=== PATIENT | female | born 1935 | race Caucasian/White ===

== ENCOUNTER 2017-08-13 06:38 | Inpatient (IN) | payer MEDICARE, OTHER ==
[2017-08-13] VITALS (9 sets, daily range): BP systolic 121–144; BP diastolic 58–75; PULSE 88–127; RESP 16–24; TEMP 98.3–99.6; O2SAT 94–99
[~2017-08-13] VITALS: Ht 154.9 cm; Wt 61.2 kg
[2017-08-13] MEDS ORDERED: PIPERACIL-TAZO 4.5 GM PREMIX 100 ML IV ONE ×2 (07:00→08:30)
[2017-08-13] MEDS ORDERED: SODIUM CHLORIDE 0.9% FLUSH 10 ML FLUSH IVF PRN (07:00)
[2017-08-13] MEDS ORDERED: RESP: ALBUTEROL 2.5 MG/IPRATROPIUM 0.5 MG NEB (SCH) INH ONE (07:00)
[2017-08-13] MEDS ORDERED: VANCOMYCIN INJ 1,000 MG in SODIUM CHLOR 0.9% 250 ML INJ 250 ML IV ONE ×2 (07:00→08:30)
--- NOTE | 2017-08-13 07:16 | PD ---
HPI Chief Complaint: Respiratory Distress Time Seen by Provider: 06:51 Travel History International Travel<30 days: No Contact w/Intl Traveler<30days: No Traveled to known affect area: No History of Present Illness HPI 81-year-old female presents to the emergency department from [facility] by EMS transport after penitentiary staff reportedly found the patient this morning in marked respiratory distress with dried vomitus about her mouth and hair and low room air O2 saturations. According to project leader report upon their arrival patient was showing evidence of respiratory distress with accessory muscle use janki-oral cyanosis dried vomitus around her mouth and in her clear and room air O2 saturations of 82%. Patient is placed on nonrebreather mask with O2 saturations only increasing to 92%. Attempt was made to place patient on CPAP but patient refused and ripped off the mask and therefore again on nonrebreather mask and presents now with O2 saturations of 96 -99%. No report of recent febrile illness. Healthcare facility did not provide paramedics reportedly with any medical history other than she only has a GCS of 14 and more recently has had a GCS of 11. No report of febrile illness. No report of injury or fall. No reported recent history of vomiting or GI illness. No other history available and patient is unable provide adequate history. PFSH Past Medical History Narrative Medical And Anemia atrial fibrillation CHF depression hypertension PEG tube renal failure; medical history from nursing facility dysphasia difficulty with ambulation dyspnea atrial fibrillation GERD gastrostomy anemia hypothyroidism vitamin deficiency dyslipidemia major depressive disorder central hypertension CHF carotid artery stenosis arteritis gastritis joint cell arteritis chronic kidney disease fever candidiasis constipation DNR; PCP: Dr Solares Anemia: Yes Atrial Fibrillation: Yes Depression: Yes (MDD) Cardiovascular Problems: Yes (OCCLUSION AND STENOSIS OF UNSPECIFIED CAROTID ARTERY) Congestive Heart Failure: Yes Gastrointestinal Disorders: Yes (GASTRITIS; GTUBE;GASTROSTOMY) GERD: Yes Hypertension: Yes Pneumonia: Yes Renal Failure: Yes Thyroid Disease: Yes Social History Alcohol Use: No Tobacco Use: No Substance Use: No Allergies-Medications (Allergen,Severity, Reaction): Coded Allergies: ciprofloxacin (Verified Allergy, Unknown, 08/13/17) morphine (Verified Allergy, Unknown, 08/13/17) Review of Systems ROS Limitations: Poor Historian Except as stated in HPI: all other systems reviewed are Neg Physical Exam Narrative GENERAL: Elderly female with supplemental oxygen and placed in no acute respiratory distress at this time SKIN: Warm and dry. HEAD: Normocephalic. EYES: No scleral icterus. No injection or drainage. NECK: Supple, trachea midline. No JVD or lymphadenopathy. CARDIOVASCULAR: Increased irregular irregular rate and rhythm without murmurs, gallops, or rubs. RESPIRATORY: Breath sounds equal bilaterally with bibasilar crackles. No accessory muscle use. GASTROINTESTINAL: Abdomen soft, non-tender, nondistended. Gastrostomy tube. MUSCULOSKELETAL: No cyanosis, or edema. BACK: Nontender without obvious deformity. No CVA tenderness. Data Data Last Documented VS Vital Signs Date Time Temp Pulse Resp B/P (MAP) Pulse Ox O2 Delivery O2 Flow Rate FiO2 08/13/17 06:45 95 Non-Rebreather 15.00 08/13/17 06:40 127 24 121/71 (88) Orders Orders Complete Blood Count With Diff (08/13/17 06:51) Comprehensive Metabolic Panel (08/13/17 06:51) B-Type Natriuretic Peptide (08/13/17 06:51) Act Partial Throm Time (Ptt) (08/13/17 06:51) Prothrombin Time / Inr (Pt) (08/13/17 06:51) Magnesium (Mg) (08/13/17 06:51) Ckmb (Isoenzyme) Profile (08/13/17 06:51) Troponin I (08/13/17 06:51) Urinalysis - C+S If Indicated (08/13/17 06:51) Blood Culture (08/13/17 06:51) Iv Access Insert/Monitor (08/13/17 06:51) Electrocardiogram (08/13/17 06:51) Ecg Monitoring (08/13/17 06:51) Oximetry (08/13/17 06:51) Oxygen Administration (08/13/17 06:51) Chest, Single Ap (08/13/17 06:51) Sodium Chloride 0.9% Flush (Ns Flush) (08/13/17 07:00) Albuterol-Ipratropium Neb (Duoneb Neb) (08/13/17 07:00) Piperacil-Tazo 4.5 Gm Premix (Zosyn 4.5 (08/13/17 07:00) Vancomycin Inj (Vancomycin Inj) (08/13/17 07:00) Labs Laboratory Tests Test 08/13/17 06:45 White Blood Count 11.3 TH/MM3 Red Blood Count 3.94 MIL/MM3 Hemoglobin 12.3 GM/DL Hematocrit 37.2 % Mean Corpuscular Volume 94.6 FL Mean Corpuscular Hemoglobin 31.3 PG Mean Corpuscular Hemoglobin Concent 33.1 % Red Cell Distribution Width 17.8 % Platelet Count 395 TH/MM3 Mean Platelet Volume 8.2 FL Neutrophils (%) (Auto) 88.1 % Lymphocytes (%) (Auto) 7.2 % Monocytes (%) (Auto) 4.1 % Eosinophils (%) (Auto) 0.1 % Basophils (%) (Auto) 0.5 % Neutrophils # (Auto) 10.0 TH/MM3 Lymphocytes # (Auto) 0.8 TH/MM3 Monocytes # (Auto) 0.5 TH/MM3 Eosinophils # (Auto) 0.0 TH/MM3 Basophils # (Auto) 0.1 TH/MM3 CBC Comment DIFF FINAL Differential Comment Prothrombin Time 10.1 SEC Prothromb Time International Ratio 1.0 RATIO Activated Partial Thromboplast Time 23.9 SEC MDM Medical Decision Making Medical Screen Exam Complete: Yes Emergency Medical Condition: Yes Medical Record Reviewed: Yes Differential Diagnosis Dyspnea, aspiration, pneumonia, CHF, PE, ACS, A. fib with RVR, sepsis, TIA, CVA Narrative Course Patient placed on cardiac rn with continuous pulse oximetry Pernell [place] administered supplemental oxygen remains in place; presumptive antibiotic coverage administered At 7:20 AM care was signed over to oncoming physician Ashly Carvajal MD Aug 13, 2017 07:15
[2017-08-13 07:20] LABS: BASOPHIL # 0.1 TH/MM3 (0-0.2); BASOPHIL % 0.5 % (0.0-2.0); EOSINOPHIL % 0.1 % (0.0-4.0); HEMATOCRIT 37.2 % (35.0-46.0); HEMOGLOBIN 12.3 GM/DL (11.6-15.3); LYMPH % 7.2 % (9.0-44.0); LYMPHOCYTE # 0.8 TH/MM3 (1.0-4.8); MEAN CELL VOLUME 94.6 FL (80.0-100.0); MEAN CORPUSCULAR HEMOGLOBIN 31.3 PG (27.0-34.0); MEAN CORPUSCULAR HGB CONC 33.1 % (32.0-36.0); MEAN PLATELET VOLUME 8.2 FL (7.0-11.0); MONO % 4.1 % (0.0-8.0); MONOCYTE # 0.5 TH/MM3 (0-0.9); NEUT % 88.1 % (16.0-70.0); PLATELET COUNT 395 TH/MM3 (150-450); RED BLOOD COUNT 3.94 MIL/MM3 (4.00-5.30); RED CELL DISTRIBUTION WIDTH 17.8 % (11.6-17.2); WHITE BLOOD COUNT 11.3 TH/MM3 (4.0-11.0)
--- NOTE | 2017-08-13 07:21 | RADRPT ---
EXAM DATE/TIME: 08/13/2017 07:05 [facility] COMPARISON: No previous studies available for comparison. INDICATIONS : Short of breath, cough. MEDICAL HISTORY : None. SURGICAL HISTORY : None. ENCOUNTER: Initial ACUITY: 1 day PAIN SCORE: 0/10 LOCATION: Bilateral chest FINDINGS: No infiltrates demonstrated. No pleural effusion or pneumothorax. Heart size within normal limits. Th oracic aorta is tortuous and atherosclerotic. CONCLUSION: No acute cardiopulmonary disease demonstrated. William Ceballos MD on August 13, 2017 at 7:18 Board Certified Radiologist. This report was verified electronically.
[2017-08-13 07:30] LABS: PROTHROMBIN TIME - PATIENT 10.1 SEC (9.8-11.6)
[2017-08-13 07:52] LABS: ALBUMIN 3.2 GM/DL (3.4-5.0); ALT (GPT) 21 U/L (10-53); AST (GOT) 23 U/L (15-37); BICARBONATE 28.2 MEQ/L (21.0-32.0); BLOOD UREA NITROGEN 29 MG/DL (7-18); CHLORIDE 103 MEQ/L (98-107); CREATININE 1.32 MG/DL (0.50-1.00); GLOMERULAR FILTRATION RATE 39 ML/MIN (>89); GLUCOSE,RANDOM 163 MG/DL (74-106); MAGNESIUM 2.1 MG/DL (1.5-2.5); SODIUM (NA) 142 MEQ/L (136-145)
[2017-08-13 07:56] LABS: ALKALINE PHOSPHATASE 77 U/L (45-117); TOTAL BILIRUBIN ADULT 0.7 MG/DL (0.2-1.0); TOTAL PROTEIN 6.8 GM/DL (6.4-8.2); TROPONIN I LESS THAN 0.02 NG/ML (0.02-0.05)
[2017-08-13 08:08] LABS: BACTERIA, URINE FEW /hpf; BILIRUBIN, URINE NEG (NEG); BLOOD, URINE NEG (NEG); GLUCOSE,URINE NEG (NEG); HYALINE CAST, URINE 1 /lpf (RARE); KETONE, URINE NEG (NEG); MUCUS URINE FEW /lpf (OCC); NITRITE,URINE POS (NEG); SQUAMOUS EPITHELIAL CELL URINE 1 /hpf (0-5); TRANSITIONAL EPI CELLS, URINE <1 /hpf; URINE COLOR YELLOW (YELLW/STRAW); URINE LEUKOCYTE ESTERASE LARGE (NEG); WHITE BLOOD CELL CLUMPS FEW
--- NOTE | 2017-08-13 08:31 | PD ---
Physical Exam Date Seen by Provider: Aug 13, 2017 Time Seen by Provider: 08:32 Narrative 81-year-old female came to the emergency room with history of vomiting, shortness of breath as she was found in distress at her group home. She has a baseline GCS of 13-14. As per the group home staff she was seen to be sitting up coughing and short of breath with dried emesis around her and satting 82% on room air. EMS was called. She was seen by the previous ER physician. Please refer to her history and physical for further details. Patient was put on high flow oxygen in the emergency room and was noticed to be in rapid A. fib. She has history of atrial fibrillation and her heart rate since then has come down to the 80s to 90s. She seems more comfortable. Sign out was to follow-up on the labs and the x-ray. Blood test results are back and patient has slight leukocytosis and lactic acidosis. UA is positive for UTI. Her chest x-ray was read negative by the radiologist. I have ordered for IV Zosyn and vancomycin as per the sepsis protocol. Patient will require to be admitted. Awaiting for the hospitalist to call back for admission. Data Data Last Documented VS Vital Signs Date Time Temp Pulse Resp B/P (MAP) Pulse Ox O2 Delivery O2 Flow Rate FiO2 08/13/17 08:43 94 21 99 Nasal Cannula 5.00 08/13/17 06:40 121/71 (88) Orders Orders Complete Blood Count With Diff (08/13/17 06:51) Comprehensive Metabolic Panel (08/13/17 06:51) B-Type Natriuretic Peptide (08/13/17 06:51) Act Partial Throm Time (Ptt) (08/13/17 06:51) Prothrombin Time / Inr (Pt) (08/13/17 06:51) Magnesium (Mg) (08/13/17 06:51) Ckmb (Isoenzyme) Profile (08/13/17 06:51) Troponin I (08/13/17 06:51) Urinalysis - C+S If Indicated (08/13/17 06:51) Blood Culture (08/13/17 06:51) Iv Access Insert/Monitor (08/13/17 06:51) Electrocardiogram (08/13/17 06:51) Ecg Monitoring (08/13/17 06:51) Oximetry (08/13/17 06:51) Oxygen Administration (08/13/17 06:51) Chest, Single Ap (08/13/17 06:51) Sodium Chloride 0.9% Flush (Ns Flush) (08/13/17 07:00) Albuterol-Ipratropium Neb (Duoneb Neb) (08/13/17 07:00) Piperacil-Tazo 4.5 Gm Premix (Zosyn 4.5 (08/13/17 07:00) Vancomycin Inj (Vancomycin Inj) (08/13/17 07:00) Lactic Acid (08/13/17 07:32) Urine Culture (08/13/17 07:10) Piperacil-Tazo 4.5 Gm Premix (Zosyn 4.5 (08/13/17 08:30) Vancomycin Inj (Vancomycin Inj) (08/13/17 08:30) Admit Order (Ed Use Only) (08/13/17 08:49) Labs Laboratory Tests Test 08/13/17 06:45 08/13/17 06:51 08/13/17 07:00 08/13/17 07:10 White Blood Count 11.3 TH/MM3 Red Blood Count 3.94 MIL/MM3 Hemoglobin 12.3 GM/DL Hematocrit 37.2 % Mean Corpuscular Volume 94.6 FL Mean Corpuscular Hemoglobin 31.3 PG Mean Corpuscular Hemoglobin Concent 33.1 % Red Cell Distribution Width 17.8 % Platelet Count 395 TH/MM3 Mean Platelet Volume 8.2 FL Neutrophils (%) (Auto) 88.1 % Lymphocytes (%) (Auto) 7.2 % Monocytes (%) (Auto) 4.1 % Eosinophils (%) (Auto) 0.1 % Basophils (%) (Auto) 0.5 % Neutrophils # (Auto) 10.0 TH/MM3 Lymphocytes # (Auto) 0.8 TH/MM3 Monocytes # (Auto) 0.5 TH/MM3 Eosinophils # (Auto) 0.0 TH/MM3 Basophils # (Auto) 0.1 TH/MM3 CBC Comment DIFF FINAL Differential Comment Prothrombin Time 10.1 SEC Prothromb Time International Ratio 1.0 RATIO Activated Partial Thromboplast Time 23.9 SEC B-Type Natriuretic Peptide 56 PG/ML Blood Urea Nitrogen 29 MG/DL Creatinine 1.32 MG/DL Random Glucose 163 MG/DL Total Protein 6.8 GM/DL Albumin 3.2 GM/DL Calcium Level 9.0 MG/DL Magnesium Level 2.1 MG/DL Alkaline Phosphatase 77 U/L Aspartate Amino Transf (AST/SGOT) 23 U/L Alanine Aminotransferase (ALT/SGPT) 21 U/L Total Bilirubin 0.7 MG/DL Sodium Level 142 MEQ/L Potassium Level 5.1 MEQ/L Chloride Level 103 MEQ/L Carbon Dioxide Level 28.2 MEQ/L Anion Gap 11 MEQ/L Estimat Glomerular Filtration Rate 39 ML/MIN Total Creatine Kinase 57 U/L Troponin I LESS THAN 0.02 NG/ML Lactic Acid Level 3.4 mmol/L Urine Color YELLOW Urine Turbidity HAZY Urine pH 5.0 Urine Specific [place] 1.013 Urine Protein NEG mg/dL Urine Glucose (UA) NEG mg/dL Urine Ketones NEG mg/dL Urine Occult Blood NEG Urine Nitrite POS Urine Bilirubin NEG Urine Urobilinogen LESS THAN 2.0 MG/DL Urine Leukocyte Esterase LARGE Urine RBC 3 /hpf Urine WBC 23 /hpf Urine WBC Clumps FEW Urine Squamous Epithelial Cells 1 /hpf Urine Transitional Epithelial Cells <1 /hpf Urine Bacteria FEW /hpf Urine Hyaline Casts 1 /lpf Urine Mucus FEW /lpf Microscopic Urinalysis Comment CATH-CULTURE IND MDM Supervised Visit with ADEN: No Critical Care Narrative Aggregate critical care time was 30 minutes. Time to perform other separately billable procedures was not included in the critical care time. My time did not include minutes spent treating any other patients simultaneously or on activities that did not directly contribute to the patient's treatment. The services I provided to this patient were to treat and/or prevent clinically significant deterioration that could result in: Respiratory distress, hypoxia, sepsis I provided critical care services requiring my management, as noted below: Chart data review, documentation time, medication orders and management, vital sign assessments/reviewing monitor data, ordering and reviewing lab tests, ordering and interpreting/reviewing x-rays and diagnostic studies, care of the patient and discussion of the patient with the admitting physicians. Diagnosis Primary Impression: Respiratory distress Additional Impressions: Hypoxia Sepsis Qualified Codes: A41.9 - Sepsis, unspecified organism UTI (urinary tract infection) Qualified Codes: N39.0 - Urinary tract infection, site not specified possible aspiration pneumonia Admitting Information Admitting Physician Requests: Miranda Rodas MD Aug 13, 2017 08:31
[2017-08-13 10:03] LABS: LACTIC ACID SEPSIS PROTOCOL 2.6 mmol/L (0.4-2.0)
[2017-08-13] MEDS ORDERED: MAGNESIUM HYDROXIDE SUSP 30 ML CUP PO PRN (10:15)
[2017-08-13] MEDS ORDERED: ACETAMINOPHEN 325 MG TAB PO PRN (10:15)
[2017-08-13] MEDS ORDERED: SENNOSIDES 8.6 MG TAB PO PRN (10:15)
[2017-08-13] MEDS ORDERED: BISACODYL 10 MG SUPP RECTAL PRN (10:15)
[2017-08-13] MEDS ORDERED: LACTULOSE SYRUP 20 GM/30 ML CUP PO PRN (10:15)
[2017-08-13] MEDS ORDERED: NALOXONE HCL 0.4 MG/ML AMP IV PUSH PRN (10:15)
--- NOTE | 2017-08-13 10:23 | HHI.HP ---
History of Present Illness Service [facility] practice Primary Care Physician Lio Solares, DO Admission Diagnosis sepsis, hypoxia, respiratory distress, possible aspiration pneumonia Diagnoses: (1) Sepsis Diagnosis: Principal (2) UTI (urinary tract infection) Diagnosis: Principal (3) Hypoxia History of Present Illness 81 y/o female Presented Evac from [facility], found in respratory distress with room air o2 saturation 82% Patient is placed on nonrebreather mask with O2 saturations only increasing to 92% She did refuse CPAP.. She was recently treated for PNA. It is reported that She had dried vomit around mouth, per son she had been vomiting undigested food after dinner. Recently started on PO foods, 1week prior , does have feeding tube in place. Review of Systems Respiratory: COMPLAINS OF: Shortness of breath Cardiovascular: COMPLAINS OF: Palpitations Gastrointestinal: COMPLAINS OF: Difficulty Swallowing Musculoskeletal: COMPLAINS OF: Joint pain Neurologic: COMPLAINS OF: Abnormal gait Past Family Social History Allergies: Coded Allergies: ciprofloxacin (Verified Allergy, Unknown, 08/13/17) morphine (Verified Allergy, Unknown, 08/13/17) Past Medical History Afib, CHF, HTN, Hypothyroid, PNA, cardiac stenosis Physical Exam Vital Signs Vital Signs Date Time Temp Pulse Resp B/P (MAP) Pulse Ox O2 Delivery O2 Flow Rate FiO2 08/13/17 08:43 94 21 99 Nasal Cannula 5.00 08/13/17 08:42 99 Nasal Cannula 5.00 08/13/17 08:42 21 99 Nasal Cannula 5.00 08/13/17 06:45 95 Non-Rebreather 15.00 08/13/17 06:40 127 24 121/71 (88) 95 Physical Exam GENERAL: Frail, elderly. SKIN: No rashes, warm and dry. HEAD: Atraumatic. Normocephalic. No temporal or scalp tenderness. EYES: Pupils equal round and reactive. No injection or drainage. ENT: Nose without bleeding, purulent drainage or septal hematoma. Throat without erythema, tonsillar hypertrophy or exudate. Uvula midline. Airway patent. NECK: Trachea midline. No JVD or lymphadenopathy. Supple, nontender, no meningeal signs. CARDIOVASCULAR: S1, S2 without murmurs, gallops, or rubs. RESPIRATORY: Clear to auscultation. Breath sounds equal bilaterally. No wheezes , rales, or rhonchi. GASTROINTESTINAL: Abdomen soft, non-tender, nondistended.feeding tube in place MUSCULOSKELETAL: Extremities without clubbing, cyanosis, or edema. No joint tenderness, effusion, or edema noted. No calf tenderness. Negative Homans sign bilaterally. NEUROLOGICAL: Awake and alert. not to conversive, follows commands Laboratory Laboratory Tests Test 08/13/17 06:45 08/13/17 06:51 08/13/17 07:00 08/13/17 07:10 White Blood Count 11.3 Red Blood Count 3.94 Hemoglobin 12.3 Hematocrit 37.2 Mean Corpuscular Volume 94.6 Mean Corpuscular Hemoglobin 31.3 Mean Corpuscular Hemoglobin Concent 33.1 Red Cell Distribution Width 17.8 Platelet Count 395 Mean Platelet Volume 8.2 Neutrophils (%) (Auto) 88.1 Lymphocytes (%) (Auto) 7.2 Monocytes (%) (Auto) 4.1 Eosinophils (%) (Auto) 0.1 Basophils (%) (Auto) 0.5 Neutrophils # (Auto) 10.0 Lymphocytes # (Auto) 0.8 Monocytes # (Auto) 0.5 Eosinophils # (Auto) 0.0 Basophils # (Auto) 0.1 CBC Comment DIFF FINAL Differential Comment Prothrombin Time 10.1 Prothromb Time International Ratio 1.0 Activated Partial Thromboplast Time 23.9 B-Type Natriuretic Peptide 56 Blood Urea Nitrogen 29 Creatinine 1.32 Random Glucose 163 Total Protein 6.8 Albumin 3.2 Calcium Level 9.0 Magnesium Level 2.1 Alkaline Phosphatase 77 Aspartate Amino Transf (AST/SGOT) 23 Alanine Aminotransferase (ALT/SGPT) 21 Total Bilirubin 0.7 Sodium Level 142 Potassium Level 5.1 Chloride Level 103 Carbon Dioxide Level 28.2 Anion Gap 11 Estimat Glomerular Filtration Rate 39 Total Creatine Kinase 57 Troponin I LESS THAN 0.02 Lactic Acid Level 3.4 Urine Color YELLOW Urine Turbidity HAZY Urine pH 5.0 Urine Specific [place] 1.013 Urine Protein NEG Urine Glucose (UA) NEG Urine Ketones NEG Urine Occult Blood NEG Urine Nitrite POS Urine Bilirubin NEG Urine Urobilinogen LESS THAN 2.0 Urine Leukocyte Esterase LARGE Urine RBC 3 Urine WBC 23 Urine WBC Clumps FEW Urine Squamous Epithelial Cells 1 Urine Transitional Epithelial Cells <1 Urine Bacteria FEW Urine Hyaline Casts 1 Urine Mucus FEW Microscopic Urinalysis Comment CATH-CULTURE IND Test 08/13/17 09:20 Lactic Acid Level 2.6 Date/Time Source Procedure Growth Status 08/13/17 06:51 Blood Peripheral Aerobic Blood Culture Pending Received 08/13/17 06:51 Blood Peripheral Anaerobic Blood Culture Pending Received 08/13/17 07:10 Urine Catheterized Urine Urine Culture Pending Received Result Diagram: 08/13/1745 08/13/17650 Imaging Last 24 hours Impressions Chest X-Ray 08/13/17650 Signed Impressions: Service Date/Time: Sunday, August 13, 2017 07:05 - CONCLUSION: No acute cardiopulmonary disease demonstrated. MD Angi Cabrera VTE Risk Assessment Capsiva VTE Risk Assessment: Mod/High Risk (score >= 2) VTE Pharm Contraindication: Documented (currently on Eliquis ) Caprini Risk Assessment Model Point Value = 1 Point Value = 2 Point Value = 3 Point Value = 5 Age 41-60 Minor surgery BMI > 25 kg/m2 Swollen legs Varicose veins or History of unexplained or recurrent spontaneous Oral contraceptives or hormone replacement Sepsis (< 1 month) Serious lung disease, including pneumonia (< 1 month) Abnormal pulmonary function Acute myocardial infarction Congestive heart failure (< 1 month) History of inflammatory bowel disease Medical patient at bed rest Age 61-74 Arthroscopic surgery Major open surgery (> 45 min) Laparoscopic surgery (> 45 min) Malignancy Confined to bed (> 72 hours) Immobilizing plaster cast Central venous access Age >= 75 History of VTE Family history of VTE Factor V Leiden Prothrombin [id number] Lupus anticoagulant Anticardiolipin antibodies Elevated serum homocysteine Heparin-induced thrombocytopenia Other congenital or acquired thrombophilia Stroke (< 1 month) Elective arthroplasty Hip, pelvis, or leg fracture Acute spinal cord injury (< 1 month) Prophylaxis Regimen Total Risk Factor Score Risk Level Prophylaxis Regimen 0-1 Low Early ambulation 2 Moderate Order ONE of the following: *Sequential Compression Device (SCD) *Heparin 5000 units SQ BID 3-4 Higher Order ONE of the following medications: *Heparin 5000 units SQ TID *Enoxaparin/Lovenox 40 mg SQ daily (WT < 150 kg, CrCl > 30 mL/min) *Enoxaparin/Lovenox 30 mg SQ daily (WT < 150 kg, CrCl > 10-29 mL/min) *Enoxaparin/Lovenox 30 mg SQ BID (WT < 150 kg, CrCl > 30 mL/min) AND/OR *Sequential Compression Device (SCD) 5 or more Highest Order ONE of the following medications: *Heparin 5000 units SQ TID (Preferred with Epidurals) *Enoxaparin/Lovenox 40 mg SQ daily (WT < 150 kg, CrCl > 30 mL/min) *Enoxaparin/Lovenox 30 mg SQ daily (WT < 150 kg, CrCl > 10-29 mL/min) *Enoxaparin/Lovenox 30 mg SQ BID (WT < 150 kg, CrCl > 30 mL/min) AND *Sequential Compression Device (SCD) Assessment and Plan Problem List: (1) Sepsis ICD Codes: A41.9 - Sepsis, unspecified organism Status: Acute Plan: Lactic Acid 3.4 Lkikely related to urine, ID consulted, given Zosyn and Vanco in ER. (2) Hypoxia ICD Codes: R09.02 - Hypoxemia Status: Acute Plan: Keep sat's above 92>, Duo Nebs Cxr negative (3) HTN (hypertension) ICD Codes: I10 - Essential (primary) hypertension Plan: Monitor B/P, restart B/P meds, Amlodipine, Will hold ketan for now r/t renal functions Problem Qualifiers (1) Sepsis: Qualified Codes: A41.9 - Sepsis, unspecified organism (2) UTI (urinary tract infection): Qualified Codes: N39.0 - Urinary tract infection, site not specified Aranza Fine Aug 13, 2017 10:22
[2017-08-13] MEDS ORDERED: ALBU.5I NEB (11:43)
[2017-08-13] MEDS ORDERED: ENAL5TAB98 PO (11:43)
[2017-08-13] MEDS ORDERED: PRED5TAB PO (11:43)
[2017-08-13] MEDS ORDERED: CITRSOL4 PO (11:43)
[2017-08-13] MEDS ORDERED: LEVO50TA4 PO (11:43)
[2017-08-13] MEDS ORDERED: MILKSUS PO (11:43)
[2017-08-13] MEDS ORDERED: DULC10SU3 RECTAL (11:43)
[2017-08-13] MEDS ORDERED: CHOL10008 (11:43)
[2017-08-13] MEDS ORDERED: LOTR15T TOPICAL (11:43)
[2017-08-13] MEDS ORDERED: AMLO10TA2 PO (11:43)
[2017-08-13] MEDS ORDERED: PROP150T PO (11:43)
[2017-08-13] MEDS ORDERED: FURO1TAB62 PO (11:43)
[2017-08-13] MEDS ORDERED: TYLE325T PO (11:43)
[2017-08-13] MEDS ORDERED: TRAM50TA PO (11:43)
[2017-08-13] MEDS ORDERED: FERR324T PO (11:43)
[2017-08-13] MEDS ORDERED: ATOR40TA16 PO (11:43)
[2017-08-13] MEDS ORDERED: CYAN100025 SL (11:43)
[2017-08-13] MEDS ORDERED: APIX2.5T PO (11:43)
[2017-08-13] MEDS ORDERED: ENOXAPARIN SODIUM 40 MG/0.4 ML SYRINGE SQ SCH (12:00)
[2017-08-13] MEDS: SODIUM CHLOR 0.9% 1000 ML INJ 1,000 ML IV SCH ×2 (12:13→20:13)
--- NOTE | 2017-08-13 16:03 | PD.CONS ---
HPI Service Nephrology Consult Requested By Dr. Solares Reason for Consult REESE on CKD Primary Care Physician Lio Solares, DO History of Present Illness Patient is a 81-year-old female presents to the emergency department from [facility] by EMS transport for marked respiratory distress. According to coverstitch binder report upon their arrival patient was showing evidence of respiratory distress with accessory muscle use merari-oral cyanosis dried vomitus around her mouth and in her clear and room air O2 saturations of 82%. Patient is placed on nonrebreather mask with O2 saturations only increasing to 92%. She is on 4 liters via nasal cannula now with good sats. Patient is found to have a abdormal UA. Chest xray with no acute cardiopulmonary disease demonstrated. Patient also noted to have elevated creatinine at 1.32 and GFR of 39 ml/min. Past medical history of Afib, CHF, HTN, Hypothyroid, PNA, cardiac stenosis, and CVA. She is currently on oral diet but does have PEG tube. (Majo Hanley) Review of Systems Constitutional: COMPLAINS OF: Fatigue Respiratory: COMPLAINS OF: Shortness of breath Cardiovascular: DENIES: Chest pain, Lower Extremity Edema Gastrointestinal: COMPLAINS OF: Vomiting, DENIES: Abdominal pain (Majo Hanley) Past Family Social History Allergies: Coded Allergies: ciprofloxacin (Verified Allergy, Unknown, 08/13/17) morphine (Verified Allergy, Unknown, 08/13/17) Past Medical History Afib, CHF, HTN, Hypothyroid, PNA, cardiac stenosis, CVA, temporal arteritis, gastritis, CKD Active Ordered Medications Current Medications Medications (Trade) Dose Ordered Sig/Ashlee Route Start Time Stop Time Status Last Admin (NS Flush) 2 ml UNSCH PRN IVF 08/13/17 07:00 Sodium Chloride 1,000 ml @ 100 mls/hr Q10H IV 08/13/17 10:13 08/13/17 12:13 (Tylenol) 650 mg Q4H PRN PO 08/13/17 10:15 (Zofran Inj) 4 mg Q6H PRN IVP 08/13/17 10:15 (Lovenox Inj) 40 mg Q24H SQ 08/13/17 12:00 08/13/17 12:13 (Narcan Inj) 0.4 mg UNSCH PRN IV PUSH 08/13/17 10:15 (Merari-Colace) 1 tab BID PO 08/13/17 21:00 (Milk Of Magnesia Liq) 30 ml Q12H PRN PO 08/13/17 10:15 (Senokot) 17.2 mg Q12H PRN PO 08/13/17 10:15 (Dulcolax Supp) 10 mg DAILY PRN RECTAL 08/13/17 10:15 (Lactulose Liq) 30 ml DAILY PRN PO 08/13/17 10:15 Social History Does not smoke or use ETOH [facility] (Majo Hanley) Physical Exam Vital Signs Vital Signs Date Time Temp Pulse Resp B/P (MAP) Pulse Ox O2 Delivery O2 Flow Rate FiO2 08/13/17 14:00 100 19 125/60 (81) 95 Nasal Cannula 4.00 08/13/17 11:00 98 19 121/58 (79) 96 Nasal Cannula 4.00 08/13/17 08:43 94 21 99 Nasal Cannula 5.00 08/13/17 08:42 99 Nasal Cannula 5.00 08/13/17 08:42 21 99 Nasal Cannula 5.00 08/13/17 08:00 100 Non-Rebreather 15.00 08/13/17 06:45 95 Non-Rebreather 15.00 08/13/17 06:40 127 24 121/71 (88) 95 Physical Exam GENERAL: Elderly female with supplemental oxygen and placed in no acute respiratory distress at this time SKIN: Warm and dry. HEAD: Normocephalic. EYES: No scleral icterus. No injection or drainage. NECK: Supple, trachea midline. No JVD or lymphadenopathy. CARDIOVASCULAR: Increased irregular irregular rate and rhythm without murmurs, gallops, or rubs. RESPIRATORY: Breath sounds equal bilaterally with bibasilar crackles. No accessory muscle use. GASTROINTESTINAL: Abdomen soft, non-tender, nondistended. Gastrostomy tube. MUSCULOSKELETAL: No cyanosis, or edema. BACK: Nontender without obvious deformity. No CVA tenderness. Laboratory Laboratory Tests Test 08/13/17 06:45 08/13/17 06:51 08/13/17 07:00 08/13/17 07:10 White Blood Count 11.3 Red Blood Count 3.94 Hemoglobin 12.3 Hematocrit 37.2 Mean Corpuscular Volume 94.6 Mean Corpuscular Hemoglobin 31.3 Mean Corpuscular Hemoglobin Concent 33.1 Red Cell Distribution Width 17.8 Platelet Count 395 Mean Platelet Volume 8.2 Neutrophils (%) (Auto) 88.1 Lymphocytes (%) (Auto) 7.2 Monocytes (%) (Auto) 4.1 Eosinophils (%) (Auto) 0.1 Basophils (%) (Auto) 0.5 Neutrophils # (Auto) 10.0 Lymphocytes # (Auto) 0.8 Monocytes # (Auto) 0.5 Eosinophils # (Auto) 0.0 Basophils # (Auto) 0.1 CBC Comment DIFF FINAL Differential Comment Prothrombin Time 10.1 Prothromb Time International Ratio 1.0 Activated Partial Thromboplast Time 23.9 B-Type Natriuretic Peptide 56 Blood Urea Nitrogen 29 Creatinine 1.32 Random Glucose 163 Total Protein 6.8 Albumin 3.2 Calcium Level 9.0 Magnesium Level 2.1 Alkaline Phosphatase 77 Aspartate Amino Transf (AST/SGOT) 23 Alanine Aminotransferase (ALT/SGPT) 21 Total Bilirubin 0.7 Sodium Level 142 Potassium Level 5.1 Chloride Level 103 Carbon Dioxide Level 28.2 Anion Gap 11 Estimat Glomerular Filtration Rate 39 Total Creatine Kinase 57 Troponin I LESS THAN 0.02 Lactic Acid Level 3.4 Urine Color YELLOW Urine Turbidity HAZY Urine pH 5.0 Urine Specific [place] 1.013 Urine Protein NEG Urine Glucose (UA) NEG Urine Ketones NEG Urine Occult Blood NEG Urine Nitrite POS Urine Bilirubin NEG Urine Urobilinogen LESS THAN 2.0 Urine Leukocyte Esterase LARGE Urine RBC 3 Urine WBC 23 Urine WBC Clumps FEW Urine Squamous Epithelial Cells 1 Urine Transitional Epithelial Cells <1 Urine Bacteria FEW Urine Hyaline Casts 1 Urine Mucus FEW Microscopic Urinalysis Comment CATH-CULTURE IND Test 08/13/17 09:20 08/13/17 12:29 Lactic Acid Level 2.6 1.6 Date/Time Source Procedure Growth Status 08/13/17 06:51 Blood Peripheral Aerobic Blood Culture Pending Received 08/13/17 06:51 Blood Peripheral Anaerobic Blood Culture Pending Received 08/13/17 07:10 Urine Catheterized Urine Urine Culture Pending Received (Majo Hanley) Result Diagram: 08/13/1745 08/13/17650 Imaging Last Impressions Chest X-Ray 08/13/1751 Signed Impressions: Service Date/Time: Sunday, August 13, 2017 07:05 - CONCLUSION: No acute cardiopulmonary disease demonstrated. William Ceblalos MD (Majo Hanley) Assessment and Plan Problem List: (1) REESE (acute kidney injury) ICD Codes: N17.9 - Acute kidney failure, unspecified Plan: REESE on CKD most likely prerenal from poor PO intake with dysphagia and UTI Patient with CKD from possibly HTN or renovascular disease. Baseline GFR not available UA negative for proteinuria. Plan Continue to give IVF Continue to hold lasix and monitor for fluid overload HTN well controlled not on any blood pressure medication currently. Renal US Monitor I+ O Avoid nephrotoxins Renal panel, magnesium, phosphorus in AM. (2) HTN (hypertension) ICD Codes: I10 - Essential (primary) hypertension Plan: Well controlled not on blood pressure medication. At facility normally takes amlodipine and vasotec. (Majo Hanley) Problem List: (1) REESE (acute kidney injury) ICD Codes: N17.9 - Acute kidney failure, unspecified Plan: REESE on CKD most likely prerenal from poor PO intake with dysphagia and UTI Patient with CKD from possibly HTN or renovascular disease. Baseline GFR not available UA negative for proteinuria. Plan Continue to give IVF Continue to hold lasix and monitor for fluid overload HTN well controlled not on any blood pressure medication currently. Renal US Monitor I+ O Avoid nephrotoxins Renal panel, magnesium, phosphorus in AM. Patient seen and examined, agree with above. Most likely pre-renal, continue IVF. (2) HTN (hypertension) ICD Codes: I10 - Essential (primary) hypertension Plan: Well controlled not on blood pressure medication. At facility normally takes amlodipine and vasotec. (Roselia Jorge MD) Problem Qualifiers (1) HTN (hypertension): Qualified Codes: I10 - Essential (primary) hypertension Majo Hanley Aug 13, 2017 16:03 Roselia Jorge MD Aug 13, 2017 17:50
--- NOTE | 2017-08-13 19:12 | PD.ID.CON ---
History of Present Illness Service ID Consult Requested By service Reason for Consult Evaluation and Mment of Sepsis. Primary Care Physician Lio Solares, DO Diagnoses: History of Present Illness Most of the history was obtained by review of [facility] medical records. Ms. Hernandez is an 81-year-old female who presents to the emergency department at [facility] from [facility] by EMS transport for marked respiratory distress. According to the pensionholder information clerk report upon their arrival patient was in respiratory distress. Patient was reportedly using accessory muscles and there was some perioral cyanosis. Reportedly there was some dried vomitus around her mouth and her O2 saturations were 82%. Patient was placed on nonrebreather with oxygen saturations including to 92%. Subsequently patient's respiratory status improved. Her past medical history of Afib, CHF, HTN, Hypothyroid, PNA, cardiac stenosis, and CVA. She is currently on oral diet but does have PEG tube. Infectious disease is consulted for evaluation of severe sepsis. Review of Systems ROS Limitations: Clinical Condition, Altered Mental Status Past Family Social History Allergies: Coded Allergies: ciprofloxacin (Verified Allergy, Unknown, 08/13/17) morphine (Verified Allergy, Unknown, 08/13/17) Past Medical History Afib, CHF, HTN, Hypothyroid, PNA, cardiac stenosis, CVA, temporal arteritis, gastritis, CKD Past Surgical History PEG tube placement. Reported Medications Reported Meds & Active Scripts Active Reported Vasotec (Enalapril Maleate) 5 Mg Tab 5 Mg PO BID Tramadol (Tramadol HCl) 50 Mg Tab 50 Mg PO Q4H PRN Propafenone (Propafenone HCl) 150 Mg Tab 150 Mg PO BID Prednisone 5 Mg Tab 5 Mg PO DAILY Milk of Magnesia Liq (Magnesium Hydroxide) 400 Mg/5 Ml Susp 30 Ml PO ONCE Lotrisone Topical (Betamethasone/Clotrimazole) 1-0.05% Cream 1 Applic TOPICAL BID Levothyroxine (Levothyroxine Sodium) 50 Mcg Tab 50 Mcg PO DAILY Lasix (Furosemide) 20 Mg Tab 20 Mg PO DAILY Ferrous Gluconate 324 Mg (38 Mg Iron) Tab PO DAILY Dulcolax Supp (Bisacodyl) 10 Mg Supp 10 Mg RECTAL DAILY PRN B-12 (Cyanocobalamin) 1,000 Mcg Subl 250 Mcg SL DAILY Citroma Liq (Magnesium Citrate) 300 Ml Liq 300 Ml PO DIRECTED Vitamin D3 (Cholecalciferol) 1,000 Unit Cap 1,000 Units DAILY Atorvastatin (Atorvastatin Calcium) 40 Mg Tab 40 Mg PO HS Eliquis (Apixaban) 2.5 Mg Tab 2.5 Mg PO BID Amlodipine (Amlodipine Besylate) 10 Mg Tab 10 Mg PO DAILY Albuterol Neb (Albuterol Sulfate) 2.5 Mg/0.5 Ml Neb 2.5 Mg NEB Q6HR NEB Note: The Albuterol Sulfate Inhalation Solution is concentrated and must be diluted. Read complete instructions carefully before using. Tylenol (Acetaminophen) 325 Mg Tab 650 Mg PO Q4H PRN Tylenol (Acetaminophen) 325 Mg Tab 650 Mg PO Q4H PRN Active Ordered Medications Current Medications Medications (Trade) Dose Ordered Sig/Ashlee Route Start Time Stop Time Status Last Admin (NS Flush) 2 ml UNSCH PRN IVF 08/13/17 07:00 Sodium Chloride 1,000 ml @ 100 mls/hr Q10H IV 08/13/17 10:13 08/13/17 12:13 (Tylenol) 650 mg Q4H PRN PO 08/13/17 10:15 (Zofran Inj) 4 mg Q6H PRN IVP 08/13/17 10:15 (Narcan Inj) 0.4 mg UNSCH PRN IV PUSH 08/13/17 10:15 (Merari-Colace) 1 tab BID PO 08/13/17 21:00 (Milk Of Magnesia Liq) 30 ml Q12H PRN PO 08/13/17 10:15 (Senokot) 17.2 mg Q12H PRN PO 08/13/17 10:15 (Dulcolax Supp) 10 mg DAILY PRN RECTAL 08/13/17 10:15 (Lactulose Liq) 30 ml DAILY PRN PO 08/13/17 10:15 (Albuterol Neb) 2.5 mg Q6HR NEB INH 08/13/17 22:00 (Norvasc) 10 mg DAILY PO 08/14/17 09:00 (Synthroid) 50 mcg DAILY@0600 PO 08/14/17 06:00 (Deltasone) 5 mg DAILY PO 08/14/17 09:00 (Rythmol) 150 mg BID PO 08/13/17 21:00 (Eliquis) 2.5 mg BID PO 08/13/17 21:00 Family History could not be obtained. Social History lives in [facility]. rest could not be obtained. Physical Exam Vital Signs Vital Signs Date Time Temp Pulse Resp B/P (MAP) Pulse Ox O2 Delivery O2 Flow Rate FiO2 08/13/17 16:37 08/13/17 14:00 100 19 125/60 (81) 95 Nasal Cannula 4.00 08/13/17 11:00 98 19 121/58 (79) 96 Nasal Cannula 4.00 08/13/17 08:43 94 21 99 Nasal Cannula 5.00 08/13/17 08:42 99 Nasal Cannula 5.00 08/13/17 08:42 21 99 Nasal Cannula 5.00 08/13/17 08:00 100 Non-Rebreather 15.00 08/13/17 06:45 95 Non-Rebreather 15.00 08/13/17 06:40 127 24 121/71 (88) 95 Physical Exam GENERAL: This is a well-nourished, well-developed patient, in no apparent distress. SKIN: Bruising noted on Bilateral LE. Large area of ecchymosis below the left knee. No e/o infection HEAD: Atraumatic. Normocephalic. No temporal or scalp tenderness. EYES: Pupils equal round and reactive. Extraocular motions intact. No scleral icterus. No injection or drainage. ENT: Nose without bleeding, purulent drainage or septal hematoma. Throat without erythema, tonsillar hypertrophy or exudate. Uvula midline. Airway patent. NECK: Trachea midline. Supple, nontender, no meningeal signs. CARDIOVASCULAR: HS audible. RESPIRATORY: Clear to auscultation. Breath sounds equal bilaterally. No wheezes , rales, or rhonchi. GASTROINTESTINAL: Abdomen soft, non-tender, nondistended. MUSCULOSKELETAL: Extremities without clubbing, cyanosis, or edema. NEUROLOGICAL: Awake and alert. Mumbles. Answers questions appropriately. Psych cooperative IV line sites with no e.o infection. Laboratory Laboratory Tests Test 08/13/17 06:45 08/13/17 06:51 08/13/17 07:00 08/13/17 07:10 White Blood Count 11.3 Red Blood Count 3.94 Hemoglobin 12.3 Hematocrit 37.2 Mean Corpuscular Volume 94.6 Mean Corpuscular Hemoglobin 31.3 Mean Corpuscular Hemoglobin Concent 33.1 Red Cell Distribution Width 17.8 Platelet Count 395 Mean Platelet Volume 8.2 Neutrophils (%) (Auto) 88.1 Lymphocytes (%) (Auto) 7.2 Monocytes (%) (Auto) 4.1 Eosinophils (%) (Auto) 0.1 Basophils (%) (Auto) 0.5 Neutrophils # (Auto) 10.0 Lymphocytes # (Auto) 0.8 Monocytes # (Auto) 0.5 Eosinophils # (Auto) 0.0 Basophils # (Auto) 0.1 CBC Comment DIFF FINAL Differential Comment Prothrombin Time 10.1 Prothromb Time International Ratio 1.0 Activated Partial Thromboplast Time 23.9 B-Type Natriuretic Peptide 56 Blood Urea Nitrogen 29 Creatinine 1.32 Random Glucose 163 Total Protein 6.8 Albumin 3.2 Calcium Level 9.0 Magnesium Level 2.1 Alkaline Phosphatase 77 Aspartate Amino Transf (AST/SGOT) 23 Alanine Aminotransferase (ALT/SGPT) 21 Total Bilirubin 0.7 Sodium Level 142 Potassium Level 5.1 Chloride Level 103 Carbon Dioxide Level 28.2 Anion Gap 11 Estimat Glomerular Filtration Rate 39 Total Creatine Kinase 57 Troponin I LESS THAN 0.02 Lactic Acid Level 3.4 Urine Color YELLOW Urine Turbidity HAZY Urine pH 5.0 Urine Specific [place] 1.013 Urine Protein NEG Urine Glucose (UA) NEG Urine Ketones NEG Urine Occult Blood NEG Urine Nitrite POS Urine Bilirubin NEG Urine Urobilinogen LESS THAN 2.0 Urine Leukocyte Esterase LARGE Urine RBC 3 Urine WBC 23 Urine WBC Clumps FEW Urine Squamous Epithelial Cells 1 Urine Transitional Epithelial Cells <1 Urine Bacteria FEW Urine Hyaline Casts 1 Urine Mucus FEW Microscopic Urinalysis Comment CATH-CULTURE IND Test 08/13/17 09:20 08/13/17 12:29 Lactic Acid Level 2.6 1.6 Date/Time Source Procedure Growth Status 08/13/17 06:51 Blood Peripheral Aerobic Blood Culture Pending Received 08/13/17 06:51 Blood Peripheral Anaerobic Blood Culture Pending Received 08/13/17 07:10 Urine Catheterized Urine Urine Culture Pending Received Result Diagram: 08/13/17 0645 08/13/1751 Imaging Last Impressions Chest X-Ray 08/13/1751 Signed Impressions: Service Date/Time: Sunday, August 13, 2017 07:05 - CONCLUSION: No acute cardiopulmonary disease demonstrated. William Ceballos MD Assessment and Plan Assessment and Plan Possible severe sepsis on admission(leukocytosis, tachycardia, lactic acid 3.4) History of aspiration prior to arrival at the [facility] facility possible aspiration pneumonitis PEG tube placement currently on some form of soft diet Acute metabolic encephalopathy: sepsis, metabolic. Acute renal failure: sepsis, prerenal. Afib, Hypothyroidism CVA CKD Recs: Start Ceftriaxone IV Asked devulcanizer charger to get temps documented in chart. Follow cultures Follow clinically. Lisandra Arcos MD Aug 13, 2017 19:12
[2017-08-13] MEDS: RESP: ALBUTEROL 2.5 MG/3 ML NEB (SCH) INH (19:44)
--- NOTE | 2017-08-13 21:08 | RADRPT ---
EXAM DATE/TIME: 08/13/2017 20:19 [place] COMPARISON: No previous studies available for comparison. INDICATIONS : Increased BUN and Creatinine. MEDICAL HISTORY : Thyroid disease. Cardiac disorder. CHF. Afib. HTN. Gastritis. GERD. Renal failure. SURGICAL HISTORY : Gtube. Gastrostomy. ENCOUNTER: Initial ACUITY: 1 day PAIN SCORE: 0/10 LOCATION: Bilateral flank MEASUREMENTS: RIGHT KIDNEY: 7.6 x 4.0 x 4.0 cm LEFT KIDNEY: 7.9 x 3.5 x 4.7 cm FINDINGS: There is a questionable solid mass within the mid pole of the left kidney measuring 3.3 x 1.9 x 2.[address] Cont[address] enhanced [address] of the abdomen may be helpful for further characterization of this questionab le lesion if clinically indicated. There is a 5 mm calcified nonobstructing mid pole left renal calcu chris. No hydronephrosis is noted. Both kidneys are small in size. No focal mass, stone or hydronephros is is noted on the right. The urinary bladder is nondistended and its evaluation is limited. CONCLUSION: 1. Questionable solid mass within the mid pole of the left kidney measuring 3.3 x 1.9 x 2.2 cm. Contr ast enhanced CT of the abdomen may be helpful for further characterization of this questionable lesio n if clinical indicated. 2. 5 mm calcified nonobstructing mid pole left renal calculus. 3. Small bilateral kidneys. Kyler Irizarry MD on August 13, 2017 at 21:02 Board Certified Radiologist. This report was verified electronically.
[2017-08-13] MEDS: DOCUSATE SODIUM 50 MG/SENNA 8.6 MG TAB PO SCH (21:41)
[2017-08-13] MEDS: traMADol HCL 50 MG TAB PO PRN (21:42)
[2017-08-13] MEDS: PROPAFENONE HCL 150 MG TAB PO SCH (21:42)
[2017-08-13] MEDS: APIXABAN 2.5 MG TABLET PO SCH (21:42)
[2017-08-13] MEDS: cefTRIAXone INJ 2,000 MG in SODIUM CHLORIDE 0.9% INJ 100 ML IV SCH (21:42)
[2017-08-14] VITALS (11 sets, daily range): BP systolic 127–175; BP diastolic 65–89; PULSE 88–114; RESP 18–21; TEMP 98.1–100; O2SAT 90–98
--- NOTE | 2017-08-14 00:30 | EKG ---
Date Performed: 08/13/2017 Time Performed: 06:42:09 PTAGE: 81 years EKG: ATRIAL FIBRILLATION WITH RAPID VENTRICULAR RESPONSE INCOMPLETE RIGHT BUNDLE BRANCH BLOCK MO DERATE ST DEPRESSION ABNORMAL ECG NO PREVIOUS TRACING DOCTOR: Israel Gray Interpretating Date/Time 08/14/2017 00:28:51
[2017-08-14] MEDS: RESP: ALBUTEROL 2.5 MG/3 ML NEB (SCH) INH ×4 (03:03→20:03)
[2017-08-14] MEDS: LEVOTHYROXINE SODIUM 50 MCG TAB PO SCH (05:44)
[2017-08-14] MEDS: SODIUM CHLOR 0.9% 1000 ML INJ 1,000 ML IV SCH ×3 (05:45→23:17)
[2017-08-14 08:24] LABS: AUTOMATED NEUTROPHIL # 7.9 TH/MM3 (1.8-7.7); BASOPHIL % 0.4 % (0.0-2.0); EOSINOPHIL % 0.1 % (0.0-4.0); HEMATOCRIT 29.1 % (35.0-46.0); HEMOGLOBIN 9.8 GM/DL (11.6-15.3); LYMPH % 5.4 % (9.0-44.0); LYMPHOCYTE # 0.5 TH/MM3 (1.0-4.8); MEAN CELL VOLUME 94.8 FL (80.0-100.0); MEAN CORPUSCULAR HGB CONC 33.7 % (32.0-36.0); MONO % 3.6 % (0.0-8.0); MONOCYTE # 0.3 TH/MM3 (0-0.9); NEUT % 90.5 % (16.0-70.0); PLATELET COUNT 253 TH/MM3 (150-450); RED BLOOD COUNT 3.07 MIL/MM3 (4.00-5.30); RED CELL DISTRIBUTION WIDTH 17.8 % (11.6-17.2); WHITE BLOOD COUNT 8.7 TH/MM3 (4.0-11.0)
[2017-08-14 08:37] LABS: ALBUMIN 2.3 GM/DL (3.4-5.0); ALKALINE PHOSPHATASE 59 U/L (45-117); ALT (GPT) 12 U/L (10-53); AST (GOT) 17 U/L (15-37); BICARBONATE 26.2 MEQ/L (21.0-32.0); BLOOD UREA NITROGEN 22 MG/DL (7-18); CALCIUM 8.3 MG/DL (8.5-10.1); CHLORIDE 110 MEQ/L (98-107); CREATININE 0.88 MG/DL (0.50-1.00); GLOMERULAR FILTRATION RATE 62 ML/MIN (>89); GLUCOSE,RANDOM 131 MG/DL (74-106); MAGNESIUM 1.9 MG/DL (1.5-2.5); PHOSPHORUS 3.2 MG/DL (2.5-4.9); SODIUM (NA) 145 MEQ/L (136-145); TOTAL BILIRUBIN ADULT 0.4 MG/DL (0.2-1.0); TOTAL PROTEIN 5.5 GM/DL (6.4-8.2)
[2017-08-14] MEDS: APIXABAN 2.5 MG TABLET PO SCH ×2 (09:33→23:15)
[2017-08-14] MEDS: DOCUSATE SODIUM 50 MG/SENNA 8.6 MG TAB PO SCH ×2 (09:33→23:15)
[2017-08-14] MEDS: PROPAFENONE HCL 150 MG TAB PO SCH ×2 (09:34→23:15)
[2017-08-14] MEDS: predniSONE 5 MG TAB PO SCH (09:34)
[2017-08-14] MEDS: ONDANSETRON HCL 4 MG/2 ML VIAL IVP PRN (12:21)
--- NOTE | 2017-08-14 12:49 | HHI.IDPN ---
Subjective Subjective Remarks Ms. Hernandez is an 81-year-old female who presents to the emergency department at [facility] from [facility] by EMS transport for marked respiratory distress. According to the resource economist report upon their arrival patient was in respiratory distress. Patient was reportedly using accessory muscles and there was some perioral cyanosis. Reportedly there was some dried vomitus around her mouth and her O2 saturations were 82%. Patient was placed on nonrebreather with oxygen saturations including to 92%. Subsequently patient's respiratory status improved. Her past medical history of Afib, CHF, HTN, Hypothyroid, PNA, cardiac stenosis, and CVA. She is currently on oral diet but does have PEG tube. Infectious disease is consulted for evaluation of severe sepsis. Overnight events reviewed. No fevers No rash No diarrhea Antibiotics Ceftriaxone IV Lines Line sites with no e.o infection Past Medical History reviewed Allergies: Coded Allergies: ciprofloxacin (Verified Allergy, Unknown, 08/13/17) morphine (Verified Allergy, Unknown, 08/13/17) Objective . Vital Signs Date Time Temp Pulse Resp B/P (MAP) Pulse Ox O2 Delivery O2 Flow Rate FiO2 08/14/17 12:04 98.7 111 21 145/82 (103) 90 08/14/17 11:23 91 Nasal Cannula 4.00 08/14/17 08:59 Nasal Cannula 4.00 08/14/17 08:08 99.4 103 18 158/89 (112) 91 08/14/17 08:00 103 08/14/17 04:00 98 08/14/17 04:00 99.2 100 21 155/75 (101) 95 08/14/17 00:00 Nasal Cannula 4.00 08/14/17 00:00 98.1 94 21 127/65 (85) 92 08/14/17 00:00 88 08/13/17 20:00 98 08/13/17 20:00 98.3 100 22 144/74 (97) 94 08/13/17 20:00 Nasal Cannula 4.00 08/13/17 19:45 96 Nasal Cannula 4.00 08/13/17 16:37 08/13/17 16:30 99.6 100 16 135/75 (95) 94 08/13/17 14:00 100 19 125/60 (81) 95 Nasal Cannula 4.00 . Laboratory Tests Test 08/13/17 06:45 08/14/17 07:17 White Blood Count 11.3 TH/MM3 8.7 TH/MM3 Red Blood Count 3.94 MIL/MM3 3.07 MIL/MM3 Hemoglobin 12.3 GM/DL 9.8 GM/DL Hematocrit 37.2 % 29.1 % Mean Corpuscular Volume 94.6 FL 94.8 FL Mean Corpuscular Hemoglobin 31.3 PG 32.0 PG Mean Corpuscular Hemoglobin Concent 33.1 % 33.7 % Red Cell Distribution Width 17.8 % 17.8 % Platelet Count 395 TH/MM3 253 TH/MM3 Mean Platelet Volume 8.2 FL 9.0 FL Neutrophils (%) (Auto) 88.1 % 90.5 % Lymphocytes (%) (Auto) 7.2 % 5.4 % Monocytes (%) (Auto) 4.1 % 3.6 % Eosinophils (%) (Auto) 0.1 % 0.1 % Basophils (%) (Auto) 0.5 % 0.4 % Neutrophils # (Auto) 10.0 TH/MM3 7.9 TH/MM3 Lymphocytes # (Auto) 0.8 TH/MM3 0.5 TH/MM3 Monocytes # (Auto) 0.5 TH/MM3 0.3 TH/MM3 Eosinophils # (Auto) 0.0 TH/MM3 0.0 TH/MM3 Basophils # (Auto) 0.1 TH/MM3 0.0 TH/MM3 CBC Comment DIFF FINAL DIFF FINAL Differential Comment Laboratory Tests Test 08/13/17 06:45 08/13/17 06:51 08/13/17 07:00 08/13/17 09:20 B-Type Natriuretic Peptide 56 PG/ML Blood Urea Nitrogen 29 MG/DL Creatinine 1.32 MG/DL Random Glucose 163 MG/DL Total Protein 6.8 GM/DL Albumin 3.2 GM/DL Calcium Level 9.0 MG/DL Magnesium Level 2.1 MG/DL Alkaline Phosphatase 77 U/L Aspartate Amino Transf (AST/SGOT) 23 U/L Alanine Aminotransferase (ALT/SGPT) 21 U/L Total Bilirubin 0.7 MG/DL Sodium Level 142 MEQ/L Potassium Level 5.1 MEQ/L Chloride Level 103 MEQ/L Carbon Dioxide Level 28.2 MEQ/L Anion Gap 11 MEQ/L Estimat Glomerular Filtration Rate 39 ML/MIN Total Creatine Kinase 57 U/L Troponin I LESS THAN 0.02 NG/ML Lactic Acid Level 3.4 mmol/L 2.6 mmol/L Test 08/13/17 12:29 08/14/17 07:17 Lactic Acid Level 1.6 mmol/L Blood Urea Nitrogen 22 MG/DL Creatinine 0.88 MG/DL Random Glucose 131 MG/DL Total Protein 5.5 GM/DL Albumin 2.3 GM/DL Calcium Level 8.3 MG/DL Phosphorus Level 3.2 MG/DL Magnesium Level 1.9 MG/DL Alkaline Phosphatase 59 U/L Aspartate Amino Transf (AST/SGOT) 17 U/L Alanine Aminotransferase (ALT/SGPT) 12 U/L Total Bilirubin 0.4 MG/DL Sodium Level 145 MEQ/L Potassium Level 3.8 MEQ/L Chloride Level 110 MEQ/L Carbon Dioxide Level 26.2 MEQ/L Anion Gap 9 MEQ/L Estimat Glomerular Filtration Rate 62 ML/MIN Microbiology Date/Time Source Procedure Growth Status 08/13/17 07:00 Blood Peripheral Aerobic Blood Culture - Preliminary NO GROWTH IN 1 DAY Resulted 08/13/17 07:00 Blood Peripheral Anaerobic Blood Culture - Preliminary NO GROWTH IN 1 DAY Resulted 08/13/17 06:45 Blood Peripheral Aerobic Blood Culture - Preliminary NO GROWTH IN 1 DAY Resulted 08/13/17 06:45 Blood Peripheral Anaerobic Blood Culture - Preliminary NO GROWTH IN 1 DAY Resulted 08/13/17 07:10 Urine Catheterized Urine Urine Culture - Preliminary Gram Negative Roque Resulted Imaging Last Impressions Chest X-Ray 08/13/17 0651 Signed Impressions: Service Date/Time: Sunday, August 13, 2017 07:05 - CONCLUSION: No acute cardiopulmonary disease demonstrated. William Ceballos MD Renal Ultrasound 08/13/17 0000 Signed Impressions: Service Date/Time: Sunday, August 13, 2017 20:19 - CONCLUSION: 1. Questionable solid mass within the mid pole of the left kidney measuring 3.3 x 1.9 x 2.[address] of the abdomen may be helpful for further characterization of this questionable lesion if clinical indicated. 2. 5 mm calcified nonobstructing mid pole left renal calculus. 3. Small bilateral kidneys. Kyler Irizarry MD Physical Exam GENERAL: This is a well-nourished, well-developed patient, in no apparent distress. SKIN: Bruising noted on Bilateral LE. Large area of ecchymosis below the left knee. No e/o infection HEAD: Atraumatic. Normocephalic. No temporal or scalp tenderness. EYES: Pupils equal round and reactive. Extraocular motions intact. No scleral icterus. No injection or drainage. ENT: Nose without bleeding, purulent drainage or septal hematoma. Throat without erythema, tonsillar hypertrophy or exudate. Uvula midline. Airway patent. NECK: Trachea midline. Supple, nontender, no meningeal signs. CARDIOVASCULAR: HS audible. RESPIRATORY: Clear to auscultation. Breath sounds equal bilaterally. No wheezes , rales, or rhonchi. GASTROINTESTINAL: Abdomen soft, non-tender, nondistended. MUSCULOSKELETAL: Extremities without clubbing, cyanosis, or edema. NEUROLOGICAL: Awake and alert. Mumbles. Answers questions appropriately. Psych cooperative IV line sites with no e.o infection. Assessment & Plan Remarks Possible severe sepsis on admission (leukocytosis, tachycardia, lactic acid 3.4) History of aspiration prior to arrival at the senior living facility possible aspiration pneumonitis Possible UTI PEG tube placement currently on some form of soft diet Acute metabolic encephalopathy: sepsis, metabolic. Acute renal failure: sepsis, prerenal. Afib, Hypothyroidism CVA CKD Recs: Continue Ceftriaxone IV D/w Son the CT A/P findings of left renal mass. Radiologist recommends doing a CT to differentiate an abscess from malignancy. Discussed patient's goals of care: He informs me that patient has expressed of a face ER but is otherwise able to write on a board her wishes. At this point he would like for me to pursue further workup with a CT scan. He is also amenable to meeting with his mother as well as palliative care team to address goals of care. He reports to me that he had paperwork/documentation done at [facility] in the past. He does not remember the details. Consult palliative care to address goals of care. CT abdomen and pelvis with IV contrast to further workup left renal mass. Follow cultures Follow clinically. Discussed with charge nurse. Lisandra Arcos MD Aug 14, 2017 12:49
--- NOTE | 2017-08-14 14:44 | PD.CONS ---
Consult Service Palliative Care Consult Requested By Dr Madelyn Arcos Primary Care Physician Lio Solares, DO Reason for Consultation a. To assist with evaluation and management of symptoms including: Pain, weakness b. To assist medical decision maker(s) with: better understanding of current medical conditions; weighing benefits/burdens of medical treatment options; making medical treatment decisions. HPI History of Present Illness This 81-year-old female presented to the ED via EMS from local nursing facility [facility] 08/13/17. Nursing staff there reported finding the patient in respiratory distress with dried emesis. EMS reports on their arrival patient in respiratory distress, accessory muscle use, Facial cyanosis and dried emesis around mouth, O2 sats 82%. O2 saturation improved to 92 Percent on nonrebreather. They attempted BiPAP patient would not keep the mask on they continued nonrebreather. No recent fever or illness reported no reported injury or fall. No other history available at time of presentation. Patient not able to provide additional history at ER arrival. * ED course: WBC 11.3. Patient on O2, started on empiric antibiotics Zosyn, vancomycin. Noted to be in rapid rate atrial fibrillation, rate decreased after patient more comfortable. UA positive UTI. Lactic acid 3.4. Admitted for further evaluation and management. * Patient apparently just recently started on oral feeding about a week prior, patient with known feeding tube in place. * Follows a consulted and renal ultrasound pending. REESE on CKD likely from poor oral intake, UTI; CKD likely from hypertension, renovascular disease. * ID was consulted 08/13: Started on IV ceftriaxone follow cultures. Suspected aspiration pneumonitis. * Speech therapy following and they note moderate to severe oral dysphagia. Recommends diet modifications and feeding assistance. Patient also with rapid fatigue during attempts. Recommends consider continued supplementation via PEG if limited oral intake continues. Recommendations for pured solids with nectar thick liquids meds to be crushed patient with full assistance and no straws. * PT following patient was significant with weakness though does attempt to assist with mobility and transfers, requires 2 person assist for transfers, mobility. * Renal ultrasound finding of questionable solid mass left kidney 3 x 1 x [address] abdomen recommended. Further workup, condition is discussed with patient and son. Palliative care consulted to assist with clarification of goals of treatment. Patient seen in room son Alok present. Patient is lethargic though arousable. Oriented 3 seems appropriate though very limited verbalization secondary to aphasia she prefers to write on paper. She often defers to her son during conversation, falls asleep easily. ROS essentially negative however does endorse persistent abdominal pain 5 out of 10 is unable to further qualify. Denies nausea. Endorses some headache though unable to further qualify. Met with patient and son at length at bedside though patient falls asleep often. Patient's son informs that patient has been in skilled rehabilitation following acute hospitalization presentation (at [facility]) which was the day before 2016. At that time patient was diagnosed with pneumonia, collapsed lung, had prolonged hospital course and apparently PEG was placed that time. He indicates that during that course "chunks "were taken out of her lungs during procedure, there was concern for malignancy. 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 Patient was not felt to be a candidate for aggressive treatment, she did not obtain a PET scan. . Function/Cognitive Trajectory Most recently has been at the [facility] for rehabilitation since acute hospitalization in May 2017. She was able to ambulate with a walker with standby assist, required some assistance for ADL. Had PEG tube placed in May to supplement nutritional intake, was just restarted on oral diet about 10 days ago. 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 Review of Systems Constitutional: COMPLAINS OF: Fatigue, Generalized weakness, DENIES: Fever Eyes: DENIES: Vision loss Respiratory: DENIES: Cough, Shortness of breath Cardiovascular: COMPLAINS OF: Lower Extremity Edema (intermittent her son), DENIES: Chest pain Gastrointestinal: COMPLAINS OF: Abdominal pain, Nausea, Vomiting, Difficulty Swallowing (s/p cva ), Dyspepsia or heartburn, DENIES: Constipation, Diarrhea Integumentary: DENIES: Rash Neurologic: COMPLAINS OF: Headache, Localized weakness (2/2 CVA 2-1/2 years ago ), Speech Problems (2/2 CVA 2.5 years ago) Past Family Social History Coded Allergies: ciprofloxacin (Verified Allergy, Unknown, 08/13/17) morphine (Verified Allergy, Unknown, 08/13/17) Past Medical History Anemia Atrial fibrillation CHF Depression Hypertension PEG tube placed Renal failure Dysphagia GERD Hypothyroid Dyslipidemia Depression perforated colon 2/2 colonoscopy . . Past Surgical History PEG tube placement 2017 colon resection/colostomy (2/2 perf colon) colostomy revision/reversal . Reported Medications Vasotec (Enalapril Maleate) 5 Mg Tab 5 Mg PO BID Tramadol (Tramadol HCl) 50 Mg Tab 50 Mg PO Q4H PRN Propafenone (Propafenone HCl) 150 Mg Tab 150 Mg PO BID Prednisone 5 Mg Tab 5 Mg PO DAILY Milk of Magnesia Liq (Magnesium Hydroxide) 400 Mg/5 Ml Susp 30 Ml PO ONCE Lotrisone Topical (Betamethasone/Clotrimazole) 1-0.05% Cream 1 Applic TOPICAL BID Levothyroxine (Levothyroxine Sodium) 50 Mcg Tab 50 Mcg PO DAILY Lasix (Furosemide) 20 Mg Tab 20 Mg PO DAILY Ferrous Gluconate 324 Mg (38 Mg Iron) Tab PO DAILY Dulcolax Supp (Bisacodyl) 10 Mg Supp 10 Mg RECTAL DAILY PRN B-12 (Cyanocobalamin) 1,000 Mcg Subl 250 Mcg SL DAILY Citroma Liq (Magnesium Citrate) 300 Ml Liq 300 Ml PO DIRECTED Vitamin D3 (Cholecalciferol) 1,000 Unit Cap 1,000 Units DAILY Atorvastatin (Atorvastatin Calcium) 40 Mg Tab 40 Mg PO HS Eliquis (Apixaban) 2.5 Mg Tab 2.5 Mg PO BID Amlodipine (Amlodipine Besylate) 10 Mg Tab 10 Mg PO DAILY Albuterol Neb (Albuterol Sulfate) 2.5 Mg/0.5 Ml Neb 2.5 Mg NEB Q6HR NEB Note: The Albuterol Sulfate Inhalation Solution is concentrated and must be diluted. Read complete instructions carefully before using. Tylenol (Acetaminophen) 325 Mg Tab 650 Mg PO Q4H PRN Tylenol (Acetaminophen) 325 Mg Tab 650 Mg PO Q4H PRN . Current Medications Medications (Trade) Dose Ordered Sig/Ashlee Route Start Time Stop Time Status Last Admin (NS Flush) 2 ml UNSCH PRN IVF 08/13/17 07:00 Sodium Chloride 1,000 ml @ 100 mls/hr Q10H IV 08/13/17 10:13 08/14/17 05:45 (Tylenol) 650 mg Q4H PRN PO 08/13/17 10:15 (Zofran Inj) 4 mg Q6H PRN IVP 08/13/17 10:15 08/14/17 12:21 (Narcan Inj) 0.4 mg UNSCH PRN IV PUSH 08/13/17 10:15 (Merari-Colace) 1 tab BID PO 08/13/17 21:00 08/14/17 09:33 (Milk Of Magnesia Liq) 30 ml Q12H PRN PO 08/13/17 10:15 (Senokot) 17.2 mg Q12H PRN PO 08/13/17 10:15 (Dulcolax Supp) 10 mg DAILY PRN RECTAL 08/13/17 10:15 (Lactulose Liq) 30 ml DAILY PRN PO 08/13/17 10:15 (Albuterol Neb) 2.5 mg Q6HR NEB INH 08/13/17 22:00 08/14/17 08:57 (Norvasc) 10 mg DAILY PO 08/14/17 09:00 08/14/17 09:33 (Synthroid) 50 mcg DAILY@0600 PO 08/14/17 06:00 08/14/17 05:44 (Deltasone) 5 mg DAILY PO 08/14/17 09:00 08/14/17 09:34 (Rythmol) 150 mg BID PO 08/13/17 21:00 08/14/17 09:34 (Eliquis) 2.5 mg BID PO 08/13/17 21:00 08/14/17 09:33 Ceftriaxone Sodium 2000 mg/ Sodium Chloride 100 ml @ 200 mls/hr Q24H IV 08/13/17 20:00 08/13/17 21:42 (Ultram) 50 mg Q6H PRN PO 08/13/17 21:30 08/13/17 21:42 Family History 3 adult children healthy . Substance Use Tobacco: Nonsmoker Alcohol: None Prescription med abuse: None Illicits: None . Psychosocial History Originally from [place] has lived in [place] for several years. , her 3 years ago. Supported by 3 adult children 1 son Alok is local, one son and daughter live out of the area [facility] and [place]. Lived at home with her son prior to acute hospitalization in May, was discharged for rehabilitation following that admission Spiritual/Cultural Factors Adventist would want fulfillment coordinator visit Durable Power of Skin Pass Operator: Completed, but not made available Ethical and Legal Issues Patient mental status fluctuates. 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 She may be able to participate in some decision-making will likely this would be best to have shared decision making with her and her children. Son informs that he is the DURABLE POWER OF NURSING HOME ADMISSIONS DIRECTOR not clear if this includes healthcare decision-making, he indicates that all the children remain in close communication and are working together. . Physical Exam Vital Signs Date Time Temp Pulse Resp B/P (MAP) Pulse Ox O2 Delivery O2 Flow Rate FiO2 08/14/17 12:04 98.7 111 21 145/82 (103) 90 08/14/17 11:23 91 Nasal Cannula 4.00 08/14/17 08:59 Nasal Cannula 4.00 08/14/17 08:08 99.4 103 18 158/89 (112) 91 08/14/17 08:00 103 08/14/17 04:00 98 08/14/17 04:00 99.2 100 21 155/75 (101) 95 08/14/17 00:00 Nasal Cannula 4.00 08/14/17 00:00 98.1 94 21 127/65 (85) 92 08/14/17 00:00 88 08/13/17 20:00 98 08/13/17 20:00 98.3 100 22 144/74 (97) 94 08/13/17 20:00 Nasal Cannula 4.00 08/13/17 19:45 96 Nasal Cannula 4.00 08/13/17 16:37 08/13/17 16:30 99.6 100 16 135/75 (95) 94 08/14/17 2 19:00 07:00 Intake Total 1000 ml Balance 1000 ml IV Total 1000 ml Exam CONSTITUTIONAL/GENERAL: This is an adequately nourished patient, lethargic no apparent distress TUBES/LINES/DRAINS: Peripheral IV bilateral upper extremities, Feliciano catheter nasal cannula O2 SKIN: No jaundice, rashes, or lesions. Several areas of ecchymosis bilateral upper extremities as well as skin tears to bilateral mid upper arms near elbows. Few small ecchymosis to lower extremities. No wounds seen anteriorly. Skin warm and dry. HEAD: Atraumatic. Normocephalic. EYES: Pupils equal and round and reactive. Extraocular motions intact. No scleral icterus. No injection or drainage. Fundi not examined. ENT: Hearing grossly normal. Nose without bleeding or purulent drainage. Oropharynx without visible erythema, or exudates or lesions--limited exam secondary patient not able to fully open her mouth NECK: Trachea midline. Supple, nontender. No palpable thyroid enlargement or nodularity. CARDIOVASCULAR: Irregular. No murmur. No JVD. Peripheral pulses symmetric. RESPIRATORY/CHEST: Symmetric, unlabored respirations. Clear to auscultation. Breath sounds equal bilaterally. No wheezes, rales, or rhonchi. GASTROINTESTINAL: Abdomen soft, slight tenderness to left, nondistended. No hepato-splenomegaly, or palpable masses. No guarding. Bowel sounds hypoactive. GENITOURINARY: Without palpable bladder distension. Feliciano catheter in place. Clear yellow urine. MUSCULOSKELETAL: Extremities without clubbing, cyanosis, or edema. No joint tenderness or effusion noted. LYMPHATICS: No palpable cervical or supraclavicular adenopathy. NEUROLOGICAL: Lethargic, at times more alert. Oriented 3 though speech is very garbled and limited is difficult to understand. She prefers to write. She is oriented to year, hospital, family, reason for admission, president. Follows commands. Moves all 4 extremities left slightly weaker than right. PSYCHIATRIC: No obvious anxiety/depression. no apparent hallucinations or other psychotic thought process. Diagnostic Tests Laboratory Laboratory Tests Test 08/13/17 06:45 08/13/17 06:51 08/13/17 07:00 08/13/17 07:10 White Blood Count 11.3 TH/MM3 (4.0-11.0) Red Blood Count 3.94 MIL/MM3 (4.00-5.30) Hemoglobin 12.3 GM/DL (11.6-15.3) Hematocrit 37.2 % (35.0-46.0) Mean Corpuscular Volume 94.6 FL (80.0-100.0) Mean Corpuscular Hemoglobin 31.3 PG (27.0-34.0) Mean Corpuscular Hemoglobin Concent 33.1 % (32.0-36.0) Red Cell Distribution Width 17.8 % (11.6-17.2) Platelet Count 395 TH/MM3 (150-450) Mean Platelet Volume 8.2 FL (7.0-11.0) Neutrophils (%) (Auto) 88.1 % (16.0-70.0) Lymphocytes (%) (Auto) 7.2 % (9.0-44.0) Monocytes (%) (Auto) 4.1 % (0.0-8.0) Eosinophils (%) (Auto) 0.1 % (0.0-4.0) Basophils (%) (Auto) 0.5 % (0.0-2.0) Neutrophils # (Auto) 10.0 TH/MM3 (1.8-7.7) Lymphocytes # (Auto) 0.8 TH/MM3 (1.0-4.8) Monocytes # (Auto) 0.5 TH/MM3 (0-0.9) Eosinophils # (Auto) 0.0 TH/MM3 (0-0.4) Basophils # (Auto) 0.1 TH/MM3 (0-0.2) CBC Comment DIFF FINAL Differential Comment Prothrombin Time 10.1 SEC (9.8-11.6) Prothromb Time International Ratio 1.0 RATIO Activated Partial Thromboplast Time 23.9 SEC (24.3-30.1) B-Type Natriuretic Peptide 56 PG/ML (0-100) Blood Urea Nitrogen 29 MG/DL (7-18) Creatinine 1.32 MG/DL (0.50-1.00) Random Glucose 163 MG/DL (74-106) Total Protein 6.8 GM/DL (6.4-8.2) Albumin 3.2 GM/DL (3.4-5.0) Calcium Level 9.0 MG/DL (8.5-10.1) Magnesium Level 2.1 MG/DL (1.5-2.5) Alkaline Phosphatase 77 U/L (45-117) Aspartate Amino Transf (AST/SGOT) 23 U/L (15-37) Alanine Aminotransferase (ALT/SGPT) 21 U/L (10-53) Total Bilirubin 0.7 MG/DL (0.2-1.0) Sodium Level 142 MEQ/L (136-145) Potassium Level 5.1 MEQ/L (3.5-5.1) Chloride Level 103 MEQ/L (98-107) Carbon Dioxide Level 28.2 MEQ/L (21.0-32.0) Anion Gap 11 MEQ/L (5-15) Estimat Glomerular Filtration Rate 39 ML/MIN (>89) Total Creatine Kinase 57 U/L (26-192) Troponin I LESS THAN 0.02 NG/ML Lactic Acid Level 3.4 mmol/L (0.4-2.0) Urine Color YELLOW (YELLW/STRAW) Urine Turbidity HAZY (CLEAR) Urine pH 5.0 (5.0-8.5) Urine Specific [place] 1.013 (1.002-1.035) Urine Protein NEG mg/dL (NEG-TRACE) Urine Glucose (UA) NEG mg/dL (NEG) Urine Ketones NEG mg/dL (NEG) Urine Occult Blood NEG (NEG) Urine Nitrite POS (NEG) Urine Bilirubin NEG (NEG) Urine Urobilinogen LESS THAN 2.0 MG/DL (LESS Urine Leukocyte Esterase LARGE (NEG) Urine RBC 3 /hpf (0-3) Urine WBC 23 /hpf (0-5) Urine WBC Clumps FEW (NONE) Urine Squamous Epithelial Cells 1 /hpf (0-5) Urine Transitional Epithelial Cells <1 /hpf (NONE) Urine Bacteria FEW /hpf (NONE) Urine Hyaline Casts 1 /lpf (RARE) Urine Mucus FEW /lpf (OCC) Microscopic Urinalysis Comment CATH-CULTURE IND Test 08/13/17 09:20 08/13/17 12:29 08/14/17 07:17 Lactic Acid Level 2.6 mmol/L (0.4-2.0) 1.6 mmol/L (0.4-2.0) White Blood Count 8.7 TH/MM3 (4.0-11.0) Red Blood Count 3.07 MIL/MM3 (4.00-5.30) Hemoglobin 9.8 GM/DL (11.6-15.3) Hematocrit 29.1 % (35.0-46.0) Mean Corpuscular Volume 94.8 FL (80.0-100.0) Mean Corpuscular Hemoglobin 32.0 PG (27.0-34.0) Mean Corpuscular Hemoglobin Concent 33.7 % (32.0-36.0) Red Cell Distribution Width 17.8 % (11.6-17.2) Platelet Count 253 TH/MM3 (150-450) Mean Platelet Volume 9.0 FL (7.0-11.0) Neutrophils (%) (Auto) 90.5 % (16.0-70.0) Lymphocytes (%) (Auto) 5.4 % (9.0-44.0) Monocytes (%) (Auto) 3.6 % (0.0-8.0) Eosinophils (%) (Auto) 0.1 % (0.0-4.0) Basophils (%) (Auto) 0.4 % (0.0-2.0) Neutrophils # (Auto) 7.9 TH/MM3 (1.8-7.7) Lymphocytes # (Auto) 0.5 TH/MM3 (1.0-4.8) Monocytes # (Auto) 0.3 TH/MM3 (0-0.9) Eosinophils # (Auto) 0.0 TH/MM3 (0-0.4) Basophils # (Auto) 0.0 TH/MM3 (0-0.2) CBC Comment DIFF FINAL Differential Comment Blood Urea Nitrogen 22 MG/DL (7-18) Creatinine 0.88 MG/DL (0.50-1.00) Random Glucose 131 MG/DL (74-106) Total Protein 5.5 GM/DL (6.4-8.2) Albumin 2.3 GM/DL (3.4-5.0) Calcium Level 8.3 MG/DL (8.5-10.1) Phosphorus Level 3.2 MG/DL (2.5-4.9) Magnesium Level 1.9 MG/DL (1.5-2.5) Alkaline Phosphatase 59 U/L (45-117) Aspartate Amino Transf (AST/SGOT) 17 U/L (15-37) Alanine Aminotransferase (ALT/SGPT) 12 U/L (10-53) Total Bilirubin 0.4 MG/DL (0.2-1.0) Sodium Level 145 MEQ/L (136-145) Potassium Level 3.8 MEQ/L (3.5-5.1) Chloride Level 110 MEQ/L (98-107) Carbon Dioxide Level 26.2 MEQ/L (21.0-32.0) Anion Gap 9 MEQ/L (5-15) Estimat Glomerular Filtration Rate 62 ML/MIN (>89) Result Diagram: 08/14/1771608/14/17716 Microbiology Microbiology Date/Time Source Procedure Growth Status 08/13/17 07:00 Blood Peripheral Aerobic Blood Culture - Preliminary NO GROWTH IN 1 DAY Resulted 08/13/17 07:00 Blood Peripheral Anaerobic Blood Culture - Preliminary NO GROWTH IN 1 DAY Resulted 08/13/17 06:45 Blood Peripheral Aerobic Blood Culture - Preliminary NO GROWTH IN 1 DAY Resulted 08/13/17 06:45 Blood Peripheral Anaerobic Blood Culture - Preliminary NO GROWTH IN 1 DAY Resulted 08/13/17 07:10 Urine Catheterized Urine Urine Culture - Preliminary Gram Negative Roque Resulted Imaging Last Impressions Chest X-Ray 08/13/17 0651 Signed Impressions: Service Date/Time: Sunday, August 13, 2017 07:05 - CONCLUSION: No acute cardiopulmonary disease demonstrated. William Ceballos MD Renal Ultrasound 08/13/17 0000 Signed Impressions: Service Date/Time: Sunday, August 13, 2017 20:19 - CONCLUSION: 1. Questionable solid mass within the mid pole of the left kidney measuring 3.3 x 1.9 x 2.[address] of the abdomen may be helpful for further characterization of this questionable lesion if clinical indicated. 2. 5 mm calcified nonobstructing mid pole left renal calculus. 3. Small bilateral kidneys. Kyler Irizarry MD Patient/Family Conference Family Conference Location: Bedside Issues Discussed: Met with patient and son at bedside. Patient falls asleep at times, other times defers to her son. Discussion included the following: * Palliative care role, purpose, approach * Additional medical, psychosocial, and spiritual history * Patients general health, functional status, and cognitive changes in the months leading up to the current hospitalization * Patient/family understanding of the current medical problems * Patient/family understanding of prognosis * Patients goals of care as best understood from advance directives and/or conversations and/or values * Current medical treatment options and benefits/burdens of those options * Legal decision makers * CODE STATUS * Questions answered to the best of my ability * Palliative care contact information provided Patient falls asleep often though appears to have general understanding of hospitalization. Patient and son endorse they wish to pursue further workup including CAT scan to find out if renal findings are possibly cancer. Not likely patient would want to undergo invasive biopsies or treatment such as chemotherapy if findings were positive for malignancy. She understands what resuscitation entails and does not want CPR request DNR status, supported by her son on this. For now goals are aggressive short of resuscitation, further discussion based on new findings they wish for ongoing conversations regarding treatments and options pending clinical course. . Assessment and Plan Disease Oriented Problem List: (1) UTI (urinary tract infection) (2) Sepsis (3) Respiratory distress (4) HTN (hypertension) (5) REESE (acute kidney injury) Symptom Scale: (1) Dysphagia 0-10 Scale: Unable to quantify (2) Weakness 0-10 Scale: Unable to quantify (3) Aphasia 0-10 Scale: Unable to quantify (4) Pain, abdominal 0-10 Scale: 5 Pertinent Non-Medical Issues Psychosocial:Originally from [place] has lived in [place] for several years. , her 3 years ago. Supported by 3 adult children 1 son Alok is local, one son and daughter live out of the area [facility]. Lived at home with her son prior to acute hospitalization in May, was discharged for rehabilitation following that admission Spiritual:temple, wants legislative aide, fulfillment coordinator visits Legal:Patient mental status fluctuates. 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 She may be able to participate in some decision-making will likely this would be best to have shared decision making with her and her children. Son informs that he is the DURABLE POWER OF NURSING HOME ADMISSIONS DIRECTOR not clear if this includes healthcare decision-making, he indicates that all the children remain in close communication and are working together. Patient and family open to ongoing conversations regarding goals, options as clinical course evolves. Ethical issues impacting care: Important Contacts Son Alok Hernandez [phone] Daughter Meghann Syed [phone] . Prognosis This patient was admitted for respiratory distress, emesis. She has findings of a UTI, new findings of kidney mass, further diagnostics pending. She has had general decline and debility since hospitalization around 2016( for pneumonia, pneumothorax). Possible patient can remain stable and get through current acute hospitalization and return to most recent cognitive and functional status the patient does remain high risk for ongoing debility and further decline secondary to now chronically ill state. New Findings regarding renal mass may further impact overall prognosis. . Code Status: Full Code Plan * Legal decision maker:Patient mental status fluctuates. 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 She may be able to participate in some decision-making will likely this would be best to have shared decision making with her and her children. Son informs that he is the DURABLE POWER OF NURSING HOME ADMISSIONS DIRECTOR not clear if this includes healthcare decision-making , he indicates that all the children remain in close communication and are working together. Patient and family open to ongoing conversations regarding goals, options as clinical course evolves. * Goals: For now patient and family wish to proceed with CT scan to further evaluate findings of renal mass and better differentiate if it is possible malignancy. Patient and family indicates she likely would not proceed with any type of aggressive treatment for findings but they would like to know if at all possible if it is cancer. Patient and son requests DNR. Goals are aggressive short of resuscitation. * consider requesting prior records from [facility] which may have more information regarding other possible cancer findings. 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 Speech therapy recommends pure with nectar thick liquids. High risk for aspiration. --Pain: Patient today endorses abdominal pain but was unable to further describe. Pain is medium to moderate 5 out of 10. It is mostly constant. Last bowel movement earlier this morning. Having some occasional nausea. Relieved by Zofran. Abdominal exam essentially benign. Patient with history of reflux, part of admitting complaints were emesis/vomiting, possible GI pathology. Continue to monitor. Would avoid opiates at this time. --Nausea/vomiting-patient presenting with reported emesis from SNF. Has had some intermittent emesis and nausea since admission. Having bowel movements. Taking by mouth. Previously on supplementation via PEG tube. Zofran relieving nausea currently. * Palliative care will continue to follow during hospital course as condition evolves, to assist patient/decision-maker with understanding of medical conditions, weighing benefits/burdens of treatment options, for clarification of goals of treatment. Additionally will assist with any symptoms of palliative concern Thank you for the opportunity to participate in the care of Ms. Hernandez. Attestation To help prompt me to consider important information that might be impacting today's encounter and assessment, information from prior notes written by myself or my colleagues may have been "brought forward" into today's note. My signature on this note, however, is an attestation that I personally performed the exam, history, and/or decision-making noted today, and, unless otherwise indicated, the interactions with patient, family, and staff as well as the review of records all occurred today. I also attest that the listed assessment and stated plan reflect my best clinical judgment today based on the combination of historical information, prior notes, and today's exam/ interactions. When time spent is documented, it refers only to time spent today by the signer, or if indicated, combined time spent today by collaborating physician/nurse practitioner. Oriana Segura Aug 14, 2017 14:44
--- NOTE | 2017-08-14 16:30 | HHI.NPPN ---
Subjective History of Present Illness Patient is a 81-year-old female presents to the emergency department from [facility] by EMS transport for marked respiratory distress. According to line production cook report upon their arrival patient was showing evidence of respiratory distress with accessory muscle use janki-oral cyanosis dried vomitus around her mouth and in her clear and room air O2 saturations of 82%. Patient is placed on nonrebreather mask with O2 saturations only increasing to 92%. She is on 4 liters via nasal cannula now with good sats. Patient is found to have a abdormal UA. Chest xray with no acute cardiopulmonary disease demonstrated. Patient also noted to have elevated creatinine at 1.32 and GFR of 39 ml/min. Past medical history of Afib, CHF, HTN, Hypothyroid, PNA, cardiac stenosis, and CVA. She is currently on oral diet but does have PEG tube. Additional Remarks Resting comfortably. Denies any SOB. Son at bedside. Renal mass noted on US (Majo Hanley) Review of Systems Respiratory Respiratory Remarks Denies any SOB (Majo Hanley) Cardiovascular Cardiac Remarks Denies any CP (Majo Hanley) Gastrointestinal GI Remarks denies any Abdominal pain (Majo Hanley) Objective Data Data 08/14/17 08/15/17 19:00 07:00 Intake Total 1000 ml Balance 1000 ml IV Total 1000 ml Vital Signs Date Time Temp Pulse Resp B/P (MAP) Pulse Ox O2 Delivery O2 Flow Rate FiO2 08/14/17 12:04 98.7 111 21 145/82 (103) 90 08/14/17 11:23 91 Nasal Cannula 4.00 08/14/17 08:59 Nasal Cannula 4.00 08/14/17 08:08 99.4 103 18 158/89 (112) 91 08/14/17 08:00 103 08/14/17 04:00 98 08/14/17 04:00 99.2 100 21 155/75 (101) 95 08/14/17 00:00 Nasal Cannula 4.00 08/14/17 00:00 98.1 94 21 127/65 (85) 92 08/14/17 00:00 88 08/13/17 20:00 98 08/13/17 20:00 98.3 100 22 144/74 (97) 94 1/30/18 20:00 Nasal Cannula 4.00 08/13/17 19:45 96 Nasal Cannula 4.00 08/13/17 16:37 08/13/17 16:30 99.6 100 16 135/75 (95) 94 (Majo HanleyP) -: 08/14/17 0717 08/14/17 0717 Imaging Last Impressions Chest X-Ray 08/13/17 0651 Signed Impressions: Service Date/Time: Sunday, August 13, 2017 07:05 - CONCLUSION: No acute cardiopulmonary disease demonstrated. William Ceballos MD Renal Ultrasound 08/13/17 0000 Signed Impressions: Service Date/Time: Sunday, August 13, 2017 20:19 - CONCLUSION: 1. Questionable solid mass within the mid pole of the left kidney measuring 3.3 x 1.9 x 2.[address] of the abdomen may be helpful for further characterization of this questionable lesion if clinical indicated. 2. 5 mm calcified nonobstructing mid pole left renal calculus. 3. Small bilateral kidneys. Kyler Irizarry MD (GellerMajo angelP) Physical Exam General Appearance: Well Nourished, No Acute Distress (Majo Hanley. HAND STRIPPER) Eyes Eye Exam: Pupils Equal (Majo Hanley. HAND STRIPPER) Throat Throat Exam: Oral Mucosa [place] & Moist (GellerCinthia angelne M. HAND STRIPPER) Pulmonary Resp Exam: Breath Sounds Equal, Decreased Bases (DebbielerMajo angel M. HAND STRIPPER) Cardiology CV Exam: Regular (DebbielerMajo angel. HAND STRIPPER) Gastrointestinal/Abdomen GI Exam: Soft, Non-Tender (DebbielerMajo angel M. HAND STRIPPER) Genitourinary Exam: Flank Non-Tender (DebbielerMajo angel M. HAND STRIPPER) Integumentary Skin Exam: Clear, Warm, Dry (Majo Hanley M. HAND STRIPPER) Extremeties Extremities Exam: Trace Edema (Cinthia Hanleyne M. HAND STRIPPER) Neurologic Neuro Exam: Alert, Awake (Majo Hanley M. HAND STRIPPER) Assessment/Plan Problem List: (1) REESE (acute kidney injury) ICD Codes: N17.9 - Acute kidney failure, unspecified Plan: REESE on CKD most likely prerenal from poor PO intake with dysphagia and UTI Patient with CKD from possibly HTN or renovascular disease. Baseline GFR not available UA negative for proteinuria. Creatinine normal at 0.88 and GFR 62 ml/min Renal US: Questionable solid mass within the mid pole of the left kidney measuring 3.3 x 1.9 x 2.2 cm and Small bilateral kidneys. Plan Decrease IVF Continue to hold lasix and monitor for fluid overload Continue to monitor I+ O contrast enhanced CT of abdomen planned for further investigation fo renal mass (2) HTN (hypertension) ICD Codes: I10 - Essential (primary) hypertension Plan: Well controlled Home medication resumed (Majo Hanley) Problem List: (1) REESE (acute kidney injury) ICD Codes: N17.9 - Acute kidney failure, unspecified Plan: REESE on CKD most likely prerenal from poor PO intake with dysphagia and UTI Patient with CKD from possibly HTN or renovascular disease. Baseline GFR not available UA negative for proteinuria. Creatinine normal at 0.88 and GFR 62 ml/min Renal US: Questionable solid mass within the mid pole of the left kidney measuring 3.3 x 1.9 x 2.2 cm and Small bilateral kidneys. Plan Decrease IVF Continue to hold lasix and monitor for fluid overload Continue to monitor I+ O contrast enhanced CT of abdomen planned for further investigation fo renal mass. Patient seen and examined, agree with above. D/W the Son at bed side. (2) HTN (hypertension) ICD Codes: I10 - Essential (primary) hypertension Plan: Well controlled Home medication resumed (Roselia Jorge MD) Majo Hanley Aug 14, 2017 16:30 Roselia Jorge MD Aug 14, 2017 18:37
--- NOTE | 2017-08-14 16:45 | HHI.PR ---
Subjective Remarks Late entry seen this am, non conversive in no apparent distress, follows commands. Objective Vital Signs Date Time Temp Pulse Resp B/P (MAP) Pulse Ox O2 Delivery O2 Flow Rate FiO2 08/14/17 12:04 98.7 111 21 145/82 (103) 90 08/14/17 11:23 91 Nasal Cannula 4.00 08/14/17 08:59 Nasal Cannula 4.00 08/14/17 08:08 99.4 103 18 158/89 (112) 91 08/14/17 08:00 103 08/14/17 04:00 98 08/14/17 04:00 99.2 100 21 155/75 (101) 95 08/14/17 00:00 Nasal Cannula 4.00 08/14/17 00:00 98.1 94 21 127/65 (85) 92 08/14/17 00:00 88 08/13/17 20:00 98 08/13/17 20:00 98.3 100 22 144/74 (97) 94 08/13/17 20:00 Nasal Cannula 4.00 08/13/17 19:45 96 Nasal Cannula 4.00 08/13/17 16:37 I/O 08/13/17 08/13/17 08/13/17 08/14/17 08/14/17 08/14/17 07:00 15:00 23:00 07:00 15:00 23:00 Intake Total 1099 ml 240 ml 1000 ml Balance 1099 ml 240 ml 1000 ml Intake Oral 240 ml IV Total 1099 ml 1000 ml # Voids 5 # Bowel Movements 1 Result Diagram: 08/14/1717 08/14/1717 Imaging Laboratory Tests Test 08/13/17 06:45 08/13/17 06:51 08/13/17 07:00 08/13/17 07:10 White Blood Count 11.3 TH/MM3 (4.0-11.0) Red Blood Count 3.94 MIL/MM3 (4.00-5.30) Red Cell Distribution Width 17.8 % (11.6-17.2) Neutrophils (%) (Auto) 88.1 % (16.0-70.0) Lymphocytes (%) (Auto) 7.2 % (9.0-44.0) Neutrophils # (Auto) 10.0 TH/MM3 (1.8-7.7) Lymphocytes # (Auto) 0.8 TH/MM3 (1.0-4.8) Activated Partial Thromboplast Time 23.9 SEC (24.3-30.1) Blood Urea Nitrogen 29 MG/DL (7-18) Creatinine 1.32 MG/DL (0.50-1.00) Random Glucose 163 MG/DL (74-106) Albumin 3.2 GM/DL (3.4-5.0) Estimat Glomerular Filtration Rate 39 ML/MIN (>89) Troponin I LESS THAN 0.02 NG/ML Lactic Acid Level 3.4 mmol/L (0.4-2.0) Urine Turbidity HAZY (CLEAR) Urine Nitrite POS (NEG) Urine Leukocyte Esterase LARGE (NEG) Urine WBC 23 /hpf (0-5) Urine WBC Clumps FEW (NONE) Urine Bacteria FEW /hpf (NONE) Urine Mucus FEW /lpf (OCC) Test 08/13/17 09:20 08/13/17 12:29 08/14/17 07:17 Lactic Acid Level 2.6 mmol/L (0.4-2.0) Red Blood Count 3.07 MIL/MM3 (4.00-5.30) Hemoglobin 9.8 GM/DL (11.6-15.3) Hematocrit 29.1 % (35.0-46.0) Red Cell Distribution Width 17.8 % (11.6-17.2) Neutrophils (%) (Auto) 90.5 % (16.0-70.0) Lymphocytes (%) (Auto) 5.4 % (9.0-44.0) Neutrophils # (Auto) 7.9 TH/MM3 (1.8-7.7) Lymphocytes # (Auto) 0.5 TH/MM3 (1.0-4.8) Blood Urea Nitrogen 22 MG/DL (7-18) Random Glucose 131 MG/DL (74-106) Total Protein 5.5 GM/DL (6.4-8.2) Albumin 2.3 GM/DL (3.4-5.0) Calcium Level 8.3 MG/DL (8.5-10.1) Chloride Level 110 MEQ/L (98-107) Estimat Glomerular Filtration Rate 62 ML/MIN (>89) Other Results Last 48 hours Impressions Chest X-Ray 08/13/17 0661 Signed Impressions: Service Date/Time: Sunday, August 13, 2017 07:05 - CONCLUSION: No acute cardiopulmonary disease demonstrated. William Ceballos MD Renal Ultrasound 08/13/17 0000 Signed Impressions: Service Date/Time: Sunday, August 13, 2017 20:19 - CONCLUSION: 1. Questionable solid mass within the mid pole of the left kidney measuring 3.3 x 1.9 x 2.[address] of the abdomen may be helpful for further characterization of this questionable lesion if clinical indicated. 2. 5 mm calcified nonobstructing mid pole left renal calculus. 3. Small bilateral kidneys. Kyler Irizarry MD Objective Remarks GENERAL: This is a well-nourished, well-developed patient, in no apparent distress. SKIN:warm and dry with ecchymotic areas HEAD: Atraumatic. Normocephalic. No temporal or scalp tenderness. EYES: Pupils equal round and reactive. Extraocular motions intact. No scleral icterus. No injection or drainage. ENT: Nose without bleeding, purulent drainage or septal hematoma. Throat without erythema, tonsillar hypertrophy or exudate. Uvula midline. Airway patent. NECK: Trachea midline. Supple, nontender, no meningeal signs. CARDIOVASCULAR: S1S2, RESPIRATORY: Clear to auscultation. Breath sounds equal bilaterally. No wheezes , rales, or rhonchi. GASTROINTESTINAL: Abdomen soft, non-tender, nondistended. MUSCULOSKELETAL: Extremities without clubbing, cyanosis, or edema. NEUROLOGICAL: Awake and alert. follows commands Medications and IVs Current Medications Medications (Trade) Dose Ordered Sig/Ashlee Route Start Time Stop Time Status Last Admin (NS Flush) 2 ml UNSCH PRN IVF 08/13/17 07:00 Sodium Chloride 1,000 ml @ 100 mls/hr Q10H IV 08/13/17 10:13 08/14/17 16:13 (Tylenol) 650 mg Q4H PRN PO 08/13/17 10:15 (Zofran Inj) 4 mg Q6H PRN IVP 08/13/17 10:15 08/14/17 12:21 (Narcan Inj) 0.4 mg UNSCH PRN IV PUSH 08/13/17 10:15 (Merari-Colace) 1 tab BID PO 08/13/17 21:00 08/14/17 09:33 (Milk Of Magnesia Liq) 30 ml Q12H PRN PO 08/13/17 10:15 (Senokot) 17.2 mg Q12H PRN PO 08/13/17 10:15 (Dulcolax Supp) 10 mg DAILY PRN RECTAL 08/13/17 10:15 (Lactulose Liq) 30 ml DAILY PRN PO 08/13/17 10:15 (Albuterol Neb) 2.5 mg Q6HR NEB INH 08/13/17 22:00 08/14/17 16:15 (Norvasc) 10 mg DAILY PO 08/14/17 09:00 08/14/17 09:33 (Synthroid) 50 mcg DAILY@0600 PO 08/14/17 06:00 08/14/17 05:44 (Deltasone) 5 mg DAILY PO 08/14/17 09:00 08/14/17 09:34 (Rythmol) 150 mg BID PO 08/13/17 21:00 08/14/17 09:34 (Eliquis) 2.5 mg BID PO 08/13/17 21:00 08/14/17 09:33 Ceftriaxone Sodium 2000 mg/ Sodium Chloride 100 ml @ 200 mls/hr Q24H IV 08/13/17 20:00 08/13/17 21:42 (Ultram) 50 mg Q6H PRN PO 08/13/17 21:30 08/13/17 21:42 Assessment and Plan Problem List: (1) Sepsis ICD Codes: A41.9 - Sepsis, unspecified organism Status: Acute Plan: ID following, Likely r/t Urine. low grade temp, WBC 8.3, Rocephin (2) Hypoxia ICD Codes: R09.02 - Hypoxemia Status: Acute Plan: Keep sat's above 92>, Duo Nebs Cxr negative (3) HTN (hypertension) ICD Codes: I10 - Essential (primary) hypertension Plan: Monitor B/P, restart B/P meds, Amlodipine, restart enalapril GFR improved with hydration. (4) REESE (acute kidney injury) ICD Codes: N17.9 - Acute kidney failure, unspecified Assessment and Plan Renal following, improved with hydration. Renal US shows questionable mass f/u with CT Problem Qualifiers (1) Sepsis: Qualified Codes: A41.9 - Sepsis, unspecified organism Aranza Fine Aug 14, 2017 16:45
[2017-08-14] MEDS ORDERED: IOHEXOL 350 MG/ML 10 ML VIAL (for RAD DIAG) IVCONTRAST ONE (20:58)
--- NOTE | 2017-08-14 21:28 | RADRPT ---
EXAM DATE/TIME: 08/14/2017 20:56 [facility] COMPARISON: US KIDNEY/RENAL/BLADDER, August 13, 2017, 20:19. INDICATIONS : Left kidney mass with calculus. IV CONTRAST: 75 cc Omnipaque 350 (iohexol) IV ORAL CONTRAST: No oral contrast ingested. RADIATION DOSE: CTDIvol (mGy) MEDICAL HISTORY : Cardiovascular disease. Hypertension. Anemia. SURGICAL HISTORY : None. ENCOUNTER: Initial ACUITY: 2 days PAIN SCALE: 3/10 LOCATION: Left abdomen. TECHNIQUE: Volumetric scanning of the abdomen and pelvis was performed. Using automated exposure control and ad justment of the mA and/or kV according to patient size, radiation dose was kept as low as reasonably achievable to obtain optimal diagnostic quality images. DICOM format image data is available electro nically for review and comparison. FINDINGS: The previously questioned left renal mass is confirmed as a lobulation on the CT scan rather than a t rue mass. The questioned nonobstructing calculus within the left kidney more likely represents calcif ied vascular structures. There is a tiny 6 mm upper pole right renal cyst. No acute obstructive uropa thy is noted. There is evidence of fluid-filled dilated small bowel suggestive of partial small bowel obstruction o r ileus. Clinical correlation is recommended. There is a midline ventral abdominal wall hernia containing a lo op of probable transverse colon. Uncomplicated colonic diverticulosis is noted. There is no acute diverticu litis. A gastric tube is noted within the stomach. The liver and gallbladder are unremarkable. The spleen is u nremarkable. The adrenal glands are normal bilaterally. The pancreas is unremarkable. The abdominal aorta is calci fied but is not aneurysmally dilated. Inferior vena cava is normal. The urinary bladder is unremarkable. Patchy opacity is noted within the left lung base and to a lesser extent right lung base posteriorly this with atelectasis and/or pneumonia. Clinical correlation is recommended. Cardiomegaly and small pericardial effusion is noted. CONCLUSION: 1. Multiple fluid-filled loops of small bowel suggestive of partial small bowel obstruction or ileus. This likely is at the level of the jejunum as the distal ileum is normal in caliber. 2. Patchy opacities within the lung bases posteriorly consistent with atelectasis and/or pneumonia. C linical correlation is recommended. 3. No evidence of left renal mass for nonobstructing stone. 4. Uncomplicated colonic diverticulosis. 5. Ventral abdominal wall hernia which appears to contain a portion of transverse colon. 6. Cardiomegaly and small pericardial effusion. Kyler Irizarry MD on August 14, 2017 at 21:15 Board Certified Radiologist. This report was verified electronically.
[2017-08-14] MEDS: ENALAPRIL MALEATE 5 MG TAB PO SCH (23:15)
[2017-08-14] MEDS: cefTRIAXone INJ 2,000 MG in SODIUM CHLORIDE 0.9% INJ 100 ML IV SCH (23:15)
[2017-08-14] MEDS: traMADol HCL 50 MG TAB PO PRN (23:17)
[2017-08-15] VITALS (9 sets, daily range): BP systolic 137–167; BP diastolic 71–81; PULSE 102–115; RESP 16–22; TEMP 97.3–99.3; O2SAT 90–100
[2017-08-15] MEDS: metroNIDAZOLE 500 MG INJ 100 ML IV SCH
[2017-08-15] MEDS: RESP: ALBUTEROL 2.5 MG/3 ML NEB (SCH) INH ×4 (02:49→17:46)
[2017-08-15] MEDS: LEVOTHYROXINE SODIUM 50 MCG TAB PO SCH (07:05)
[2017-08-15] MEDS: ONDANSETRON HCL 4 MG/2 ML VIAL IVP PRN (08:37)
[2017-08-15] MEDS: ENALAPRIL MALEATE 5 MG TAB PO SCH (09:00)
[2017-08-15] MEDS: predniSONE 5 MG TAB PO SCH (09:00)
[2017-08-15] MEDS: DOCUSATE SODIUM 50 MG/SENNA 8.6 MG TAB PO SCH ×2 (09:00→21:00)
[2017-08-15] MEDS: PROPAFENONE HCL 150 MG TAB PO SCH ×2 (09:00→21:00)
[2017-08-15] MEDS: APIXABAN 2.5 MG TABLET PO SCH ×2 (09:00→21:00)
--- NOTE | 2017-08-15 10:33 | HHI.HCPN ---
Reason for visit a. To assist with evaluation and management of symptoms including: Pain, weakness b. To assist medical decision maker(s) with: better understanding of current medical conditions; weighing benefits/burdens of medical treatment options; making medical treatment decisions. Subjective/Interval History Pt seen today to follow up on comfort, goals. S/p abd/pelvis CT= 1. Multiple fluid-filled loops of small bowel suggestive of partial small bowel obstruction or ileus. This likely is at the level of the jejunum as the distal ileum is normal in caliber. 2. Patchy opacities within the lung bases posteriorly consistent with atelectasis and/or pneumonia. Clinical correlation is recommended. 3. No evidence of left renal mass for nonobstructing stone. 4. Uncomplicated colonic diverticulosis. 5. Ventral abdominal wall hernia which appears to contain a portion of transverse colon. GI has been consulted for poss SBO/ileus. Pt has cont to have episodes of nausea /emesis ; 1 dose zofran yesterday, 1 dose this am. Pt seen in room as Juanpablo [facility]worth nephrology DRY WALL INSTALLER completing visit. Son Alok at bedside. [Dual visit w Heather REID]. Pt alert, oriented, appropriate. Appears SOB. Endorses nausea, continued abdominal pain. Review w pt and son CT abdomen/ pelvis findings, poss SBO/ileus and potential medical tx for. Pt endorses more SOB today. Diuretic added by renal. Review ongoing risk for complications including pneumonia r/t ongoing debility/conditions/hospitalization/bedbound status. All questions answered. For not goals aggressive short of resuscitation. Advance Directives Durable Power of Product Promoter Sales Person: Completed, but not made available Objective Vital Signs Date Time Temp Pulse Resp B/P (MAP) Pulse Ox O2 Delivery O2 Flow Rate FiO2 08/15/17 08:20 98 Nasal Cannula 4.00 08/15/17 08:00 109 08/15/17 03:56 98.3 109 18 162/71 (101) 93 08/15/17 02:52 99 Nasal Cannula 4.00 08/14/17 23:07 98.6 100 18 175/77 (109) 96 08/14/17 20:04 93 Nasal Cannula 6.00 08/14/17 20:00 112 08/14/17 19:45 98.7 114 18 163/72 (102) 98 08/14/17 19:00 99 Nasal Cannula 4.00 08/14/17 16:08 100.0 110 21 163/77 (105) 96 08/14/17 16:00 113 08/14/17 12:04 98.7 111 21 145/82 (103) 90 08/14/17 11:23 91 Nasal Cannula 4.00 Intake & Output 08/15/17 08/15/17 07:00 19:00 Intake Total 120 ml Output Total 300 ml 600 ml Balance -180 ml -600 ml Intake Oral 120 ml Output Urine Total 300 ml Gastric Drainage Total 600 ml # Bowel Movements 0 Physical Exam CONSTITUTIONAL/GENERAL: This is an adequately nourished patient, alert, appears SOB TUBES/LINES/DRAINS: PeripheralV RU upper extremity, Feliciano catheter, nasal cannula O2 SKIN: No jaundice, rashes, or lesions. Several areas of ecchymosis bilateral upper extremities as well as dressed skin tears to bilateral mid upper arms near elbows. Few small ecchymosis to lower extremities. No wounds seen anteriorly. Skin warm and dry. CARDIOVASCULAR: Irregular. No murmur. No JVD. Peripheral pulses symmetric. RESPIRATORY/CHEST: Symmetric, unlabored respirations. Mildly tachypneic. + crackles. Breath sounds equal bilaterally, decreased to bases GASTROINTESTINAL: Abdomen soft, slight tenderness to left, nondistended. No hepato-splenomegaly, or palpable masses. No guarding. Bowel sounds hypoactive. GENITOURINARY: Without palpable bladder distension. Feliciano catheter in place. Clear yellow urine. NEUROLOGICAL: alert, oriented ,though speech is very garbled and limited is difficult to understand. She prefers to write. Follows commands. Moves all 4 extremities left slightly weaker than right. PSYCHIATRIC: No obvious anxiety/depression. no apparent hallucinations or other psychotic thought process. Diagnostic Tests Laboratory Laboratory Tests Test 08/13/17 06:45 08/13/17 06:51 08/13/17 07:00 08/13/17 07:10 White Blood Count 11.3 TH/MM3 (4.0-11.0) Red Blood Count 3.94 MIL/MM3 (4.00-5.30) Hemoglobin 12.3 GM/DL (11.6-15.3) Hematocrit 37.2 % (35.0-46.0) Mean Corpuscular Volume 94.6 FL (80.0-100.0) Mean Corpuscular Hemoglobin 31.3 PG (27.0-34.0) Mean Corpuscular Hemoglobin Concent 33.1 % (32.0-36.0) Red Cell Distribution Width 17.8 % (11.6-17.2) Platelet Count 395 TH/MM3 (150-450) Mean Platelet Volume 8.2 FL (7.0-11.0) Neutrophils (%) (Auto) 88.1 % (16.0-70.0) Lymphocytes (%) (Auto) 7.2 % (9.0-44.0) Monocytes (%) (Auto) 4.1 % (0.0-8.0) Eosinophils (%) (Auto) 0.1 % (0.0-4.0) Basophils (%) (Auto) 0.5 % (0.0-2.0) Neutrophils # (Auto) 10.0 TH/MM3 (1.8-7.7) Lymphocytes # (Auto) 0.8 TH/MM3 (1.0-4.8) Monocytes # (Auto) 0.5 TH/MM3 (0-0.9) Eosinophils # (Auto) 0.0 TH/MM3 (0-0.4) Basophils # (Auto) 0.1 TH/MM3 (0-0.2) CBC Comment DIFF FINAL Differential Comment Prothrombin Time 10.1 SEC (9.8-11.6) Prothromb Time International Ratio 1.0 RATIO Activated Partial Thromboplast Time 23.9 SEC (24.3-30.1) B-Type Natriuretic Peptide 56 PG/ML (0-100) Blood Urea Nitrogen 29 MG/DL (7-18) Creatinine 1.32 MG/DL (0.50-1.00) Random Glucose 163 MG/DL (74-106) Total Protein 6.8 GM/DL (6.4-8.2) Albumin 3.2 GM/DL (3.4-5.0) Calcium Level 9.0 MG/DL (8.5-10.1) Magnesium Level 2.1 MG/DL (1.5-2.5) Alkaline Phosphatase 77 U/L (45-117) Aspartate Amino Transf (AST/SGOT) 23 U/L (15-37) Alanine Aminotransferase (ALT/SGPT) 21 U/L (10-53) Total Bilirubin 0.7 MG/DL (0.2-1.0) Sodium Level 142 MEQ/L (136-145) Potassium Level 5.1 MEQ/L (3.5-5.1) Chloride Level 103 MEQ/L (98-107) Carbon Dioxide Level 28.2 MEQ/L (21.0-32.0) Anion Gap 11 MEQ/L (5-15) Estimat Glomerular Filtration Rate 39 ML/MIN (>89) Total Creatine Kinase 57 U/L (26-192) Troponin I LESS THAN 0.02 NG/ML Lactic Acid Level 3.4 mmol/L (0.4-2.0) Urine Color YELLOW (YELLW/STRAW) Urine Turbidity HAZY (CLEAR) Urine pH 5.0 (5.0-8.5) Urine Specific [place] 1.013 (1.002-1.035) Urine Protein NEG mg/dL (NEG-TRACE) Urine Glucose (UA) NEG mg/dL (NEG) Urine Ketones NEG mg/dL (NEG) Urine Occult Blood NEG (NEG) Urine Nitrite POS (NEG) Urine Bilirubin NEG (NEG) Urine Urobilinogen LESS THAN 2.0 MG/DL (LESS Urine Leukocyte Esterase LARGE (NEG) Urine RBC 3 /hpf (0-3) Urine WBC 23 /hpf (0-5) Urine WBC Clumps FEW (NONE) Urine Squamous Epithelial Cells 1 /hpf (0-5) Urine Transitional Epithelial Cells <1 /hpf (NONE) Urine Bacteria FEW /hpf (NONE) Urine Hyaline Casts 1 /lpf (RARE) Urine Mucus FEW /lpf (OCC) Microscopic Urinalysis Comment CATH-CULTURE IND Test 08/13/17 09:20 08/13/17 12:29 08/14/17 07:17 Lactic Acid Level 2.6 mmol/L (0.4-2.0) 1.6 mmol/L (0.4-2.0) White Blood Count 8.7 TH/MM3 (4.0-11.0) Red Blood Count 3.07 MIL/MM3 (4.00-5.30) Hemoglobin 9.8 GM/DL (11.6-15.3) Hematocrit 29.1 % (35.0-46.0) Mean Corpuscular Volume 94.8 FL (80.0-100.0) Mean Corpuscular Hemoglobin 32.0 PG (27.0-34.0) Mean Corpuscular Hemoglobin Concent 33.7 % (32.0-36.0) Red Cell Distribution Width 17.8 % (11.6-17.2) Platelet Count 253 TH/MM3 (150-450) Mean Platelet Volume 9.0 FL (7.0-11.0) Neutrophils (%) (Auto) 90.5 % (16.0-70.0) Lymphocytes (%) (Auto) 5.4 % (9.0-44.0) Monocytes (%) (Auto) 3.6 % (0.0-8.0) Eosinophils (%) (Auto) 0.1 % (0.0-4.0) Basophils (%) (Auto) 0.4 % (0.0-2.0) Neutrophils # (Auto) 7.9 TH/MM3 (1.8-7.7) Lymphocytes # (Auto) 0.5 TH/MM3 (1.0-4.8) Monocytes # (Auto) 0.3 TH/MM3 (0-0.9) Eosinophils # (Auto) 0.0 TH/MM3 (0-0.4) Basophils # (Auto) 0.0 TH/MM3 (0-0.2) CBC Comment DIFF FINAL Differential Comment Blood Urea Nitrogen 22 MG/DL (7-18) Creatinine 0.88 MG/DL (0.50-1.00) Random Glucose 131 MG/DL (74-106) Total Protein 5.5 GM/DL (6.4-8.2) Albumin 2.3 GM/DL (3.4-5.0) Calcium Level 8.3 MG/DL (8.5-10.1) Phosphorus Level 3.2 MG/DL (2.5-4.9) Magnesium Level 1.9 MG/DL (1.5-2.5) Alkaline Phosphatase 59 U/L (45-117) Aspartate Amino Transf (AST/SGOT) 17 U/L (15-37) Alanine Aminotransferase (ALT/SGPT) 12 U/L (10-53) Total Bilirubin 0.4 MG/DL (0.2-1.0) Sodium Level 145 MEQ/L (136-145) Potassium Level 3.8 MEQ/L (3.5-5.1) Chloride Level 110 MEQ/L (98-107) Carbon Dioxide Level 26.2 MEQ/L (21.0-32.0) Anion Gap 9 MEQ/L (5-15) Estimat Glomerular Filtration Rate 62 ML/MIN (>89) Result Diagram: 08/14/1771608/14/17716 Microbiology Microbiology Date/Time Source Procedure Growth Status 08/13/17 07:00 Blood Peripheral Aerobic Blood Culture - Preliminary NO GROWTH IN 1 DAY Resulted 08/13/17 07:00 Blood Peripheral Anaerobic Blood Culture - Preliminary NO GROWTH IN 1 DAY Resulted 08/13/17 06:45 Blood Peripheral Aerobic Blood Culture - Preliminary NO GROWTH IN 1 DAY Resulted 08/13/17 06:45 Blood Peripheral Anaerobic Blood Culture - Preliminary NO GROWTH IN 1 DAY Resulted 08/13/17 07:10 Urine Catheterized Urine Urine Culture - Preliminary Gram Negative Roque Resulted Imaging Last Impressions Abdomen/Pelvis CT 08/14/17 0000 Signed Impressions: Service Date/Time: Monday, August 14, 2017 20:56 - CONCLUSION: 1. Multiple fluid-filled loops of small bowel suggestive of partial small bowel obstruction or ileus. This likely is at the level of the jejunum as the distal ileum is normal in caliber. 2. Patchy opacities within the lung bases posteriorly consistent with atelectasis and/or pneumonia. Clinical correlation is recommended. 3. No evidence of left renal mass for nonobstructing stone. 4. Uncomplicated colonic diverticulosis. 5. Ventral abdominal wall hernia which appears to contain a portion of transverse colon. 6. Cardiomegaly and small pericardial effusion. Kyler Irizarry MD Chest X-Ray 08/13/17 0651 Signed Impressions: Service Date/Time: Sunday, August 13, 2017 07:05 - CONCLUSION: No acute cardiopulmonary disease demonstrated. William Ceballos MD Renal Ultrasound 08/13/17 0000 Signed Impressions: Service Date/Time: Sunday, August 13, 2017 20:19 - CONCLUSION: 1. Questionable solid mass within the mid pole of the left kidney measuring 3.3 x 1.9 x 2.[address] of the abdomen may be helpful for further characterization of this questionable lesion if clinical indicated. 2. 5 mm calcified nonobstructing mid pole left renal calculus. 3. Small bilateral kidneys. Kyler Irizarry MD Assessment and Plan Disease Oriented Problem List: (1) UTI (urinary tract infection) (2) Sepsis (3) Respiratory distress (4) HTN (hypertension) (5) REESE (acute kidney injury) Symptom Scale: (1) Dysphagia 0-10 Scale: Unable to quantify (2) Weakness 0-10 Scale: Unable to quantify (3) Aphasia 0-10 Scale: Unable to quantify (4) Pain, abdominal 0-10 Scale: 5 Pertinent Non-Medical Issues Psychosocial:Originally from [place] has lived in [place] for several years. , her 3 years ago. Supported by 3 adult children 1 son Alok is local, one son and daughter live out of the area [facility] [place]. Lived at home with her son prior to acute hospitalization in May, was discharged for rehabilitation following that admission Spiritual:rastafari, wants ship erector, global director air and climate change visits Legal:Patient mental status fluctuates. 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 She may be able to participate in some decision-making will likely this would be best to have shared decision making with her and her children. Son informs that he is the DURABLE POWER OF FURNITURE AND BEDDING INSPECTOR not clear if this includes healthcare decision-making, he indicates that all the children remain in close communication and are working together. Patient and family open to ongoing conversations regarding goals, options as clinical course evolves. Ethical issues impacting care: Important Contacts Son Alok Hernandez [phone] Daughter Meghann Syed [phone] . Prognosis This patient was admitted for respiratory distress, emesis. She has findings of a UTI, new findings of kidney mass, further diagnostics pending. She has had general decline and debility since hospitalization around 2016( for pneumonia, pneumothorax). Possible patient can remain stable and get through current acute hospitalization and return to most recent cognitive and functional status the patient does remain high risk for ongoing debility and further decline secondary to now chronically ill state. New Findings regarding renal mass may further impact overall prognosis. . Code Status: No Code Plan * Legal decision maker:Patient mental status fluctuates. 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 She may be able to participate in some decision-making will likely this would be best to have shared decision making with her and her children. Son informs that he is the DURABLE POWER OF FURNITURE AND BEDDING INSPECTOR not clear if this includes healthcare decision-making , he indicates that all the children remain in close communication and are working together. Patient and family open to ongoing conversations regarding goals, options as clinical course evolves. * Goals: For now patient and family wish to proceed with CT scan to further evaluate findings of renal mass and better differentiate if it is possible malignancy. Patient and family indicates she likely would not proceed with any type of aggressive treatment for findings but they would like to know if at all possible if it is cancer. Patient and son requests DNR. Goals are aggressive short of resuscitation. * consider requesting prior records from [facility] which may have more information regarding other possible cancer findings. 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 Speech therapy recommends pure with nectar thick liquids. High risk for aspiration. --Pain: Patient today endorses abdominal pain but was unable to further describe. Pain is medium to moderate 5 out of 10. It is mostly constant. Last bowel movement earlier this morning. Having some occasional nausea. Relieved by Zofran. Abdominal exam essentially benign. Patient with history of reflux, part of admitting complaints were emesis/vomiting, cont to have n/v, CT abdomen + poss SBO/ileus. GI consulted, following. avoid opiates at this time. --Nausea/vomiting-patient presenting with reported emesis from SNF. Has had some intermittent emesis and nausea since admission. Having bowel movements. Taking by mouth. Previously on supplementation via PEG tube. Zofran relieving nausea currently. CT abdomen/pelvis = poss SBO/ileus. Pt w known hx colon perf, resection, colostomy and subsequent colostomy reversal. + Ventral abdominal wall hernia which appears to contain a portion of transverse colon. Pt w ongoing nausea- - consider PEG to Suction with bowel rest to relieve some nausea ,consider scheduled lactulose, reglan. (currently has PRN lactulose) * Palliative care will continue to follow during hospital course as condition evolves, to assist patient/decision-maker with understanding of medical conditions, weighing benefits/burdens of treatment options, for clarification of goals of treatment. Additionally will assist with any symptoms of palliative concern Attestation To help prompt me to consider important information that might be impacting today's encounter and assessment, information from prior notes written by myself or my colleagues may have been "brought forward" into today's note. My signature on this note, however, is an attestation that I personally performed the exam, history, and/or decision-making noted today, and, unless otherwise indicated, the interactions with patient, family, and staff as well as the review of records all occurred today. I also attest that the listed assessment and stated plan reflect my best clinical judgment today based on the combination of historical information, prior notes, and today's exam/ interactions. When time spent is documented, it refers only to time spent today by the signer, or if indicated, combined time spent today by collaborating physician/nurse practitioner. Oriana Segura Aug 15, 2017 10:33
--- NOTE | 2017-08-15 10:58 | HHI.NPPN ---
Subjective History of Present Illness Patient is a 81-year-old female presents to the emergency department from [facility] by EMS transport for marked respiratory distress. According to barrel assembler helper report upon their arrival patient was showing evidence of respiratory distress with accessory muscle use janki-oral cyanosis dried vomitus around her mouth and in her clear and room air O2 saturations of 82%. Patient is placed on nonrebreather mask with O2 saturations only increasing to 92%. She is on 4 liters via nasal cannula now with good sats. Patient is found to have a abdormal UA. Chest xray with no acute cardiopulmonary disease demonstrated. Patient also noted to have elevated creatinine at 1.32 and GFR of 39 ml/min. Past medical history of Afib, CHF, HTN, Hypothyroid, PNA, cardiac stenosis, and CVA. She is currently on oral diet but does have PEG tube. Additional Remarks Lung sounds with increased congestion. No edema noted. CT with possible SBO or ileus. NPO now. (Majo Hanley) Review of Systems General Constitutional: Fatigue (Majo Hanley) Respiratory Lungs: Cough (Majo Hanley) Cardiovascular Cardiac Remarks Denies any CP (Majo Hanley) Gastrointestinal Gastrointestinal: Abdominal Pain, Nausea & Vomiting (Majo Hanley) Objective Data Data 08/15/17 08/16/17 19:00 07:00 Output Total 600 ml Balance -600 ml Gastric Drainage Total 600 ml Vital Signs Date Time Temp Pulse Resp B/P (MAP) Pulse Ox O2 Delivery O2 Flow Rate FiO2 08/15/17 08:20 98 Nasal Cannula 4.00 08/15/17 08:00 109 08/15/17 08:00 98.2 104 16 137/73 (94) 90 08/15/17 03:56 98.3 109 18 162/71 (101) 93 08/15/17 02:52 99 Nasal Cannula 4.00 08/14/17 23:07 98.6 100 18 175/77 (109) 96 08/14/17 20:04 93 Nasal Cannula 6.00 08/14/17 20:00 112 08/14/17 19:45 98.7 114 18 163/72 (102) 98 08/14/17 19:00 99 Nasal Cannula 4.00 08/14/17 16:08 100.0 110 21 163/77 (105) 96 08/14/17 16:00 113 08/14/17 12:04 98.7 111 21 145/82 (103) 90 08/14/17 11:23 91 Nasal Cannula 4.00 (Majo Hanley) -: 08/14/17 0717 08/14/17 0717 Physical Exam General Appearance: Well Nourished, No Acute Distress (Majo Hanley) Eyes Eye Exam: Pupils Equal (Majo Hanley) Throat Throat Exam: Oral Mucosa [place] & Moist (Majo HanleyP) Pulmonary Resp Exam: Breath Sounds Equal, Crackles, Decreased Bases (Majo Hanley) Cardiology CV Exam: Regular (Majo HanleyP) Gastrointestinal/Abdomen GI Exam: Soft, Non-Tender (Majo HanleyP) Genitourinary Exam: Flank Non-Tender (Majo Hanley) Integumentary Skin Exam: Clear, Warm, Dry (Majo HanleyP) Extremeties Extremities Exam: Trace Edema (Majo Hanley) Neurologic Neuro Exam: Alert, Awake (Majo Hanley) Assessment/Plan Problem List: (1) REESE (acute kidney injury) ICD Codes: N17.9 - Acute kidney failure, unspecified Plan: REESE on CKD most likely prerenal from poor PO intake with dysphagia and UTI Patient with CKD from possibly HTN or renovascular disease. Baseline GFR not available UA negative for proteinuria. Renal US: Questionable solid mass within the mid pole of the left kidney measuring 3.3 x 1.9 x 2.2 cm and Small bilateral kidneys. CT: . suggestive of partial small bowel obstruction or ileus. No evidence of left renal mass for nonobstructing stone Plan Decrease IVF Will give 1 dose of lasix with increased congestion Continue to monitor I+ O GI and hematology consulted D/W the Son at bed side. (2) HTN (hypertension) ICD Codes: I10 - Essential (primary) hypertension Plan: Well controlled Home medication resumed (Majo Hanley) Problem List: (1) REESE (acute kidney injury) ICD Codes: N17.9 - Acute kidney failure, unspecified Plan: REESE on CKD most likely prerenal from poor PO intake with dysphagia and UTI Patient with CKD from possibly HTN or renovascular disease. Baseline GFR not available UA negative for proteinuria. Renal US: Questionable solid mass within the mid pole of the left kidney measuring 3.3 x 1.9 x 2.2 cm and Small bilateral kidneys. CT: . suggestive of partial small bowel obstruction or ileus. No evidence of left renal mass for nonobstructing stone Plan Decrease IVF Will give 1 dose of lasix with increased congestion Continue to monitor I+ O GI and hematology consulted D/W the Son at bed side. Patient seen, examined and agree with above. (2) HTN (hypertension) ICD Codes: I10 - Essential (primary) hypertension Plan: Well controlled Home medication resumed (Roselia Jorge MD) Majo Hanley Aug 15, 2017 10:58 Roselia Jorge MD Aug 15, 2017 17:27
[2017-08-15] MEDS ORDERED: FUROSEMIDE 20 MG/2 ML VIAL IV PUSH ONE (11:00)
--- NOTE | 2017-08-15 11:10 | PD.CONS ---
HPI History of Present Illness This is a 81 year old female with hx bowel perforation after colonoscopy, s/p colectomy, colostomy and colostomy reversal, CVA with aphasia who presented from [facility] rehab for respiratory distress and n/v. Per pt's son she had not been feeling well this week and he was called Saturday night and told she was having projectile vomiting. She has been complaining of "stomachache." She was on day 8 of PO diet with goal to remove PEG tube and was doing ok until Saturday. She has had decreased appetite. SHe did vomit this morning. Has not had BM today, no further info on BMs. She had normal EGD and PEG tube placement 06/28/[address] Mosqueda at [facility] for nutritional support during hospitalization for PNA. SHe last had colonoscopy 8 years ago in [place] and suffered a perforation with subsequent colectomy, colostomy, and eventually reversal. Hx obtained from pts son and EMR, pt aphasic although she can write short phrases. She takes eliqiuis. (Sabi Zayas) PFSH Past Medical History Anemia Atrial fibrillation CHF Depression Hypertension PEG tube placed Renal failure Dysphagia GERD Hypothyroid Dyslipidemia Depression perforated colon 2/2 colonoscopy . . Past Surgical History PEG tube placement 2017 colon resection/colostomy (2/2 perf colon) colostomy revision/reversal . (Sabi Zayas) Coded Allergies: ciprofloxacin (Verified Allergy, Unknown, 08/13/17) morphine (Verified Allergy, Unknown, 08/13/17) Family History none per pts son Social History no etoh currently, occasional wine in past former smoker quit 40y ago no illicit drug use (Sabi Zayas) Review of Systems Constitutional: DENIES: Fever Eyes: DENIES: Blurred vision Ears, nose, mouth, throat: DENIES: Hearing loss Respiratory: DENIES: Cough Cardiovascular: DENIES: Chest pain Gastrointestinal: COMPLAINS OF: Abdominal pain, Nausea, Vomiting, DENIES: Black stools, Bloody stools Genitourinary: DENIES: Hematuria Musculoskeletal: DENIES: Joint Swelling Hematologic/lymphatic: DENIES: Bruising Neurologic: COMPLAINS OF: Abnormal gait (walker) Psychiatric: DENIES: Confusion (Sabi Zayas) GI Exam Vitals I&O Vital Signs Date Time Temp Pulse Resp B/P (MAP) Pulse Ox O2 Delivery O2 Flow Rate FiO2 08/15/17 08:20 98 Nasal Cannula 4.00 08/15/17 08:00 109 08/15/17 03:56 98.3 109 18 162/71 (101) 93 08/15/17 02:52 99 Nasal Cannula 4.00 08/14/17 23:07 98.6 100 18 175/77 (109) 96 08/14/17 20:04 93 Nasal Cannula 6.00 08/14/17 20:00 112 08/14/17 19:45 98.7 114 18 163/72 (102) 98 08/14/17 19:00 99 Nasal Cannula 4.00 08/14/17 16:08 100.0 110 21 163/77 (105) 96 08/14/17 16:00 113 08/14/17 12:04 98.7 111 21 145/82 (103) 90 08/14/17 11:23 91 Nasal Cannula 4.00 I/O 08/14/17 08/14/17 08/14/17 08/15/17 08/15/17 08/15/17 07:00 15:00 23:00 07:00 15:00 23:00 Intake Total 240 ml 1000 ml 240 ml 120 ml Output Total 300 ml 600 ml Balance 240 ml 1000 ml 240 ml -180 ml -600 ml Intake Oral 240 ml 240 ml 120 ml IV Total 1000 ml Output Urine Total 300 ml Gastric Drainage Total 600 ml # Voids 5 2 # Bowel Movements 1 0 0 Imaging Last Impressions Abdomen/Pelvis CT 08/14/17 0000 Signed Impressions: Service Date/Time: Monday, August 14, 2017 20:56 - CONCLUSION: 1. Multiple fluid-filled loops of small bowel suggestive of partial small bowel obstruction or ileus. This likely is at the level of the jejunum as the distal ileum is normal in caliber. 2. Patchy opacities within the lung bases posteriorly consistent with atelectasis and/or pneumonia. Clinical correlation is recommended. 3. No evidence of left renal mass for nonobstructing stone. 4. Uncomplicated colonic diverticulosis. 5. Ventral abdominal wall hernia which appears to contain a portion of transverse colon. 6. Cardiomegaly and small pericardial effusion. Kyler Irizarry MD Chest X-Ray 08/13/17 0651 Signed Impressions: Service Date/Time: Sunday, August 13, 2017 07:05 - CONCLUSION: No acute cardiopulmonary disease demonstrated. William Ceballos MD Renal Ultrasound 08/13/17 0000 Signed Impressions: Service Date/Time: Sunday, August 13, 2017 20:19 - CONCLUSION: 1. Questionable solid mass within the mid pole of the left kidney measuring 3.3 x 1.9 x 2.[address] of the abdomen may be helpful for further characterization of this questionable lesion if clinical indicated. 2. 5 mm calcified nonobstructing mid pole left renal calculus. 3. Small bilateral kidneys. Kyler Irizarry MD Laboratory Date/Time Source Procedure Growth Status 08/13/17 07:00 Blood Peripheral Aerobic Blood Culture - Preliminary NO GROWTH IN 1 DAY Resulted 08/13/17 07:00 Blood Peripheral Anaerobic Blood Culture - Preliminary NO GROWTH IN 1 DAY Resulted 08/13/17 07:10 Urine Catheterized Urine Urine Culture - Preliminary Gram Negative Roque Resulted Physical Examination HEENT: PERRL; normocephalic; atraumatic; no jaundice. CHEST: coarse CARDIAC: RRR ABDOMEN: Soft, nondistended, diffusely TTP; no hepatosplenomegaly; bowel sounds are present in all four quadrants. PEG tube EXTREMITIES: No clubbing, cyanosis, or edema. SKIN: Normal; no rash; no jaundice. RETAIL EQUIPMENT ASSOCIATE: lethargic, relatively nonverbal (Sabi Zayas) Assessment and Plan Plan ASSESSMENT - n/v, abd pain - 4 d ago onset projectile vomiting, abd pain. CT showed psbo vs ileus. hx colon perf after colonoscopy s/p colectomy, colostomy, and reversal. pt is not distended, BS +, abd soft PLAN - SBFT - PEG tube to LIWS if becomes distended - NPO - further recs to follow pt seen by myself and Dr Rosen and this note is written on his behalf (Sabi Zayas) Physician Comments Seen and examined with FRANKLIN, discussed with family at bedside. SBFT pending. PEG to L.I.S. may need surgical consultation depending upon clinical course. Thank you (Subha Rosen MD) Sabi Zayas Aug 15, 2017 11:10 Subha Rosen MD Aug 15, 2017 15:50
[2017-08-15] MEDS ORDERED: DIATRIZOATE MEGLUM/DIATRIZOATE SOD 120 ML BTL (for RAD DIAG) PEG ONE (11:45)
[2017-08-15] MEDS: SODIUM CHLOR 0.9% 1000 ML INJ 1,000 ML IV SCH (12:28)
[2017-08-15] MEDS ORDERED: fentaNYL 25 MCG/HR PATCH T-DERMAL SCH (17:00)
[2017-08-15] MEDS: traMADol HCL 50 MG TAB PO PRN (17:12)
[2017-08-15] MEDS ORDERED: ENALAPRILAT 1.25 MG/ML VIAL IV PUSH PRN (17:15)
--- NOTE | 2017-08-15 17:15 | RADRPT ---
EXAM DATE/TIME: 08/15/2017 11:18 [facility] COMPARISON: CT ABDOMEN & PELVIS W CONTRAST, August 14, 2017, 20:56. INDICATIONS : Obstruction. FLUORO TIME: 0 minutes IMAGE COUNT: 11 CONTRAST: Gastrolilly IMAGING TIME(S): 15 min, 30 min, 1 hr, 3 hr, 5 hrs MEDICAL HISTORY : Thyroid disease. Cardiac disorder. CHF. Afib. HTN. Gastritis. GERD. Renal failure. SURGICAL HISTORY : Gtube. Gastrostomy. ENCOUNTER: Subsequent ACUITY: 2 days PAIN SCORE: Non-responsive. LOCATION: abdomen FINDINGS: Pulmonary basketball scout film demonstrates gas and stool noted segments in the colon. There are multiple loops of nondilated air-containing small bowel in the central abdomen. There is a gastrostomy tube in the stomach. The stomach is grossly unremarkable. The Gastrografin becomes diluted in the small bowel and there are multiple loops of borderline dilate d small bowel which are poorly visualized. The terminal ileum was not well identified. Contrast is no jigar in the colon in approximately 3 hours. No focal mass or obstruction is identified. No definite in traluminal filling defects are identified. CONCLUSION: Multiple loops of borderline dilated small bowel with passage of contrast into the co sol at 3 hours ruling out a complete obstruction. Atif Christensen MD on August 15, 2017 at 17:05 Board Certified Radiologist. This report was verified electronically.
--- NOTE | 2017-08-15 17:17 | HHI.PR ---
Subjective Remarks Late entry Seen this am, non conversive able to make needs known by writing on paper. Objective Vital Signs Date Time Temp Pulse Resp B/P (MAP) Pulse Ox O2 Delivery O2 Flow Rate FiO2 08/15/17 12:00 99.3 102 22 154/81 (105) 93 08/15/17 08:20 98 Nasal Cannula 4.00 08/15/17 08:00 109 08/15/17 08:00 98.2 104 16 137/73 (94) 90 08/15/17 03:56 98.3 109 18 162/71 (101) 93 08/15/17 02:52 99 Nasal Cannula 4.00 08/14/17 23:07 98.6 100 18 175/77 (109) 96 08/14/17 20:04 93 Nasal Cannula 6.00 08/14/17 20:00 112 08/14/17 19:45 98.7 114 18 163/72 (102) 98 08/14/17 19:00 99 Nasal Cannula 4.00 I/O 08/14/17 08/14/17 08/14/17 08/15/17 08/15/17 08/15/17 07:00 15:00 23:00 07:00 15:00 23:00 Intake Total 240 ml 1000 ml 240 ml 120 ml Output Total 300 ml 600 ml Balance 240 ml 1000 ml 240 ml -180 ml -600 ml Intake Oral 240 ml 240 ml 120 ml IV Total 1000 ml Output Urine Total 300 ml Gastric Drainage Total 600 ml # Voids 5 2 # Bowel Movements 1 0 0 Result Diagram: 08/14/1771608/14/1717 Objective Remarks GENERAL: This is a well-nourished, well-developed patient, in no apparent distress. SKIN:warm and dry with ecchymotic areas CARDIOVASCULAR: S1S2, RESPIRATORY: Clear to auscultation. Breath sounds equal bilaterally some scattered rhonchi noted. GASTROINTESTINAL: Abdomen soft, non-tender, nondistended, BS + NEUROLOGICAL: Awake and alert. follows commands Medications and IVs Current Medications Medications (Trade) Dose Ordered Sig/Ashlee Route Start Time Stop Time Status Last Admin (NS Flush) 2 ml UNSCH PRN IVF 08/13/17 07:00 Sodium Chloride 1,000 ml @ 83 mls/hr Q12H3M IV 08/13/17 10:13 08/14/17 23:17 (Tylenol) 650 mg Q4H PRN PO 08/13/17 10:15 (Zofran Inj) 4 mg Q6H PRN IVP 08/13/17 10:15 08/15/17 08:37 (Narcan Inj) 0.4 mg UNSCH PRN IV PUSH 08/13/17 10:15 (Merari-Colace) 1 tab BID PO 08/13/17 21:00 08/14/17 23:15 (Milk Of Magnesia Liq) 30 ml Q12H PRN PO 08/13/17 10:15 (Senokot) 17.2 mg Q12H PRN PO 08/13/17 10:15 (Dulcolax Supp) 10 mg DAILY PRN RECTAL 08/13/17 10:15 (Lactulose Liq) 30 ml DAILY PRN PO 08/13/17 10:15 (Albuterol Neb) 2.5 mg Q6HR NEB INH 08/13/17 22:00 08/15/17 08:19 (Norvasc) 10 mg DAILY PO 08/14/17 09:00 08/14/17 09:33 (Synthroid) 50 mcg DAILY@0600 PO 08/14/17 06:00 08/15/17 07:05 (Deltasone) 5 mg DAILY PO 08/14/17 09:00 08/14/17 09:34 (Rythmol) 150 mg BID PO 08/13/17 21:00 08/14/17 23:15 (Eliquis) 2.5 mg BID PO 08/13/17 21:00 08/14/17 23:15 Ceftriaxone Sodium 2000 mg/ Sodium Chloride 100 ml @ 200 mls/hr Q24H IV 08/13/17 20:00 08/14/17 23:15 (Ultram) 50 mg Q6H PRN PO 08/13/17 21:30 08/14/17 23:17 (Vasotec) 5 mg BID PO 08/14/17 21:00 08/14/17 23:15 (Duragesic 25 Mcg Patch.72 Hr) 1 patch Q3D T-DERMAL 08/15/17 17:00 UNV Assessment and Plan Problem List: (1) Sepsis ICD Codes: A41.9 - Sepsis, unspecified organism Status: Acute Plan: ID following, CT chest 08/14 shows some patchy opacities, ID following, on Rocephin she has been afebrile (2) Hypoxia ICD Codes: R09.02 - Hypoxemia Status: Acute Plan: Keep sat's above 92>, cont Duo Nebs IV lasix given today for increased congestion. (3) HTN (hypertension) ICD Codes: I10 - Essential (primary) hypertension Plan: Monitor B/P,will give IV prn as she is NPO for possible SBO (4) REESE (acute kidney injury) ICD Codes: N17.9 - Acute kidney failure, unspecified Plan: Renal following, improved with hydration. Renal US shows questionable mass f/u CT negative for Mass Assessment and Plan GI consulted for Possible SBO/Ileus. Had bouts of emesis today, NPO for the moment Small bowel series pending. Aranza Fine Aug 15, 2017 17:17
[2017-08-15] MEDS ORDERED: FUROSEMIDE 40 MG/4 ML VIAL ONE (18:24)
--- NOTE | 2017-08-15 18:45 | RADRPT ---
EXAM DATE/TIME: 08/15/2017 18:24 [facility] COMPARISON: CHEST SINGLE AP, August 13, 2017, 7:05. INDICATIONS : HALICAT. Respiratory distress. MEDICAL HISTORY : Thyroid disease. Cardiac disorder. CHF. Afib. HTN. Gastritis. GERD. Renal failure. SURGICAL HISTORY : Gtube. Gastrostomy ENCOUNTER: Subsequent ACUITY: 1 day PAIN SCORE: Non-responsive. LOCATION: Bilateral chest FINDINGS: There is a small left apical pneumothorax measuring 12 mm. Small left pleural effusion is noted. The heart is mildly enlarged. Left basilar patchiness is noted consistent with atelectasis and/or infiltr ate. CONCLUSION: 1. Small left apical pneumothorax measuring 12 mm. 2. Left basilar patchiness consistent with atelectasis and/or infiltrate as well as a small left pleu ral effusion. 3. Mild cardiomegaly. Kyler Irizarry MD on August 15, 2017 at 18:40 Board Certified Radiologist. This report was verified electronically.
--- NOTE | 2017-08-15 19:40 | PD.CONS ---
[facility] Service Critical Care Medicine Consult Requested By Dr. Solares Reason for Consult Acute hypoxemic respiratory failure Healthcare associated pneumonia Probable aspiration Sepsis Pseudomonas UTI Severe ileus Primary Care Physician Lio Solares, DO History of Present Illness Patient is a 81 year old female with past medical history significant for CVA, aphasia, atrial fibrillation on eliquis, history of bowel perforation after colonoscopy, s/p colectomy, colostomy and colostomy reversal, chronic kidney disease, who presented from [facility] on 08/13/17 for respiratory distress and nausea vomiting. Patient was admitted to the hospitalist service with probable sepsis. Infectious disease was consulted, started on ceftriaxone for UTI by Dr. Arcos. Ct of the abdomen pelvis showed ileus without evidence of mechanical obstruction. Apparently she had been taking by mouth, with a plan for removing PEG tube and RN informed me of possible aspiration also. (PEG tube placement 06/28/[address] Mosqueda at [facility] during hospitalization for pneumonia). A halicat was called today for worsening respiratory distress, and hypoxia. Chest x-ray showed possible small left apical pneumothorax. Patient was placed on 100% nonrebreather and was moved to the ICU. I requested a stat CT of the chest to better evaluate the pneumothorax and also evaluate for pneumonia. CT chest did not show pneumothorax but showed scattered bilateral infiltrates predominantly left lower lobe indicating pneumonia. Also urine culture was growing Pseudomonas, I have discontinued ceftriaxone and started on cefepime 2 g IV every 8 hours, Flagyl 500 mg IV every 8 hours and give single dose of vancomycin 1 g IV. Hold prednisone and placed on IV Solu Medrol, along with scheduled and when necessary DuoNeb. Check for influenza On my evaluation in the ICU patient is in obvious respiratory distress. Bilateral rhonchi and wheezes. She is struggling to breathe and indicated that she wants endotracheal intubation in front of the family. Family' is agreeable for intubation after discussion with patient, myself and Dr. Walters. DNR was rescinded and changed to alternate code intubation only. RSI initiated and large amount of biliary secretions noted to regurgitate into the oral cavity following induction. No significant aspiration, minimal biliary fluid suctioned out from the ET tube. There was large amount of biliary fluid pooling in the oral cavity which was suctioned out. PEG tube was placed to intermittent wall suction. Keep Nothing by mouth except meds, start Reglan for severe ileus. GI following Review of Systems ROS Limitations: Clinical Condition (Aphasic), Speech Impaired Past Family Social History Allergies: Coded Allergies: ciprofloxacin (Verified Allergy, Unknown, 08/13/17) morphine (Verified Allergy, Unknown, 08/13/17) Past Medical History Atrial fibrillation History of CHF CVA with aphagia Depression Hypertension Anemia Hypothyroidism Dyslipidemia Carotid artery stenosis Chronic kidney disease Past Surgical History PEG tube placement 2017 colon resection and colostomy following Perforation of colon Colostomy revision/reversal Reported Medications Vasotec (Enalapril Maleate) 5 Mg Tab 5 Mg PO BID Tramadol (Tramadol HCl) 50 Mg Tab 50 Mg PO Q4H PRN Propafenone (Propafenone HCl) 150 Mg Tab 150 Mg PO BID Prednisone 5 Mg Tab 5 Mg PO DAILY Milk of Magnesia Liq (Magnesium Hydroxide) 400 Mg/5 Ml Susp 30 Ml PO ONCE Lotrisone Topical (Betamethasone/Clotrimazole) 1-0.05% Cream 1 Applic TOPICAL BID Levothyroxine (Levothyroxine Sodium) 50 Mcg Tab 50 Mcg PO DAILY Lasix (Furosemide) 20 Mg Tab 20 Mg PO DAILY Ferrous Gluconate 324 Mg (38 Mg Iron) Tab PO DAILY Dulcolax Supp (Bisacodyl) 10 Mg Supp 10 Mg RECTAL DAILY PRN B-12 (Cyanocobalamin) 1,000 Mcg Subl 250 Mcg SL DAILY Citroma Liq (Magnesium Citrate) 300 Ml Liq 300 Ml PO DIRECTED Vitamin D3 (Cholecalciferol) 1,000 Unit Cap 1,000 Units DAILY Atorvastatin (Atorvastatin Calcium) 40 Mg Tab 40 Mg PO HS Eliquis (Apixaban) 2.5 Mg Tab 2.5 Mg PO BID Amlodipine (Amlodipine Besylate) 10 Mg Tab 10 Mg PO DAILY Albuterol Neb (Albuterol Sulfate) 2.5 Mg/0.5 Ml Neb 2.5 Mg NEB Q6HR NEB Tylenol (Acetaminophen) 325 Mg Tab 650 Mg PO Q4H PRN Tylenol (Acetaminophen) 325 Mg Tab 650 Mg PO Q4H PRN Active Ordered Medications Reviewed Family History No significant family history Social History Quit smoking 40 years ago Physical Exam Vital Signs Vital Signs Date Time Temp Pulse Resp B/P (MAP) Pulse Ox O2 Delivery O2 Flow Rate FiO2 08/15/17 16:00 97.3 115 22 161/77 (105) 93 08/15/17 16:00 114 08/15/17 12:00 99.3 102 22 154/81 (105) 93 08/15/17 08:20 98 Nasal Cannula 4.00 08/15/17 08:00 109 08/15/17 08:00 98.2 104 16 137/73 (94) 90 08/15/17 03:56 98.3 109 18 162/71 (101) 93 08/15/17 02:52 99 Nasal Cannula 4.00 08/14/17 23:07 98.6 100 18 175/77 (109) 96 08/14/17 20:04 93 Nasal Cannula 6.00 08/14/17 20:00 112 08/14/17 19:45 98.7 114 18 163/72 (102) 98 Physical Exam GENERAL: Elderly female who is critically ill tachypneic on nonrebreather. Aphasic. Appears in severe distress SKIN: Warm and dry. HEAD: Normocephalic. EYES: No scleral icterus. No injection or drainage. ENT: 100% nonrebreather in place. Airway patent NECK: Supple, trachea midline. No JVD or lymphadenopathy. CARDIOVASCULAR: Increased heart rate irregular irregular rhythm without murmurs , gallops, or rubs. Heart rate in 110s RESPIRATORY: Breath sounds equal bilaterally with scattered rhonchi bibasilar crackles. Positive accessory muscle use. Bilateral wheezing. Acute respiratory distress GASTROINTESTINAL: Abdomen soft, distended. Gastrostomy tube in place MUSCULOSKELETAL: No cyanosis, or edema. NEURO: Alert awake aphasic, anxious struggling to breathe. Moving all 4 extremities following commands Laboratory Laboratory Tests Test 08/15/17 19:11 Blood Gas Puncture Site RT BRACHIAL Blood Gas Patient Temperature 98.6 Blood Gas HCO3 22 Blood Gas Base Excess -2.2 Blood Gas Oxygen Saturation 97 Arterial Blood pH 7.39 Arterial Blood Partial Pressure CO2 37 Arterial Blood Partial Pressure O2 133 Arterial Blood Oxygen Content 14.7 Arterial Blood Carboxyhemoglobin 1.3 Arterial Blood Methemoglobin 0.8 Blood Gas Hemoglobin 10.6 Oxygen Delivery Device Non-Rebreathing Mask Blood Gas Liter Flow 15 Blood Gas Inspired Oxygen 100 Date/Time Source Procedure Growth Status 08/13/17 07:00 Blood Peripheral Aerobic Blood Culture - Preliminary NO GROWTH IN 2 DAYS Resulted 08/13/17 07:00 Blood Peripheral Anaerobic Blood Culture - Preliminary NO GROWTH IN 2 DAYS Resulted 08/13/17 07:10 Urine Catheterized Urine Urine Culture - Final Pseudomonas Aeruginosa Complete Result Diagram: 08/14/1771608/14/[address] chest scattered bilateral predominantly left lower lobe infiltrate CT abdomen pelvis showed ileus Septic Shock Reassessment Septic shock perfusion: reassessment completed Assessment and Plan Assessment and Plan ASSESSMENT: Acute hypoxemic respiratory failure Healthcare associated pneumonia Probable aspiration Severe sepsis Acute COPD exacerbation Pseudomonas UTI Severe ileus Atrial fibrillation with RVR Chronic Eliquis use Previous CVA with aphasia Carotid stenosis Chronic kidney disease PLAN: NEURO: - Versed for sedation and vent synchrony - Daily sedation vacation starting 24 hours - Discontinue fentanyl patch due to ileus, use fentanyl when necessary RESP: - Intubated and placed on mechanical ventilation/ACV - DuoNeb every 4 hours and when necessary, ventilator bundle - Hold prednisone, start IV Solu-Medrol 40 mg every 8 hours - Broad-spectrum antibiotics with cefepime and Flagyl, vancomycin single dose - Sputum culture requested - CT chest shows bilaterally, predominantly left lower lobe infiltrate (no pneumothorax noted) CV: - Jesse-Synephrine started for postintubation hypotension, will wean as tolerated - 2 L normal saline bolus, continue IV fluid normal saline at 75 ml per hour - Hold amlodipine and Vasotec - Continue Rythmol continue Eliquis - Repeat lactic acid GI: - Nothing by mouth except meds. G-tube to low intermittent wall suction - Start Reglan 10 mg IV every 8 hours. Gastroenterology following - Relistor 12 mg subcutaneous 1 : - Monitor renal function closely. Place Feliciano catheter. - Acute kidney injury had improved with hydration ID: - Ceftriaxone was discontinued and cefepime 2 g IV every 8 hours started for Pseudomonas UTI - Patient on IV Flagyl to cover for aspiration. Single dose of vancomycin given - Send sputum blood cultures, check for influenza HEME: - Monitor CBC, CMP - Continue Eliquis ENDO: - Continue Synthroid. Electrolyte replacement per protocol - Sliding scale insulin if needed PROPH: - Bilateral lower extremity SCDs. Continue Eliquis. Start IV Protonix LINES: - Utilize peripheral IVs, central line if needed CC time 78 min discontinuously, excluding procedures but including multiple assessments for worsening respiratory failure, multiple family meetings and discussion with research instructor Dr. Vega Code Status ALT CODE/INTUBATION ONLY Discussed Condition With Jordan Whatley MD Aug 15, 2017 19:40
[2017-08-15] MEDS ORDERED: VANCOMYCIN INJ 1,000 MG in SODIUM CHLOR 0.9% 250 ML INJ 250 ML IV ONE (20:00)
--- NOTE | 2017-08-15 20:00 | RADRPT ---
EXAM DATE/TIME: 08/15/2017 19:36 [facility] COMPARISON: CHEST SINGLE AP, August 15, 2017, 18:24. INDICATIONS : Pneumothorax RADIATION DOSE: 11.11 CTDIvol (mGy) MEDICAL HISTORY : Cardiovascular disease. Hypertension. renal failure,thyroid disease SURGICAL HISTORY : None. ENCOUNTER: Initial ACUITY: 1 day PAIN SCALE: 5/10 LOCATION: chest TECHNIQUE: Volumetric scanning of the chest was performed. Using automated exposure control and adjustment of t he mA and/or kV according to patient size, radiation dose was kept as low as reasonably achievable to obtain optimal diagnostic quality images. DICOM format image data is available electronically for r eview and comparison. Follow-up recommendations for detected pulmonary nodules are based at a minimum on nodule size and pa tient risk factors according to Fleischner Society Guidelines. FINDINGS: There has been resolution of the previous noted small left apical pneumothorax. The heart is enlarged . Small pericardial effusion is noted. Cardiomegaly is noted. Coronary artery calcifications are note d. Patchy infiltrates are noted throughout the left lung and to a lesser extent right lung consistent with probable pneumonia. Clinical correlation is recommended. There is distention of the stomach and esophagus with contrast. Moderate compression fracture is noted involving T12 which is likely chroni c. CONCLUSION: 1. Interval resolution of the previously noted small left apical pneumothorax. 2. Patchy infiltrates throughout the left lung and to a lesser extent the right lung consistent with probable pneumonia. Clinical correlation is recommended. 3. Small pericardial effusion. 4. Cardiomegaly and coronary artery calcification. 5. Distention of the stomach and esophagus. 6. Chronic moderate compression deformity involving T12. Kyler Irizarry MD on August 15, 2017 at 19:52 Board Certified Radiologist. This report was verified electronically.
[2017-08-15] MEDS ORDERED: ETOMIDATE 40 MG/20 ML VIAL ONE (20:31)
[2017-08-15] MEDS ORDERED: MIDAZOLAM HCL 5 MG/ML VIAL (1 ML) ONE (20:32)
[2017-08-15] MEDS ORDERED: ROCURONIUM INJ 50 MG/5 ML VIAL ONE (20:33)
[2017-08-15] MEDS ORDERED: PHENYLEPHRINE HCL 10 MG/ML VIAL ONE (20:44)
[2017-08-15] MEDS ORDERED: EPINEPHrine HCL (1:10,000) 1 MG/10 ML SYRINGE ONE (20:49)
[2017-08-15] MEDS ORDERED: MAGNESIUM SULFATE INJ 2 GM in SODIUM CHLORIDE 0.9% INJ 96 ML IV PRN (21:15)
[2017-08-15] MEDS ORDERED: MIDAZOLAM 100 MG/100 ML INJ 100 ML IV PRN (21:15)
[2017-08-15] MEDS ORDERED: POTASSIUM CHLOR 40 MEQ PREMIX 100 ML IV PRN ×2 (21:15)
[2017-08-15] MEDS ORDERED: SODIUM PHOSPHATE INJ 30 MMOL in SODIUM CHLOR 0.9% 250 ML INJ 240 ML IV PRN (21:15)
[2017-08-15] MEDS ORDERED: MAGNESIUM SULFATE INJ 4 GM in SODIUM CHLORIDE 0.9% INJ 92 ML IV PRN (21:15)
[2017-08-15] MEDS ORDERED: POTASSIUM PHOSPHATE MONOBASIC 500 MG TAB PO PRN (21:15)
[2017-08-15] MEDS ORDERED: MAGNESIUM OXIDE 400 MG TAB PO PRN (21:15)
[2017-08-15] MEDS ORDERED: TERBUTALINE INJ 1 MG/ML AMP SQ PRN (21:15)
[2017-08-15] MEDS ORDERED: POTASSIUM CHLOR 20 MEQ PREMIX 100 ML IV PRN (21:15)
[2017-08-15] MEDS ORDERED: POTASSIUM CHLORIDE 25 MEQ EFFERVESCENT TAB PO PRN (21:15)
[2017-08-15] MEDS ORDERED: POTASSIUM PHOSPHATE MONOBASIC 500 MG TAB PO/TUBE PRN (21:15)
[2017-08-15] MEDS ORDERED: POTASSIUM PHOSPHATE INJ 30 MMOL in SODIUM CHLOR 0.9% 250 ML INJ 250 ML IV PRN (21:15)
--- NOTE | 2017-08-15 21:19 | RADRPT ---
EXAM DATE/TIME: 08/15/2017 20:54 [facility] COMPARISON: CHEST SINGLE AP, August 15, 2017, 18:24. INDICATIONS : Post intubation. MEDICAL HISTORY : Congestive heart failure. Hypertension Thyroid disease. Cardiac disorder. Afib. Gastritis. GERD. Cardiovascular disease SURGICAL HISTORY : None. ENCOUNTER: Subsequent ACUITY: 3 days PAIN SCORE: Non-responsive. LOCATION: Bilateral chest FINDINGS: The endotracheal tube is in the right mainstem bronchus. This should be pulled back 5 cm for more opt imal positioning. Patchy infiltrates are noted bilaterally. CONCLUSION: 1. Endotracheal tube is malpositioned within the right mainstem bronchus this should be pulled back 5 cm for more optimal positioning. 2. Persistent scattered patchy infiltrates consistent with possible pneumonia. Kyler Irizarry MD on August 15, 2017 at 21:15 Board Certified Radiologist. This report was verified electronically.
--- NOTE | 2017-08-15 21:23 | PD.PROCEDR ---
Procedure Note Procedure After the risks and benefits were discussed the following procedure was performed: INTUBATION: The patient was put in optimal position for the procedure, patient was already on BiPAP as she was DNR until family changed code status. Rapid sequence intubation was initiated by me using 15 milligrams of etomidate IV and 5 milligrams of Versed IV. No bag and mask ventilation due to known ileus. DL with Mac 4 blade Grade 1 view. Large amount of biliary fluid regurgitated into the mouth after induction, with minimal aspiration. The patient was intubated with a 8.0cuffed endotracheal tube. Minimal biliary secretions were suctioned out after intubation. Tube placement was confirmed by visualization of the tube and balloon passing through the cords, capnometry and subsequent chest x-ray. Breath sounds were equal and well aerated bilaterally postintubation. No breath sounds over stomach. Patient tolerated procedure well. Jordan Thomas MD Aug 15, 2017 21:23
[2017-08-15] MEDS ORDERED: DEXTROSE 50% IN WATER 50 ML VIAL(D50) IV PUSH PRN (21:30)
[2017-08-15] MEDS ORDERED: GLUCAGON 1 MG/ML VIAL OTHER PRN (21:30)
[2017-08-15] MEDS: CEFEPIME INJ 2,000 MG in SODIUM CHLORIDE 0.9% INJ 100 ML IV SCH (21:34)
[2017-08-15] MEDS: methylPREDNISolone SOD SUCC 40 MG/1 ML VIAL IV PUSH SCH (21:39)
[2017-08-15] MEDS: METOCLOPRAMIDE HCL 10 MG/2 ML VIAL IV PUSH SCH (21:42)
[2017-08-15] MEDS ORDERED: METHYLNALTREXONE BROMIDE 12 MG/0.6 ML VIAL SQ ONE (22:30)
[2017-08-15] MEDS ORDERED: fentaNYL CITRATE 250 MCG/5 ML AMP IV PUSH PRN (22:30)
[2017-08-15] MEDS: INSULIN ASPART SUPPLEMENTAL SCALE SQ SCH (22:47)
[2017-08-15] MEDS: PANTOPRAZOLE SODIUM 40 MG VIAL IV PUSH SCH (22:50)
[2017-08-15] MEDS ORDERED: PHENYLEPHRINE INJ 40 MG in DEXTROSE 5% IN WATE 500 ML INJ 496 ML IV PRN ×2 (23:00)
[2017-08-15] MEDS ORDERED: VANCOMYCIN 1 GM/200 ML PREMIX IV ONE (23:00)
[2017-08-15 23:13] LABS: AUTOMATED NEUTROPHIL # 8.7 TH/MM3 (1.8-7.7); BASOPHIL % 0.3 % (0.0-2.0); EOSINOPHIL % 0.1 % (0.0-4.0); HEMATOCRIT 29.2 % (35.0-46.0); HEMOGLOBIN 9.4 GM/DL (11.6-15.3); LYMPH % 3.7 % (9.0-44.0); LYMPHOCYTE # 0.3 TH/MM3 (1.0-4.8); MEAN CELL VOLUME 98.8 FL (80.0-100.0); MEAN CORPUSCULAR HEMOGLOBIN 31.7 PG (27.0-34.0); MEAN CORPUSCULAR HGB CONC 32.1 % (32.0-36.0); MEAN PLATELET VOLUME 8.8 FL (7.0-11.0); MONO % 3.5 % (0.0-8.0); MONOCYTE # 0.3 TH/MM3 (0-0.9); NEUT % 92.4 % (16.0-70.0); PLATELET COUNT 231 TH/MM3 (150-450); RED BLOOD COUNT 2.96 MIL/MM3 (4.00-5.30); RED CELL DISTRIBUTION WIDTH 18.1 % (11.6-17.2); WHITE BLOOD COUNT 9.4 TH/MM3 (4.0-11.0)
[2017-08-15 23:16] LABS: BACTERIA, URINE RARE /hpf; BILIRUBIN, URINE NEG (NEG); BLOOD, URINE NEG (NEG); GLUCOSE,URINE 150 mg/dL (NEG); HYALINE CAST, URINE 8 /lpf (RARE); KETONE, URINE 10 mg/dL (NEG); MUCUS URINE FEW /lpf (OCC); NITRITE,URINE NEG (NEG); SQUAMOUS EPITHELIAL CELL URINE 1 /hpf (0-5); URINE COLOR LIGHT-YELLOW (YELLW/STRAW); URINE LEUKOCYTE ESTERASE LARGE (NEG)
[2017-08-15 23:34] LABS: ALBUMIN 2.3 GM/DL (3.4-5.0); ALKALINE PHOSPHATASE 64 U/L (45-117); ALT (GPT) 14 U/L (10-53); AST (GOT) 11 U/L (15-37); BICARBONATE 20.8 MEQ/L (21.0-32.0); BLOOD UREA NITROGEN 20 MG/DL (7-18); CALCIUM 8.1 MG/DL (8.5-10.1); CHLORIDE 112 MEQ/L (98-107); CREATININE 1.24 MG/DL (0.50-1.00); GLOMERULAR FILTRATION RATE 42 ML/MIN (>89); GLUCOSE,RANDOM 340 MG/DL (74-106); MAGNESIUM 1.8 MG/DL (1.5-2.5); PHOSPHORUS 4.1 MG/DL (2.5-4.9); SODIUM (NA) 148 MEQ/L (136-145); TOTAL BILIRUBIN ADULT 0.5 MG/DL (0.2-1.0); TOTAL PROTEIN 5.8 GM/DL (6.4-8.2)
[2017-08-15] MEDS: RESP: ALBUTEROL 2.5 MG/IPRATROPIUM 0.5 MG NEB (SCH) NEB (23:53)
[2017-08-16] VITALS (18 sets, daily range): BP systolic 106–140; BP diastolic 57–74; PULSE 79–114; RESP 15; TEMP 97.4–98.7; O2SAT 99–100
[2017-08-16] MEDS: SODIUM CHLOR 0.9% 1000 ML INJ 1,000 ML IV SCH ×5 (00:31→22:27)
[2017-08-16] MEDS: RESP: ALBUTEROL 2.5 MG/IPRATROPIUM 0.5 MG NEB (SCH) NEB ×5 (03:20→19:40)
[2017-08-16] MEDS: RESP: ALBUTEROL 2.5 MG/3 ML NEB (SCH) INH ×2 (04:00→10:00)
[2017-08-16] MEDS: CEFEPIME INJ 2,000 MG in SODIUM CHLORIDE 0.9% INJ 100 ML IV SCH ×3 (05:03→20:18)
[2017-08-16] MEDS: METOCLOPRAMIDE HCL 10 MG/2 ML VIAL IV PUSH SCH ×3 (05:04→22:00)
[2017-08-16] MEDS: methylPREDNISolone SOD SUCC 40 MG/1 ML VIAL IV PUSH SCH ×3 (05:04→22:27)
[2017-08-16] MEDS: LEVOTHYROXINE SODIUM 50 MCG TAB PO SCH (05:04)
[2017-08-16] MEDS: INSULIN ASPART SUPPLEMENTAL SCALE SQ SCH ×5 (05:05→23:12)
--- NOTE | 2017-08-16 05:14 | RADRPT ---
EXAM DATE/TIME: 08/16/2017 04:17 [place] COMPARISON: SMALL BOWEL SERIES W/GASTROGRAFIN, August 15, 2017, 11:18. INDICATIONS : Ileus. MEDICAL HISTORY : Congestive heart failure. Hypertension Thyroid disease. Cardiac disorder.Afib. Gastritis. GERD. Cardi ovascular disease SURGICAL HISTORY : None. ENCOUNTER: Initial ACUITY: 1 day PAIN SCORE: Non-responsive. LOCATION: abdomen. FINDINGS: There is some contrast present in the large bowel. No dilated loops of bowel are seen. Aortic calcifi cation. Rectal tube present. CONCLUSION: No dilated loops of bowel are seen. John Weiner MD on August 16, 2017 at 5:11 Board Certified Radiologist. This report was verified electronically.
[2017-08-16 05:38] LABS: ALBUMIN 2.1 GM/DL (3.4-5.0); BICARBONATE 20.4 MEQ/L (21.0-32.0); CALCIUM 7.9 MG/DL (8.5-10.1); CREATININE 1.15 MG/DL (0.50-1.00); MAGNESIUM 1.8 MG/DL (1.5-2.5); PHOSPHORUS 2.9 MG/DL (2.5-4.9)
[2017-08-16] MEDS: metroNIDAZOLE 500 MG INJ 100 ML IV SCH (05:52)
--- NOTE | 2017-08-16 06:34 | MB ---
cc: IMAN GUSTAFSON DATE OF CONSULTATION 08/15/[address] Jordan Thomas REASON FOR CONSULTATION Respiratory failure. HISTORY OF PRESENT ILLNESS Ms. Hernandez is a pleasant 81-year-old female with history of CVA and a history of atrial fibrillation. The patient was transferred from [facility]. She was nauseous and she became more short of breath today and chest x-ray done which shows pneumothorax. However, CT scan was done which did not show any pneumothorax, it showed that she has bilateral scattered infiltrates, possibility of aspiration. The patient is currently on 100% BiPap and family is at the bedside. The patient was DNR, but the patient decided she wants to be intubated and family also wants her to be intubated. PAST MEDICAL HISTORY Significant for history of - 1. Hypertension. 2. Severe renal failure. 3. Carotid artery stenosis. 4. History of CA of the colon status post colectomy and colostomy and reversal of it. 5. History of PEG tube placement in the past. MEDICATIONS She is currently taking 0 1. Albuterol/Atrovent nebulizer treatment. 2. Vancomycin IV. 3. Solu-Medrol 40 mg q. 8 hours. 4. Cefepime 1 gram q. 8 hours. 5. Fentanyl patch. 6. Amlodipine 10 mg a day. 7. Levothyroxine 50 mcg a day. 8. Albuterol sulfate 2.5 mg. 9. Tramadol 50 mg q.6 hours. 10. Rythmol 150 mg twice a day. 11. Eliquis 2.5 mg twice a day. ALLERGIES CIPRO. MORPHINE. SOCIAL HISTORY No history of smoking or alcohol. FAMILY HISTORY Noncontributory. REVIEW OF SYSTEMS The patient is short of breath, tired. Tries to communicate by writing. PHYSICAL EXAMINATION GENERAL: An elderly female, short of breath. VITAL SIGNS: Blood pressure 161/77, heart rate 114, respirations 30, temperature 97.3. HEENT: Pupils are equal and react to light. NECK: Supple. JVP not raised. CHEST: She has bilateral rales. CV: S1 and S2 normal. ABDOMEN: Benign. EXTREMITIES: No edema. IMPRESSION 1. Respiratory failure. 2. Bilateral lung infiltrate. 3. Possible aspiration. 4. Severe renal failure. 5. History of CA of the colon status post colectomy. 6. History of colostomy, status post reversal. PLAN I discussed the patient's condition with Dr. Jordan Thomas. Discussed with family at the bedside and the son who is POA. The patient was initially DNR but as per patient wishes the family wants rescind it and they want intubation. The patient was intubated with the hope that it is potentially a reversible condition and we will be able to reverse it. If the patient is not extubated in the next bmp-ot-vlpth days, the family is willing to consider withdrawal. Further treatment will depend on the course in the hospital. Thank you Dr. Jordan Thomas for this consultation. MD TIFFANIE Duncan/BRANDY /8:39 PM /6:15 AM
[2017-08-16 07:28] LABS: AUTOMATED NEUTROPHIL # 8.9 TH/MM3 (1.8-7.7); BASOPHIL % 0.1 % (0.0-2.0); HEMATOCRIT 26.7 % (35.0-46.0); HEMOGLOBIN 8.9 GM/DL (11.6-15.3); LYMPH % 2.4 % (9.0-44.0); LYMPHOCYTE # 0.2 TH/MM3 (1.0-4.8); MEAN CELL VOLUME 95.1 FL (80.0-100.0); MEAN CORPUSCULAR HEMOGLOBIN 31.8 PG (27.0-34.0); MEAN CORPUSCULAR HGB CONC 33.4 % (32.0-36.0); MEAN PLATELET VOLUME 8.3 FL (7.0-11.0); MONO % 2.1 % (0.0-8.0); MONOCYTE # 0.2 TH/MM3 (0-0.9); NEUT % 95.4 % (16.0-70.0); PLATELET COUNT 293 TH/MM3 (150-450); RED BLOOD COUNT 2.81 MIL/MM3 (4.00-5.30); RED CELL DISTRIBUTION WIDTH 17.1 % (11.6-17.2); WHITE BLOOD COUNT 9.3 TH/MM3 (4.0-11.0)
--- NOTE | 2017-08-16 08:05 | HHI.PR ---
Subjective Remarks Supported on Mechanical Ventilation, No family at Bedside. Objective Vital Signs Date Time Temp Pulse Resp B/P (MAP) Pulse Ox O2 Delivery O2 Flow Rate FiO2 08/16/17 07:31 100 35 08/16/17 06:00 114 08/16/17 04:03 100 40 08/16/17 04:00 98.6 104 15 140/65 (90) 100 08/16/17 04:00 104 08/16/17 02:00 114 08/16/17 01:37 99 40 08/16/17 00:00 104 08/16/17 00:00 98.7 104 15 124/74 (91) 100 08/15/17 21:00 117 71/46 08/15/17 20:40 99 100 08/15/17 20:25 100 100 08/15/17 20:00 97.3 112 22 167/74 (105) 93 08/15/17 20:00 98 Non-Rebreather 15.00 100 08/15/17 19:00 90 Non-Rebreather 15.00 08/15/17 16:00 97.3 115 22 161/77 (105) 93 08/15/17 16:00 114 08/15/17 12:00 99.3 102 22 154/81 (105) 93 08/15/17 08:20 98 Nasal Cannula 4.00 08/15/17 08:15 Nasal Cannula 4.00 Humidified 08/15/17 08:00 109 08/15/17 08:00 98.2 104 16 137/73 (94) 90 I/O 08/15/17 08/15/17 08/15/17 08/16/17 08/16/17 08/16/17 06:59 14:59 22:59 06:59 14:59 22:59 Intake Total 120 ml 1100 ml 300 ml 362 ml Output Total 300 ml 600 ml 2850 ml Balance -180 ml -600 ml 1100 ml -2550 ml 362 ml Intake Oral 120 ml IV Total 1100 ml 300 ml 362 ml Output Urine Total 300 ml 850 ml Gastric Drainage Total 600 ml 2000 ml # Bowel Movements 0 Result Diagram: 08/16/17 0641 08/16/17 0400 Imaging Last 48 hours Impressions Abdomen X-Ray 08/16/17 0600 Signed Impressions: Service Date/Time: Wednesday, August 16, 2017 04:17 - CONCLUSION: No dilated loops of bowel are seen. John Weiner MD Small Bowel X-Ray 08/15/17 0000 Signed Impressions: Service Date/Time: August 11:18 - CONCLUSION: Multiple loops of borderline dilated small bowel with passage of contrast into the colon at 3 hours ruling out a complete obstruction. Atif Christensen MD Chest X-Ray 08/15/17 0000 Signed Impressions: Service Date/Time: August 20:54 - CONCLUSION: 1. Endotracheal tube is malpositioned within the right mainstem bronchus this should be pulled back 5 cm for more optimal positioning. 2. Persistent scattered patchy infiltrates consistent with possible pneumonia. Kyler Irizarry MD Chest X-Ray 08/15/17 0000 Signed Impressions: Service Date/Time: August 18:24 - CONCLUSION: 1. Small left apical pneumothorax measuring 12 mm. 2. Left basilar patchiness consistent with atelectasis and/or infiltrate as well as a small left pleural effusion. 3. Mild cardiomegaly. Kyler Irizarry MD Chest CT 08/15/17 0000 Signed Impressions: Service Date/Time: August 19:36 - CONCLUSION: 1. Interval resolution of the previously noted small left apical pneumothorax. 2. Patchy infiltrates throughout the left lung and to a lesser extent the right lung consistent with probable pneumonia. Clinical correlation is recommended. 3. Small pericardial effusion. 4. Cardiomegaly and coronary artery calcification. 5. Distention of the stomach and esophagus. 6. Chronic moderate compression deformity involving T12. Kyler Irizarry MD Last 24 hours Impressions Abdomen X-Ray 08/16/17 0600 Signed Impressions: Service Date/Time: Wednesday, August 16, 2017 04:17 - CONCLUSION: No dilated loops of bowel are seen. John Weiner MD Objective Remarks GENERAL: frail elderly female on Mechanical Ventilation, No Apparent Distress SKIN:warm and dry with ecchymotic areas CARDIOVASCULAR: S1S2, RESPIRATORY: Breath sounds equal bilaterally some scattered rhonchi noted, on Ventilation GASTROINTESTINAL: Abdomen soft, non-tender, nondistended, BS, NG tube to SX NEUROLOGICAL: Sedated, Medications and IVs Current Medications Medications (Trade) Dose Ordered Sig/Ashlee Route Start Time Stop Time Status Last Admin (NS Flush) 2 ml UNSCH PRN IVF 08/13/17 07:00 Sodium Chloride 1,000 ml @ 125 mls/hr Q8H IV 08/13/17 10:13 08/14/17 23:17 (Tylenol) 650 mg Q4H PRN PO 08/13/17 10:15 (Zofran Inj) 4 mg Q6H PRN IVP 08/13/17 10:15 08/15/17 08:37 (Narcan Inj) 0.4 mg UNSCH PRN IV PUSH 08/13/17 10:15 (Merari-Colace) 1 tab BID PO 08/13/17 21:00 08/14/17 23:15 (Milk Of Magnesia Liq) 30 ml Q12H PRN PO 08/13/17 10:15 (Senokot) 17.2 mg Q12H PRN PO 08/13/17 10:15 (Dulcolax Supp) 10 mg DAILY PRN RECTAL 08/13/17 10:15 (Lactulose Liq) 30 ml DAILY PRN PO 08/13/17 10:15 (Albuterol Neb) 2.5 mg Q6HR NEB INH 08/13/17 22:00 08/15/17 17:46 (Norvasc) 10 mg DAILY PO 08/14/17 09:00 Future Hold 08/14/17 09:33 (Synthroid) 50 mcg DAILY@0600 PO 08/14/17 06:00 08/15/17 07:05 (Deltasone) 5 mg DAILY PO 08/14/17 09:00 Future Hold 08/14/17 09:34 (Rythmol) 150 mg BID PO 08/13/17 21:00 08/14/17 23:15 (Eliquis) 2.5 mg BID PO 08/13/17 21:00 08/14/17 23:15 (Ultram) 50 mg Q6H PRN PO 08/13/17 21:30 08/14/17 23:17 (Vasotec) 5 mg BID PO 08/14/17 21:00 Future Hold 08/14/17 23:15 (Vasotec Inj) 1.25 mg Q6H PRN IV PUSH 08/15/17 17:15 Cefepime HCl 2000 mg/Sodium Chloride 100 ml @ 200 mls/hr Q8H IV 08/15/17 21:00 08/16/17 05:03 Metronidazole 100 ml @ 100 mls/hr Q8H IV 08/15/17 22:00 08/16/17 05:52 (Duoneb Neb) 1 ampule Q4HR NEB NEB 08/16/17 00:00 08/16/17 07:31 (SoluMEDROL INJ) 40 mg Q8HR IV PUSH 08/15/17 22:00 08/16/17 05:04 (Reglan Inj) 10 mg Q8HR IV PUSH 08/15/17 22:00 08/16/17 05:04 Midazolam HCl 100 ml @ 2 mls/hr TITRATE PRN IV 08/15/17 21:15 08/15/17 21:20 Phenylephrine HCl 40 mg/Dextrose 500 ml @ 30 mls/hr TITRATE PRN IV 08/15/17 23:00 08/15/17 21:00 (Brethine Inj) 1 mg UNSCH PRN SQ 08/15/17 21:15 (NovoLOG SUPPLEMENTAL SCALE) 1 Q6HR SQ 08/15/17 21:15 08/16/17 05:05 Potassium Chloride 100 ml @ 50 mls/hr Q2H PRN IV 08/15/17 21:15 Potassium Chloride 100 ml @ 50 mls/hr Q2H PRN IV 08/15/17 21:15 (K-Lyte Cl Eff) 50 meq UNSCH PRN PO 08/15/17 21:15 Potassium Chloride 100 ml @ 25 mls/hr UNSCH PRN IV 08/15/17 21:15 Potassium Chloride 100 ml @ 50 mls/hr Q2H PRN IV 08/15/17 21:15 Magnesium Sulfate 4 gm/Sodium Chloride 100 ml @ 50 mls/hr UNSCH PRN IV 08/15/17 21:15 (Mag-Ox) 800 mg UNSCH PRN PO 08/15/17 21:15 Magnesium Sulfate 2 gm/Sodium Chloride 100 ml @ 50 mls/hr UNSCH PRN IV 08/15/17 21:15 (K-Phos) 2,000 mg Q4H PRN PO 08/15/17 21:15 Sodium Phosphate 30 mmol/Sodium Chloride 250 ml @ 42 mls/hr UNSCH PRN IV 08/15/17 21:15 (K-Phos) 2,000 mg UNSCH PRN PO/TUBE 08/15/17 21:15 Potassium Phosphate 30 mmol/ Sodium Chloride 260 ml @ 42 mls/hr UNSCH PRN IV 08/15/17 21:15 (Protonix Inj) 40 mg Q24H IV PUSH 08/15/17 22:00 08/15/17 22:50 (D50w (Vial) Inj) 50 ml UNSCH PRN IV PUSH 08/15/17 21:30 (Glucagon Inj) 1 mg UNSCH PRN OTHER 08/15/17 21:30 (fentaNYL INJ) 50 mcg Q2HR PRN IV PUSH 08/15/17 22:30 (Lopressor Inj) 2.5 mg Q6H PRN IV PUSH 08/15/17 23:30 Assessment and Plan Problem List: (1) Respiratory distress ICD Codes: R06.03 - Acute respiratory distress Status: Acute Plan: CXR done 08/15/17 showed Pneumothorax, transferred to ICU, CT negative for pneumothorax, but w/ LLL PNA intubated due to Resp distress, IV Solu Medrol, neb tx being followed by pulmonary/ seaman. (2) Sepsis ICD Codes: A41.9 - Sepsis, unspecified organism Status: Acute Plan: ID following, CT chest 08/14 shows some patchy opacities, Urine culture shows Pseudomonas Aeruginosa, IV Flagyl, and Cefepime. (3) HTN (hypertension) ICD Codes: I10 - Essential (primary) hypertension Plan: B/P running low, medications on hold. Stared on Jesse-Synephrine. (4) REESE (acute kidney injury) ICD Codes: N17.9 - Acute kidney failure, unspecified Plan: Renal following, Potassium 3.[address] negative for Renal Mass Assessment and Plan GI consulted for Possible SBO/Ileus Small bowel series negative for obstruction NPO NG to campbell, Aranza Fine Aug 16, 2017 08:05
[2017-08-16] MEDS: PROPAFENONE HCL 150 MG TAB PO SCH ×2 (08:26→20:18)
[2017-08-16] MEDS: DOCUSATE SODIUM 50 MG/SENNA 8.6 MG TAB PO SCH ×2 (08:26→20:19)
[2017-08-16] MEDS: APIXABAN 2.5 MG TABLET PO SCH ×2 (08:26→20:18)
--- NOTE | 2017-08-16 11:44 | HHI.NPPN ---
Subjective History of Present Illness Patient is a 81-year-old female presents to the emergency department from [facility] by EMS transport for marked respiratory distress. According to garage mechanic report upon their arrival patient was showing evidence of respiratory distress with accessory muscle use janki-oral cyanosis dried vomitus around her mouth and in her clear and room air O2 saturations of 82%. Patient is placed on nonrebreather mask with O2 saturations only increasing to 92%. She is on 4 liters via nasal cannula now with good sats. Patient is found to have a abdormal UA. Chest xray with no acute cardiopulmonary disease demonstrated. Patient also noted to have elevated creatinine at 1.32 and GFR of 39 ml/min. Past medical history of Afib, CHF, HTN, Hypothyroid, PNA, cardiac stenosis, and CVA. She is currently on oral diet but does have PEG tube. Additional Remarks Respiratory distress over night. Ventilated and sedated (Majo Hanley) Review of Systems Cardiovascular Cardiac Remarks Denies any CP (Majo Hanley) Objective Data Data 08/16/17 08/17/17 19:00 07:00 Intake Total 362 ml Balance 362 ml IV Total 362 ml Vital Signs Date Time Temp Pulse Resp B/P (MAP) Pulse Ox O2 Delivery O2 Flow Rate FiO2 08/16/17 08:00 97.4 100 15 116/57 (76) 100 08/16/17 07:31 100 35 08/16/17 07:00 100 Mechanical Ventilator 35 08/16/17 06:00 114 08/16/17 04:03 100 40 08/16/17 04:00 98.6 104 15 140/65 (90) 100 08/16/17 04:00 104 08/16/17 02:00 114 08/16/17 01:37 99 40 08/16/17 00:00 104 08/16/17 00:00 98.7 104 15 124/74 (91) 100 08/15/17 21:00 117 71/46 08/15/17 20:40 99 100 08/15/17 20:25 100 100 08/15/17 20:00 97.3 112 22 167/74 (105) 93 08/15/17 20:00 98 Non-Rebreather 15.00 100 08/15/17 19:00 90 Non-Rebreather 15.00 08/15/17 16:00 97.3 115 22 161/77 (105) 93 08/15/17 16:00 114 08/15/17 12:00 99.3 102 22 154/81 (105) 93 ([facility]ajo [facility]) -: 08/16/17 0641 08/16/17 0400 Microbiology 08/16/17 Aerobic Blood Culture, Resulted Pending 08/16/17 Anaerobic Blood Culture - Final, Resulted QNS - SEE AEROBE REPORT 08/15/17 Aerobic Blood Culture - Preliminary, Resulted NO GROWTH IN 1 DAY 08/15/17 Anaerobic Blood Culture - Preliminary, Resulted NO GROWTH IN 1 DAY 08/15/17 Urine Culture, Received Pending Imaging Last Impressions Abdomen X-Ray 08/16/17 0600 Signed Impressions: Service Date/Time: Wednesday, August 16, 2017 04:17 - CONCLUSION: No dilated loops of bowel are seen. John Weiner MD Small Bowel X-Ray 08/15/17 0000 Signed Impressions: Service Date/Time: August 11:18 - CONCLUSION: Multiple loops of borderline dilated small bowel with passage of contrast into the colon at 3 hours ruling out a complete obstruction. Atif Christensen MD Chest X-Ray 08/15/17 0000 Signed Impressions: Service Date/Time: August 20:54 - CONCLUSION: 1. Endotracheal tube is malpositioned within the right mainstem bronchus this should be pulled back 5 cm for more optimal positioning. 2. Persistent scattered patchy infiltrates consistent with possible pneumonia. Kyler Irizarry MD Chest CT 08/15/17 0000 Signed Impressions: Service Date/Time: August 19:36 - CONCLUSION: 1. Interval resolution of the previously noted small left apical pneumothorax. 2. Patchy infiltrates throughout the left lung and to a lesser extent the right lung consistent with probable pneumonia. Clinical correlation is recommended. 3. Small pericardial effusion. 4. Cardiomegaly and coronary artery calcification. 5. Distention of the stomach and esophagus. 6. Chronic moderate compression deformity involving T12. Kyler Irizarry MD Abdomen/Pelvis CT 08/14/17 0000 Signed Impressions: Service Date/Time: Monday, August 14, 2017 20:56 - CONCLUSION: 1. Multiple fluid-filled loops of small bowel suggestive of partial small bowel obstruction or ileus. This likely is at the level of the jejunum as the distal ileum is normal in caliber. 2. Patchy opacities within the lung bases posteriorly consistent with atelectasis and/or pneumonia. Clinical correlation is recommended. 3. No evidence of left renal mass for nonobstructing stone. 4. Uncomplicated colonic diverticulosis. 5. Ventral abdominal wall hernia which appears to contain a portion of transverse colon. 6. Cardiomegaly and small pericardial effusion. Kyler Irizarry MD Renal Ultrasound 08/13/17 0000 Signed Impressions: Service Date/Time: Sunday, August 13, 2017 20:19 - CONCLUSION: 1. Questionable solid mass within the mid pole of the left kidney measuring 3.3 x 1.9 x 2.[address] of the abdomen may be helpful for further characterization of this questionable lesion if clinical indicated. 2. 5 mm calcified nonobstructing mid pole left renal calculus. 3. Small bilateral kidneys. Kyler Irizarry MD (Majo Hanley) Physical Exam General Appearance: Well Nourished, No Acute Distress (Majo Hanley) Appearance: No Acute Distress Appearance Remarks Intubated and sedated. (Roselia Jorge MD) Eyes Eye Exam: Pupils Equal (Majo Hanley) Throat Throat Exam: Oral Mucosa [place] & Moist (Majo Hanley) Pulmonary Resp Exam: Breath Sounds Equal, Decreased Bases Resp Remarks intubated (Majo Hanley) Cardiology CV Exam: Regular (Majo Hanley) Gastrointestinal/Abdomen GI Exam: Soft, Non-Tender (Majo Hanley) Genitourinary Exam: Flank Non-Tender (Majo Hanley) Integumentary Skin Exam: Clear, Warm, Dry (Majo Hanley) Extremeties Extremities Exam: Trace Edema (Majo Hanley) Neurologic Neuro Exam: Alert, Awake (Majo Hanley) Neuro Exam: Alert, Awake, Sedated (Roselia Jorge MD) Assessment/Plan Problem List: (1) REESE (acute kidney injury) ICD Codes: N17.9 - Acute kidney failure, unspecified Plan: REESE on CKD most likely prerenal from poor PO intake with dysphagia and UTI Patient with CKD from possibly HTN or renovascular disease. Baseline GFR not available UA negative for proteinuria. Renal US: Questionable solid mass within the mid pole of the left kidney measuring 3.3 x 1.9 x 2.2 cm and Small bilateral kidneys. CT: . suggestive of partial small bowel obstruction or ileus. No evidence of left renal mass for nonobstructing stone Patient with respiratory distress last night DNR rescinded and intubated. Fio2 at 35 % Renal function has been stable with Creat of 1.15 Plan Continue IVF's Continue vasopressors for blood pressure support Hypernatremia at 149 Hypokalemia and replacement given Continue to monitor BMP Avoid nephrotoxins (2) HTN (hypertension) ICD Codes: I10 - Essential (primary) hypertension Plan: On pressor support (3) Respiratory distress ICD Codes: R06.03 - Acute respiratory distress Status: Acute Plan: Intubated with FiO2 at 40 % (4) Sepsis ICD Codes: A41.9 - Sepsis, unspecified organism Status: Acute Plan: Continue antibiotics (Majo Hanley) Problem List: (1) REESE (acute kidney injury) ICD Codes: N17.9 - Acute kidney failure, unspecified Plan: REESE on CKD most likely prerenal from poor PO intake with dysphagia and UTI Patient with CKD from possibly HTN or renovascular disease. Baseline GFR not available UA negative for proteinuria. Renal US: Questionable solid mass within the mid pole of the left kidney measuring 3.3 x 1.9 x 2.2 cm and Small bilateral kidneys. CT: . suggestive of partial small bowel obstruction or ileus. No evidence of left renal mass for nonobstructing stone Patient with respiratory distress last night DNR rescinded and intubated. Fio2 at 35 % Renal function has been stable with Creat of 1.15 Plan Continue IVF's Continue vasopressors for blood pressure support Hypernatremia at 149 Hypokalemia and replacement given Continue to monitor BMP Avoid nephrotoxins. Patient seen and examined, agree with above. Intubated, continue antibiotics. Follow the urine out put and Lasix as needed. (2) HTN (hypertension) ICD Codes: I10 - Essential (primary) hypertension Plan: On pressor support (3) Respiratory distress ICD Codes: R06.03 - Acute respiratory distress Status: Acute Plan: Intubated with FiO2 at 40 % (4) Sepsis ICD Codes: A41.9 - Sepsis, unspecified organism Status: Acute Plan: Continue antibiotics (Roselia Jorge MD) Majo Hanley Aug 16, 2017 11:44 Roselia Jorge MD Aug 16, 2017 15:58
--- NOTE | 2017-08-16 12:51 | HHI.GIFU ---
Subjective Remarks pt had respiratory distress yesterday and was intubated and transferred to [facility]. PEG now to [facility], on reglan. copious bilious output from PEG tube. s/p relistor last night, no b/m. (Sabi Zayas) Objective Vitals I&O Vital Signs Date Time Temp Pulse Resp B/P (MAP) Pulse Ox O2 Delivery O2 Flow Rate FiO2 08/16/17 12:32 100 35 08/16/17 12:00 98.6 100 15 115/57 (76) 100 08/16/17 12:00 88 08/16/17 10:00 79 08/16/17 08:00 92 08/16/17 08:00 97.4 100 15 116/57 (76) 100 08/16/17 07:31 100 35 08/16/17 07:00 100 Mechanical Ventilator 35 08/16/17 06:00 114 08/16/17 04:03 100 40 08/16/17 04:00 98.6 104 15 140/65 (90) 100 08/16/17 04:00 104 08/16/17 02:00 114 08/16/17 01:37 99 40 08/16/17 00:00 104 08/16/17 00:00 98.7 104 15 124/74 (91) 100 08/15/17 21:00 117 71/46 08/15/17 20:40 99 100 08/15/17 20:25 100 100 08/15/17 20:00 97.3 112 22 167/74 (105) 93 08/15/17 20:00 98 Non-Rebreather 15.00 100 08/15/17 19:00 90 Non-Rebreather 15.00 08/15/17 16:00 97.3 115 22 161/77 (105) 93 08/15/17 16:00 114 I/O 08/15/17 08/15/17 08/15/17 08/16/17 08/16/17 08/16/17 07:00 15:00 23:00 07:00 15:00 23:00 Intake Total 120 ml 1100 ml 300 ml 362 ml Output Total 300 ml 600 ml 2850 ml Balance -180 ml -600 ml 1100 ml -2550 ml 362 ml Intake Oral 120 ml IV Total 1100 ml 300 ml 362 ml Output Urine Total 300 ml 850 ml Gastric Drainage Total 600 ml 2000 ml # Bowel Movements 0 Laboratory Laboratory Tests Test 08/15/17 19:11 08/15/17 19:57 08/15/17 21:25 08/15/17 22:22 Blood Gas Puncture Site RT BRACHIAL RT BRACHIAL Blood Gas Patient Temperature 98.6 98.6 Blood Gas HCO3 22 19 Blood Gas Base Excess -2.2 -6.1 Blood Gas Oxygen Saturation 97 98 Arterial Blood pH 7.39 7.34 Arterial Blood Partial Pressure CO2 37 36 Arterial Blood Partial Pressure O2 133 351 Arterial Blood Oxygen Content 14.7 13.2 Arterial Blood Carboxyhemoglobin 1.3 1.1 Arterial Blood Methemoglobin 0.8 0.8 Blood Gas Hemoglobin 10.6 8.9 Oxygen Delivery Device Non-Rebreathing Mask VENTILATOR Blood Gas Liter Flow 15 Blood Gas Inspired Oxygen 100 100 White Blood Count 9.4 Red Blood Count 2.96 Hemoglobin 9.4 Hematocrit 29.2 Mean Corpuscular Volume 98.8 Mean Corpuscular Hemoglobin 31.7 Mean Corpuscular Hemoglobin Concent 32.1 Red Cell Distribution Width 18.1 Platelet Count 231 Mean Platelet Volume 8.8 Neutrophils (%) (Auto) 92.4 Lymphocytes (%) (Auto) 3.7 Monocytes (%) (Auto) 3.5 Eosinophils (%) (Auto) 0.1 Basophils (%) (Auto) 0.3 Neutrophils # (Auto) 8.7 Lymphocytes # (Auto) 0.3 Monocytes # (Auto) 0.3 Eosinophils # (Auto) 0.0 Basophils # (Auto) 0.0 CBC Comment AUTO DIFF Differential Comment AUTO DIFF CONFIRMED Platelet Estimate NORMAL Platelet Morphology Comment NORMAL Blood Urea Nitrogen 20 Creatinine 1.24 Random Glucose 340 Total Protein 5.8 Albumin 2.3 Calcium Level 8.1 Phosphorus Level 4.1 Magnesium Level 1.8 Alkaline Phosphatase 64 Aspartate Amino Transf (AST/SGOT) 11 Alanine Aminotransferase (ALT/SGPT) 14 Total Bilirubin 0.5 Sodium Level 148 Potassium Level 3.2 Chloride Level 112 Carbon Dioxide Level 20.8 Anion Gap 15 Estimat Glomerular Filtration Rate 42 Blood Gas Ventilator Setting PRVC/AC Urine Color LIGHT-YELLOW Urine Turbidity CLEAR Urine pH 5.0 Urine Specific [place] 1.008 Urine Protein NEG Urine Glucose (UA) 150 Urine Ketones 10 Urine Occult Blood NEG Urine Nitrite NEG Urine Bilirubin NEG Urine Urobilinogen LESS THAN 2.0 Urine Leukocyte Esterase LARGE Urine RBC 4 Urine WBC 7 Urine Squamous Epithelial Cells 1 Urine Bacteria RARE Urine Hyaline Casts 8 Urine Mucus FEW Microscopic Urinalysis Comment CATH-CULTURE IND Test 08/16/17 00:10 08/16/17 04:00 08/16/17 06:41 Lactic Acid Level 2.8 Blood Urea Nitrogen 20 Creatinine 1.15 Random Glucose 177 Albumin 2.1 Calcium Level 7.9 Phosphorus Level 2.9 Magnesium Level 1.8 Sodium Level 149 Potassium Level 3.3 Chloride Level 117 Carbon Dioxide Level 20.4 Anion Gap 12 Estimat Glomerular Filtration Rate 45 White Blood Count 9.3 Red Blood Count 2.81 Hemoglobin 8.9 Hematocrit 26.7 Mean Corpuscular Volume 95.1 Mean Corpuscular Hemoglobin 31.8 Mean Corpuscular Hemoglobin Concent 33.4 Red Cell Distribution Width 17.1 Platelet Count 293 Mean Platelet Volume 8.3 Neutrophils (%) (Auto) 95.4 Lymphocytes (%) (Auto) 2.4 Monocytes (%) (Auto) 2.1 Eosinophils (%) (Auto) 0.0 Basophils (%) (Auto) 0.1 Neutrophils # (Auto) 8.9 Lymphocytes # (Auto) 0.2 Monocytes # (Auto) 0.2 Eosinophils # (Auto) 0.0 Basophils # (Auto) 0.0 CBC Comment DIFF FINAL Differential Comment Date/Time Source Procedure Growth Status 08/16/17 00:10 Blood Peripheral Aerobic Blood Culture Pending Resulted 08/16/17 00:10 Blood Peripheral Anaerobic Blood Culture - Final QNS - SEE AEROBE REPORT Resulted 08/15/17 22:22 Urine Catheterized Urine Urine Culture Pending Received Imaging Last Impressions Abdomen X-Ray 08/16/17 0600 Signed Impressions: Service Date/Time: Wednesday, August 16, 2017 04:17 - CONCLUSION: No dilated loops of bowel are seen. John Weiner MD Small Bowel X-Ray 08/15/17 0000 Signed Impressions: Service Date/Time: August 11:18 - CONCLUSION: Multiple loops of borderline dilated small bowel with passage of contrast into the colon at 3 hours ruling out a complete obstruction. Atif Christensen MD Chest X-Ray 08/15/17 0000 Signed Impressions: Service Date/Time: August 20:54 - CONCLUSION: 1. Endotracheal tube is malpositioned within the right mainstem bronchus this should be pulled back 5 cm for more optimal positioning. 2. Persistent scattered patchy infiltrates consistent with possible pneumonia. Kyler Irizarry MD Chest CT 08/15/17 Signed Impressions: Service Date/Time: August 19:36 - CONCLUSION: 1. Interval resolution of the previously noted small left apical pneumothorax. 2. Patchy infiltrates throughout the left lung and to a lesser extent the right lung consistent with probable pneumonia. Clinical correlation is recommended. 3. Small pericardial effusion. 4. Cardiomegaly and coronary artery calcification. 5. Distention of the stomach and esophagus. 6. Chronic moderate compression deformity involving T12. Kyler Irizarry MD Abdomen/Pelvis CT 08/14/17 0000 Signed Impressions: Service Date/Time: Monday, August 14, 2017 20:56 - CONCLUSION: 1. Multiple fluid-filled loops of small bowel suggestive of partial small bowel obstruction or ileus. This likely is at the level of the jejunum as the distal ileum is normal in caliber. 2. Patchy opacities within the lung bases posteriorly consistent with atelectasis and/or pneumonia. Clinical correlation is recommended. 3. No evidence of left renal mass for nonobstructing stone. 4. Uncomplicated colonic diverticulosis. 5. Ventral abdominal wall hernia which appears to contain a portion of transverse colon. 6. Cardiomegaly and small pericardial effusion. Kyler Irizarry MD Renal Ultrasound 08/13/17 0000 Signed Impressions: Service Date/Time: Sunday, August 13, 2017 20:19 - CONCLUSION: 1. Questionable solid mass within the mid pole of the left kidney measuring 3.3 x 1.9 x 2.[address] of the abdomen may be helpful for further characterization of this questionable lesion if clinical indicated. 2. 5 mm calcified nonobstructing mid pole left renal calculus. 3. Small bilateral kidneys. Kyler Irizarry MD Physical Exam HEENT: normocephalic; atraumatic; no jaundice. intubated CHEST: CTA CARDIAC: RRR ABDOMEN: Soft, mildly distended, mildly firm in lower quadrants, no hepatosplenomegaly; bowel sounds soft, PEG to LIWS with bilious drainage EXTREMITIES: No clubbing, cyanosis, or edema. SKIN: Normal; no rash; no jaundice. [employer]CHITECT: sedated on vent (Sabi Zayas) Assessment and Plan Plan ASSESSMENT - n/v, abd pain - 4 d ago onset projectile vomiting, abd pain. CT showed psbo vs ileus. hx colon perf after colonoscopy s/p colectomy, colostomy, and reversal. pt is not distended, BS +, abd soft 08/16/17 - transferred to [facility] and intubated for resp distress. PEG to LIWS. s/p relistor overnight no b/m. KUB 08/16 no dilated bowel loops seen. SBFT 08/15 showed mult loops borderline dilatation small bowel, contrast colon , ruled out complete obstruction. ileus vs PSBO copious gastric output PLAN - continue reglan - PEG to LIWS - NPO - further recs to follow pt seen by myself and Dr Rosen and this note is written on his behalf (Sabi Zayas) Physician Comments Seen and examined with SELF [employer]ISING [employer]ER, intubated /sedated now. SBFT -ve for obstruction. iv reglan. NG to L.I.S. (Subha Rosen MD) Sabi Zayas Aug 16, 2017 12:51 Subha Rosen MD Aug 16, 2017 15:04
[2017-08-16] MEDS: metroNIDAZOLE 500 MG TAB PO SCH ×2 (13:52→20:17)
--- NOTE | 2017-08-16 14:06 | HHI.CCPN ---
Subjective Remarks/Hospital Course 08/15: Patient is a 81 year old female with past medical history significant for CVA, aphasia, atrial fibrillation on eliquis, history of bowel perforation after colonoscopy, s/p colectomy, colostomy and colostomy reversal, chronic kidney disease, who presented from [facility] on 08/13/17 for respiratory distress and nausea vomiting. Patient was admitted to the hospitalist service with probable sepsis. Infectious disease was consulted, started on ceftriaxone for UTI by Dr. Arcos. Ct of the abdomen pelvis showed ileus without evidence of mechanical obstruction. Apparently she had been taking by mouth, with a plan for removing PEG tube and RN informed me of possible aspiration also. (PEG tube placement 06/28/[address] Mosqueda at [facility] during hospitalization for pneumonia). A halicat was called today for worsening respiratory distress, and hypoxia. Chest x-ray showed possible small left apical pneumothorax. Patient was placed on 100% nonrebreather and was moved to the ICU. I requested a stat CT of the chest to better evaluate the pneumothorax and also evaluate for pneumonia. CT chest did not show pneumothorax but showed scattered bilateral infiltrates predominantly left lower lobe indicating pneumonia. Also urine culture was growing Pseudomonas, I have discontinued ceftriaxone and started on cefepime 2 g IV every 8 hours, Flagyl 500 mg IV every 8 hours and give single dose of vancomycin 1 g IV. Hold prednisone and placed on IV Solu Medrol, along with scheduled and when necessary DuoNeb. Check for influenza On my evaluation in the ICU patient is in obvious respiratory distress. Bilateral rhonchi and wheezes. She is struggling to breathe and indicated that she wants endotracheal intubation in front of the family. Family' is agreeable for intubation after discussion with patient, myself and Dr. Walters. DNR was rescinded and changed to alternate code intubation only. RSI initiated and large amount of biliary secretions noted to regurgitate into the oral cavity following induction. No significant aspiration, minimal biliary fluid suctioned out from the ET tube. There was large amount of biliary fluid pooling in the oral cavity which was suctioned out. PEG tube was placed to intermittent wall suction. Keep Nothing by mouth except meds, start Reglan for severe ileus. GI following. 08/16: Objective Vital Signs Date Time Temp Pulse Resp B/P (MAP) Pulse Ox O2 Delivery O2 Flow Rate FiO2 08/16/17 12:32 100 35 2/2/18 12:00 98.6 100 15 115/57 (76) 08/16/17 07:00 Mechanical Ventilator 08/15/17 20:00 15.00 Intake and Output 08/16/17 08/16/17 08/17/17 08:00 16:00 00:00 Intake Total 662 ml Output Total 2850 ml Balance -2188 ml Result Diagram: 08/16/17 0641 08/16/17 0400 Other Results Laboratory Tests Test 08/15/17 19:11 08/15/17 19:57 08/15/17 21:25 08/15/17 22:22 Blood Gas Puncture Site RT BRACHIAL RT BRACHIAL Blood Gas Patient Temperature 98.6 98.6 Blood Gas HCO3 22 mmol/L 19 mmol/L Blood Gas Base Excess -2.2 mmol/L -6.1 mmol/L Blood Gas Oxygen Saturation 97 % 98 % Arterial Blood pH 7.39 7.34 Arterial Blood Partial Pressure CO2 37 mmHg 36 mmHg Arterial Blood Partial Pressure O2 133 mmHg 351 mmHg Arterial Blood Oxygen Content 14.7 Vol % 13.2 Vol % Arterial Blood Carboxyhemoglobin 1.3 % 1.1 % Arterial Blood Methemoglobin 0.8 % 0.8 % Blood Gas Hemoglobin 10.6 G/DL 8.9 G/DL Oxygen Delivery Device Non-Rebreathing Mask VENTILATOR Blood Gas Liter Flow 15 L/M Blood Gas Inspired Oxygen 100 % 100 % White Blood Count 9.4 TH/MM3 Red Blood Count 2.96 MIL/MM3 Hemoglobin 9.4 GM/DL Hematocrit 29.2 % Mean Corpuscular Volume 98.8 FL Mean Corpuscular Hemoglobin 31.7 PG Mean Corpuscular Hemoglobin Concent 32.1 % Red Cell Distribution Width 18.1 % Platelet Count 231 TH/MM3 Mean Platelet Volume 8.8 FL Neutrophils (%) (Auto) 92.4 % Lymphocytes (%) (Auto) 3.7 % Monocytes (%) (Auto) 3.5 % Eosinophils (%) (Auto) 0.1 % Basophils (%) (Auto) 0.3 % Neutrophils # (Auto) 8.7 TH/MM3 Lymphocytes # (Auto) 0.3 TH/MM3 Monocytes # (Auto) 0.3 TH/MM3 Eosinophils # (Auto) 0.0 TH/MM3 Basophils # (Auto) 0.0 TH/MM3 CBC Comment AUTO DIFF Differential Comment AUTO DIFF CONFIRMED Platelet Estimate NORMAL Platelet Morphology Comment NORMAL Blood Urea Nitrogen 20 MG/DL Creatinine 1.24 MG/DL Random Glucose 340 MG/DL Total Protein 5.8 GM/DL Albumin 2.3 GM/DL Calcium Level 8.1 MG/DL Phosphorus Level 4.1 MG/DL Magnesium Level 1.8 MG/DL Alkaline Phosphatase 64 U/L Aspartate Amino Transf (AST/SGOT) 11 U/L Alanine Aminotransferase (ALT/SGPT) 14 U/L Total Bilirubin 0.5 MG/DL Sodium Level 148 MEQ/L Potassium Level 3.2 MEQ/L Chloride Level 112 MEQ/L Carbon Dioxide Level 20.8 MEQ/L Anion Gap 15 MEQ/L Estimat Glomerular Filtration Rate 42 ML/MIN Blood Gas Ventilator Setting PRVC/AC Urine Color LIGHT-YELLOW Urine Turbidity CLEAR Urine pH 5.0 Urine Specific [place] 1.008 Urine Protein NEG mg/dL Urine Glucose (UA) 150 mg/dL Urine Ketones 10 mg/dL Urine Occult Blood NEG Urine Nitrite NEG Urine Bilirubin NEG Urine Urobilinogen LESS THAN 2.0 MG/DL Urine Leukocyte Esterase LARGE Urine RBC 4 /hpf Urine WBC 7 /hpf Urine Squamous Epithelial Cells 1 /hpf Urine Bacteria RARE /hpf Urine Hyaline Casts 8 /lpf Urine Mucus FEW /lpf Microscopic Urinalysis Comment CATH-CULTURE IND Test 08/16/17 00:10 08/16/17 04:00 08/16/17 06:41 Lactic Acid Level 2.8 mmol/L Blood Urea Nitrogen 20 MG/DL Creatinine 1.15 MG/DL Random Glucose 177 MG/DL Albumin 2.1 GM/DL Calcium Level 7.9 MG/DL Phosphorus Level 2.9 MG/DL Magnesium Level 1.8 MG/DL Sodium Level 149 MEQ/L Potassium Level 3.3 MEQ/L Chloride Level 117 MEQ/L Carbon Dioxide Level 20.4 MEQ/L Anion Gap 12 MEQ/L Estimat Glomerular Filtration Rate 45 ML/MIN White Blood Count 9.3 TH/MM3 Red Blood Count 2.81 MIL/MM3 Hemoglobin 8.9 GM/DL Hematocrit 26.7 % Mean Corpuscular Volume 95.1 FL Mean Corpuscular Hemoglobin 31.8 PG Mean Corpuscular Hemoglobin Concent 33.4 % Red Cell Distribution Width 17.1 % Platelet Count 293 TH/MM3 Mean Platelet Volume 8.3 FL Neutrophils (%) (Auto) 95.4 % Lymphocytes (%) (Auto) 2.4 % Monocytes (%) (Auto) 2.1 % Eosinophils (%) (Auto) 0.0 % Basophils (%) (Auto) 0.1 % Neutrophils # (Auto) 8.9 TH/MM3 Lymphocytes # (Auto) 0.2 TH/MM3 Monocytes # (Auto) 0.2 TH/MM3 Eosinophils # (Auto) 0.0 TH/MM3 Basophils # (Auto) 0.0 TH/MM3 CBC Comment DIFF FINAL Differential Comment Imaging CT chest scattered bilateral predominantly left lower lobe infiltrate CT abdomen pelvis showed ileus Objective Remarks HEENT/ Neuro: Sedated, orally intubated, Pallor present, no icterus, tongue/ mucosa moist Neck: No JVD Chest/Pulm: on mech vent, good air entry bilaterally, no wheezing or crackles CVS: S1-S2 regular, no murmur GI/abdomen: soft, nontender, bowel sounds sluggish Extremities: warm bilaterally, no edema A/P Assessment and Plan ASSESSMENT: Acute hypoxemic respiratory failure Healthcare associated pneumonia Probable aspiration Severe sepsis Acute COPD exacerbation Pseudomonas UTI Severe ileus Atrial fibrillation with RVR Chronic Eliquis use Previous CVA with aphasia Carotid stenosis Chronic kidney disease PLAN: NEURO: - Versed for sedation and vent synchrony - Daily sedation vacation starting 24 hours - Discontinue fentanyl patch due to ileus, use fentanyl when necessary RESP: - Continue mechanical ventilation/ACV - DuoNeb every 4 hours and when necessary, ventilator bundle - Hold prednisone, start IV Solu-Medrol 40 mg every 8 hours - Broad-spectrum antibiotics with cefepime and Flagyl, vancomycin single dose - Sputum culture requested - CT chest shows bilaterally, predominantly left lower lobe infiltrate (no pneumothorax noted) CV: - Jesse-Synephrine started for postintubation hypotension, will wean as tolerated - 2 L normal saline bolus, continue IV fluid normal saline at 75 ml per hour - Hold amlodipine and Vasotec - Continue Rythmol continue Eliquis - Repeat lactic acid GI: - Nothing by mouth except meds. G-tube to low intermittent wall suction - Start Reglan 10 mg IV every 8 hours. Gastroenterology following - Relistor 12 mg subcutaneous 1 : - Monitor renal function closely. Place Feliciano catheter. - Acute kidney injury had improved with hydration ID: - Ceftriaxone was discontinued and cefepime 2 g IV every 8 hours started for Pseudomonas UTI - Patient on IV Flagyl to cover for aspiration. Single dose of vancomycin given - Send sputum blood cultures, check for influenza HEME: - Monitor CBC, CMP - Continue Eliquis ENDO: - Continue Synthroid. Electrolyte replacement per protocol - Sliding scale insulin if needed PROPH: - Bilateral lower extremity SCDs. Continue Eliquis. IV Protonix LINES: - Utilize peripheral IVs, central line if needed CC time 35 min discontinuously, excluding procedures but including multiple assessments for worsening respiratory failure, multiple family meetings and discussion with flanging operator Dr. Silvia Arcos,Altaf Arreguin MD Aug 16, 2017 14:06
--- NOTE | 2017-08-16 14:40 | HHI.IDPN ---
Subjective Subjective Remarks Ms. Hernandez is an 81-year-old female who presents to the emergency department at [facility] from [facility] by EMS transport for marked respiratory distress. According to the ccnp report upon their arrival patient was in respiratory distress. Patient was reportedly using accessory muscles and there was some perioral cyanosis. Reportedly there was some dried vomitus around her mouth and her O2 saturations were 82%. Patient was placed on nonrebreather with oxygen saturations including to 92%. Subsequently patient's respiratory status improved. Her past medical history of Afib, CHF, HTN, Hypothyroid, PNA, cardiac stenosis, and CVA. She is currently on oral diet but does have PEG tube. Infectious disease is consulted for evaluation of severe sepsis. Overnight events reviewed. Transferred to ICU for resp distress. Intubated overnight. Has Ileus likely aspirated as she had nausea and vomiting. Opens eyes spontaneously. No fevers No rash No diarrhea Antibiotics Cefepime IV Vanco IV Flagyl Lines Line sites with no e.o infection Past Medical History reviewed Allergies: Coded Allergies: ciprofloxacin (Verified Allergy, Unknown, 08/13/17) morphine (Verified Allergy, Unknown, 08/13/17) Objective . Vital Signs Date Time Temp Pulse Resp B/P (MAP) Pulse Ox O2 Delivery O2 Flow Rate FiO2 08/16/17 12:32 100 35 08/16/17 12:00 98.6 100 15 115/57 (76) 100 08/16/17 12:00 88 08/16/17 10:00 79 08/16/17 08:00 92 08/16/17 08:00 97.4 100 15 116/57 (76) 100 08/16/17 07:31 100 35 08/16/17 07:00 100 Mechanical Ventilator 35 08/16/17 06:00 114 08/16/17 04:03 100 40 08/16/17 04:00 98.6 104 15 140/65 (90) 100 08/16/17 04:00 104 08/16/17 02:00 114 08/16/17 01:37 99 40 08/16/17 00:00 104 08/16/17 00:00 98.7 104 15 124/74 (91) 100 08/15/17 21:00 117 71/46 08/15/17 20:40 99 100 08/15/17 20:25 100 100 08/15/17 20:00 97.3 112 22 167/74 (105) 93 08/15/17 20:00 98 Non-Rebreather 15.00 100 08/15/17 19:00 90 Non-Rebreather 15.00 08/15/17 16:00 97.3 115 22 161/77 (105) 93 08/15/17 16:00 114 08/16/17 08/16/17 08/17/17 15:00 23:00 07:00 Intake Total 362 ml Balance 362 ml IV Total 362 ml . Laboratory Tests Test 08/15/17 19:57 08/16/17 06:41 White Blood Count 9.4 TH/MM3 9.3 TH/MM3 Red Blood Count 2.96 MIL/MM3 2.81 MIL/MM3 Hemoglobin 9.4 GM/DL 8.9 GM/DL Hematocrit 29.2 % 26.7 % Mean Corpuscular Volume 98.8 FL 95.1 FL Mean Corpuscular Hemoglobin 31.7 PG 31.8 PG Mean Corpuscular Hemoglobin Concent 32.1 % 33.4 % Red Cell Distribution Width 18.1 % 17.1 % Platelet Count 231 TH/MM3 293 TH/MM3 Mean Platelet Volume 8.8 FL 8.3 FL Neutrophils (%) (Auto) 92.4 % 95.4 % Lymphocytes (%) (Auto) 3.7 % 2.4 % Monocytes (%) (Auto) 3.5 % 2.1 % Eosinophils (%) (Auto) 0.1 % 0.0 % Basophils (%) (Auto) 0.3 % 0.1 % Neutrophils # (Auto) 8.7 TH/MM3 8.9 TH/MM3 Lymphocytes # (Auto) 0.3 TH/MM3 0.2 TH/MM3 Monocytes # (Auto) 0.3 TH/MM3 0.2 TH/MM3 Eosinophils # (Auto) 0.0 TH/MM3 0.0 TH/MM3 Basophils # (Auto) 0.0 TH/MM3 0.0 TH/MM3 CBC Comment AUTO DIFF DIFF FINAL Differential Comment AUTO DIFF CONFIRMED Platelet Estimate NORMAL Platelet Morphology Comment NORMAL Laboratory Tests Test 08/15/17 19:57 08/16/17 00:10 08/16/17 04:00 Blood Urea Nitrogen 20 MG/DL 20 MG/DL Creatinine 1.24 MG/DL 1.15 MG/DL Random Glucose 340 MG/DL 177 MG/DL Total Protein 5.8 GM/DL Albumin 2.3 GM/DL 2.1 GM/DL Calcium Level 8.1 MG/DL 7.9 MG/DL Phosphorus Level 4.1 MG/DL 2.9 MG/DL Magnesium Level 1.8 MG/DL 1.8 MG/DL Alkaline Phosphatase 64 U/L Aspartate Amino Transf (AST/SGOT) 11 U/L Alanine Aminotransferase (ALT/SGPT) 14 U/L Total Bilirubin 0.5 MG/DL Sodium Level 148 MEQ/L 149 MEQ/L Potassium Level 3.2 MEQ/L 3.3 MEQ/L Chloride Level 112 MEQ/L 117 MEQ/L Carbon Dioxide Level 20.8 MEQ/L 20.4 MEQ/L Anion Gap 15 MEQ/L 12 MEQ/L Estimat Glomerular Filtration Rate 42 ML/MIN 45 ML/MIN Lactic Acid Level 2.8 mmol/L Microbiology Date/Time Source Procedure Growth Status 08/16/17 00:10 Blood Peripheral Aerobic Blood Culture Pending Resulted 08/16/17 00:10 Blood Peripheral Anaerobic Blood Culture - Final QNS - SEE AEROBE REPORT Resulted 08/15/17 19:57 Blood Peripheral Aerobic Blood Culture - Preliminary NO GROWTH IN 1 DAY Resulted 08/15/17 19:57 Blood Peripheral Anaerobic Blood Culture - Preliminary NO GROWTH IN 1 DAY Resulted 08/15/17 22:22 Urine Catheterized Urine Urine Culture Pending Received Imaging Last Impressions Chest X-Ray 08/13/17 0651 Signed Impressions: Service Date/Time: Sunday, August 13, 2017 07:05 - CONCLUSION: No acute cardiopulmonary disease demonstrated. William Ceballos MD Renal Ultrasound 08/13/17 0000 Signed Impressions: Service Date/Time: Sunday, August 13, 2017 20:19 - CONCLUSION: 1. Questionable solid mass within the mid pole of the left kidney measuring 3.3 x 1.9 x 2.[address] of the abdomen may be helpful for further characterization of this questionable lesion if clinical indicated. 2. 5 mm calcified nonobstructing mid pole left renal calculus. 3. Small bilateral kidneys. Kyler Irizarry MD Physical Exam GENERAL: This is a well-nourished, well-developed patient, in no apparent distress. SKIN: Bruising noted on Bilateral LE. Large area of ecchymosis below the left knee. No e/o infection HEAD: Atraumatic. Normocephalic. No temporal or scalp tenderness. EYES: Pupils equal round and reactive. Extraocular motions intact. No scleral icterus. No injection or drainage. ENT: Intubated. NECK: Trachea midline. Supple, nontender, no meningeal signs. CARDIOVASCULAR: HS audible. RESPIRATORY: Clear to auscultation. Breath sounds equal bilaterally. No wheezes , rales, or rhonchi. GASTROINTESTINAL: Abdomen soft, non-tender, nondistended. MUSCULOSKELETAL: Extremities without clubbing, cyanosis, or edema. NEUROLOGICAL: Opens eyes spontaneously. Psych cooperative IV line sites with no e.o infection. Assessment & Plan Remarks Sepsis on admission (leukocytosis, tachycardia, lactic acid 3.4) Aspiration Pneumonia in Health care setting. Ileus: has had Nausea vomiting during hospitalization. Pseudomonas UTI vs colonization. PEG tube placement currently on some form of soft diet Acute metabolic encephalopathy: sepsis, metabolic. Acute renal failure: sepsis, prerenal. Afib, Hypothyroidism CVA CKD Recs: Continue Cefepime IV Continue Flagyl oral Follow cultures. Follow clinically. covering for me this weekend. Lisandra Arcos MD Aug 16, 2017 14:40
--- NOTE | 2017-08-16 16:11 | HHI.HCPN ---
Reason for visit a. To assist with evaluation and management of symptoms including: Pain, weakness b. To assist medical decision maker(s) with: better understanding of current medical conditions; weighing benefits/burdens of medical treatment options; making medical treatment decisions. Subjective/Interval History Pt seen today to follow up on comfort, goals. Later yesterday evening patient with worsening respiratory status, increased work of breathing very short of breath, [facility] emergency response called patient transferred to ICU intubated. Initially requiring low-dose pressors for hypotension have since been weaned off. On Versed for sedation and comfort. PEG tube to suction last night, remains to suction. Repeat abdominal x-ray today =No dilated loops of bowel are seen. Small bowel series completed yesterday Multiple loops of borderline dilated small bowel with passage of contrast into the colon at 3 hours ruling out a complete obstruction. Labs essentially unchanged. Patient seen in room daughter Ginger present. [ Dual visit with Heather REID.] On sedation breathing comfortably on mechanical vent minimal spontaneous respirations over vent rate. On sedation Versed 2 mg an hour. Patient does stir and localized to light touch with exam. Met with daughter at length in consultation room. Family/friend interactions Met w sixto Betheaa at length, approx 1 hr 30 min. Discussion included : * Palliative care role, team members, reason for consult * Patient cognitive and functional status in the months to weeks prior to this admission * family understanding of current medical conditions/ prognosis/ treatment options; extensive review of patient underlying history recent course again relating to current conditions, much exploration of possible trajectories going forward pt will remain high risk for ongoing complications even if she recovers from current acute issues. * Extensive Review of hospice role, philosophy, services provided * CODE STATUS[] daughter affirms that patient would not want further resuscitation measures * Palliative care contact information provided Daughter indicates family remains in close communication regarding patient's conditions, goals. They are working together. 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 She has son did earlier this week details general decline in the preceding months with patient becoming more debilitated and medically fragile in the previous weeks to months. She endorses that the patient has been "afraid to ", but that the patient never wanted intubation but last night was struggling to breathe and thus agreed to intubation. She endorses that the patient has been very clear that she would not ever want prolonged mechanical ventilation and would never want a tracheostomy or further invasive measures if she could not resume her prior fairly independent quality of life. For now they wish to continue current maximized medical treatment in the ICU with the hopes of weaning to extubate in the next few days, if patient deteriorates, or is unable to wean to medical extubation they will likely want to withdrawal in transition to comfort measures only with hospice support. Advance Directives Durable Power of Circular Sawyer Helper: Completed, but not made available Objective Vital Signs Date Time Temp Pulse Resp B/P (MAP) Pulse Ox O2 Delivery O2 Flow Rate FiO2 08/16/17 14:00 93 08/16/17 12:32 100 35 08/16/17 12:00 98.6 100 15 115/57 (76) 100 08/16/17 12:00 88 08/16/17 10:00 79 08/16/17 08:00 92 08/16/17 08:00 97.4 100 15 116/57 (76) 100 08/16/17 07:31 100 35 08/16/17 07:00 100 Mechanical Ventilator 35 08/16/17 06:00 114 08/16/17 04:03 100 40 08/16/17 04:00 98.6 104 15 140/65 (90) 100 08/16/17 04:00 104 08/16/17 02:00 114 08/16/17 01:37 99 40 08/16/17 00:00 104 08/16/17 00:00 98.7 104 15 124/74 (91) 100 08/15/17 21:00 117 71/46 08/15/17 20:40 99 100 08/15/17 20:25 100 100 08/15/17 20:00 97.3 112 22 167/74 (105) 93 08/15/17 20:00 98 Non-Rebreather 15.00 100 08/15/17 19:00 90 Non-Rebreather 15.00 08/15/17 16:00 97.3 115 22 161/77 (105) 93 08/15/17 16:00 114 Intake & Output 08/16/17 08/16/17 07:00 19:00 Intake Total 400 ml 362 ml Output Total 2850 ml Balance -2450 ml 362 ml IV Total 400 ml 362 ml Output Urine Total 850 ml Gastric Drainage Total 2000 ml Physical Exam CONSTITUTIONAL/GENERAL: This is an adequately nourished patient, sedated on [facility] vent TUBES/LINES/DRAINS: Peripheral lV RU upper extremity, ETT, PEG to sx, kingsotn catheter SKIN: No jaundice, rashes, or lesions. Several areas of ecchymosis bilateral upper extremities as well as dressed skin tears to bilateral mid upper arms near elbows. Few small ecchymosis to lower extremities. No wounds seen anteriorly. Skin warm and dry. CARDIOVASCULAR: regular. No murmur. Peripheral pulses symmetric. RESPIRATORY/CHEST: Symmetric, unlabored respirations. Mildly tachypneic. + crackles. Breath sounds equal bilaterally, decreased to bases GASTROINTESTINAL: Abdomen soft, no apparent tenderness, nondistended. No hepato- splenomegaly, or palpable masses. No guarding. Bowel sounds intermittent.PEG to int wall sx GENITOURINARY: Without palpable bladder distension. [place] catheter in place. Clear yellow urine + some sediment NEUROLOGICAL: Data on mechanical vent, on Versed. Appears to localize to light touch with exam moving right upper and right lower spontaneously. PSYCHIATRIC: No obvious anxiety/depression. On sedation,mechanical vent Diagnostic Tests Laboratory Laboratory Tests Test 08/14/17 07:17 08/15/17 19:11 08/15/17 19:57 08/15/17 21:25 White Blood Count 8.7 TH/MM3 (4.0-11.0) 9.4 TH/MM3 (4.0-11.0) Red Blood Count 3.07 MIL/MM3 (4.00-5.30) 2.96 MIL/MM3 (4.00-5.30) Hemoglobin 9.8 GM/DL (11.6-15.3) 9.4 GM/DL (11.6-15.3) Hematocrit 29.1 % (35.0-46.0) 29.2 % (35.0-46.0) Mean Corpuscular Volume 94.8 FL (80.0-100.0) 98.8 FL (80.0-100.0) Mean Corpuscular Hemoglobin 32.0 PG (27.0-34.0) 31.7 PG (27.0-34.0) Mean Corpuscular Hemoglobin Concent 33.7 % (32.0-36.0) 32.1 % (32.0-36.0) Red Cell Distribution Width 17.8 % (11.6-17.2) 18.1 % (11.6-17.2) Platelet Count 253 TH/MM3 (150-450) 231 TH/MM3 (150-450) Mean Platelet Volume 9.0 FL (7.0-11.0) 8.8 FL (7.0-11.0) Neutrophils (%) (Auto) 90.5 % (16.0-70.0) 92.4 % (16.0-70.0) Lymphocytes (%) (Auto) 5.4 % (9.0-44.0) 3.7 % (9.0-44.0) Monocytes (%) (Auto) 3.6 % (0.0-8.0) 3.5 % (0.0-8.0) Eosinophils (%) (Auto) 0.1 % (0.0-4.0) 0.1 % (0.0-4.0) Basophils (%) (Auto) 0.4 % (0.0-2.0) 0.3 % (0.0-2.0) Neutrophils # (Auto) 7.9 TH/MM3 (1.8-7.7) 8.7 TH/MM3 (1.8-7.7) Lymphocytes # (Auto) 0.5 TH/MM3 (1.0-4.8) 0.3 TH/MM3 (1.0-4.8) Monocytes # (Auto) 0.3 TH/MM3 (0-0.9) 0.3 TH/MM3 (0-0.9) Eosinophils # (Auto) 0.0 TH/MM3 (0-0.4) 0.0 TH/MM3 (0-0.4) Basophils # (Auto) 0.0 TH/MM3 (0-0.2) 0.0 TH/MM3 (0-0.2) CBC Comment DIFF FINAL AUTO DIFF Differential Comment AUTO DIFF CONFIRMED Blood Urea Nitrogen 22 MG/DL (7-18) 20 MG/DL (7-18) Creatinine 0.88 MG/DL (0.50-1.00) 1.24 MG/DL (0.50-1.00) Random Glucose 131 MG/DL (74-106) 340 MG/DL (74-106) Total Protein 5.5 GM/DL (6.4-8.2) 5.8 GM/DL (6.4-8.2) Albumin 2.3 GM/DL (3.4-5.0) 2.3 GM/DL (3.4-5.0) Calcium Level 8.3 MG/DL (8.5-10.1) 8.1 MG/DL (8.5-10.1) Phosphorus Level 3.2 MG/DL (2.5-4.9) 4.1 MG/DL (2.5-4.9) Magnesium Level 1.9 MG/DL (1.5-2.5) 1.8 MG/DL (1.5-2.5) Alkaline Phosphatase 59 U/L (45-117) 64 U/L (45-117) Aspartate Amino Transf (AST/SGOT) 17 U/L (15-37) 11 U/L (15-37) Alanine Aminotransferase (ALT/SGPT) 12 U/L (10-53) 14 U/L (10-53) Total Bilirubin 0.4 MG/DL (0.2-1.0) 0.5 MG/DL (0.2-1.0) Sodium Level 145 MEQ/L (136-145) 148 MEQ/L (136-145) Potassium Level 3.8 MEQ/L (3.5-5.1) 3.2 MEQ/L (3.5-5.1) Chloride Level 110 MEQ/L (98-107) 112 MEQ/L (98-107) Carbon Dioxide Level 26.2 MEQ/L (21.0-32.0) 20.8 MEQ/L (21.0-32.0) Anion Gap 9 MEQ/L (5-15) 15 MEQ/L (5-15) Estimat Glomerular Filtration Rate 62 ML/MIN (>89) 42 ML/MIN (>89) Blood Gas Puncture Site RT BRACHIAL RT BRACHIAL Blood Gas Patient Temperature 98.6 98.6 Blood Gas HCO3 22 mmol/L (22-26) 19 mmol/L (22-26) Blood Gas Base Excess -2.2 mmol/L (-2-2) -6.1 mmol/L (-2-2) Blood Gas Oxygen Saturation 97 % (90-100) 98 % (90-100) Arterial Blood pH 7.39 (7.380-7.420) 7.34 (7.380-7.420) Arterial Blood Partial Pressure CO2 37 mmHg (38-42) 36 mmHg (38-42) Arterial Blood Partial Pressure O2 133 mmHg (61-120) 351 mmHg (61-120) Arterial Blood Oxygen Content 14.7 Vol % (12.0-20.0) 13.2 Vol % (12.0-20.0) Arterial Blood Carboxyhemoglobin 1.3 % (0-4) 1.1 % (0-4) Arterial Blood Methemoglobin 0.8 % (0-2) 0.8 % (0-2) Blood Gas Hemoglobin 10.6 G/DL (12.0-16.0) 8.9 G/DL (12.0-16.0) Oxygen Delivery Device Non-Rebreathing Mask VENTILATOR Blood Gas Liter Flow 15 L/M Blood Gas Inspired Oxygen 100 % 100 % Platelet Estimate NORMAL (NORMAL) Platelet Morphology Comment NORMAL (NORMAL) Blood Gas Ventilator Setting PRVC/AC Test 08/15/17 22:22 08/16/17 00:10 08/16/17 04:00 08/16/17 06:41 Urine Color LIGHT-YELLOW (YELLW/STRAW) Urine Turbidity CLEAR (CLEAR) Urine pH 5.0 (5.0-8.5) Urine Specific [place] 1.008 (1.002-1.035) Urine Protein NEG mg/dL (NEG-TRACE) Urine Glucose (UA) 150 mg/dL (NEG) Urine Ketones 10 mg/dL (NEG) Urine Occult Blood NEG (NEG) Urine Nitrite NEG (NEG) Urine Bilirubin NEG (NEG) Urine Urobilinogen LESS THAN 2.0 MG/DL (LESS Urine Leukocyte Esterase LARGE (NEG) Urine RBC 4 /hpf (0-3) Urine WBC 7 /hpf (0-5) Urine Squamous Epithelial Cells 1 /hpf (0-5) Urine Bacteria RARE /hpf (NONE) Urine Hyaline Casts 8 /lpf (RARE) Urine Mucus FEW /lpf (OCC) Microscopic Urinalysis Comment CATH-CULTURE IND Lactic Acid Level 2.8 mmol/L (0.4-2.0) Blood Urea Nitrogen 20 MG/DL (7-18) Creatinine 1.15 MG/DL (0.50-1.00) Random Glucose 177 MG/DL (74-106) Albumin 2.1 GM/DL (3.4-5.0) Calcium Level 7.9 MG/DL (8.5-10.1) Phosphorus Level 2.9 MG/DL (2.5-4.9) Magnesium Level 1.8 MG/DL (1.5-2.5) Sodium Level 149 MEQ/L (136-145) Potassium Level 3.3 MEQ/L (3.5-5.1) Chloride Level 117 MEQ/L (98-107) Carbon Dioxide Level 20.4 MEQ/L (21.0-32.0) Anion Gap 12 MEQ/L (5-15) Estimat Glomerular Filtration Rate 45 ML/MIN (>89) White Blood Count 9.3 TH/MM3 (4.0-11.0) Red Blood Count 2.81 MIL/MM3 (4.00-5.30) Hemoglobin 8.9 GM/DL (11.6-15.3) Hematocrit 26.7 % (35.0-46.0) Mean Corpuscular Volume 95.1 FL (80.0-100.0) Mean Corpuscular Hemoglobin 31.8 PG (27.0-34.0) Mean Corpuscular Hemoglobin Concent 33.4 % (32.0-36.0) Red Cell Distribution Width 17.1 % (11.6-17.2) Platelet Count 293 TH/MM3 (150-450) Mean Platelet Volume 8.3 FL (7.0-11.0) Neutrophils (%) (Auto) 95.4 % (16.0-70.0) Lymphocytes (%) (Auto) 2.4 % (9.0-44.0) Monocytes (%) (Auto) 2.1 % (0.0-8.0) Eosinophils (%) (Auto) 0.0 % (0.0-4.0) Basophils (%) (Auto) 0.1 % (0.0-2.0) Neutrophils # (Auto) 8.9 TH/MM3 (1.8-7.7) Lymphocytes # (Auto) 0.2 TH/MM3 (1.0-4.8) Monocytes # (Auto) 0.2 TH/MM3 (0-0.9) Eosinophils # (Auto) 0.0 TH/MM3 (0-0.4) Basophils # (Auto) 0.0 TH/MM3 (0-0.2) CBC Comment DIFF FINAL Differential Comment Result Diagram: 08/16/17 0641 08/16/17 0400 Microbiology Microbiology Date/Time Source Procedure Growth Status 08/16/17 00:10 Blood Peripheral Aerobic Blood Culture Pending Resulted 08/16/17 00:10 Blood Peripheral Anaerobic Blood Culture - Final QNS - SEE AEROBE REPORT Resulted 08/15/17 19:57 Blood Peripheral Aerobic Blood Culture - Preliminary NO GROWTH IN 1 DAY Resulted 08/15/17 19:57 Blood Peripheral Anaerobic Blood Culture - Preliminary NO GROWTH IN 1 DAY Resulted 08/15/17 22:22 Urine Catheterized Urine Urine Culture - Preliminary IMMATURE GROWTH - REINCUBATE Resulted Imaging Last Impressions Abdomen X-Ray 08/16/17 0600 Signed Impressions: Service Date/Time: Wednesday, August 16, 2017 04:17 - CONCLUSION: No dilated loops of bowel are seen. John Weiner MD Small Bowel X-Ray 08/15/17 0000 Signed Impressions: Service Date/Time: August 11:18 - CONCLUSION: Multiple loops of borderline dilated small bowel with passage of contrast into the colon at 3 hours ruling out a complete obstruction. Atif Christensen MD Chest X-Ray 08/15/17 0000 Signed Impressions: Service Date/Time: August 20:54 - CONCLUSION: 1. Endotracheal tube is malpositioned within the right mainstem bronchus this should be pulled back 5 cm for more optimal positioning. 2. Persistent scattered patchy infiltrates consistent with possible pneumonia. Kyler Irizarry MD Chest CT 08/15/17 0000 Signed Impressions: Service Date/Time: August 19:36 - CONCLUSION: 1. Interval resolution of the previously noted small left apical pneumothorax. 2. Patchy infiltrates throughout the left lung and to a lesser extent the right lung consistent with probable pneumonia. Clinical correlation is recommended. 3. Small pericardial effusion. 4. Cardiomegaly and coronary artery calcification. 5. Distention of the stomach and esophagus. 6. Chronic moderate compression deformity involving T12. Kyler Irizarry MD Abdomen/Pelvis CT 08/14/17 0000 Signed Impressions: Service Date/Time: Monday, August 14, 2017 20:56 - CONCLUSION: 1. Multiple fluid-filled loops of small bowel suggestive of partial small bowel obstruction or ileus. This likely is at the level of the jejunum as the distal ileum is normal in caliber. 2. Patchy opacities within the lung bases posteriorly consistent with atelectasis and/or pneumonia. Clinical correlation is recommended. 3. No evidence of left renal mass for nonobstructing stone. 4. Uncomplicated colonic diverticulosis. 5. Ventral abdominal wall hernia which appears to contain a portion of transverse colon. 6. Cardiomegaly and small pericardial effusion. Kyler Irizarry MD Renal Ultrasound 08/13/17 0000 Signed Impressions: Service Date/Time: Sunday, August 13, 2017 20:19 - CONCLUSION: 1. Questionable solid mass within the mid pole of the left kidney measuring 3.3 x 1.9 x 2.[address] of the abdomen may be helpful for further characterization of this questionable lesion if clinical indicated. 2. 5 mm calcified nonobstructing mid pole left renal calculus. 3. Small bilateral kidneys. Kyler Irizarry MD Assessment and Plan Disease Oriented Problem List: (1) UTI (urinary tract infection) (2) Sepsis (3) Respiratory distress (4) HTN (hypertension) (5) REESE (acute kidney injury) Symptom Scale: (1) Dysphagia 0-10 Scale: Unable to quantify (2) Weakness 0-10 Scale: Unable to quantify (3) Aphasia 0-10 Scale: Unable to quantify (4) Pain, abdominal 0-10 Scale: Unable to quantify Pertinent Non-Medical Issues Psychosocial:Originally from [place] has lived in [place] for several years. , her 3 years ago. Supported by 3 adult children 1 son Alok is local, one son and daughter live out of the area [facility]. 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 She may be able to participate in some decision-making will likely this would be best to have shared decision making with her and her children. Son informs that he is the DURABLE POWER OF HEALTH CARE TECHNICIAN not clear if this includes healthcare decision-making, he indicates that all the children remain in close communication and are working together. Patient and family open to ongoing conversations regarding goals, options as clinical course evolves. Ethical issues impacting care: Important Contacts Son Alok Hernandez [phone] Daughter Meghann Syed [phone] . Prognosis This patient was admitted for respiratory distress, emesis. She has findings of a UTI, new findings of kidney mass, further diagnostics pending. She has had general decline and debility since hospitalization around 2016 (for pneumonia, pneumothorax). Possible patient can remain stable and get through current acute hospitalization and return to most recent cognitive and functional status the patient does remain high risk for ongoing debility and further decline secondary to now chronically ill state. New Findings regarding renal mass which does not appear to be malignancy. Pt with worsened respiratory status,now intubated, may further complicate clinical course . . . Code Status: Alternative Code (intubation only) Plan * Legal decision maker:Patient mental status fluctuates. 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 She may be able to participate in some decision-making will likely this would be best to have shared decision making with her and her children. Son informs that he is the DURABLE POWER OF HEALTH CARE TECHNICIAN not clear if this includes healthcare decision-making , he indicates that all the children remain in close communication and are working together. Patient and family open to ongoing conversations regarding goals, options as clinical course evolves. * Goals: Upon initial palliative meeting: patient and family wish to proceed with CT scan to further evaluate findings of renal mass and better differentiate if it is possible malignancy. Patient and family indicates she likely would not proceed with any type of aggressive treatment for findings but they would like to know if at all possible if it is cancer. Patient and son requests DNR. Goals are aggressive short of resuscitation. 08/16/17: Patient now intubated unable to participate. Met with daughter at length, all of family remains in close communication regarding patient's conditions. Appear to have a good understanding of medical conditions and options. For now they wish to maximize current medical treatment with the hope of weaning for medical extubation in the coming days. However, family strongly endorses that patient would not want prolonged artificial ventilation or other artificial measures for a prolonged course if she was not expected to have a fairly rapid improvement and able to extubate and resume meaningful function. They are open to ongoing conversations as clinical course evolves, if patient is not able to medically wean and extubate they will wants to consider withdrawal of life support in transition to comfort focus and hospice services. * consider requesting prior records from [facility] which may have more information regarding other possible cancer findings. 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 Speech therapy recommends pure with nectar thick liquids. High risk for aspiration. +intubation 2/, [facility] to sx --Pain: Patient today endorses abdominal pain but was unable to further describe. Pain is medium to moderate 5 out of 10. It is mostly constant. Last bowel movement earlier this morning. Having some occasional nausea. Relieved by Zofran. Abdominal exam essentially benign. Patient with history of reflux, part of admitting complaints were emesis/vomiting, cont to have n/v, CT abdomen + poss SBO/ileus. GI consulted, following. avoid opiates at this time. --Nausea/vomiting-patient presenting with reported emesis from SNF. Has had some intermittent emesis and nausea since admission. CT abdomen/pelvis = poss SBO/ileus. Pt w known hx colon perf, resection, colostomy and subsequent colostomy reversal. + Repeat abdominal x-ray indicates no dilated loops of bowels. Patient with large amount of gastric outputs with PEG to suction, probable ileus. * Palliative care will continue to follow during hospital course as condition evolves, to assist patient/decision-maker with understanding of medical conditions, weighing benefits/burdens of treatment options, for clarification of goals of treatment. Additionally will assist with any symptoms of palliative concern Time Spent Time Periods: [id number] meeting with daughter [id number] PE, d/w nursing, d/w critical care Attestation To help prompt me to consider important information that might be impacting today's encounter and assessment, information from prior notes written by myself or my colleagues may have been "brought forward" into today's note. My signature on this note, however, is an attestation that I personally performed the exam, history, and/or decision-making noted today, and, unless otherwise indicated, the interactions with patient, family, and staff as well as the review of records all occurred today. I also attest that the listed assessment and stated plan reflect my best clinical judgment today based on the combination of historical information, prior notes, and today's exam/ interactions. When time spent is documented, it refers only to time spent today by the signer, or if indicated, combined time spent today by collaborating physician/nurse practitioner. Oriana Segura Aug 16, 2017 16:11
--- NOTE | 2017-08-16 17:57 | HHI.PR ---
Subjective Remarks 81 YOWF with VDRF,Pn, aspiration Sedated On low dose pressors Palliative care condsulted Daughter at BS Objective Vital Signs Vital Signs Date Time Temp Pulse Resp B/P (MAP) Pulse Ox O2 Delivery O2 Flow Rate FiO2 08/16/17 17:23 100 35 08/16/17 16:00 98.2 94 15 106/57 (73) 100 08/16/17 16:00 92 08/16/17 14:00 93 08/16/17 12:32 100 35 08/16/17 12:00 98.6 100 15 115/57 (76) 100 08/16/17 12:00 88 08/16/17 10:00 79 08/16/17 08:00 92 08/16/17 08:00 97.4 100 15 116/57 (76) 100 08/16/17 07:31 100 35 08/16/17 07:00 100 Mechanical Ventilator 35 08/16/17 06:00 114 08/16/17 04:03 100 40 08/16/17 04:00 98.6 104 15 140/65 (90) 100 08/16/17 04:00 104 08/16/17 02:00 114 08/16/17 01:37 99 40 08/16/17 00:00 104 08/16/17 00:00 98.7 104 15 124/74 (91) 100 08/15/17 21:00 117 71/46 08/15/17 20:40 99 100 08/15/17 20:25 100 100 08/15/17 20:00 97.3 112 22 167/74 (105) 93 08/15/17 20:00 98 Non-Rebreather 15.00 100 08/15/17 19:00 90 Non-Rebreather 15.00 I/O 08/15/17 08/15/17 08/15/17 08/16/17 08/16/17 08/16/17 07:00 15:00 23:00 07:00 15:00 23:00 Intake Total 120 ml 1100 ml 300 ml 362 ml Output Total 300 ml 600 ml 2850 ml Balance -180 ml -600 ml 1100 ml -2550 ml 362 ml Intake Oral 120 ml IV Total 1100 ml 300 ml 362 ml Output Urine Total 300 ml 850 ml Gastric Drainage Total 600 ml 2000 ml # Bowel Movements 0 Result Diagram: 08/16/17 0641 08/16/17 0400 Objective Remarks GENERAL: Elderly female on Vent, sedated SKIN: Warm and dry. HEAD: Normocephalic. EYES: No scleral icterus. No injection or drainage. NECK: Supple, trachea midline. No JVD or lymphadenopathy. CARDIOVASCULAR: Regular rate and rhythm without murmurs, gallops, or rubs. RESPIRATORY: Breath sounds equal bilaterally. No accessory muscle use. GASTROINTESTINAL: Abdomen soft, non-tender, nondistended. MUSCULOSKELETAL: No cyanosis, or edema. BACK: Nontender without obvious deformity. No CVA tenderness. A/P Assessment and Plan VDRF Pneumonia Sepsis Aspiration CVA PLAN: DW family Cont vent support Cont Abx Pressors to keep MAP.65 If pt not weaned in few days, family will consider withdrawl Julio Cesar Vega MD Aug 16, 2017 17:57
--- NOTE | 2017-08-16 19:04 | EKG ---
Date Performed: 08/16/2017 Time Performed: 01:11:02 PTAGE: 81 years EKG: Atrial fibrillation with rapid ventricular response. Incomplete Right bundle branch block N onspecific ST-T wave abnormalities Since the prior tracing, there has been no significant change Abno rmal ECG PREVIOUS TRACING : 08/13/2017 06.42 DOCTOR: Robert Galan Interpretating Date/Time 08/16/2017 19:02:54
[2017-08-16] MEDS: PANTOPRAZOLE SODIUM 40 MG VIAL IV PUSH SCH (22:26)
[2017-08-17] VITALS (19 sets, daily range): BP systolic 119–153; BP diastolic 57–85; PULSE 86–126; RESP 14–25; TEMP 97.8–99.1; O2SAT 99–100
[2017-08-17] MEDS: RESP: ALBUTEROL 2.5 MG/IPRATROPIUM 0.5 MG NEB (SCH) NEB ×6 (00:11→20:01)
[2017-08-17] MEDS: metroNIDAZOLE 500 MG TAB PO SCH ×4 (02:11→20:17)
[2017-08-17] MEDS: CEFEPIME INJ 2,000 MG in SODIUM CHLORIDE 0.9% INJ 100 ML IV SCH (04:06)
[2017-08-17 05:16] LABS: AUTOMATED NEUTROPHIL # 6.5 TH/MM3 (1.8-7.7); BASOPHIL % 0.1 % (0.0-2.0); EOSINOPHIL % 0.3 % (0.0-4.0); HEMATOCRIT 25.6 % (35.0-46.0); HEMOGLOBIN 8.7 GM/DL (11.6-15.3); LYMPH % 4.4 % (9.0-44.0); LYMPHOCYTE # 0.3 TH/MM3 (1.0-4.8); MEAN CELL VOLUME 95.1 FL (80.0-100.0); MEAN CORPUSCULAR HEMOGLOBIN 32.2 PG (27.0-34.0); MEAN CORPUSCULAR HGB CONC 33.8 % (32.0-36.0); MEAN PLATELET VOLUME 8.9 FL (7.0-11.0); MONOCYTE # 0.2 TH/MM3 (0-0.9); NEUT % 92.2 % (16.0-70.0); PLATELET COUNT 196 TH/MM3 (150-450); RED BLOOD COUNT 2.69 MIL/MM3 (4.00-5.30); RED CELL DISTRIBUTION WIDTH 17.2 % (11.6-17.2); WHITE BLOOD COUNT 7.1 TH/MM3 (4.0-11.0)
[2017-08-17] MEDS: INSULIN ASPART SUPPLEMENTAL SCALE SQ SCH ×3 (05:24→18:00)
[2017-08-17] MEDS: METOCLOPRAMIDE HCL 10 MG/2 ML VIAL IV PUSH SCH ×4 (05:24→20:33)
[2017-08-17] MEDS: methylPREDNISolone SOD SUCC 40 MG/1 ML VIAL IV PUSH SCH ×3 (05:24→20:33)
[2017-08-17] MEDS: LEVOTHYROXINE SODIUM 50 MCG TAB PO SCH (05:24)
[2017-08-17 05:51] LABS: BICARBONATE 18.8 MEQ/L (21.0-32.0); CALCIUM 7.8 MG/DL (8.5-10.1); CREATININE 1.25 MG/DL (0.50-1.00)
--- NOTE | 2017-08-17 08:05 | HHI.CCPN ---
Subjective Remarks/Hospital Course 08/15: Patient is a 81 year old female with past medical history significant for CVA, aphasia, atrial fibrillation on eliquis, history of bowel perforation after colonoscopy, s/p colectomy, colostomy and colostomy reversal, chronic kidney disease, who presented from [facility] 08[facility]17 for respiratory distress and nausea vomiting. Patient was admitted to the hospitalist service with probable sepsis. Infectious disease was consulted, started on ceftriaxone for UTI by Dr. Arcos. Ct of the abdomen pelvis showed ileus without evidence of mechanical obstruction. Apparently she had been taking by mouth, with a plan for removing PEG tube and RN informed me of possible aspiration also. (PEG tube placement 06/28/[address] Mosqueda at [facility] during hospitalization for pneumonia). A halicat was called today for worsening respiratory distress, and hypoxia. Chest x-ray showed possible small left apical pneumothorax. Patient was placed on 100% nonrebreather and was moved to the ICU. I requested a stat CT of the chest to better evaluate the pneumothorax and also evaluate for pneumonia. CT chest did not show pneumothorax but showed scattered bilateral infiltrates predominantly left lower lobe indicating pneumonia. Also urine culture was growing Pseudomonas, I have discontinued ceftriaxone and started on cefepime 2 g IV every 8 hours, Flagyl 500 mg IV every 8 hours and give single dose of vancomycin 1 g IV. Hold prednisone and placed on IV Solu Medrol, along with scheduled and when necessary DuoNeb. Check for influenza On my evaluation in the ICU patient is in obvious respiratory distress. Bilateral rhonchi and wheezes. She is struggling to breathe and indicated that she wants endotracheal intubation in front of the family. Family' is agreeable for intubation after discussion with patient, myself and Dr. Walters. DNR was rescinded and changed to alternate code intubation only. RSI initiated and large amount of biliary secretions noted to regurgitate into the oral cavity following induction. No significant aspiration, minimal biliary fluid suctioned out from the ET tube. There was large amount of biliary fluid pooling in the oral cavity which was suctioned out. PEG tube was placed to intermittent wall suction. Keep Nothing by mouth except meds, start Reglan for severe ileus. GI following. 2: sedated on vent 2/3: Did, orally intubated on mechanical ventilation. Minimal output from NG tube overnight. Objective Vital Signs Date Time Temp Pulse Resp B/P (MAP) Pulse Ox O2 Delivery O2 Flow Rate FiO2 08/17/17 06:00 98 08/17/17 04:14 100 35 08/17/17 04:00 97.8 15 119/57 (77) 08/16/17 19:00 Mechanical Ventilator 08/15/17 20:00 15.00 Intake and Output 08/17/17 08/17/17 08/18/17 08:00 16:00 00:00 Output Total 275 ml Balance -275 ml Result Diagram: 08/17/17 0413 08/17/[address] chest scattered bilateral predominantly left lower lobe infiltrate CT abdomen pelvis showed ileus Objective Remarks HEENT/ Neuro: Sedated, orally intubated, Pallor present, no icterus, tongue/ mucosa moist Neck: No JVD Chest/Pulm: on mech vent, good air entry bilaterally, no wheezing or crackles CVS: S1-S2 regular, no murmur GI/abdomen: soft, nontender, bowel sounds sluggish Extremities: warm bilaterally, no edema A/P Assessment and Plan ASSESSMENT: Acute hypoxemic respiratory failure Healthcare associated pneumonia Probable aspiration Severe sepsis Acute COPD exacerbation Pseudomonas UTI Severe ileus Atrial fibrillation with RVR Chronic Eliquis use Previous CVA with aphasia Carotid stenosis Chronic kidney disease PLAN: NEURO: - Versed for sedation and vent synchrony - Daily sedation vacation - Discontinue fentanyl patch due to ileus, use fentanyl when necessary RESP: - Continue mechanical ventilation/ACV - DuoNeb every 4 hours and when necessary, ventilator bundle - Hold prednisone, start IV Solu-Medrol 40 mg every 8 hours - Broad-spectrum antibiotics with cefepime and Flagyl, vancomycin single dose - F/U Sputum culture - CT chest shows bilaterally, predominantly left lower lobe infiltrate (no pneumothorax noted) CV: -Off pressors since 08/16 - Change IV fluid to LR at 42 cc per hour - Hold amlodipine and Vasotec - Continue Rythmol continue Eliquis GI: -Minimal output from G-tube. Will start tube feeds with Jevity 1.5 and advanced to 30 cc/h today. Eventually if tolerated will advance to goal of 60 cc per hour. - Continue Reglan 10 mg IV every 8 hours. Gastroenterology following - Relistor 12 mg subcutaneous 1 on 08/15 : - Monitor renal function closely. Continue Feliciano catheter. - Acute kidney injury had improved with hydration ID: - Ceftriaxone was discontinued and cefepime 2 g IV every 8 hours started for Pseudomonas UTI - Patient on IV Flagyl to cover for aspiration. Single dose of vancomycin given - Send sputum blood cultures, check for influenza HEME: - Monitor CBC, CMP - Continue Eliquis ENDO: - Continue Synthroid. Electrolyte replacement per protocol - Sliding scale insulin if needed PROPH: - Bilateral lower extremity SCDs. Continue Eliquis. IV Protonix LINES: - Utilize peripheral IVs, central line if needed CC time 35 min excluding procedures Altaf Arcos MD Aug 17, 2017 08:05
[2017-08-17] MEDS: PROPAFENONE HCL 150 MG TAB PO SCH ×2 (08:20→20:17)
[2017-08-17] MEDS: DOCUSATE SODIUM 50 MG/SENNA 8.6 MG TAB PO SCH ×2 (08:20→20:17)
[2017-08-17] MEDS: APIXABAN 2.5 MG TABLET PO SCH ×2 (08:20→20:17)
--- NOTE | 2017-08-17 08:20 | RADRPT ---
EXAM DATE/TIME: 08/17/2017 08:06 [place] COMPARISON: CHEST SINGLE AP, August 15, 2017, 20:54. INDICATIONS : Respiratory distress MEDICAL HISTORY : Congestive heart failure. Hypertension Thyroid disease. Cardiac disorder. Afib. Gastritis. GERD. Card iovascular disease SURGICAL HISTORY : None. ENCOUNTER: Subsequent ACUITY: 4 - 6 days PAIN SCORE: Non-responsive. LOCATION: Bilateral chest FINDINGS: A single view of the chest demonstrates endotracheal tube with tip 3 cm above the sushant. Left retroc ardiac density and probable small pleural effusion. Lungs clear. Heart borderline enlarged The cardio mediastinal contours are unremarkable. Osseous structures are intact. CONCLUSION: Left basilar density and small left pleural effusion. William Ruiz MD on August 17, 2017 at 8:17 Board Certified Radiologist. This report was verified electronically.
[2017-08-17] MEDS: LACTATED RINGER'S 1000 ML INJ 1,000 ML IV SCH (08:31)
--- NOTE | 2017-08-17 11:20 | HHI.PR ---
Subjective Remarks She remains intubated and sedated. Family at bedside. Objective Vital Signs Date Time Temp Pulse Resp B/P (MAP) Pulse Ox O2 Delivery O2 Flow Rate FiO2 08/17/17 10:00 96 08/17/17 08:09 35 18 08:09 100 35 18 08:01 100 35 08/17/17 08:00 111 /09/29 08:00 98.0 104 15 131/63 (85) 100 08/17/17 08:00 35 08/17/17 07:00 100 Mechanical Ventilator 15.00 35 08/17/17 06:00 98 08/17/17 04:14 100 35 08/17/17 04:00 97.8 99 15 119/57 (77) 100 08/17/17 04:00 99 08/17/17 02:00 100 35 08/17/17 02:00 92 08/17/17 00:11 100 35 08/17/17 00:00 90 08/17/17 00:00 98.3 90 15 150/67 (94) 100 08/16/17 22:00 95 08/16/17 20:00 98 2//18 20:00 98.7 98 15 111/58 (75) 100 08/16/17 19:42 100 35 2//18 19:00 100 Mechanical Ventilator 35 08/16/17 18:00 99 // 17:23 100 35 //18 16:00 98.2 94 15 106/57 (73) 100 18 16:00 92 08/16/17 14:00 93 18 12:32 100 35 18 12:00 98.6 100 15 115/57 (76) 100 18 12:00 88 I/O 2/2/18 2/2/18 2/2/18 2//18 2//18 2//18 07:00 15:00 23:00 07:00 15:00 23:00 Intake Total 300 ml 562 ml 0 ml 100 ml 650 ml Output Total 2850 ml 830 ml 275 ml Balance -2550 ml 562 ml -830 ml -175 ml 650 ml Intake Oral 0 ml IV Total 300 ml 562 ml 100 ml 650 ml Output Urine Total 850 ml 550 ml 200 ml Gastric Drainage Total 2000 ml 280 ml 75 ml # Bowel Movements 0 Result Diagram: 08/17/17 0413 08/17/17 0413 Imaging Last Impressions Chest X-Ray 08/17/17 0000 Signed Impressions: Service Date/Time: Thursday, August 17, 2017 08:06 - CONCLUSION: Left basilar density and small left pleural effusion. William Ruiz MD Abdomen X-Ray 08/16/17 0600 Signed Impressions: Service Date/Time: Wednesday, August 16, 2017 04:17 - CONCLUSION: No dilated loops of bowel are seen. John Weiner MD Small Bowel X-Ray 08/15/17 0000 Signed Impressions: Service Date/Time: August 11:18 - CONCLUSION: Multiple loops of borderline dilated small bowel with passage of contrast into the colon at 3 hours ruling out a complete obstruction. Atif Christensen MD Chest CT 08/15/17 0000 Signed Impressions: Service Date/Time: August 19:36 - CONCLUSION: 1. Interval resolution of the previously noted small left apical pneumothorax. 2. Patchy infiltrates throughout the left lung and to a lesser extent the right lung consistent with probable pneumonia. Clinical correlation is recommended. 3. Small pericardial effusion. 4. Cardiomegaly and coronary artery calcification. 5. Distention of the stomach and esophagus. 6. Chronic moderate compression deformity involving T12. Kyler Irizarry MD Abdomen/Pelvis CT 08/14/17 0000 Signed Impressions: Service Date/Time: Monday, August 14, 2017 20:56 - CONCLUSION: 1. Multiple fluid-filled loops of small bowel suggestive of partial small bowel obstruction or ileus. This likely is at the level of the jejunum as the distal ileum is normal in caliber. 2. Patchy opacities within the lung bases posteriorly consistent with atelectasis and/or pneumonia. Clinical correlation is recommended. 3. No evidence of left renal mass for nonobstructing stone. 4. Uncomplicated colonic diverticulosis. 5. Ventral abdominal wall hernia which appears to contain a portion of transverse colon. 6. Cardiomegaly and small pericardial effusion. Kyler Irizarry MD Renal Ultrasound 08/13/17 0000 Signed Impressions: Service Date/Time: Sunday, August 13, 2017 20:19 - CONCLUSION: 1. Questionable solid mass within the mid pole of the left kidney measuring 3.3 x 1.9 x 2.[address] of the abdomen may be helpful for further characterization of this questionable lesion if clinical indicated. 2. 5 mm calcified nonobstructing mid pole left renal calculus. 3. Small bilateral kidneys. Kyler Irizarry MD Objective Remarks Gen - Sedated and intubated; HEENT - ETT in place; Lungs - decreased BS noted; CV - RRR without rub or gallop; Abd - soft and nontender with BS present; M/S - no deformity noted. Medications and IVs Current Medications Medications (Trade) Dose Ordered Sig/Ashlee Route Start Time Stop Time Status Last Admin (NS Flush) 2 ml UNSCH PRN IVF 08/13/17 07:00 08/17/17 08:20 (Tylenol) 650 mg Q4H PRN PO 08/13/17 10:15 (Zofran Inj) 4 mg Q6H PRN IVP 08/13/17 10:15 08/15/17 08:37 (Narcan Inj) 0.4 mg UNSCH PRN IV PUSH 08/13/17 10:15 (Merari-Colace) 1 tab BID PO 08/13/17 21:00 08/17/17 08:20 (Milk Of Magnesia Liq) 30 ml Q12H PRN PO 08/13/17 10:15 (Senokot) 17.2 mg Q12H PRN PO 08/13/17 10:15 (Dulcolax Supp) 10 mg DAILY PRN RECTAL 08/13/17 10:15 (Lactulose Liq) 30 ml DAILY PRN PO 08/13/17 10:15 (Albuterol Neb) 2.5 mg Q6HR NEB INH 08/13/17 22:00 08/16/17 10:00 (Norvasc) 10 mg DAILY PO 08/14/17 09:00 Future Hold 08/14/17 09:33 (Synthroid) 50 mcg DAILY@0600 PO 08/14/17 06:00 08/17/17 05:24 (Deltasone) 5 mg DAILY PO 08/14/17 09:00 Future Hold 08/14/17 09:34 (Rythmol) 150 mg BID PO 08/13/17 21:00 08/17/17 08:20 (Eliquis) 2.5 mg BID PO 08/13/17 21:00 08/17/17 08:20 (Ultram) 50 mg Q6H PRN PO 08/13/17 21:30 08/14/17 23:17 (Vasotec) 5 mg BID PO 08/14/17 21:00 Future Hold 08/14/17 23:15 (Duoneb Neb) 1 ampule Q4HR NEB NEB 08/16/17 00:00 08/17/17 07:59 (SoluMEDROL INJ) 40 mg Q8HR IV PUSH 08/15/17 22:00 08/17/17 05:24 (Reglan Inj) 10 mg Q8HR IV PUSH 08/15/17 22:00 08/17/17 06:01 Midazolam HCl 100 ml @ 2 mls/hr TITRATE PRN IV 08/15/17 21:15 08/15/17 21:20 Phenylephrine HCl 40 mg/Dextrose 500 ml @ 30 mls/hr TITRATE PRN IV 08/15/17 23:00 08/15/17 21:00 (Brethine Inj) 1 mg UNSCH PRN SQ 08/15/17 21:15 (NovoLOG SUPPLEMENTAL SCALE) 1 Q6HR SQ 08/15/17 21:15 08/16/17 05:05 Potassium Chloride 100 ml @ 50 mls/hr Q2H PRN IV 08/15/17 21:15 Potassium Chloride 100 ml @ 50 mls/hr Q2H PRN IV 08/15/17 21:15 (K-Lyte Cl Eff) 50 meq UNSCH PRN PO 08/15/17 21:15 Potassium Chloride 100 ml @ 25 mls/hr UNSCH PRN IV 08/15/17 21:15 Potassium Chloride 100 ml @ 50 mls/hr Q2H PRN IV 08/15/17 21:15 08/16/17 08:28 Magnesium Sulfate 4 gm/Sodium Chloride 100 ml @ 50 mls/hr UNSCH PRN IV 08/15/17 21:15 (Mag-Ox) 800 mg UNSCH PRN PO 08/15/17 21:15 Magnesium Sulfate 2 gm/Sodium Chloride 100 ml @ 50 mls/hr UNSCH PRN IV 08/15/17 21:15 (K-Phos) 2,000 mg Q4H PRN PO 08/15/17 21:15 Sodium Phosphate 30 mmol/Sodium Chloride 250 ml @ 42 mls/hr UNSCH PRN IV 08/15/17 21:15 (K-Phos) 2,000 mg UNSCH PRN PO/TUBE 08/15/17 21:15 Potassium Phosphate 30 mmol/ Sodium Chloride 260 ml @ 42 mls/hr UNSCH PRN IV 08/15/17 21:15 (Protonix Inj) 40 mg Q24H IV PUSH 08/15/17 22:00 08/16/17 22:26 (D50w (Vial) Inj) 50 ml UNSCH PRN IV PUSH 08/15/17 21:30 (Glucagon Inj) 1 mg UNSCH PRN OTHER 08/15/17 21:30 (fentaNYL INJ) 50 mcg Q2HR PRN IV PUSH 08/15/17 22:30 (Lopressor Inj) 2.5 mg Q6H PRN IV PUSH 08/15/17 23:30 (Flagyl) 500 mg Q6H PO 08/16/17 14:00 08/17/17 08:20 Cefepime HCl 2000 mg/Sodium Chloride 100 ml @ 200 mls/hr Q24H IV 08/18/17 05:00 Lactated Ringer's 1,000 ml @ 42 mls/hr [id number] IV 08/17/17 07:45 08/17/17 08:31 Assessment and Plan Problem List: (1) Respiratory distress ICD Codes: R06.03 - Acute respiratory distress Status: Acute Plan: Intubated on the vent (2) Hypoxia ICD Codes: R09.02 - Hypoxemia Status: Acute Plan: Intubated on the vent (3) Sepsis ICD Codes: A41.9 - Sepsis, unspecified organism Status: Acute Plan: Pulmonary managing (4) HTN (hypertension) ICD Codes: I10 - Essential (primary) hypertension Plan: Now requiring BP support with sarah-synephrine (5) REESE (acute kidney injury) ICD Codes: N17.9 - Acute kidney failure, unspecified Status: Chronic Plan: Renal following (6) Aphasia ICD Codes: R47.01 - Aphasia (7) Weakness ICD Codes: R53.1 - Weakness Status: Chronic Plan: Will need therapy for progressive weakness (8) Dysphagia ICD Codes: R13.10 - Dysphagia, unspecified Status: Chronic Plan: Maintain IV hydration for now Discussed Condition With Son, daughter and grandson at bedside Problem Qualifiers (1) Sepsis: Qualified Codes: A41.9 - Sepsis, unspecified organism (2) HTN (hypertension): Qualified Codes: I10 - Essential (primary) hypertension (3) Dysphagia: Qualified Codes: R13.19 - Other dysphagia Obed Sanabria Aug 17, 2017 11:20
--- NOTE | 2017-08-17 14:16 | HHI.NPPN ---
Subjective History of Present Illness Patient is a 81-year-old female presents to the emergency department from [facility] by EMS transport for marked respiratory distress. According to quality assurance tech report upon their arrival patient was showing evidence of respiratory distress with accessory muscle use janki-oral cyanosis dried vomitus around her mouth and in her clear and room air O2 saturations of 82%. Patient is placed on nonrebreather mask with O2 saturations only increasing to 92%. She is on 4 liters via nasal cannula now with good sats. Patient is found to have a abdormal UA. Chest xray with no acute cardiopulmonary disease demonstrated. Patient also noted to have elevated creatinine at 1.32 and GFR of 39 ml/min. Past medical history of Afib, CHF, HTN, Hypothyroid, PNA, cardiac stenosis, and CVA. She is currently on oral diet but does have PEG tube. Additional Remarks Respiratory on CPAP. Ventilated and sedated Review of Systems Cardiovascular Cardiac Remarks Denies any CP Objective Data Data 08/17/17 08/18/17 19:00 07:00 Intake Total 650 ml Balance 650 ml IV Total 650 ml Vital Signs Date Time Temp Pulse Resp B/P (MAP) Pulse Ox O2 Delivery O2 Flow Rate FiO2 08/17/17 12:21 99 35 08/17/17 10:00 96 08/17/17 08:09 35 08/17/17 08:09 100 35 08/17/17 08:01 100 35 08/17/17 08:00 111 08/17/17 08:00 98.0 104 15 131/63 (85) 100 08/17/17 08:00 35 08/17/17 07:00 100 Mechanical Ventilator 15.00 35 08/17/17 06:00 98 08/17/17 04:14 100 35 08/17/17 04:00 97.8 99 15 119/57 (77) 100 08/17/17 04:00 99 08/17/17 02:00 100 35 08/17/17 02:00 92 08/17/17 00:11 100 35 08/17/17 00:00 90 08/17/17 00:00 98.3 90 15 150/67 (94) 100 08/16/17 22:00 95 08/16/17 20:00 98 08/16/17 20:00 98.7 98 15 111/58 (75) 100 08/16/17 19:42 100 35 08/16/17 19:00 100 Mechanical Ventilator 35 08/16/17 18:00 99 08/16/17 17:23 100 35 08/16/17 16:00 98.2 94 15 106/57 (73) 100 08/16/17 16:00 92 -: 08/17/17 0413 08/17/17 0413 Physical Exam General Appearance: No Acute Distress Eyes Eye Exam: Pupils Equal Throat Throat Exam: Oral Mucosa [place] & Moist Pulmonary Resp Exam: Breath Sounds Equal, Decreased Bases Cardiology CV Exam: Regular Gastrointestinal/Abdomen GI Exam: Soft, Non-Tender Genitourinary Exam: Flank Non-Tender Integumentary Skin Exam: Clear, Warm, Dry Extremeties Extremities Exam: Trace Edema Neurologic Neuro Exam: Alert, Awake, Sedated Assessment/Plan Problem List: (1) REESE (acute kidney injury) ICD Codes: N17.9 - Acute kidney failure, unspecified Status: Chronic Plan: REESE on CKD most likely prerenal from poor PO intake with dysphagia and UTI Patient with CKD from possibly HTN or renovascular disease. Baseline GFR not available UA negative for proteinuria. Renal US: Questionable solid mass within the mid pole of the left kidney measuring 3.3 x 1.9 x 2.2 cm and Small bilateral kidneys. CT: . suggestive of partial small bowel obstruction or ileus. No evidence of left renal mass for nonobstructing stone Patient with respiratory distress last night DNR rescinded and intubated. Fio2 at 35 % Renal function Creat of 1.2 Plan Continue to monitor UOP lower Na high may give Albumin to see if she improves UOP follow BMP (2) HTN (hypertension) ICD Codes: I10 - Essential (primary) hypertension Plan: On pressor support (3) Respiratory distress ICD Codes: R06.03 - Acute respiratory distress Status: Acute Plan: Intubated with FiO2 at 40 % (4) Sepsis ICD Codes: A41.9 - Sepsis, unspecified organism Status: Acute Plan: Continue antibiotics Problem Qualifiers (1) HTN (hypertension): Qualified Codes: I10 - Essential (primary) hypertension (2) Sepsis: Qualified Codes: A41.9 - Sepsis, unspecified organism Nicolás Mcadams MD Aug 17, 2017 14:16
--- NOTE | 2017-08-17 14:20 | HHI.GIFU ---
Subjective Remarks Patient sedated on vent, family in the room, trickle feeding started, tolerating okay, no bm today (Omer,Gerald REID) Objective Vitals I&O Vital Signs Date Time Temp Pulse Resp B/P (MAP) Pulse Ox O2 Delivery O2 Flow Rate FiO2 08/17/17 12:21 99 35 08/17/17 10:00 96 08/17/17 08:09 35 /09/29 08:09 100 35 08/17/17 08:01 100 35 08/17/17 08:00 111 /09/29 08:00 98.0 104 15 131/63 (85) 100 08/17/17 08:00 35 /09/29 07:00 100 Mechanical Ventilator 15.00 35 08/17/17 06:00 98 08/17/17 04:14 100 35 /09/29 04:00 97.8 99 15 119/57 (77) 100 08/17/17 04:00 99 08/17/17 02:00 100 35 08/17/17 02:00 92 08/17/17 00:11 100 35 /09/29 00:00 90 //18 00:00 98.3 90 15 150/67 (94) 100 08/16/17 22:00 95 08/16/ 20:00 98 2//18 20:00 98.7 98 15 111/58 (75) 100 08/16/17 19:42 100 35 //18 19:00 100 Mechanical Ventilator 35 /09/01 18:00 99 //18 17:23 100 35 //18 16:00 98.2 94 15 106/57 (73) 100 18 16:00 92 I/O 2/2/18 2/2/18 2/2/18 2/3/18 2//18 2//18 07:00 15:00 23:00 07:00 15:00 23:00 Intake Total 300 ml 562 ml 0 ml 100 ml 650 ml Output Total 2850 ml 830 ml 275 ml Balance -2550 ml 562 ml -830 ml -175 ml 650 ml Intake Oral 0 ml IV Total 300 ml 562 ml 100 ml 650 ml Output Urine Total 850 ml 550 ml 200 ml Gastric Drainage Total 2000 ml 280 ml 75 ml # Bowel Movements 0 Laboratory Laboratory Tests Test 08/16/17 22:01 08/17/17 04:13 Potassium Level 3.8 4.1 White Blood Count 7.1 Red Blood Count 2.69 Hemoglobin 8.7 Hematocrit 25.6 Mean Corpuscular Volume 95.1 Mean Corpuscular Hemoglobin 32.2 Mean Corpuscular Hemoglobin Concent 33.8 Red Cell Distribution Width 17.2 Platelet Count 196 Mean Platelet Volume 8.9 Neutrophils (%) (Auto) 92.2 Lymphocytes (%) (Auto) 4.4 Monocytes (%) (Auto) 3.0 Eosinophils (%) (Auto) 0.3 Basophils (%) (Auto) 0.1 Neutrophils # (Auto) 6.5 Lymphocytes # (Auto) 0.3 Monocytes # (Auto) 0.2 Eosinophils # (Auto) 0.0 Basophils # (Auto) 0.0 CBC Comment DIFF FINAL Differential Comment Hematology Comments * Blood Urea Nitrogen 28 Creatinine 1.25 Random Glucose 118 Calcium Level 7.8 Sodium Level 152 Chloride Level 121 Carbon Dioxide Level 18.8 Anion Gap 12 Estimat Glomerular Filtration Rate 41 Date/Time Source Procedure Growth Status 08/16/17 00:10 Blood Peripheral Aerobic Blood Culture - Preliminary NO GROWTH IN 1 DAY Resulted 08/16/17 00:10 Blood Peripheral Anaerobic Blood Culture - Final QNS - SEE AEROBE REPORT Resulted 08/15/17 22:22 Urine Catheterized Urine Urine Culture - Preliminary Group D Enterococcus Gram Negative Roque Resulted Imaging Last Impressions Chest X-Ray 08/17/17 0000 Signed Impressions: Service Date/Time: Thursday, August 17, 2017 08:06 - CONCLUSION: Left basilar density and small left pleural effusion. William Ruiz MD Abdomen X-Ray 08/16/17 0600 Signed Impressions: Service Date/Time: Wednesday, August 16, 2017 04:17 - CONCLUSION: No dilated loops of bowel are seen. John Weiner MD Small Bowel X-Ray 08/15/17 0000 Signed Impressions: Service Date/Time: August 11:18 - CONCLUSION: Multiple loops of borderline dilated small bowel with passage of contrast into the colon at 3 hours ruling out a complete obstruction. Atif Christensen MD Chest CT 08/15/17 0000 Signed Impressions: Service Date/Time: August 19:36 - CONCLUSION: 1. Interval resolution of the previously noted small left apical pneumothorax. 2. Patchy infiltrates throughout the left lung and to a lesser extent the right lung consistent with probable pneumonia. Clinical correlation is recommended. 3. Small pericardial effusion. 4. Cardiomegaly and coronary artery calcification. 5. Distention of the stomach and esophagus. 6. Chronic moderate compression deformity involving T12. Kyler Irizarry MD Abdomen/Pelvis CT 08/14/17 0000 Signed Impressions: Service Date/Time: Monday, August 14, 2017 20:56 - CONCLUSION: 1. Multiple fluid-filled loops of small bowel suggestive of partial small bowel obstruction or ileus. This likely is at the level of the jejunum as the distal ileum is normal in caliber. 2. Patchy opacities within the lung bases posteriorly consistent with atelectasis and/or pneumonia. Clinical correlation is recommended. 3. No evidence of left renal mass for nonobstructing stone. 4. Uncomplicated colonic diverticulosis. 5. Ventral abdominal wall hernia which appears to contain a portion of transverse colon. 6. Cardiomegaly and small pericardial effusion. Kyler Irizarry MD Renal Ultrasound 08/13/17 0000 Signed Impressions: Service Date/Time: Sunday, August 13, 2017 20:19 - CONCLUSION: 1. Questionable solid mass within the mid pole of the left kidney measuring 3.3 x 1.9 x 2.[address] of the abdomen may be helpful for further characterization of this questionable lesion if clinical indicated. 2. 5 mm calcified nonobstructing mid pole left renal calculus. 3. Small bilateral kidneys. Kyler Irizarry MD Physical Exam HEENT: normocephalic; atraumatic; no jaundice. intubated CHEST: CTA CARDIAC: RRR ABDOMEN: Soft, mildly distended, mildly firm in lower quadrants, no hepatosplenomegaly; bowel sounds soft, PEG EXTREMITIES: No clubbing, cyanosis, or edema. SKIN: Normal; no rash; no jaundice. SPONGE CLIPPER: sedated on vent (Gerald Tello EMPLOYMENT OFFICER) Assessment and Plan Plan ASSESSMENT - n/v, abd pain - 4 d ago onset projectile vomiting, abd pain. CT showed psbo vs ileus. hx colon perf after colonoscopy s/p colectomy, colostomy, and reversal. pt is not distended, BS +, abd soft 2/2/18 - transferred to [facility] and intubated for resp distress. PEG to LIWS. s/p relistor overnight no b/m. KUB 08/16 no dilated bowel loops seen. SBFT 08/15 showed mult loops borderline dilatation small bowel, contrast colon , ruled out complete obstruction. ileus vs PSBO copious gastric output 08/17/17 Sedated on vent, Trickle feed started, tolerating okay, no bm today PLAN - Advance TF as tolerated - continue Reglan - further recs to follow pt seen by myself and Dr Rosen and this note is written on his behalf (Gerald Tello) Physician Comments Seen and examined with FRANKLIN, tolerating TF. Extubation planned for next week per Dr. Arcos. Illeus resolved. Discussed with family at the bedside (Subha Rosen MD) Gerald Tello Aug 17, 2017 14:20 Subha Rosen MD Aug 18, 2017 11:57
[2017-08-17] MEDS: ALBUMIN 25% INJ 100 ML IV SCH (14:50)
--- NOTE | 2017-08-17 14:56 | HHI.IDPN ---
Subjective Subjective Remarks Ms. Hernandez is an 81-year-old female who presents to the emergency department at [facility] from [facility] by EMS transport for marked respiratory distress. According to the label printer report upon their arrival patient was in respiratory distress. Patient was reportedly using accessory muscles and there was some perioral cyanosis. Reportedly there was some dried vomitus around her mouth and her O2 saturations were 82%. Patient was placed on nonrebreather with oxygen saturations including to 92%. Subsequently patient's respiratory status improved. Her past medical history of Afib, CHF, HTN, Hypothyroid, PNA, cardiac stenosis, and CVA. She is currently on oral diet but does have PEG tube. Infectious disease is consulted for evaluation of severe sepsis. Notes reviewed Discussed with RN Patient is on the vent, has been on CPAP since 8:00 this morning and tolerating well BP is okay, has been off pressors since yesterday On antibiotics for aspiration, after she had nausea and vomiting Repeat UA has very mild pyuria, urine culture with greater than 100,000 CFU of enterococcus, less than 10,000 CFU gram-negative roque Feliciano placed on admission No central line Temps okay Antibiotics Current Medications Cefepime Flagyl Medications (Trade) Dose Ordered Sig/Ashlee Route Start Time Stop Time Status Last Admin (NS Flush) 2 ml UNSCH PRN IVF 08/13/17 07:00 08/17/17 08:20 (Tylenol) 650 mg Q4H PRN PO 08/13/17 10:15 (Zofran Inj) 4 mg Q6H PRN IVP 08/13/17 10:15 08/15/17 08:37 (Narcan Inj) 0.4 mg UNSCH PRN IV PUSH 08/13/17 10:15 (Merari-Colace) 1 tab BID PO 08/13/17 21:00 08/17/17 08:20 (Milk Of Magnesia Liq) 30 ml Q12H PRN PO 08/13/17 10:15 (Senokot) 17.2 mg Q12H PRN PO 08/13/17 10:15 (Dulcolax Supp) 10 mg DAILY PRN RECTAL 08/13/17 10:15 (Lactulose Liq) 30 ml DAILY PRN PO 08/13/17 10:15 (Albuterol Neb) 2.5 mg Q6HR NEB INH 08/13/17 22:00 08/16/17 10:00 (Norvasc) 10 mg DAILY PO 08/14/17 09:00 Future Hold 08/14/17 09:33 (Synthroid) 50 mcg DAILY@0600 PO 08/14/17 06:00 08/17/17 05:24 (Deltasone) 5 mg DAILY PO 08/14/17 09:00 Future Hold 08/14/17 09:34 (Rythmol) 150 mg BID PO 08/13/17 21:00 08/17/17 08:20 (Eliquis) 2.5 mg BID PO 08/13/17 21:00 08/17/17 08:20 (Ultram) 50 mg Q6H PRN PO 08/13/17 21:30 08/14/17 23:17 (Vasotec) 5 mg BID PO 08/14/17 21:00 Future Hold 08/14/17 23:15 (Duoneb Neb) 1 ampule Q4HR NEB NEB 08/16/17 00:00 08/17/17 12:23 (SoluMEDROL INJ) 40 mg Q8HR IV PUSH 08/15/17 22:00 08/17/17 05:24 (Reglan Inj) 10 mg Q8HR IV PUSH 08/15/17 22:00 08/17/17 06:01 Midazolam HCl 100 ml @ 2 mls/hr TITRATE PRN IV 08/15/17 21:15 08/15/17 21:20 Phenylephrine HCl 40 mg/Dextrose 500 ml @ 30 mls/hr TITRATE PRN IV 08/15/17 23:00 08/15/17 21:00 (Brethine Inj) 1 mg UNSCH PRN SQ 08/15/17 21:15 (NovoLOG SUPPLEMENTAL SCALE) 1 Q6HR SQ 08/15/17 21:15 08/16/17 05:05 Potassium Chloride 100 ml @ 50 mls/hr Q2H PRN IV 08/15/17 21:15 Potassium Chloride 100 ml @ 50 mls/hr Q2H PRN IV 08/15/17 21:15 (K-Lyte Cl Eff) 50 meq UNSCH PRN PO 08/15/17 21:15 Potassium Chloride 100 ml @ 25 mls/hr UNSCH PRN IV 08/15/17 21:15 Potassium Chloride 100 ml @ 50 mls/hr Q2H PRN IV 08/15/17 21:15 08/16/17 08:28 Magnesium Sulfate 4 gm/Sodium Chloride 100 ml @ 50 mls/hr UNSCH PRN IV 08/15/17 21:15 (Mag-Ox) 800 mg UNSCH PRN PO 08/15/17 21:15 Magnesium Sulfate 2 gm/Sodium Chloride 100 ml @ 50 mls/hr UNSCH PRN IV 08/15/17 21:15 (K-Phos) 2,000 mg Q4H PRN PO 08/15/17 21:15 Sodium Phosphate 30 mmol/Sodium Chloride 250 ml @ 42 mls/hr UNSCH PRN IV 08/15/17 21:15 (K-Phos) 2,000 mg UNSCH PRN PO/TUBE 08/15/17 21:15 Potassium Phosphate 30 mmol/ Sodium Chloride 260 ml @ 42 mls/hr UNSCH PRN IV 08/15/17 21:15 (Protonix Inj) 40 mg Q24H IV PUSH 08/15/17 22:00 08/16/17 22:26 (D50w (Vial) Inj) 50 ml UNSCH PRN IV PUSH 08/15/17 21:30 (Glucagon Inj) 1 mg UNSCH PRN OTHER 08/15/17 21:30 (fentaNYL INJ) 50 mcg Q2HR PRN IV PUSH 08/15/17 22:30 (Lopressor Inj) 2.5 mg Q6H PRN IV PUSH 08/15/17 23:30 (Flagyl) 500 mg Q6H PO 08/16/17 14:00 08/17/17 08:20 Cefepime HCl 2000 mg/Sodium Chloride 100 ml @ 200 mls/hr Q24H IV 08/18/17 05:00 Lactated Ringer's 1,000 ml @ 42 mls/hr [id number] IV 08/17/17 07:45 08/17/17 08:31 Albumin Human 100 ml @ 60 mls/hr Q12H IV 08/17/17 15:00 Lines Line sites with no e.o infection Past Medical History reviewed Allergies: Coded Allergies: ciprofloxacin (Verified Allergy, Unknown, 08/13/17) morphine (Verified Allergy, Unknown, 08/13/17) Objective . Vital Signs Date Time Temp Pulse Resp B/P (MAP) Pulse Ox O2 Delivery O2 Flow Rate FiO2 08/17/17 12:21 99 35 08/17/17 10:00 96 08/17/17 08:09 35 08/17/17 08:09 100 35 08/17/17 08:01 100 35 08/17/17 08:00 111 08/17/17 08:00 98.0 104 15 131/63 (85) 100 08/17/17 08:00 35 08/17/17 07:00 100 Mechanical Ventilator 15.00 35 08/17/17 06:00 98 08/17/17 04:14 100 35 08/17/17 04:00 97.8 99 15 119/57 (77) 100 08/17/17 04:00 99 08/17/17 02:00 100 35 08/17/17 02:00 92 08/17/17 00:11 100 35 08/17/17 00:00 90 08/17/17 00:00 98.3 90 15 150/67 (94) 100 08/16/17 22:00 95 08/16/17 20:00 98 08/16/17 20:00 98.7 98 15 111/58 (75) 100 08/16/17 19:42 100 35 08/16/17 19:00 100 Mechanical Ventilator 35 08/16/17 18:00 99 08/16/17 17:23 100 35 08/16/17 16:00 98.2 94 15 106/57 (73) 100 08/16/17 16:00 92 08/17/17 08/17/17 08/18/17 15:00 23:00 07:00 Intake Total 650 ml Balance 650 ml IV Total 650 ml . Laboratory Tests Test 08/15/17 19:57 08/16/17 06:41 08/17/17 04:13 White Blood Count 9.4 TH/MM3 9.3 TH/MM3 7.1 TH/MM3 Red Blood Count 2.96 MIL/MM3 2.81 MIL/MM3 2.69 MIL/MM3 Hemoglobin 9.4 GM/DL 8.9 GM/DL 8.7 GM/DL Hematocrit 29.2 % 26.7 % 25.6 % Mean Corpuscular Volume 98.8 FL 95.1 FL 95.1 FL Mean Corpuscular Hemoglobin 31.7 PG 31.8 PG 32.2 PG Mean Corpuscular Hemoglobin Concent 32.1 % 33.4 % 33.8 % Red Cell Distribution Width 18.1 % 17.1 % 17.2 % Platelet Count 231 TH/MM3 293 TH/MM3 196 TH/MM3 Mean Platelet Volume 8.8 FL 8.3 FL 8.9 FL Neutrophils (%) (Auto) 92.4 % 95.4 % 92.2 % Lymphocytes (%) (Auto) 3.7 % 2.4 % 4.4 % Monocytes (%) (Auto) 3.5 % 2.1 % 3.0 % Eosinophils (%) (Auto) 0.1 % 0.0 % 0.3 % Basophils (%) (Auto) 0.3 % 0.1 % 0.1 % Neutrophils # (Auto) 8.7 TH/MM3 8.9 TH/MM3 6.5 TH/MM3 Lymphocytes # (Auto) 0.3 TH/MM3 0.2 TH/MM3 0.3 TH/MM3 Monocytes # (Auto) 0.3 TH/MM3 0.2 TH/MM3 0.2 TH/MM3 Eosinophils # (Auto) 0.0 TH/MM3 0.0 TH/MM3 0.0 TH/MM3 Basophils # (Auto) 0.0 TH/MM3 0.0 TH/MM3 0.0 TH/MM3 CBC Comment AUTO DIFF DIFF FINAL DIFF FINAL Differential Comment AUTO DIFF CONFIRMED Platelet Estimate NORMAL Platelet Morphology Comment NORMAL Hematology Comments * Laboratory Tests Test 08/15/17 19:57 08/16/17 00:10 08/16/17 04:00 08/16/17 22:01 Blood Urea Nitrogen 20 MG/DL 20 MG/DL Creatinine 1.24 MG/DL 1.15 MG/DL Random Glucose 340 MG/DL 177 MG/DL Total Protein 5.8 GM/DL Albumin 2.3 GM/DL 2.1 GM/DL Calcium Level 8.1 MG/DL 7.9 MG/DL Phosphorus Level 4.1 MG/DL 2.9 MG/DL Magnesium Level 1.8 MG/DL 1.8 MG/DL Alkaline Phosphatase 64 U/L Aspartate Amino Transf (AST/SGOT) 11 U/L Alanine Aminotransferase (ALT/SGPT) 14 U/L Total Bilirubin 0.5 MG/DL Sodium Level 148 MEQ/L 149 MEQ/L Potassium Level 3.2 MEQ/L 3.3 MEQ/L 3.8 MEQ/L Chloride Level 112 MEQ/L 117 MEQ/L Carbon Dioxide Level 20.8 MEQ/L 20.4 MEQ/L Anion Gap 15 MEQ/L 12 MEQ/L Estimat Glomerular Filtration Rate 42 ML/MIN 45 ML/MIN Lactic Acid Level 2.8 mmol/L Test 08/17/17 04:13 Blood Urea Nitrogen 28 MG/DL Creatinine 1.25 MG/DL Random Glucose 118 MG/DL Calcium Level 7.8 MG/DL Sodium Level 152 MEQ/L Potassium Level 4.1 MEQ/L Chloride Level 121 MEQ/L Carbon Dioxide Level 18.8 MEQ/L Anion Gap 12 MEQ/L Estimat Glomerular Filtration Rate 41 ML/MIN Microbiology Date/Time Source Procedure Growth Status 08/16/17 00:10 Blood Peripheral Aerobic Blood Culture - Preliminary NO GROWTH IN 1 DAY Resulted 08/16/17 00:10 Blood Peripheral Anaerobic Blood Culture - Final QNS - SEE AEROBE REPORT Resulted 08/15/17 19:57 Blood Peripheral Aerobic Blood Culture - Preliminary NO GROWTH IN 2 DAYS Resulted 08/15/17 19:57 Blood Peripheral Anaerobic Blood Culture - Preliminary NO GROWTH IN 2 DAYS Resulted 08/15/17 22:22 Urine Catheterized Urine Urine Culture - Preliminary Group D Enterococcus Gram Negative Roque Resulted Imaging Chest X-Ray 08/17/17 0000 Signed Impressions: Service Date/Time: Thursday, August 17, 2017 08:06 - CONCLUSION: Left basilar density and small left pleural effusion. William Ruiz MD Abdomen X-Ray 08/16/17 0600 Signed Impressions: Service Date/Time: Wednesday, August 16, 2017 04:17 - CONCLUSION: No dilated loops of bowel are seen. John Weiner MD Small Bowel X-Ray 08/15/17 0000 Signed Impressions: Service Date/Time: August 11:18 - CONCLUSION: Multiple loops of borderline dilated small bowel with passage of contrast into the colon at 3 hours ruling out a complete obstruction. Atif Christensen MD Chest X-Ray 08/15/17 0000 Signed Impressions: Service Date/Time: August 20:54 - CONCLUSION: 1. Endotracheal tube is malpositioned within the right mainstem bronchus this should be pulled back 5 cm for more optimal positioning. 2. Persistent scattered patchy infiltrates consistent with possible pneumonia. Kyler Irizarry MD Chest X-Ray 08/15/17 0000 Signed Impressions: Service Date/Time: August 18:24 - CONCLUSION: 1. Small left apical pneumothorax measuring 12 mm. 2. Left basilar patchiness consistent with atelectasis and/or infiltrate as well as a small left pleural effusion. 3. Mild cardiomegaly. Kyler Irizarry MD Chest CT 08/15/17 0000 Signed Impressions: Service Date/Time: August 19:36 - CONCLUSION: 1. Interval resolution of the previously noted small left apical pneumothorax. 2. Patchy infiltrates throughout the left lung and to a lesser extent the right lung consistent with probable pneumonia. Clinical correlation is recommended. 3. Small pericardial effusion. 4. Cardiomegaly and coronary artery calcification. 5. Distention of the stomach and esophagus. 6. Chronic moderate compression deformity involving T12. Kyler Irizarry MD Chest X-Ray 08/13/17 0651 Signed Impressions: Service Date/Time: Sunday, August 13, 2017 07:05 - CONCLUSION: No acute cardiopulmonary disease demonstrated. William Ceballos MD Renal Ultrasound 08/13/17 0000 Signed Impressions: Service Date/Time: Sunday, August 13, 2017 20:19 - CONCLUSION: 1. Questionable solid mass within the mid pole of the left kidney measuring 3.3 x 1.9 x 2.[address] of the abdomen may be helpful for further characterization of this questionable lesion if clinical indicated. 2. 5 mm calcified nonobstructing mid pole left renal calculus. 3. Small bilateral kidneys. Kyler Irizarry MD Physical Exam GENERAL: On the vent, on CPAP, looks comfortable SKIN: Has some skin tears in the upper extremities. Bruising noted on Bilateral LE. HEAD: Atraumatic. Normocephalic. No temporal or scalp tenderness. EYES: Pupils equal round and reactive. Pale conjunctiva . No scleral icterus. No injection or drainage. ENT: Intubated. No nasal discharge NECK: Trachea midline. Supple, nontender, no meningeal signs. CARDIOVASCULAR: HS audible. RESPIRATORY: Clear to auscultation. Breath sounds equal bilaterally. No wheezes , rales, or rhonchi. GASTROINTESTINAL: Abdomen soft, non-tender, nondistended. MUSCULOSKELETAL: Extremities without clubbing, cyanosis. Some pedal edema and hand edema NEUROLOGICAL: Opens eyes spontaneously. Psych cooperative IV line sites with no e.o infection. Assessment & Plan Remarks Sepsis on admission (leukocytosis, tachycardia, lactic acid 3.4) Aspiration Pneumonia in Health care setting. Respiratory failure Ileus: has had Nausea vomiting during hospitalization. Pseudomonas UTI vs colonization. now with Enterococcus - repeat UA 08/15 not very impressive and has very mild pyuria PEG tube placement currently on some form of soft diet Acute metabolic encephalopathy: sepsis, metabolic. Acute renal failure: sepsis, prerenal. Afib, Hypothyroidism CVA CKD Recs: Continue Cefepime IV Continue Flagyl oral Follow cultures. Monitor progress Weaning per CCM Spoke with family D/W Suzanne Stoll MD Aug 17, 2017 14:56
--- NOTE | 2017-08-17 15:21 | HHI.PR ---
Subjective Remarks on the ventilator Objective Vital Signs Date Time Temp Pulse Resp B/P (MAP) Pulse Ox O2 Delivery O2 Flow Rate FiO2 08/17/17 12:21 99 35 08/17/17 10:00 96 08/17/17 08:09 35 08/17/17 08:09 100 35 08/17/17 08:01 100 35 08/17/17 08:00 111 08/17/17 08:00 98.0 104 15 131/63 (85) 100 08/17/17 08:00 35 08/17/17 07:00 100 Mechanical Ventilator 15.00 35 08/17/17 06:00 98 08/17/17 04:14 100 35 08/17/17 04:00 97.8 99 15 119/57 (77) 100 08/17/17 04:00 99 08/17/17 02:00 100 35 08/17/17 02:00 92 08/17/17 00:11 100 35 08/17/17 00:00 90 08/17/17 00:00 98.3 90 15 150/67 (94) 100 08/16/17 22:00 95 08/16/17 20:00 98 08/16/17 20:00 98.7 98 15 111/58 (75) 100 08/16/17 19:42 100 35 08/16/17 19:00 100 Mechanical Ventilator 35 08/16/17 18:00 99 08/16/17 17:23 100 35 08/16/17 16:00 98.2 94 15 106/57 (73) 100 08/16/17 16:00 92 I/O 08/16/17 08/16/17 08/16/17 08/17/17 08/17/17 08/17/17 07:00 15:00 23:00 07:00 15:00 23:00 Intake Total 300 ml 562 ml 0 ml 100 ml 650 ml Output Total 2850 ml 830 ml 275 ml Balance -2550 ml 562 ml -830 ml -175 ml 650 ml Intake Oral 0 ml IV Total 300 ml 562 ml 100 ml 650 ml Output Urine Total 850 ml 550 ml 200 ml Gastric Drainage Total 2000 ml 280 ml 75 ml # Bowel Movements 0 Result Diagram: 08/17/17 0413 08/17/17 0413 Objective Remarks GENERAL: SKIN: Warm and dry. HEAD: Atraumatic. Normocephalic. EYES: Pupils equal and round. No scleral icterus. No injection or drainage. ENT: No nasal bleeding or discharge. Mucous membranes pink and moist. NECK: Trachea midline. No JVD. CARDIOVASCULAR: Regular rate and rhythm. RESPIRATORY: No accessory muscle use. Clear to auscultation. Breath sounds equal bilaterally. GASTROINTESTINAL: Abdomen soft, non-tender, nondistended. Hepatic and splenic margins not palpable. MUSCULOSKELETAL: Extremities without clubbing, cyanosis, or edema. No obvious deformities. NEUROLOGICAL: Awake and alert. No obvious cranial nerve deficits. Motor grossly within normal limits. Five out of 5 muscle strength in the arms and legs. Normal speech. PSYCHIATRIC: Appropriate mood and affect; insight and judgment normal. Assessment and Plan Assessment and Plan respiratory failure sepsis pna plan wean orff vent as tolerated antibx pulm toilet Abraham Rosario MD Aug 17, 2017 15:21
[2017-08-17] MEDS: PANTOPRAZOLE SODIUM 40 MG VIAL IV PUSH SCH (20:18)
[2017-08-17] MEDS: METOPROLOL TARTRATE 5 MG/5 ML VIAL IV PUSH PRN (20:18)
[2017-08-17] MEDS: traMADol HCL 50 MG TAB PO PRN (20:35)
[2017-08-18] VITALS (19 sets, daily range): BP systolic 128–176; BP diastolic 60–97; PULSE 72–97; RESP 15–22; TEMP 97.7–98.9; O2SAT 100
[2017-08-18] MEDS: metroNIDAZOLE 500 MG TAB PO SCH ×4 (00:44→20:36)
[2017-08-18] MEDS: INSULIN ASPART SUPPLEMENTAL SCALE SQ SCH ×4 (00:44→18:55)
[2017-08-18] MEDS: ALBUMIN 25% INJ 100 ML IV SCH ×2 (02:21→14:01)
[2017-08-18] MEDS: METOPROLOL TARTRATE 5 MG/5 ML VIAL IV PUSH PRN (02:43)
[2017-08-18] MEDS: amLODIPine BESYLATE 5 MG TAB PO SCH ×2 (02:57→08:07)
[2017-08-18] MEDS ORDERED: LABETALOL HCL 100 MG/20 ML VIAL IV PUSH PRN (03:00)
[2017-08-18] MEDS: RESP: ALBUTEROL 2.5 MG/IPRATROPIUM 0.5 MG NEB (SCH) NEB ×3 (03:34→22:17)
[2017-08-18] MEDS: CEFEPIME INJ 2,000 MG in SODIUM CHLORIDE 0.9% INJ 100 ML IV SCH (03:41)
[2017-08-18] MEDS: traMADol HCL 50 MG TAB PO PRN (03:41)
[2017-08-18] MEDS: methylPREDNISolone SOD SUCC 40 MG/1 ML VIAL IV PUSH SCH ×3 (04:54→22:18)
[2017-08-18] MEDS: METOCLOPRAMIDE HCL 10 MG/2 ML VIAL IV PUSH SCH ×3 (04:55→22:19)
[2017-08-18 05:02] LABS: AUTOMATED NEUTROPHIL # 9.5 TH/MM3 (1.8-7.7); BASOPHIL % 0.1 % (0.0-2.0); HEMATOCRIT 26.6 % (35.0-46.0); HEMOGLOBIN 8.8 GM/DL (11.6-15.3); LYMPH % 2.1 % (9.0-44.0); LYMPHOCYTE # 0.2 TH/MM3 (1.0-4.8); MEAN CELL VOLUME 94.2 FL (80.0-100.0); MEAN CORPUSCULAR HEMOGLOBIN 31.2 PG (27.0-34.0); MEAN CORPUSCULAR HGB CONC 33.1 % (32.0-36.0); MEAN PLATELET VOLUME 8.4 FL (7.0-11.0); MONO % 1.8 % (0.0-8.0); MONOCYTE # 0.2 TH/MM3 (0-0.9); PLATELET COUNT 233 TH/MM3 (150-450); RED BLOOD COUNT 2.82 MIL/MM3 (4.00-5.30); RED CELL DISTRIBUTION WIDTH 17.4 % (11.6-17.2); WHITE BLOOD COUNT 9.9 TH/MM3 (4.0-11.0)
[2017-08-18 05:30] LABS: BICARBONATE 16.6 MEQ/L (21.0-32.0); CALCIUM 8.3 MG/DL (8.5-10.1); CREATININE 1.25 MG/DL (0.50-1.00)
[2017-08-18] MEDS: LEVOTHYROXINE SODIUM 50 MCG TAB PO SCH (05:59)
[2017-08-18] MEDS: POTASSIUM CHLOR 20 MEQ PREMIX 100 ML IV PRN ×3 (07:04→20:37)
[2017-08-18] MEDS: LACTATED RINGER'S 1000 ML INJ 1,000 ML IV SCH (07:34)
[2017-08-18] MEDS: PROPAFENONE HCL 150 MG TAB PO SCH ×2 (08:07→20:36)
[2017-08-18] MEDS: DOCUSATE SODIUM 50 MG/SENNA 8.6 MG TAB PO SCH ×2 (08:07→20:36)
[2017-08-18] MEDS: APIXABAN 2.5 MG TABLET PO SCH ×2 (08:07→20:36)
[2017-08-18] MEDS ORDERED: MIDAZOLAM HCL 5 MG/ML VIAL (1 ML) ONE (08:26)
[2017-08-18] MEDS ORDERED: ROCURONIUM INJ 50 MG/5 ML VIAL ONE (08:26)
[2017-08-18 09:21] LABS: BANDS 2 % (0-6); MONOCYTES 1 % (0-8); MYELOCYTES 1 % (0-0); NEUTROPHIL # MANUAL DIFF 9.8 TH/MM3 (1.8-7.7); POLYS (SEG NEUTROPHILS) 96 % (16-70)
[2017-08-18 09:22] LABS: OVALOCYTES 1+ (NORMAL)
--- NOTE | 2017-08-18 09:37 | HHI.CCPN ---
Subjective Remarks/Hospital Course 08/15: Patient is a 81 year old female with past medical history significant for CVA, aphasia, atrial fibrillation on eliquis, history of bowel perforation after colonoscopy, s/p colectomy, colostomy and colostomy reversal, chronic kidney disease, who [facility] for respiratory distress and nausea vomiting. Patient was admitted to the hospitalist service with probable sepsis. Infectious disease was consulted, started on ceftriaxone for UTI by Dr. Arcos. Ct of the abdomen pelvis showed ileus without evidence of mechanical obstruction. Apparently she had been taking by mouth, with a plan for removing PEG tube and RN informed me of possible aspiration also. (PEG tube placement 06/28/[address] Mosqueda at [facility] during hospitalization for pneumonia). A halicat was called today for worsening respiratory distress, and hypoxia. Chest x-ray showed possible small left apical pneumothorax. Patient was placed on 100% nonrebreather and was moved to the ICU. I requested a stat CT of the chest to better evaluate the pneumothorax and also evaluate for pneumonia. CT chest did not show pneumothorax but showed scattered bilateral infiltrates predominantly left lower lobe indicating pneumonia. Also urine culture was growing Pseudomonas, I have discontinued ceftriaxone and started on cefepime 2 g IV every 8 hours, Flagyl 500 mg IV every 8 hours and give single dose of vancomycin 1 g IV. Hold prednisone and placed on IV Solu Medrol, along with scheduled and when necessary DuoNeb. Check for influenza On my evaluation in the ICU patient is in obvious respiratory distress. Bilateral rhonchi and wheezes. She is struggling to breathe and indicated that she wants endotracheal intubation in front of the family. Family' is agreeable for intubation after discussion with patient, myself and Dr. Walters. DNR was rescinded and changed to alternate code intubation only. RSI initiated and large amount of biliary secretions noted to regurgitate into the oral cavity following induction. No significant aspiration, minimal biliary fluid suctioned out from the ET tube. There was large amount of biliary fluid pooling in the oral cavity which was suctioned out. PEG tube was placed to intermittent wall suction. Keep Nothing by mouth except meds, start Reglan for severe ileus. GI following. 08/16: sedated on vent 08/17: Did, orally intubated on mechanical ventilation. Minimal output from NG tube overnight. 08/18: Remains hypertensive. Gas exchange acceptable, respiratory effort is adequate. Poor progress. Family would like her extubated and then full DNR status with no re-intubation if she fails. We will comply. Objective Vital Signs Date Time Temp Pulse Resp B/P (MAP) Pulse Ox O2 Delivery O2 Flow Rate FiO2 08/18/17 09:01 100 35 08/18/17 08:00 97.7 83 15 157/70 (99) 08/18/17 07:00 Mechanical Ventilator 08/17/17 07:00 15.00 Intake and Output 08/18/17 08/18/17 08/19/17 08:00 16:00 00:00 Intake Total 253 ml Output Total 675 ml Balance -422 ml Result Diagram: 08/18/1740608/18/[address] chest scattered bilateral predominantly left lower lobe infiltrate CT abdomen pelvis showed ileus Objective Remarks HEENT/ Neuro: Lightly sedated, orally intubated, Pallor present, no icterus, tongue/ mucosa moist Neck: Orally intubated. Chest/Pulm: on mech vent, good air entry bilaterally, no wheezing or crackles CVS: S1-S2 regular, no murmur GI/abdomen: soft, nontender, bowel sounds sparse Extremities: warm bilaterally, trace edema A/P Assessment and Plan ASSESSMENT: Acute hypoxemic respiratory failure Healthcare associated pneumonia Probable aspiration Severe sepsis Acute COPD exacerbation Pseudomonas UTI Severe ileus Atrial fibrillation with RVR Chronic Eliquis use Previous CVA with aphasia Carotid stenosis Chronic kidney disease PLAN: NEURO: - Versed for sedation and vent synchrony - Daily sedation vacation - Discontinue fentanyl patch due to ileus, use fentanyl when necessary RESP: - Continue mechanical ventilation/ACV - DuoNeb every 4 hours and when necessary, ventilator bundle - Hold prednisone, start IV Solu-Medrol 40 mg every 8 hours - Broad-spectrum antibiotics with cefepime and Flagyl, vancomycin single dose - F/U Sputum culture - CT chest shows bilaterally, predominantly left lower lobe infiltrate (no pneumothorax noted) - Family requests extubation - state that their mother would never have wanted to be intubated. They realize she will probably not survive extubation but want to transition to Hospice Care. CV: -Off pressors since 08/16 - Change IV fluid to LR at 42 cc per hour - Hold amlodipine and Vasotec - Continue Rythmol, continue Eliquis - Increase norvasc and add hydralazine GI: -Minimal output from G-tube. Will start tube feeds with Jevity 1.5 and advanced to 30 cc/h today. Eventually if tolerated will advance to goal of 60 cc per hour. - Continue Reglan 10 mg IV every 8 hours. Gastroenterology following - Relistor 12 mg subcutaneous 1 on 08/15 : - Monitor renal function closely. Continue Feliciano catheter. - Acute kidney injury had improved with hydration ID: - Ceftriaxone was discontinued and cefepime 2 g IV every 8 hours started for Pseudomonas UTI - Patient on IV Flagyl to cover for aspiration. Single dose of vancomycin given - Send sputum blood cultures, check for influenza HEME: - Monitor CBC, CMP - Continue Eliquis ENDO: - Continue Synthroid. Electrolyte replacement per protocol - Sliding scale insulin if needed PROPH: - Bilateral lower extremity SCDs. Continue Eliquis. IV Protonix LINES: - Utilize peripheral IVs, central line if needed Overall impression: Patient remains critically ill. Prognosis poor. Family wants to extubate stating that she would never want to be intubated in the first place. They want us to assure them that she will receive enough sedation and analgesia if she struggles. She meets parameters for extubation today with RSBI 48 and TVs 350 on 11/16 CPAP. Critical care 38 mins Darinel Bowie MD Aug 18, 2017 09:37
[2017-08-18] MEDS: hydrALAZINE HCL 50 MG TAB PO SCH ×2 (10:01→20:36)
--- NOTE | 2017-08-18 10:06 | HHI.IDPN ---
Subjective Subjective Remarks Ms. Hernandez is an 81-year-old female who presents to the emergency department at [facility] from [facility] by EMS transport for marked respiratory distress. According to the clinical support specialist report upon their arrival patient was in respiratory distress. Patient was reportedly using accessory muscles and there was some perioral cyanosis. Reportedly there was some dried vomitus around her mouth and her O2 saturations were 82%. Patient was placed on nonrebreather with oxygen saturations including to 92%. Subsequently patient's respiratory status improved. Her past medical history of Afib, CHF, HTN, Hypothyroid, PNA, cardiac stenosis, and CVA. She is currently on oral diet but does have PEG tube. Infectious disease is consulted for evaluation of severe sepsis. Notes reviewed Discussed with RN Tolerated CPAP all day yesterday Rested on the vent last night On CPAP this morning, being evaluated for possible extubation today BP is okay Temps ok UC with Enterococcus and PSAE, though UA much improved compared to last UA On antibiotics for aspiration, after she had nausea and vomiting Feliciano placed on admission No central line Antibiotics Current Medications Cefepime Flagyl Medications (Trade) Dose Ordered Sig/Ashlee Route Start Time Stop Time Status Last Admin (NS Flush) 2 ml UNSCH PRN IVF 08/13/17 07:00 08/17/17 08:20 (Tylenol) 650 mg Q4H PRN PO 08/13/17 10:15 (Zofran Inj) 4 mg Q6H PRN IVP 08/13/17 10:15 08/15/17 08:37 (Narcan Inj) 0.4 mg UNSCH PRN IV PUSH 08/13/17 10:15 (Merari-Colace) 1 tab BID PO 08/13/17 21:00 08/18/17 08:07 (Milk Of Magnesia Liq) 30 ml Q12H PRN PO 08/13/17 10:15 (Senokot) 17.2 mg Q12H PRN PO 08/13/17 10:15 (Dulcolax Supp) 10 mg DAILY PRN RECTAL 08/13/17 10:15 (Lactulose Liq) 30 ml DAILY PRN PO 08/13/17 10:15 (Norvasc) 10 mg DAILY PO 08/14/17 09:00 Future hold 08/14/17 09:33 (Synthroid) 50 mcg DAILY@0600 PO 08/14/17 06:00 08/18/17 05:59 (Deltasone) 5 mg DAILY PO 08/14/17 09:00 Future Hold 08/14/17 09:34 (Rythmol) 150 mg BID PO 08/13/17 21:00 08/18/17 08:07 (Eliquis) 2.5 mg BID PO 08/13/17 21:00 08/18/17 08:07 (Ultram) 50 mg Q6H PRN PO 08/13/17 21:30 08/18/17 03:41 (Vasotec) 5 mg BID PO 08/14/17 21:00 Future Hold 08/14/17 23:15 (SoluMEDROL INJ) 40 mg Q8HR IV PUSH 08/15/17 22:00 08/18/17 04:54 (Reglan Inj) 10 mg Q8HR IV PUSH 08/15/17 22:00 08/18/17 04:55 Midazolam HCl 100 ml @ 2 mls/hr TITRATE PRN IV 08/15/17 21:15 08/15/17 21:20 Phenylephrine HCl 40 mg/Dextrose 500 ml @ 30 mls/hr TITRATE PRN IV 08/15/17 23:00 08/15/17 21:00 (Brethine Inj) 1 mg UNSCH PRN SQ 08/15/17 21:15 (NovoLOG SUPPLEMENTAL SCALE) 1 Q6HR SQ 08/15/17 21:15 08/18/17 05:59 Potassium Chloride 100 ml @ 50 mls/hr Q2H PRN IV 08/15/17 21:15 Potassium Chloride 100 ml @ 50 mls/hr Q2H PRN IV 08/15/17 21:15 08/18/17 09:39 (K-Lyte Cl Eff) 50 meq UNSCH PRN PO 08/15/17 21:15 Potassium Chloride 100 ml @ 25 mls/hr UNSCH PRN IV 08/15/17 21:15 Potassium Chloride 100 ml @ 50 mls/hr Q2H PRN IV 08/15/17 21:15 08/16/17 08:28 Magnesium Sulfate 4 gm/Sodium Chloride 100 ml @ 50 mls/hr UNSCH PRN IV 08/15/17 21:15 (Mag-Ox) 800 mg UNSCH PRN PO 08/15/17 21:15 Magnesium Sulfate 2 gm/Sodium Chloride 100 ml @ 50 mls/hr UNSCH PRN IV 08/15/17 21:15 (K-Phos) 2,000 mg Q4H PRN PO 08/15/17 21:15 Sodium Phosphate 30 mmol/Sodium Chloride 250 ml @ 42 mls/hr UNSCH PRN IV 08/15/17 21:15 (K-Phos) 2,000 mg UNSCH PRN PO/TUBE 08/15/17 21:15 Potassium Phosphate 30 mmol/ Sodium Chloride 260 ml @ 42 mls/hr UNSCH PRN IV 08/15/17 21:15 (Protonix Inj) 40 mg Q24H IV PUSH 08/15/17 22:00 08/17/17 20:18 (D50w (Vial) Inj) 50 ml UNSCH PRN IV PUSH 08/15/17 21:30 (Glucagon Inj) 1 mg UNSCH PRN OTHER 08/15/17 21:30 (fentaNYL INJ) 50 mcg Q2HR PRN IV PUSH 08/15/17 22:30 (Lopressor Inj) 2.5 mg Q6H PRN IV PUSH 08/15/17 23:30 08/18/17 02:43 (Flagyl) 500 mg Q6H PO 08/16/17 14:00 08/18/17 08:08 Cefepime HCl 2000 mg/Sodium Chloride 100 ml @ 200 mls/hr Q24H IV 08/18/17 05:00 08/18/17 03:41 Lactated Ringer's 1,000 ml @ 42 mls/hr [id number] IV 08/17/17 07:45 08/17/17 08:31 Albumin Human 100 ml @ 60 mls/hr Q12H IV 08/17/17 15:00 08/18/17 02:21 (Duoneb Neb) 1 ampule Q6HR NEB NEB 08/17/17 16:00 08/18/17 03:34 (Trandate Inj) 10 mg Q4H PRN IV PUSH 08/18/17 03:00 08/18/17 03:40 (Apresoline) 50 mg Q12HR PO 08/18/17 10:00 Lines Line sites with no e.o infection Past Medical History reviewed Allergies: Coded Allergies: ciprofloxacin (Verified Allergy, Unknown, 08/13/17) morphine (Verified Allergy, Unknown, 08/13/17) Objective . Vital Signs Date Time Temp Pulse Resp B/P (MAP) Pulse Ox O2 Delivery O2 Flow Rate FiO2 08/18/17 09:01 100 35 08/18/17 08:00 35 08/18/17 08:00 97.7 83 15 157/70 (99) 100 08/18/17 08:00 78 08/18/17 07:00 100 Mechanical Ventilator 35 08/18/17 06:00 88 08/18/17 04:41 15 08/18/17 04:00 97.9 96 15 176/84 (114) 100 08/18/17 04:00 96 08/18/17 04:00 35 08/18/17 03:34 100 35 08/18/17 02:00 96 08/18/17 00:29 100 35 08/18/17 00:00 35 08/18/17 00:00 91 08/18/17 00:00 98.3 91 15 150/72 (98) 100 08/17/17 22:00 86 08/17/17 20:04 35 08/17/17 20:01 100 35 08/17/17 20:00 126 08/17/17 20:00 99.1 116 19 134/85 (101) 100 08/17/17 20:00 35 08/17/17 19:00 100 Mechanical Ventilator 35 08/17/17 18:00 110 08/17/17 16:27 100 35 08/17/17 16:00 109 08/17/17 16:00 98.4 109 25 153/70 (97) 100 08/17/17 16:00 35 08/17/17 14:00 110 08/17/17 12:21 99 35 08/17/17 12:00 98.3 107 14 146/79 (101) 100 08/17/17 12:00 35 08/17/17 12:00 107 08/17/17 10:00 96 . Laboratory Tests Test 08/17/17 04:13 08/18/17 04:07 White Blood Count 7.1 TH/MM3 9.9 TH/MM3 Red Blood Count 2.69 MIL/MM3 2.82 MIL/MM3 Hemoglobin 8.7 GM/DL 8.8 GM/DL Hematocrit 25.6 % 26.6 % Mean Corpuscular Volume 95.1 FL 94.2 FL Mean Corpuscular Hemoglobin 32.2 PG 31.2 PG Mean Corpuscular Hemoglobin Concent 33.8 % 33.1 % Red Cell Distribution Width 17.2 % 17.4 % Platelet Count 196 TH/MM3 233 TH/MM3 Mean Platelet Volume 8.9 FL 8.4 FL Neutrophils (%) (Auto) 92.2 % 96.0 % Lymphocytes (%) (Auto) 4.4 % 2.1 % Monocytes (%) (Auto) 3.0 % 1.8 % Eosinophils (%) (Auto) 0.3 % 0.0 % Basophils (%) (Auto) 0.1 % 0.1 % Neutrophils # (Auto) 6.5 TH/MM3 9.5 TH/MM3 Lymphocytes # (Auto) 0.3 TH/MM3 0.2 TH/MM3 Monocytes # (Auto) 0.2 TH/MM3 0.2 TH/MM3 Eosinophils # (Auto) 0.0 TH/MM3 0.0 TH/MM3 Basophils # (Auto) 0.0 TH/MM3 0.0 TH/MM3 CBC Comment DIFF FINAL AUTO DIFF Differential Comment FINAL DIFF MANUAL Hematology Comments * Differential Total Cells Counted 100 Neutrophils % (Manual) 96 % Band Neutrophils % 2 % Monocytes % 1 % Neutrophils # (Manual) 9.8 TH/MM3 Myelocytes 1 % Platelet Estimate NORMAL Platelet Morphology Comment NORMAL Ovalocytes 1+ Laboratory Tests Test 08/16/17 22:01 08/17/17 04:13 08/18/17 04:07 Potassium Level 3.8 MEQ/L 4.1 MEQ/L 3.2 MEQ/L Blood Urea Nitrogen 28 MG/DL 28 MG/DL Creatinine 1.25 MG/DL 1.25 MG/DL Random Glucose 118 MG/DL 182 MG/DL Calcium Level 7.8 MG/DL 8.3 MG/DL Sodium Level 152 MEQ/L 150 MEQ/L Chloride Level 121 MEQ/L 120 MEQ/L Carbon Dioxide Level 18.8 MEQ/L 16.6 MEQ/L Anion Gap 12 MEQ/L 13 MEQ/L Estimat Glomerular Filtration Rate 41 ML/MIN 41 ML/MIN Microbiology Date/Time Source Procedure Growth Status 08/16/17 00:10 Blood Peripheral Aerobic Blood Culture - Preliminary NO GROWTH IN 1 DAY Resulted 08/16/17 00:10 Blood Peripheral Anaerobic Blood Culture - Final QNS - SEE AEROBE REPORT Resulted 08/15/17 19:57 Blood Peripheral Aerobic Blood Culture - Preliminary NO GROWTH IN 2 DAYS Resulted 08/15/17 19:57 Blood Peripheral Anaerobic Blood Culture - Preliminary NO GROWTH IN 2 DAYS Resulted 08/15/17 22:22 Urine Catheterized Urine Urine Culture - Final Enterococcus Faecalis Pseudomonas Aeruginosa Complete Imaging Chest X-Ray 08/17/17 0000 Signed Impressions: Service Date/Time: Thursday, August 17, 2017 08:06 - CONCLUSION: Left basilar density and small left pleural effusion. William Ruiz MD Abdomen X-Ray 08/16/17 0600 Signed Impressions: Service Date/Time: Wednesday, August 16, 2017 04:17 - CONCLUSION: No dilated loops of bowel are seen. John Weiner MD Small Bowel X-Ray 08/15/17 0000 Signed Impressions: Service Date/Time: August 11:18 - CONCLUSION: Multiple loops of borderline dilated small bowel with passage of contrast into the colon at 3 hours ruling out a complete obstruction. Atif Christensen MD Chest X-Ray 08/15/17 0000 Signed Impressions: Service Date/Time: August 20:54 - CONCLUSION: 1. Endotracheal tube is malpositioned within the right mainstem bronchus this should be pulled back 5 cm for more optimal positioning. 2. Persistent scattered patchy infiltrates consistent with possible pneumonia. Kyler Irizarry MD Chest X-Ray 08/15/17 0000 Signed Impressions: Service Date/Time: August 18:24 - CONCLUSION: 1. Small left apical pneumothorax measuring 12 mm. 2. Left basilar patchiness consistent with atelectasis and/or infiltrate as well as a small left pleural effusion. 3. Mild cardiomegaly. Kyler Irizarry MD Chest CT 08/15/17 0000 Signed Impressions: Service Date/Time: August 19:36 - CONCLUSION: 1. Interval resolution of the previously noted small left apical pneumothorax. 2. Patchy infiltrates throughout the left lung and to a lesser extent the right lung consistent with probable pneumonia. Clinical correlation is recommended. 3. Small pericardial effusion. 4. Cardiomegaly and coronary artery calcification. 5. Distention of the stomach and esophagus. 6. Chronic moderate compression deformity involving T12. Kyler Irizarry MD Chest X-Ray 08/13/17 0651 Signed Impressions: Service Date/Time: Sunday, August 13, 2017 07:05 - CONCLUSION: No acute cardiopulmonary disease demonstrated. William Ceballos MD Renal Ultrasound 08/13/17 0000 Signed Impressions: Service Date/Time: Sunday, August 13, 2017 20:19 - CONCLUSION: 1. Questionable solid mass within the mid pole of the left kidney measuring 3.3 x 1.9 x 2.[address] of the abdomen may be helpful for further characterization of this questionable lesion if clinical indicated. 2. 5 mm calcified nonobstructing mid pole left renal calculus. 3. Small bilateral kidneys. Kyler Irizarry MD Physical Exam GENERAL: On the vent, on CPAP, looks comfortable SKIN: Has some skin tears in the upper extremities. Bruising noted on Bilateral LE. HEAD: Atraumatic. Normocephalic. No temporal or scalp tenderness. EYES: Pupils equal round and reactive. Pale conjunctiva . No scleral icterus. No injection or drainage. ENT: Intubated. No nasal discharge NECK: Trachea midline. Supple, nontender, no meningeal signs. CARDIOVASCULAR: HS audible. RESPIRATORY: Clear to auscultation. Breath sounds equal bilaterally. No wheezes , rales, or rhonchi. GASTROINTESTINAL: Abdomen soft, non-tender, nondistended. MUSCULOSKELETAL: Extremities without clubbing, cyanosis. Some pedal edema and hand edema NEUROLOGICAL: Opens eyes spontaneously. Psych cooperative IV line sites with no e.o infection. Assessment & Plan Remarks Sepsis on admission (leukocytosis, tachycardia, lactic acid 3.4) Aspiration Pneumonia in Health care setting. Respiratory failure Ileus: has had Nausea vomiting during hospitalization. Pseudomonas UTI vs colonization. now with Enterococcus - repeat UA 2 not very impressive and has very mild pyuria PEG tube placement currently on some form of soft diet Acute metabolic encephalopathy: sepsis, metabolic. Acute renal failure: sepsis, prerenal. Afib, Hypothyroidism CVA CKD Recs: Continue Cefepime IV Continue Flagyl oral Repeat UA Follow cultures. Monitor progress Weaning per CCM - possible extubation today D/W Suzanne Stoll MD Aug 18, 2017 10:05
--- NOTE | 2017-08-18 10:19 | HHI.PR ---
Subjective Remarks She remains intubated and sedated on the vent. Family not at bedside this AM. Objective Vital Signs Date Time Temp Pulse Resp B/P (MAP) Pulse Ox O2 Delivery O2 Flow Rate FiO2 08/18/17 10:00 77 08/18/17 09:01 100 35 08/18/17 08:00 35 08/18/17 08:00 97.7 83 15 157/70 (99) 100 08/18/17 08:00 78 08/18/17 07:00 100 Mechanical Ventilator 35 08/18/17 06:00 88 08/18/17 04:41 15 08/18/17 04:00 97.9 96 15 176/84 (114) 100 08/18/17 04:00 96 08/18/17 04:00 35 08/18/17 03:34 100 35 08/18/17 02:00 96 08/18/17 00:29 100 35 08/18/17 00:00 35 08/18/17 00:00 91 08/18/17 00:00 98.3 91 15 150/72 (98) 100 08/17/17 22:00 86 08/17/17 20:04 35 08/17/17 20:01 100 35 08/17/17 20:00 126 08/17/17 20:00 99.1 116 19 134/85 (101) 100 08/17/17 20:00 35 08/17/17 19:00 100 Mechanical Ventilator 35 08/17/17 18:00 110 08/17/17 16:27 100 35 08/17/17 16:00 109 08/17/17 16:00 98.4 109 25 153/70 (97) 100 08/17/17 16:00 35 08/17/17 14:00 110 08/17/17 12:21 99 35 08/17/17 12:00 98.3 107 14 146/79 (101) 100 08/17/17 12:00 35 08/17/17 12:00 107 I/O 08/17/17 08/17/17 08/17/17 08/18/17 08/18/17 08/18/17 07:00 15:00 23:00 07:00 15:00 23:00 Intake Total 100 ml 650 ml 492 ml 253 ml Output Total 275 ml 375 ml 675 ml Balance -175 ml 650 ml 117 ml -422 ml Intake Oral 0 ml IV Total 100 ml 650 ml 410 ml Tube Feeding 62 ml 133 ml Tube Irrigant 20 ml Other 120 ml Output Urine Total 200 ml 325 ml 675 ml Gastric Drainage Total 75 ml 50 ml # Bowel Movements 0 0 Result Diagram: 08/18/1740608/18/17406 Imaging Last Impressions Chest X-Ray 08/17/17 0000 Signed Impressions: Service Date/Time: Thursday, August 17, 2017 08:06 - CONCLUSION: Left basilar density and small left pleural effusion. William Ruiz MD Abdomen X-Ray 08/16/17 0600 Signed Impressions: Service Date/Time: Wednesday, August 16, 2017 04:17 - CONCLUSION: No dilated loops of bowel are seen. John Weiner MD Small Bowel X-Ray 08/15/17 0000 Signed Impressions: Service Date/Time: August 11:18 - CONCLUSION: Multiple loops of borderline dilated small bowel with passage of contrast into the colon at 3 hours ruling out a complete obstruction. Atif Christensen MD Chest CT 08/15/17 0000 Signed Impressions: Service Date/Time: August 19:36 - CONCLUSION: 1. Interval resolution of the previously noted small left apical pneumothorax. 2. Patchy infiltrates throughout the left lung and to a lesser extent the right lung consistent with probable pneumonia. Clinical correlation is recommended. 3. Small pericardial effusion. 4. Cardiomegaly and coronary artery calcification. 5. Distention of the stomach and esophagus. 6. Chronic moderate compression deformity involving T12. Kyler Irizarry MD Abdomen/Pelvis CT 08/14/17 0000 Signed Impressions: Service Date/Time: Monday, August 14, 2017 20:56 - CONCLUSION: 1. Multiple fluid-filled loops of small bowel suggestive of partial small bowel obstruction or ileus. This likely is at the level of the jejunum as the distal ileum is normal in caliber. 2. Patchy opacities within the lung bases posteriorly consistent with atelectasis and/or pneumonia. Clinical correlation is recommended. 3. No evidence of left renal mass for nonobstructing stone. 4. Uncomplicated colonic diverticulosis. 5. Ventral abdominal wall hernia which appears to contain a portion of transverse colon. 6. Cardiomegaly and small pericardial effusion. Kyler Irizarry MD Renal Ultrasound 08/13/17 0000 Signed Impressions: Service Date/Time: Sunday, August 13, 2017 20:19 - CONCLUSION: 1. Questionable solid mass within the mid pole of the left kidney measuring 3.3 x 1.9 x 2.[address] of the abdomen may be helpful for further characterization of this questionable lesion if clinical indicated. 2. 5 mm calcified nonobstructing mid pole left renal calculus. 3. Small bilateral kidneys. Kyler Irizarry MD Objective Remarks Gen - Sedated and intubated; HEENT - ETT in place, AT/NC ; Lungs - CTA; CV - RRR without rub or gallop; Abd - soft and nontender with BS present; M/S - no deformity noted. Medications and IVs Current Medications Medications (Trade) Dose Ordered Sig/Ashlee Route Start Time Stop Time Status Last Admin (NS Flush) 2 ml UNSCH PRN IVF 08/13/17 07:00 08/17/17 08:20 (Tylenol) 650 mg Q4H PRN PO 08/13/17 10:15 (Zofran Inj) 4 mg Q6H PRN IVP 08/13/17 10:15 08/15/17 08:37 (Narcan Inj) 0.4 mg UNSCH PRN IV PUSH 08/13/17 10:15 (Merari-Colace) 1 tab BID PO 08/13/17 21:00 08/18/17 08:07 (Milk Of Magnesia Liq) 30 ml Q12H PRN PO 08/13/17 10:15 (Senokot) 17.2 mg Q12H PRN PO 08/13/17 10:15 (Dulcolax Supp) 10 mg DAILY PRN RECTAL 08/13/17 10:15 (Lactulose Liq) 30 ml DAILY PRN PO 08/13/17 10:15 (Norvasc) 10 mg DAILY PO 08/14/17 09:00 Future hold 08/14/17 09:33 (Synthroid) 50 mcg DAILY@0600 PO 08/14/17 06:00 08/18/17 05:59 (Deltasone) 5 mg DAILY PO 08/14/17 09:00 Future Hold 08/14/17 09:34 (Rythmol) 150 mg BID PO 08/13/17 21:00 08/18/17 08:07 (Eliquis) 2.5 mg BID PO 08/13/17 21:00 08/18/17 08:07 (Ultram) 50 mg Q6H PRN PO 08/13/17 21:30 08/18/17 03:41 (Vasotec) 5 mg BID PO 08/14/17 21:00 Future Hold 08/14/17 23:15 (SoluMEDROL INJ) 40 mg Q8HR IV PUSH 08/15/17 22:00 08/18/17 04:54 (Reglan Inj) 10 mg Q8HR IV PUSH 08/15/17 22:00 08/18/17 04:55 Midazolam HCl 100 ml @ 2 mls/hr TITRATE PRN IV 08/15/17 21:15 08/15/17 21:20 Phenylephrine HCl 40 mg/Dextrose 500 ml @ 30 mls/hr TITRATE PRN IV 08/15/17 23:00 08/15/17 21:00 (Brethine Inj) 1 mg UNSCH PRN SQ 08/15/17 21:15 (NovoLOG SUPPLEMENTAL SCALE) 1 Q6HR SQ 08/15/17 21:15 08/18/17 05:59 Potassium Chloride 100 ml @ 50 mls/hr Q2H PRN IV 08/15/17 21:15 Potassium Chloride 100 ml @ 50 mls/hr Q2H PRN IV 08/15/17 21:15 08/18/17 09:39 (K-Lyte Cl Eff) 50 meq UNSCH PRN PO 08/15/17 21:15 Potassium Chloride 100 ml @ 25 mls/hr UNSCH PRN IV 08/15/17 21:15 Potassium Chloride 100 ml @ 50 mls/hr Q2H PRN IV 08/15/17 21:15 08/16/17 08:28 Magnesium Sulfate 4 gm/Sodium Chloride 100 ml @ 50 mls/hr UNSCH PRN IV 08/15/17 21:15 (Mag-Ox) 800 mg UNSCH PRN PO 08/15/17 21:15 Magnesium Sulfate 2 gm/Sodium Chloride 100 ml @ 50 mls/hr UNSCH PRN IV 08/15/17 21:15 (K-Phos) 2,000 mg Q4H PRN PO 08/15/17 21:15 Sodium Phosphate 30 mmol/Sodium Chloride 250 ml @ 42 mls/hr UNSCH PRN IV 08/15/17 21:15 (K-Phos) 2,000 mg UNSCH PRN PO/TUBE 08/15/17 21:15 Potassium Phosphate 30 mmol/ Sodium Chloride 260 ml @ 42 mls/hr UNSCH PRN IV 08/15/17 21:15 (Protonix Inj) 40 mg Q24H IV PUSH 08/15/17 22:00 08/17/17 20:18 (D50w (Vial) Inj) 50 ml UNSCH PRN IV PUSH 08/15/17 21:30 (Glucagon Inj) 1 mg UNSCH PRN OTHER 08/15/17 21:30 (fentaNYL INJ) 50 mcg Q2HR PRN IV PUSH 08/15/17 22:30 (Lopressor Inj) 2.5 mg Q6H PRN IV PUSH 08/15/17 23:30 08/18/17 02:43 (Flagyl) 500 mg Q6H PO 08/16/17 14:00 08/18/17 08:08 Cefepime HCl 2000 mg/Sodium Chloride 100 ml @ 200 mls/hr Q24H IV 08/18/17 05:00 08/18/17 03:41 Lactated Ringer's 1,000 ml @ 42 mls/hr [id number] IV 08/17/17 07:45 08/17/17 08:31 Albumin Human 100 ml @ 60 mls/hr Q12H IV 08/17/17 15:00 08/18/17 02:21 (Duoneb Neb) 1 ampule Q6HR NEB NEB 08/17/17 16:00 08/18/17 03:34 (Trandate Inj) 10 mg Q4H PRN IV PUSH 08/18/17 03:00 08/18/17 03:40 (Apresoline) 50 mg Q12HR PO 08/18/17 10:00 08/18/17 10:01 Assessment and Plan Problem List: (1) Respiratory distress ICD Codes: R06.03 - Acute respiratory distress Status: Acute Plan: Intubated on the vent, per pulm will wean (2) Hypoxia ICD Codes: R09.02 - Hypoxemia Status: Acute Plan: Intubated on the vent (3) Sepsis ICD Codes: A41.9 - Sepsis, unspecified organism Status: Acute Plan: Pulmonary managing; remains on antibiotics (4) HTN (hypertension) ICD Codes: I10 - Essential (primary) hypertension Plan: Mostly normotensive with occ SBP spikes (5) REESE (acute kidney injury) ICD Codes: N17.9 - Acute kidney failure, unspecified Status: Chronic Plan: Renal following (6) Aphasia ICD Codes: R47.01 - Aphasia Status: Chronic Plan: F/U per Neuro (7) Weakness ICD Codes: R53.1 - Weakness Status: Chronic Plan: Will need therapy for progressive weakness (8) Dysphagia ICD Codes: R13.10 - Dysphagia, unspecified Status: Chronic Plan: Maintain IV hydration for now Discharge Planning Will likely need rehab vs SNF Problem Qualifiers (1) Sepsis: Qualified Codes: A41.9 - Sepsis, unspecified organism (2) HTN (hypertension): Qualified Codes: I10 - Essential (primary) hypertension (3) Dysphagia: Qualified Codes: R13.19 - Other dysphagia Obed Sanabria Aug 18, 2017 10:19
[2017-08-18 10:41] LABS: BACTERIA, URINE OCC /hpf; BILIRUBIN, URINE NEG (NEG); BLOOD, URINE TRACE (NEG); GLUCOSE,URINE NEG (NEG); HYALINE CAST, URINE 4 /lpf (RARE); KETONE, URINE 10 mg/dL (NEG); MUCUS URINE FEW /lpf (OCC); NITRITE,URINE NEG (NEG); SQUAMOUS EPITHELIAL CELL URINE 1 /hpf (0-5); TRANSITIONAL EPI CELLS, URINE <1 /hpf; URINE COLOR YELLOW (YELLW/STRAW); URINE LEUKOCYTE ESTERASE SMALL (NEG)
--- NOTE | 2017-08-18 10:43 | HHI.GIFU ---
Subjective Remarks Patient on a vent, daughter and nurse by bed side, pt is (+) for flatus, no BM yet, minimal residual for G tube, rate today is 20 ml/hr (Gerald Tello) Objective Vitals I&O Vital Signs Date Time Temp Pulse Resp B/P (MAP) Pulse Ox O2 Delivery O2 Flow Rate FiO2 08/18/17 10:00 77 08/18/17 09:01 100 35 08/18/17 08:00 35 08/18/17 08:00 97.7 83 15 157/70 (99) 100 08/18/17 08:00 78 08/18/17 07:00 100 Mechanical Ventilator 35 08/18/17 06:00 88 08/18/17 04:41 15 08/18/17 04:00 97.9 96 15 176/84 (114) 100 08/18/17 04:00 96 08/18/17 04:00 35 08/18/17 03:34 100 35 08/18/17 02:00 96 08/18/17 00:29 100 35 08/18/17 00:00 35 08/18/17 00:00 91 08/18/17 00:00 98.3 91 15 150/72 (98) 100 08/17/17 22:00 86 08/17/17 20:04 35 08/17/17 20:01 100 35 08/17/17 20:00 126 08/17/17 20:00 99.1 116 19 134/85 (101) 100 08/17/17 20:00 35 08/17/17 19:00 100 Mechanical Ventilator 35 08/17/17 18:00 110 08/17/17 16:27 100 35 08/17/17 16:00 109 18 16:00 98.4 109 25 153/70 (97) 100 08/17/17 16:00 35 08/17/17 14:00 110 08/17/17 12:21 99 35 08/17/17 12:00 98.3 107 14 146/79 (101) 100 08/17/17 12:00 35 08/17/17 12:00 107 I/O 08/17/17 08/17/17 08/17/17 08/18/17 08/18/17 08/18/17 07:00 15:00 23:00 07:00 15:00 23:00 Intake Total 100 ml 650 ml 492 ml 253 ml Output Total 275 ml 375 ml 675 ml Balance -175 ml 650 ml 117 ml -422 ml Intake Oral 0 ml IV Total 100 ml 650 ml 410 ml Tube Feeding 62 ml 133 ml Tube Irrigant 20 ml Other 120 ml Output Urine Total 200 ml 325 ml 675 ml Gastric Drainage Total 75 ml 50 ml # Bowel Movements 0 0 Laboratory Laboratory Tests Test 08/18/17 04:07 08/18/17 10:10 White Blood Count 9.9 Red Blood Count 2.82 Hemoglobin 8.8 Hematocrit 26.6 Mean Corpuscular Volume 94.2 Mean Corpuscular Hemoglobin 31.2 Mean Corpuscular Hemoglobin Concent 33.1 Red Cell Distribution Width 17.4 Platelet Count 233 Mean Platelet Volume 8.4 Neutrophils (%) (Auto) 96.0 Lymphocytes (%) (Auto) 2.1 Monocytes (%) (Auto) 1.8 Eosinophils (%) (Auto) 0.0 Basophils (%) (Auto) 0.1 Neutrophils # (Auto) 9.5 Lymphocytes # (Auto) 0.2 Monocytes # (Auto) 0.2 Eosinophils # (Auto) 0.0 Basophils # (Auto) 0.0 CBC Comment AUTO DIFF Differential Total Cells Counted 100 Neutrophils % (Manual) 96 Band Neutrophils % 2 Monocytes % 1 Neutrophils # (Manual) 9.8 Myelocytes 1 Differential Comment FINAL DIFF MANUAL Platelet Estimate NORMAL Platelet Morphology Comment NORMAL Ovalocytes 1+ Blood Urea Nitrogen 28 Creatinine 1.25 Random Glucose 182 Calcium Level 8.3 Sodium Level 150 Potassium Level 3.2 Chloride Level 120 Carbon Dioxide Level 16.6 Anion Gap 13 Estimat Glomerular Filtration Rate 41 Date/Time Source Procedure Growth Status 08/16/17 00:10 Blood Peripheral Aerobic Blood Culture - Preliminary NO GROWTH IN 1 DAY Resulted 08/16/17 00:10 Blood Peripheral Anaerobic Blood Culture - Final QNS - SEE AEROBE REPORT Resulted 08/15/17 22:22 Urine Catheterized Urine Urine Culture - Final Enterococcus Faecalis Pseudomonas Aeruginosa Complete Imaging Last Impressions Chest X-Ray 08/17/17 0000 Signed Impressions: Service Date/Time: Thursday, August 17, 2017 08:06 - CONCLUSION: Left basilar density and small left pleural effusion. William Ruiz MD Abdomen X-Ray 08/16/17 0600 Signed Impressions: Service Date/Time: Wednesday, August 16, 2017 04:17 - CONCLUSION: No dilated loops of bowel are seen. John Weiner MD Small Bowel X-Ray 08/15/17 0000 Signed Impressions: Service Date/Time: August 11:18 - CONCLUSION: Multiple loops of borderline dilated small bowel with passage of contrast into the colon at 3 hours ruling out a complete obstruction. Atif Christensen MD Chest CT 08/15/17 0000 Signed Impressions: Service Date/Time: August 19:36 - CONCLUSION: 1. Interval resolution of the previously noted small left apical pneumothorax. 2. Patchy infiltrates throughout the left lung and to a lesser extent the right lung consistent with probable pneumonia. Clinical correlation is recommended. 3. Small pericardial effusion. 4. Cardiomegaly and coronary artery calcification. 5. Distention of the stomach and esophagus. 6. Chronic moderate compression deformity involving T12. Kyler Irizarry MD Abdomen/Pelvis CT 08/14/17 0000 Signed Impressions: Service Date/Time: Monday, August 14, 2017 20:56 - CONCLUSION: 1. Multiple fluid-filled loops of small bowel suggestive of partial small bowel obstruction or ileus. This likely is at the level of the jejunum as the distal ileum is normal in caliber. 2. Patchy opacities within the lung bases posteriorly consistent with atelectasis and/or pneumonia. Clinical correlation is recommended. 3. No evidence of left renal mass for nonobstructing stone. 4. Uncomplicated colonic diverticulosis. 5. Ventral abdominal wall hernia which appears to contain a portion of transverse colon. 6. Cardiomegaly and small pericardial effusion. Kyler Irizarry MD Renal Ultrasound 08/13/17 0000 Signed Impressions: Service Date/Time: Sunday, August 13, 2017 20:19 - CONCLUSION: 1. Questionable solid mass within the mid pole of the left kidney measuring 3.3 x 1.9 x 2.[address] of the abdomen may be helpful for further characterization of this questionable lesion if clinical indicated. 2. 5 mm calcified nonobstructing mid pole left renal calculus. 3. Small bilateral kidneys. Kyler Irizarry MD Physical Exam HEENT: normocephalic; atraumatic; no jaundice. intubated CHEST: CTA CARDIAC: RRR ABDOMEN: Soft, nondistended, no tenderness, no hepatosplenomegaly; bowel sounds active , PEG EXTREMITIES: No clubbing, cyanosis, or edema. SKIN: Normal; no rash; no jaundice. CARDIOGRAPHER: on vent (Gerald Tello) Assessment and Plan Plan ASSESSMENT - n/v, abd pain - 4 d ago onset projectile vomiting, abd pain. CT showed psbo vs ileus. hx colon perf after colonoscopy s/p colectomy, colostomy, and reversal. pt is not distended, BS +, abd soft 08/16/17 - transferred to [facility] and intubated for resp distress. PEG to [facility]. s/p relistor overnight no b/m. KUB 08/16 no dilated bowel loops seen. SBFT 08/15 showed mult loops borderline dilatation small bowel, contrast colon , ruled out complete obstruction. ileus vs PSBO copious gastric output 08/17/17 Sedated on vent, Trickle feed started, tolerating okay, no bm today 08/18 Tf at 20 ml/hr, (+) for flatus, no BM yet, minimal residual PLAN - Advance TF as tolerated - continue Reglan - GI will sign off, please reconsult as needed pt seen by myself and Dr Rosen and this note is written on his behalf (Gerald Tello) Physician Comments Seen and examined with FRANKLIN, tolerating TF. Illeus resolved. Weaning off Ventilator. GI will sign off, reconsult as needed. Thank you (Subha Rosen MD) Gerald Tello Aug 18, 2017 10:43 Subha Rosen MD Aug 18, 2017 12:05
--- NOTE | 2017-08-18 14:54 | HHI.NPPN ---
Subjective History of Present Illness Patient is a 81-year-old female presents to the emergency department from [facility] by EMS transport for marked respiratory distress. According to lead assembler report upon their arrival patient was showing evidence of respiratory distress with accessory muscle use janki-oral cyanosis dried vomitus around her mouth and in her clear and room air O2 saturations of 82%. Patient is placed on nonrebreather mask with O2 saturations only increasing to 92%. She is on 4 liters via nasal cannula now with good sats. Patient is found to have a abdormal UA. Chest xray with no acute cardiopulmonary disease demonstrated. Patient also noted to have elevated creatinine at 1.32 and GFR of 39 ml/min. Past medical history of Afib, CHF, HTN, Hypothyroid, PNA, cardiac stenosis, and CVA. She is currently on oral diet but does have PEG tube. Additional Remarks Respiratory on CPAP. Ventilated and sedated Review of Systems Cardiovascular Cardiac Remarks Denies any CP Objective Data Data Vital Signs Date Time Temp Pulse Resp B/P (MAP) Pulse Ox O2 Delivery O2 Flow Rate FiO2 08/18/17 12:47 35 08/18/17 12:46 100 35 08/18/17 12:00 72 08/18/17 12:00 98.3 84 15 128/60 (82) 100 08/18/17 12:00 35 08/18/17 10:00 77 08/18/17 09:01 100 35 08/18/17 08:00 35 08/18/17 08:00 97.7 83 15 157/70 (99) 100 08/18/17 08:00 78 08/18/17 07:00 100 Mechanical Ventilator 35 08/18/17 06:00 88 08/18/17 04:41 15 08/18/17 04:00 97.9 96 15 176/84 (114) 100 08/18/17 04:00 96 08/18/17 04:00 35 08/18/17 03:34 100 35 08/18/17 02:00 96 08/18/17 00:29 100 35 08/18/17 00:00 35 08/18/17 00:00 91 08/18/17 00:00 98.3 91 15 150/72 (98) 100 08/17/17 22:00 86 08/17/17 20:04 35 08/17/17 20:01 100 35 08/17/17 20:00 126 08/17/17 20:00 99.1 116 19 134/85 (101) 100 08/17/17 20:00 35 08/17/17 19:00 100 Mechanical Ventilator 35 08/17/17 18:00 110 08/17/17 16:27 100 35 08/17/17 16:00 109 08/17/17 16:00 98.4 109 25 153/70 (97) 100 08/17/17 16:00 35 -: 08/18/17 0407 08/18/17 0407 Physical Exam General Appearance: No Acute Distress Eyes Eye Exam: Pupils Equal Throat Throat Exam: Oral Mucosa D'Lo & Moist Pulmonary Resp Exam: Breath Sounds Equal, Decreased Bases Cardiology CV Exam: Regular Gastrointestinal/Abdomen GI Exam: Soft, Non-Tender Genitourinary Exam: Flank Non-Tender Integumentary Skin Exam: Clear, Warm, Dry Extremeties Extremities Exam: Trace Edema Neurologic Neuro Exam: Alert, Awake, Sedated Assessment/Plan Problem List: (1) REESE (acute kidney injury) ICD Codes: N17.9 - Acute kidney failure, unspecified Status: Chronic Plan: REESE on CKD most likely prerenal from poor PO intake with dysphagia and UTI Patient with CKD from possibly HTN or renovascular disease. Baseline GFR not available UA negative for proteinuria. Renal US: Questionable solid mass within the mid pole of the left kidney measuring 3.3 x 1.9 x 2.2 cm and Small bilateral kidneys. CT: . suggestive of partial small bowel obstruction or ileus. No evidence of left renal mass for nonobstructing stone Patient with respiratory distress last night DNR rescinded and intubated. Fio2 at 35 % Renal function Creat of 1.2 Plan Continue to monitor UOP lower Na high on Albumin UOP 1.[address] Jorge to follow (2) HTN (hypertension) ICD Codes: I10 - Essential (primary) hypertension Plan: On pressor support (3) Respiratory distress ICD Codes: R06.03 - Acute respiratory distress Status: Acute Plan: Intubated with FiO2 at 40 % (4) Sepsis ICD Codes: A41.9 - Sepsis, unspecified organism Status: Acute Plan: Continue antibiotics Problem Qualifiers (1) HTN (hypertension): Qualified Codes: I10 - Essential (primary) hypertension (2) Sepsis: Qualified Codes: A41.9 - Sepsis, unspecified organism Nicolás Mcadams MD Aug 18, 2017 14:53
[2017-08-18] MEDS ORDERED: REMOVE OLD DURAGESIC (FENTANYL) PATCH T-DERMAL SCH (17:00)
[2017-08-18] MEDS ORDERED: MORPHINE SULFATE 2 MG/ML INJ IV PUSH PRN (17:30)
[2017-08-18] MEDS ORDERED: LORazepam 2 MG/ML VIAL IV PUSH PRN (17:30)
--- NOTE | 2017-08-18 19:26 | HHI.PR ---
Subjective Remarks extubated obtunded Objective Vital Signs Date Time Temp Pulse Resp B/P (MAP) Pulse Ox O2 Delivery O2 Flow Rate FiO2 08/18/17 18:40 100 Nasal Cannula 2 08/18/17 18:40 100 Nasal Cannula 2.00 08/18/17 18:00 95 08/18/17 16:49 100 35 08/18/17 16:00 98.3 84 16 142/67 (92) 100 08/18/17 16:00 83 08/18/17 16:00 35 08/18/17 14:00 97 08/18/17 12:47 35 08/18/17 12:46 100 35 08/18/17 12:00 72 08/18/17 12:00 98.3 84 15 128/60 (82) 100 08/18/17 12:00 35 08/18/17 10:00 77 08/18/17 09:01 100 35 08/18/17 08:00 35 08/18/17 08:00 97.7 83 15 157/70 (99) 100 08/18/17 08:00 78 08/18/17 07:00 100 Mechanical Ventilator 35 08/18/17 06:00 88 08/18/17 04:41 15 08/18/17 04:00 97.9 96 15 176/84 (114) 100 08/18/17 04:00 96 08/18/17 04:00 35 08/18/17 03:34 100 35 08/18/17 02:00 96 08/18/17 00:29 100 35 08/18/17 00:00 35 08/18/17 00:00 91 08/18/17 00:00 98.3 91 15 150/72 (98) 100 08/17/17 22:00 86 08/17/17 20:04 35 08/17/17 20:01 100 35 08/17/17 20:00 126 08/17/17 20:00 99.1 116 19 134/85 (101) 100 08/17/17 20:00 35 I/O 08/17/17 08/17/17 08/17/17 08/18/17 08/18/17 08/18/17 07:00 15:00 23:00 07:00 15:00 23:00 Intake Total 100 ml 650 ml 492 ml 253 ml 660 ml Output Total 275 ml 375 ml 675 ml 550 ml Balance -175 ml 650 ml 117 ml -422 ml 110 ml Intake Oral 0 ml IV Total 100 ml 650 ml 410 ml 300 ml Tube Feeding 62 ml 133 ml 160 ml Tube Irrigant 20 ml Other 120 ml 200 ml Output Urine Total 200 ml 325 ml 675 ml 550 ml Gastric Drainage Total 75 ml 50 ml # Bowel Movements 0 0 Result Diagram: 08/18/1740608/18/17406 Objective Remarks GENERAL: SKIN: Warm and dry. HEAD: Atraumatic. Normocephalic. EYES: Pupils equal and round. No scleral icterus. No injection or drainage. ENT: No nasal bleeding or discharge. Mucous membranes pink and moist. NECK: Trachea midline. No JVD. CARDIOVASCULAR: Regular rate and rhythm. RESPIRATORY: No accessory muscle use. Clear to auscultation. Breath sounds equal bilaterally. GASTROINTESTINAL: Abdomen soft, non-tender, nondistended. Hepatic and splenic margins not palpable. MUSCULOSKELETAL: Extremities without clubbing, cyanosis, or edema. No obvious deformities. NEUROLOGICAL:unresponsive CHIATRIC: NA Assessment and Plan Assessment and Plan respiratory failure sepsis pna plan EXTUBATED DNR Abraham Rosario MD Aug 18, 2017 19:26
[2017-08-18] MEDS: PANTOPRAZOLE SODIUM 40 MG VIAL IV PUSH SCH (22:19)
[2017-08-19] VITALS (11 sets, daily range): BP systolic 123–165; BP diastolic 53–77; PULSE 73–115; RESP 21–23; TEMP 98–98.6; O2SAT 92–100
[2017-08-19] MEDS: ALBUMIN 25% INJ 100 ML IV SCH ×2 (02:04→15:00)
[2017-08-19] MEDS: metroNIDAZOLE 500 MG TAB PO SCH ×3 (02:04→13:17)
[2017-08-19] MEDS: methylPREDNISolone SOD SUCC 40 MG/1 ML VIAL IV PUSH SCH ×3 (02:05→21:25)
[2017-08-19] MEDS: CEFEPIME INJ 2,000 MG in SODIUM CHLORIDE 0.9% INJ 100 ML IV SCH (02:05)
[2017-08-19] MEDS: METOCLOPRAMIDE HCL 10 MG/2 ML VIAL IV PUSH SCH ×2 (02:05→13:16)
[2017-08-19] MEDS: RESP: ALBUTEROL 2.5 MG/IPRATROPIUM 0.5 MG NEB (SCH) NEB ×3 (03:33→16:10)
[2017-08-19] MEDS: LEVOTHYROXINE SODIUM 50 MCG TAB PO SCH (05:08)
[2017-08-19 05:32] LABS: AUTOMATED NEUTROPHIL # 8.9 TH/MM3 (1.8-7.7); BASOPHIL % 0.1 % (0.0-2.0); HEMATOCRIT 26.9 % (35.0-46.0); HEMOGLOBIN 8.9 GM/DL (11.6-15.3); LYMPHOCYTE # 0.3 TH/MM3 (1.0-4.8); MEAN PLATELET VOLUME 8.7 FL (7.0-11.0); MONO % 2.1 % (0.0-8.0); MONOCYTE # 0.2 TH/MM3 (0-0.9); NEUT % 94.8 % (16.0-70.0); PLATELET COUNT 230 TH/MM3 (150-450); RED BLOOD COUNT 2.86 MIL/MM3 (4.00-5.30); RED CELL DISTRIBUTION WIDTH 17.5 % (11.6-17.2); WHITE BLOOD COUNT 9.4 TH/MM3 (4.0-11.0)
[2017-08-19 05:50] LABS: CALCIUM 8.9 MG/DL (8.5-10.1); CREATININE 1.14 MG/DL (0.50-1.00)
[2017-08-19] MEDS: INSULIN ASPART SUPPLEMENTAL SCALE SQ SCH ×4 (06:00→18:00)
--- NOTE | 2017-08-19 07:44 | HHI.CCPN ---
Subjective Remarks/Hospital Course 08/15: Patient is a 81 year old female with past medical history significant for CVA, aphasia, atrial fibrillation on eliquis, history of bowel perforation after colonoscopy, s/p colectomy, colostomy and colostomy reversal, chronic kidney disease, who [facility] for respiratory distress and nausea vomiting. Patient was admitted to the hospitalist service with probable sepsis. Infectious disease was consulted, started on ceftriaxone for UTI by Dr. Arcos. Ct of the abdomen pelvis showed ileus without evidence of mechanical obstruction. Apparently she had been taking by mouth, with a plan for removing PEG tube and RN informed me of possible aspiration also. (PEG tube placement 06/28/[address] Mosqueda at [facility] during hospitalization for pneumonia). A halicat was called today for worsening respiratory distress, and hypoxia. Chest x-ray showed possible small left apical pneumothorax. Patient was placed on 100% nonrebreather and was moved to the ICU. I requested a stat CT of the chest to better evaluate the pneumothorax and also evaluate for pneumonia. CT chest did not show pneumothorax but showed scattered bilateral infiltrates predominantly left lower lobe indicating pneumonia. Also urine culture was growing Pseudomonas, I have discontinued ceftriaxone and started on cefepime 2 g IV every 8 hours, Flagyl 500 mg IV every 8 hours and give single dose of vancomycin 1 g IV. Hold prednisone and placed on IV Solu Medrol, along with scheduled and when necessary DuoNeb. Check for influenza On my evaluation in the ICU patient is in obvious respiratory distress. Bilateral rhonchi and wheezes. She is struggling to breathe and indicated that she wants endotracheal intubation in front of the family. Family' is agreeable for intubation after discussion with patient, myself and Dr. Walters. DNR was rescinded and changed to alternate code intubation only. RSI initiated and large amount of biliary secretions noted to regurgitate into the oral cavity following induction. No significant aspiration, minimal biliary fluid suctioned out from the ET tube. There was large amount of biliary fluid pooling in the oral cavity which was suctioned out. PEG tube was placed to intermittent wall suction. Keep Nothing by mouth except meds, start Reglan for severe ileus. GI following. 08/16: sedated on vent 08/17: Did, orally intubated on mechanical ventilation. Minimal output from NG tube overnight. 08/18: Remains hypertensive. Gas exchange acceptable, respiratory effort is adequate. Poor progress. Family would like her extubated and then full DNR status with no re-intubation if she fails. We will comply. 08/19: Extubated last evening and breathing comfortably. A bit puffy, will add diuretic. Swelling right arm from IV fluid, lines d/c'd. Patient is now full DNR status at family's request. Objective Vital Signs Date Time Temp Pulse Resp B/P (MAP) Pulse Ox O2 Delivery O2 Flow Rate FiO2 08/19/17 06:00 98 08/19/17 04:00 98.4 23 165/72 (103) 92 08/18/17 22:17 Nasal Cannula 2.00 08/18/17 17:45 35 Intake and Output 08/19/17 08/19/17 08/20/17 08:00 16:00 00:00 Intake Total 246 ml Output Total 525 ml Balance -279 ml Result Diagram: 08/19/1744208/19/[address] chest scattered bilateral predominantly left lower lobe infiltrate CT abdomen pelvis showed ileus Objective Remarks HEENT/ Neuro: Pallor present, no icterus, tongue/ mucosa moist. Protects airway. Neck: Airway widely patent, no obstruction. Chest/Pulm: Clear, good air entry bilaterally, no wheezing or crackles CVS: S1-S2 regular, no murmur, No JVD. GI/abdomen: soft, nontender, bowel sounds sparse, no guarding Extremities: warm bilaterally, trace edema except right arm with 3+ swelling. A/P Assessment and Plan ASSESSMENT: Acute hypoxemic respiratory failure Healthcare associated pneumonia Probable aspiration Severe sepsis Acute COPD exacerbation Pseudomonas UTI Severe ileus Atrial fibrillation with RVR Chronic Eliquis use Previous CVA with aphasia Carotid stenosis Chronic kidney disease PLAN: NEURO: - Versed for sedation and vent synchrony - Daily sedation vacation - Discontinue fentanyl patch due to ileus, use fentanyl when necessary RESP: - Continue mechanical ventilation/ACV - DuoNeb every 4 hours and when necessary, ventilator bundle - Hold prednisone, start IV Solu-Medrol 40 mg every 8 hours - Broad-spectrum antibiotics with cefepime and Flagyl, vancomycin single dose - F/U Sputum culture - CT chest shows bilaterally, predominantly left lower lobe infiltrate (no pneumothorax noted) - Family requests extubation - state that their mother would never have wanted to be intubated. They realize she will probably not survive extubation but want to transition to Hospice [facility]. - Extubated 08/18. CV: -Off pressors since 08/16 - Change IV fluid to LR at 42 cc per hour - Hold amlodipine and Vasotec - Continue Rythmol, continue Eliquis - Increase norvasc and add hydralazine GI: -Minimal output from G-tube. Will start tube feeds with Jevity 1.5 and advanced to 30 cc/h today. Eventually if tolerated will advance to goal of 60 cc per hour. - Continue Reglan 10 mg IV every 8 hours. Gastroenterology following - Relistor 12 mg subcutaneous 1 on 08/15 : - Monitor renal function closely. Continue Feliciano catheter. - Acute kidney injury had improved with hydration ID: - Ceftriaxone was discontinued and cefepime 2 g IV every 8 hours started for Pseudomonas UTI - Patient on IV Flagyl to cover for aspiration. Single dose of vancomycin given - Send sputum blood cultures, check for influenza - Add short course linezolid for enterococcus UTI. HEME: - Monitor CBC, CMP - Continue Eliquis ENDO: - Continue Synthroid. Electrolyte replacement per protocol - Sliding scale insulin if needed PROPH: - Bilateral lower extremity SCDs. Continue Eliquis. IV Protonix LINES: - Utilize peripheral IVs, central line if needed Overall impression: Extubated, family wants full DNR now. She is maintaining her airway and breathing comfortably. Darinel Bowie MD Aug 19, 2017 07:44
[2017-08-19 08:10] LABS: BANDS 18 % (0-6); METAMYELOCYTES 1 % (0-1); MONOCYTES 3 % (0-8); NEUTROPHIL # MANUAL DIFF 9.1 TH/MM3 (1.8-7.7); POLYS (SEG NEUTROPHILS) 78 % (16-70)
[2017-08-19] MEDS: APIXABAN 2.5 MG TABLET PO SCH (08:35)
[2017-08-19] MEDS: DOCUSATE SODIUM 50 MG/SENNA 8.6 MG TAB PO SCH (08:36)
[2017-08-19] MEDS: hydrALAZINE HCL 50 MG TAB PO SCH ×2 (08:36→20:00)
[2017-08-19] MEDS: PROPAFENONE HCL 150 MG TAB PO SCH (08:36)
--- NOTE | 2017-08-19 08:52 | HHI.PR ---
Subjective Remarks Extubated yesterday, Sat's maintained on 2l NC. No family at Bedside. Objective Vital Signs Date Time Temp Pulse Resp B/P (MAP) Pulse Ox O2 Delivery O2 Flow Rate FiO2 08/19/17 07:00 97 Nasal Cannula 2.00 08/19/17 06:00 98 08/19/17 04:00 112 08/19/17 04:00 98.4 112 23 165/72 (103) 92 08/19/17 02:00 80 08/19/17 00:00 98.4 92 21 160/67 (98) 100 08/19/17 00:00 92 08/18/17 22:17 100 Nasal Cannula 2.00 08/18/17 22:00 90 08/18/17 20:00 98.9 96 22 134/97 (109) 100 08/18/17 20:00 96 08/18/17 19:00 100 Nasal Cannula 2.00 08/18/17 18:40 100 Nasal Cannula 2 08/18/17 18:40 100 Nasal Cannula 2.00 08/18/17 18:00 95 08/18/17 17:45 35 08/18/17 16:49 100 35 08/18/17 16:00 98.3 84 16 142/67 (92) 100 08/18/17 16:00 83 08/18/17 16:00 35 08/18/17 14:00 97 08/18/17 12:47 35 08/18/17 12:46 100 35 08/18/17 12:00 72 08/18/17 12:00 98.3 84 15 128/60 (82) 100 08/18/17 12:00 35 08/18/17 10:00 77 08/18/17 09:01 100 35 I/O 08/18/17 08/18/17 08/18/17 08/19/17 08/19/17 08/19/17 07:00 15:00 23:00 07:00 15:00 23:00 Intake Total 253 ml 660 ml 246 ml 850 ml Output Total 675 ml 550 ml 525 ml Balance -422 ml 110 ml -279 ml 850 ml IV Total 300 ml 850 ml Tube Feeding 133 ml 160 ml 246 ml Other 120 ml 200 ml Output Urine Total 675 ml 550 ml 525 ml # Bowel Movements 0 0 Result Diagram: 08/19/1744208/19/17442 Objective Remarks GENERAL: frail elderly female on nasal canula No Apparent Distress SKIN:warm and dry with ecchymotic areas CARDIOVASCULAR: S1S2, RESPIRATORY: Breath sounds equal bilaterally scattered rhonch. GASTROINTESTINAL: Abdomen soft, non-tender, nondistended, BS,Feeding tube in place NEUROLOGICAL: obtunded Medications and IVs Current Medications Medications (Trade) Dose Ordered Sig/Ashlee Route Start Time Stop Time Status Last Admin (NS Flush) 2 ml UNSCH PRN IVF 08/13/17 07:00 08/17/17 08:20 (Tylenol) 650 mg Q4H PRN PO 08/13/17 10:15 (Zofran Inj) 4 mg Q6H PRN IVP 08/13/17 10:15 08/15/17 08:37 (Narcan Inj) 0.4 mg UNSCH PRN IV PUSH 08/13/17 10:15 (Merari-Colace) 1 tab BID PO 08/13/17 21:00 08/19/17 08:36 (Milk Of Magnesia Liq) 30 ml Q12H PRN PO 08/13/17 10:15 (Senokot) 17.2 mg Q12H PRN PO 08/13/17 10:15 (Dulcolax Supp) 10 mg DAILY PRN RECTAL 08/13/17 10:15 (Lactulose Liq) 30 ml DAILY PRN PO 08/13/17 10:15 (Norvasc) 10 mg DAILY PO 08/14/17 09:00 Future hold 08/19/17 08:36 (Synthroid) 50 mcg DAILY@0600 PO 08/14/17 06:00 08/19/17 05:08 (Deltasone) 5 mg DAILY PO 08/14/17 09:00 Future Hold 08/14/17 09:34 (Rythmol) 150 mg BID PO 08/13/17 21:00 08/19/17 08:36 (Eliquis) 2.5 mg BID PO 08/13/17 21:00 08/19/17 08:35 (Ultram) 50 mg Q6H PRN PO 08/13/17 21:30 08/18/17 03:41 (Vasotec) 5 mg BID PO 08/14/17 21:00 Future Hold 1/31/18 23:15 (SoluMEDROL INJ) 40 mg Q8HR IV PUSH 08/15/17 22:00 08/18/17 22:18 (Reglan Inj) 10 mg Q8HR IV PUSH 08/15/17 22:00 08/18/17 22:19 Midazolam HCl 100 ml @ 2 mls/hr TITRATE PRN IV 08/15/17 21:15 08/15/17 21:20 Phenylephrine HCl 40 mg/Dextrose 500 ml @ 30 mls/hr TITRATE PRN IV 08/15/17 23:00 08/15/17 21:00 (Brethine Inj) 1 mg UNSCH PRN SQ 08/15/17 21:15 (NovoLOG SUPPLEMENTAL SCALE) 1 Q6HR SQ 08/15/17 21:15 08/19/17 06:00 Potassium Chloride 100 ml @ 50 mls/hr Q2H PRN IV 08/15/17 21:15 Potassium Chloride 100 ml @ 50 mls/hr Q2H PRN IV 08/15/17 21:15 08/18/17 20:37 (K-Lyte Cl Eff) 50 meq UNSCH PRN PO 08/15/17 21:15 Potassium Chloride 100 ml @ 25 mls/hr UNSCH PRN IV 08/15/17 21:15 Potassium Chloride 100 ml @ 50 mls/hr Q2H PRN IV 08/15/17 21:15 08/16/17 08:28 Magnesium Sulfate 4 gm/Sodium Chloride 100 ml @ 50 mls/hr UNSCH PRN IV 08/15/17 21:15 (Mag-Ox) 800 mg UNSCH PRN PO 08/15/17 21:15 Magnesium Sulfate 2 gm/Sodium Chloride 100 ml @ 50 mls/hr UNSCH PRN IV 08/15/17 21:15 (K-Phos) 2,000 mg Q4H PRN PO 08/15/17 21:15 Sodium Phosphate 30 mmol/Sodium Chloride 250 ml @ 42 mls/hr UNSCH PRN IV 08/15/17 21:15 (K-Phos) 2,000 mg UNSCH PRN PO/TUBE 08/15/17 21:15 Potassium Phosphate 30 mmol/ Sodium Chloride 260 ml @ 42 mls/hr UNSCH PRN IV 08/15/17 21:15 (Protonix Inj) 40 mg Q24H IV PUSH 08/15/17 22:00 08/18/17 22:19 (D50w (Vial) Inj) 50 ml UNSCH PRN IV PUSH 08/15/17 21:30 (Glucagon Inj) 1 mg UNSCH PRN OTHER 08/15/17 21:30 (fentaNYL INJ) 50 mcg Q2HR PRN IV PUSH 08/15/17 22:30 (Lopressor Inj) 2.5 mg Q6H PRN IV PUSH 08/15/17 23:30 08/18/17 02:43 (Flagyl) 500 mg Q6H PO 08/16/17 14:00 08/19/17 08:35 Cefepime HCl 2000 mg/Sodium Chloride 100 ml @ 200 mls/hr Q24H IV 08/18/17 05:00 08/21/17 23:00 08/18/17 03:41 Albumin Human 100 ml @ 60 mls/hr Q12H IV 08/17/17 15:00 08/18/17 14:01 (Duoneb Neb) 1 ampule Q6HR NEB NEB 08/17/17 16:00 08/19/17 03:33 (Trandate Inj) 10 mg Q4H PRN IV PUSH 08/18/17 03:00 08/18/17 03:40 (Apresoline) 50 mg Q12HR PO 08/18/17 10:00 08/19/17 08:36 (Morphine Inj) 2 mg Q2H PRN IV PUSH 08/18/17 17:30 (Ativan Inj) 1 mg Q15M PRN IV PUSH 08/18/17 17:30 (Zyvox) 600 mg Q12HR PO 08/19/17 09:00 08/23/17 23:00 08/19/17 08:36 (Lasix Inj) 20 mg DAILY IV PUSH 08/19/17 09:00 08/19/17 08:35 Assessment and Plan Problem List: (1) Respiratory distress ICD Codes: R06.03 - Acute respiratory distress Status: Acute Plan: Extubated yesterday, Sat's maintained on NC, pulmonary following (2) Sepsis ICD Codes: A41.9 - Sepsis, unspecified organism Status: Acute Plan: ID following, Currently on Zyvox, Ceftipine, Flagyl Afebrile, (3) HTN (hypertension) ICD Codes: I10 - Essential (primary) hypertension Plan: Running high this am, Lopressor PRN given. Monitor (4) REESE (acute kidney injury) ICD Codes: N17.9 - Acute kidney failure, unspecified Status: Chronic Plan: REESE/ CKD, Renal following, No baseline GFR available Moitor renal functions. Assessment and Plan Patient changed to DNR per family request, will likely need rehab at time of D/C Problem Qualifiers (1) Sepsis: Qualified Codes: A41.9 - Sepsis, unspecified organism (2) HTN (hypertension): Qualified Codes: I10 - Essential (primary) hypertension Aranza Fine Aug 19, 2017 08:52
[2017-08-19] MEDS ORDERED: FUROSEMIDE 20 MG/2 ML VIAL IV PUSH SCH (09:00)
[2017-08-19] MEDS ORDERED: LINEZOLID 600 MG TAB PO SCH (09:00)
--- NOTE | 2017-08-19 16:45 | HHI.NPPN ---
Subjective History of Present Illness Patient is a 81-year-old female presents to the emergency department from [facility] by EMS transport for marked respiratory distress. According to interpretative dancer report upon their arrival patient was showing evidence of respiratory distress with accessory muscle use janki-oral cyanosis dried vomitus around her mouth and in her clear and room air O2 saturations of 82%. Patient is placed on nonrebreather mask with O2 saturations only increasing to 92%. She is on 4 liters via nasal cannula now with good sats. Patient is found to have a abdormal UA. Chest xray with no acute cardiopulmonary disease demonstrated. Patient also noted to have elevated creatinine at 1.32 and GFR of 39 ml/min. Past medical history of Afib, CHF, HTN, Hypothyroid, PNA, cardiac stenosis, and CVA. She is currently on oral diet but does have PEG tube. Additional Remarks On O2 2 liters. Using abdominal muscles at times for breathing. Upper extremity edema noted (Majo Hanley) Review of Systems Respiratory Lungs: SOB (Majo Hanley) Cardiovascular Cardiac Remarks Denies any CP (Majo Hanley) Gastrointestinal GI Remarks No abdominal pain (Majo Hanley) Objective Data Data 08/19/17 08/20/17 19:00 07:00 Intake Total 850 ml Balance 850 ml IV Total 850 ml Vital Signs Date Time Temp Pulse Resp B/P (MAP) Pulse Ox O2 Delivery O2 Flow Rate FiO2 08/19/17 14:00 85 08/19/17 12:00 98.6 79 21 130/58 (82) 100 08/19/17 12:00 90 08/19/17 10:00 88 08/19/17 08:00 102 08/19/17 08:00 98.2 73 21 164/77 (106) 100 08/19/17 07:00 97 Nasal Cannula 2.00 08/19/17 06:00 98 08/19/17 04:00 112 08/19/17 04:00 98.4 112 23 165/72 (103) 92 08/19/17 02:00 80 08/19/17 00:00 98.4 92 21 160/67 (98) 100 08/19/17 00:00 92 08/18/17 22:17 100 Nasal Cannula 2.00 08/18/17 22:00 90 08/18/17 20:00 98.9 96 22 134/97 (109) 100 08/18/17 20:00 96 08/18/17 19:00 100 Nasal Cannula 2.00 08/18/17 18:40 100 Nasal Cannula 2 08/18/17 18:40 100 Nasal Cannula 2.00 08/18/17 18:00 95 08/18/17 17:45 35 08/18/17 16:49 100 35 (Majo Hanley) -: 08/19/17 0443 08/19/17 0443 Imaging Last Impressions Chest X-Ray 08/17/17 0000 Signed Impressions: Service Date/Time: Thursday, August 17, 2017 08:06 - CONCLUSION: Left basilar density and small left pleural effusion. William Ruiz MD Abdomen X-Ray 08/16/17 0600 Signed Impressions: Service Date/Time: Wednesday, August 16, 2017 04:17 - CONCLUSION: No dilated loops of bowel are seen. John Weiner MD Small Bowel X-Ray 08/15/17 0000 Signed Impressions: Service Date/Time: August 11:18 - CONCLUSION: Multiple loops of borderline dilated small bowel with passage of contrast into the colon at 3 hours ruling out a complete obstruction. Atif Christensen MD Chest CT 08/15/17 0000 Signed Impressions: Service Date/Time: August 19:36 - CONCLUSION: 1. Interval resolution of the previously noted small left apical pneumothorax. 2. Patchy infiltrates throughout the left lung and to a lesser extent the right lung consistent with probable pneumonia. Clinical correlation is recommended. 3. Small pericardial effusion. 4. Cardiomegaly and coronary artery calcification. 5. Distention of the stomach and esophagus. 6. Chronic moderate compression deformity involving T12. Kyler Irizarry MD Abdomen/Pelvis CT 08/14/17 0000 Signed Impressions: Service Date/Time: Monday, August 14, 2017 20:56 - CONCLUSION: 1. Multiple fluid-filled loops of small bowel suggestive of partial small bowel obstruction or ileus. This likely is at the level of the jejunum as the distal ileum is normal in caliber. 2. Patchy opacities within the lung bases posteriorly consistent with atelectasis and/or pneumonia. Clinical correlation is recommended. 3. No evidence of left renal mass for nonobstructing stone. 4. Uncomplicated colonic diverticulosis. 5. Ventral abdominal wall hernia which appears to contain a portion of transverse colon. 6. Cardiomegaly and small pericardial effusion. Kyler Irizarry MD Renal Ultrasound 08/13/17 0000 Signed Impressions: Service Date/Time: Sunday, August 13, 2017 20:19 - CONCLUSION: 1. Questionable solid mass within the mid pole of the left kidney measuring 3.3 x 1.9 x 2.[address] of the abdomen may be helpful for further characterization of this questionable lesion if clinical indicated. 2. 5 mm calcified nonobstructing mid pole left renal calculus. 3. Small bilateral kidneys. Kyler Irizarry MD (GelMajo da silva [employer]) Physical Exam Eyes Eye Exam: Pupils Equal (GellerCinthia angelne M[employer]) Throat Throat Exam: Oral Mucosa [place] & Moist (DebbielerCinthia angelne M[employer]) Pulmonary Resp Exam: Breath Sounds Equal, Rhonchi, Decreased Bases Resp Remarks intubated (GellermannCinthiaMajo M[employer]) Cardiology CV Exam: Regular (GellermannCinthiaMajo M[employer]CH[employer]ECT) Gastrointestinal/Abdomen GI Exam: Soft, Non-Tender (DebbielermannCinthiaMajo M[employer]) Genitourinary Exam: Flank Non-Tender (GellermannCinthiaMajo [employer]) Integumentary Skin Exam: Clear, Warm, Dry (DebbielermannCinthiaMajo M[employer]) Extremeties Extremities Exam: Trace Edema (GellermannMajo M[employer]) Neurologic Neuro Exam: Alert, Awake, Sedated (GellermannCinthiaMajo M[employer]) Assessment/Plan Problem List: (1) REESE (acute kidney injury) ICD Codes: N17.9 - Acute kidney failure, unspecified Status: Chronic Plan: REESE on CKD most likely prerenal from poor PO intake with dysphagia and UTI Patient with CKD from possibly HTN or renovascular disease. Baseline GFR not available UA negative for proteinuria. Renal US: Questionable solid mass within the mid pole of the left kidney measuring 3.3 x 1.9 x 2.2 cm and Small bilateral kidneys. CT: . suggestive of partial small bowel obstruction or ileus. No evidence of left renal mass for nonobstructing stone On O2 2 liters. Using accessory muscles. Renal function Creat of 1.14 Plan Continue to monitor UOP Na level high follow BMP Family considering hospice (2) HTN (hypertension) ICD Codes: I10 - Essential (primary) hypertension Plan: On pressor support (3) Respiratory distress ICD Codes: R06.03 - Acute respiratory distress Status: Acute Plan: Extubated on 2 liters (4) Sepsis ICD Codes: A41.9 - Sepsis, unspecified organism Status: Acute Plan: Continue antibiotics (Majo Hanley) Problem List: (1) REESE (acute kidney injury) ICD Codes: N17.9 - Acute kidney failure, unspecified Status: Chronic Plan: REESE on CKD most likely prerenal from poor PO intake with dysphagia and UTI Patient with CKD from possibly HTN or renovascular disease. Baseline GFR not available UA negative for proteinuria. Renal US: Questionable solid mass within the mid pole of the left kidney measuring 3.3 x 1.9 x 2.2 cm and Small bilateral kidneys. CT: . suggestive of partial small bowel obstruction or ileus. No evidence of left renal mass for nonobstructing stone On O2 2 liters. Using accessory muscles. Renal function Creat of 1.14 Plan Continue to monitor UOP Na level high follow BMP Family considering hospice. Patient seen and examined, agree with above. D/W Son and daughter at bed side. (2) HTN (hypertension) ICD Codes: I10 - Essential (primary) hypertension Plan: On pressor support (3) Respiratory distress ICD Codes: R06.03 - Acute respiratory distress Status: Acute Plan: Extubated on 2 liters (4) Sepsis ICD Codes: A41.9 - Sepsis, unspecified organism Status: Acute Plan: Continue antibiotics (Roselia Jorge MD) Problem Qualifiers (1) HTN (hypertension): Qualified Codes: I10 - Essential (primary) hypertension (2) Sepsis: Qualified Codes: A41.9 - Sepsis, unspecified organism Majo Hanley Aug 19, 2017 16:45 Roselia Jorge MD Aug 19, 2017 16:51
--- NOTE | 2017-08-19 17:07 | PD.WCN.NOT ---
Wound Consult Description: Received consult from Doctor Arcos regarding wound management of skin tears to upper extremities bilaterally Communicated with: RN Norma and Doctor Jamir Recommendation: 1)Please leave Versatel dressing in place over skin tear to R lateral elbow and change outer dressing of optilock and rolled gauze every 3 days or as needed for saturation or dislodgment. 2)Please leave Versatel dressing in place over skin tear to L medial antecubital space and change outer dressing of 4x4 gauze pad and rolled gauze every 3 days or as needed for saturation or dislodgement 3)Change Optilocks secured with rolled gauze and tape in place over small draining skin tears to bilateral forearms as needed for saturation or dislodgment. 4)If tegaderm to L lateral forearm becomes dislodged or saturated may be removed and apply optilock in place with rolled gauze and tape and change as needed 5)Please elevate bilateral upper extremities with pillows to reduce edema. Additional Information: Patient seen on 3 [facility] for wound management of skin tears upper extremities bilaterally around 1600. Patient noted with weeping skin tears to bilateral upper extremities. Removed saturated tegaderm to L lateral elbow to reveal largest weeping skin tear. Wound measures ~1cm x ~6cm x ~0.1cm. Cleansed skin tear with normal saline applied Versatel over wound and covered with Optilock secured with rolled gauze and tape. Covered small weeping skin tears to bilateral upper extremities with Optilock dressings and secured with rolled gauze and tape. Small dry skin tear to L medial antecubital space was cleansed with normal saline and patted dry and applied Versatel and covered with dry 4 x4 gauze pads and secured with rolled gauze and tape. Bilateral arms are noted with pitting weeping edema. Consuelo Lee [facility] Aug 19, 2017 17:07
--- NOTE | 2017-08-19 17:25 | HHI.HCPN ---
Reason for visit a. To assist with evaluation and management of symptoms including: Pain, weakness, dysphasia b. To assist medical decision maker(s) with: better understanding of current medical conditions; weighing benefits/burdens of medical treatment options; making medical treatment decisions. Subjective/Interval History Pt seen today to follow up on comfort, goals. Patient now extubated to nasal cannula. DaughterAdore in room. Vital signs remained stable, 130/58, heart rate 79, respiratory rate 21, oxygen saturation 100% on 2 L nasal cannula, afebrile. Labs remained stable, WBC 9.4, hemoglobin 8.9, hematocrit 26.9, platelets 230, sodium 151, potassium 3.4, BUN 30, creatinine 1.14. Urine culture shows pseudomonas aeruginosa and enterococcus faecalis, for which the patient is receiving Zyvox and cefepime. She is arousable, but sleepy and dozes off quickly during conversation. She is able to identify that she has no pain and is comfortable. She is generally edematous and has multiple skin tears and ecchymosis on all 4 extremities. Family expressed extensive questions and concerns regarding patient placement. Patient is comfortable at this time. . Family/friend interactions Spoke with the daughterAdore at length and extensively reviewed options for further care out of the hospital. She does state that the patient is now a 2 person assist to transfer from bed to commode. Patient was previously at the [facility] nursing and rehabilitation and the family was very unhappy with the care , particularly after they feel that she aspirated vomitus and was in respiratory distress. Patient had previously been living with her son, Alok, but had been transferred to rehabilitation after a recent hospitalization. 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 Patient was not felt to be a candidate for aggressive therapy so no PET scan was done. Family was quite traumatized to see patient actively choking and gasping for air prior to her intubation and are very concerned that continuing a DNR status would result in poor care for their mother. The option of hospice was introduced and the patient is family was very interested in discussing this but wished to have both son and daughter there at the time. Consult placed to hospice for information and discussion. . Advance Directives Durable Power of Securities Compliance Examiner: Completed, but not made available Objective Vital Signs Date Time Temp Pulse Resp B/P (MAP) Pulse Ox O2 Delivery O2 Flow Rate FiO2 08/19/17 14:00 85 08/19/17 12:00 98.6 79 21 130/58 (82) 100 08/19/17 12:00 90 08/19/17 10:00 88 08/19/17 08:00 102 08/19/17 08:00 98.2 73 21 164/77 (106) 100 08/19/17 07:00 97 Nasal Cannula 2.00 08/19/17 06:00 98 08/19/17 04:00 112 08/19/17 04:00 98.4 112 23 165/72 (103) 92 08/19/17 02:00 80 08/19/17 00:00 98.4 92 21 160/67 (98) 100 08/19/17 00:00 92 08/18/17 22:17 100 Nasal Cannula 2.00 08/18/17 22:00 90 08/18/17 20:00 98.9 96 22 134/97 (109) 100 08/18/17 20:00 96 08/18/17 19:00 100 Nasal Cannula 2.00 08/18/17 18:40 100 Nasal Cannula 2 08/18/17 18:40 100 Nasal Cannula 2.00 08/18/17 18:00 95 08/18/17 17:45 35 Intake & Output 08/19/17 08/19/17 07:00 19:00 Intake Total 246 ml 850 ml Output Total 525 ml Balance -279 ml 850 ml IV Total 850 ml Tube Feeding 246 ml Output Urine Total 525 ml # Bowel Movements 0 Physical Exam CONSTITUTIONAL/GENERAL: This is an adequately nourished patient, resting in bed on 2 L nasal cannula. TUBES/LINES/DRAINS: Peripheral lV left upper extremity, PEG, kingston catheter SKIN: No jaundice, rashes, or lesions. Several areas of ecchymosis bilateral upper extremities as well as dressed skin tears to bilateral mid upper arms near elbows. Few small ecchymosis to lower extremities. No wounds seen anteriorly. Skin warm and dry. CARDIOVASCULAR: S1, S2, regular rate and rhythm without rub murmur or gallop. RESPIRATORY/CHEST: Symmetric, unlabored respirations. Eupneic, coarse rhonchi heard throughout all anterior lung diaz, diminished posteriorly. GASTROINTESTINAL: Abdomen soft, no apparent tenderness, nondistended. No hepato- splenomegaly, or palpable masses. No guarding. Bowel sounds positive 4. GENITOURINARY: Without palpable bladder distension. Kingston catheter in place. Clear yellow urine + some sediment NEUROLOGICAL: Arousable, responsive, appears to be baseline mentation from previous evaluations of the patient. Can make her needs known. PSYCHIATRIC: No obvious anxiety/depression. . Diagnostic Tests Laboratory Laboratory Tests Test 08/16/17 22:01 08/17/17 04:13 08/18/17 04:07 08/18/17 10:10 Potassium Level 3.8 MEQ/L (3.5-5.1) 4.1 MEQ/L (3.5-5.1) 3.2 MEQ/L (3.5-5.1) White Blood Count 7.1 TH/MM3 (4.0-11.0) 9.9 TH/MM3 (4.0-11.0) Red Blood Count 2.69 MIL/MM3 (4.00-5.30) 2.82 MIL/MM3 (4.00-5.30) Hemoglobin 8.7 GM/DL (11.6-15.3) 8.8 GM/DL (11.6-15.3) Hematocrit 25.6 % (35.0-46.0) 26.6 % (35.0-46.0) Mean Corpuscular Volume 95.1 FL (80.0-100.0) 94.2 FL (80.0-100.0) Mean Corpuscular Hemoglobin 32.2 PG (27.0-34.0) 31.2 PG (27.0-34.0) Mean Corpuscular Hemoglobin Concent 33.8 % (32.0-36.0) 33.1 % (32.0-36.0) Red Cell Distribution Width 17.2 % (11.6-17.2) 17.4 % (11.6-17.2) Platelet Count 196 TH/MM3 (150-450) 233 TH/MM3 (150-450) Mean Platelet Volume 8.9 FL (7.0-11.0) 8.4 FL (7.0-11.0) Neutrophils (%) (Auto) 92.2 % (16.0-70.0) 96.0 % (16.0-70.0) Lymphocytes (%) (Auto) 4.4 % (9.0-44.0) 2.1 % (9.0-44.0) Monocytes (%) (Auto) 3.0 % (0.0-8.0) 1.8 % (0.0-8.0) Eosinophils (%) (Auto) 0.3 % (0.0-4.0) 0.0 % (0.0-4.0) Basophils (%) (Auto) 0.1 % (0.0-2.0) 0.1 % (0.0-2.0) Neutrophils # (Auto) 6.5 TH/MM3 (1.8-7.7) 9.5 TH/MM3 (1.8-7.7) Lymphocytes # (Auto) 0.3 TH/MM3 (1.0-4.8) 0.2 TH/MM3 (1.0-4.8) Monocytes # (Auto) 0.2 TH/MM3 (0-0.9) 0.2 TH/MM3 (0-0.9) Eosinophils # (Auto) 0.0 TH/MM3 (0-0.4) 0.0 TH/MM3 (0-0.4) Basophils # (Auto) 0.0 TH/MM3 (0-0.2) 0.0 TH/MM3 (0-0.2) CBC Comment DIFF FINAL AUTO DIFF Differential Comment FINAL DIFF MANUAL Hematology Comments * Blood Urea Nitrogen 28 MG/DL (7-18) 28 MG/DL (7-18) Creatinine 1.25 MG/DL (0.50-1.00) 1.25 MG/DL (0.50-1.00) Random Glucose 118 MG/DL (74-106) 182 MG/DL (74-106) Calcium Level 7.8 MG/DL (8.5-10.1) 8.3 MG/DL (8.5-10.1) Sodium Level 152 MEQ/L (136-145) 150 MEQ/L (136-145) Chloride Level 121 MEQ/L (98-107) 120 MEQ/L (98-107) Carbon Dioxide Level 18.8 MEQ/L (21.0-32.0) 16.6 MEQ/L (21.0-32.0) Anion Gap 12 MEQ/L (5-15) 13 MEQ/L (5-15) Estimat Glomerular Filtration Rate 41 ML/MIN (>89) 41 ML/MIN (>89) Differential Total Cells Counted 100 Neutrophils % (Manual) 96 % (16-70) Band Neutrophils % 2 % (0-6) Monocytes % 1 % (0-8) Neutrophils # (Manual) 9.8 TH/MM3 (1.8-7.7) Myelocytes 1 % (0-0) Platelet Estimate NORMAL (NORMAL) Platelet Morphology Comment NORMAL (NORMAL) Ovalocytes 1+ (NORMAL) Urine Color YELLOW (YELLW/STRAW) Urine Turbidity HAZY (CLEAR) Urine pH 5.0 (5.0-8.5) Urine Specific [place] 1.015 (1.002-1.035) Urine Protein 30 mg/dL (NEG-TRACE) Urine Glucose (UA) NEG mg/dL (NEG) Urine Ketones 10 mg/dL (NEG) Urine Occult Blood TRACE (NEG) Urine Nitrite NEG (NEG) Urine Bilirubin NEG (NEG) Urine Urobilinogen LESS THAN 2.0 MG/DL (LESS Urine Leukocyte Esterase SMALL (NEG) Urine RBC 3 /hpf (0-3) Urine WBC 9 /hpf (0-5) Urine Squamous Epithelial Cells 1 /hpf (0-5) Urine Transitional Epithelial Cells <1 /hpf (NONE) Urine Bacteria OCC /hpf (NONE) Urine Hyaline Casts 4 /lpf (RARE) Urine Mucus FEW /lpf (OCC) Urine Yeast with Hyphae FEW (NONE) Urine Yeast (Budding) FEW (NONE) Test 08/19/17 04:43 White Blood Count 9.4 TH/MM3 (4.0-11.0) Red Blood Count 2.86 MIL/MM3 (4.00-5.30) Hemoglobin 8.9 GM/DL (11.6-15.3) Hematocrit 26.9 % (35.0-46.0) Mean Corpuscular Volume 94.0 FL (80.0-100.0) Mean Corpuscular Hemoglobin 31.0 PG (27.0-34.0) Mean Corpuscular Hemoglobin Concent 33.0 % (32.0-36.0) Red Cell Distribution Width 17.5 % (11.6-17.2) Platelet Count 230 TH/MM3 (150-450) Mean Platelet Volume 8.7 FL (7.0-11.0) Neutrophils (%) (Auto) 94.8 % (16.0-70.0) Lymphocytes (%) (Auto) 3.0 % (9.0-44.0) Monocytes (%) (Auto) 2.1 % (0.0-8.0) Eosinophils (%) (Auto) 0.0 % (0.0-4.0) Basophils (%) (Auto) 0.1 % (0.0-2.0) Neutrophils # (Auto) 8.9 TH/MM3 (1.8-7.7) Lymphocytes # (Auto) 0.3 TH/MM3 (1.0-4.8) Monocytes # (Auto) 0.2 TH/MM3 (0-0.9) Eosinophils # (Auto) 0.0 TH/MM3 (0-0.4) Basophils # (Auto) 0.0 TH/MM3 (0-0.2) CBC Comment AUTO DIFF Differential Total Cells Counted 100 Neutrophils % (Manual) 78 % (16-70) Band Neutrophils % 18 % (0-6) Monocytes % 3 % (0-8) Neutrophils # (Manual) 9.1 TH/MM3 (1.8-7.7) Metamyelocytes 1 % (0-1) Differential Comment FINAL DIFF MANUAL Platelet Estimate NORMAL (NORMAL) Platelet Morphology Comment CLUMPED (NORMAL) Blood Urea Nitrogen 30 MG/DL (7-18) Creatinine 1.14 MG/DL (0.50-1.00) Random Glucose 191 MG/DL (74-106) Calcium Level 8.9 MG/DL (8.5-10.1) Sodium Level 151 MEQ/L (136-145) Potassium Level 3.4 MEQ/L (3.5-5.1) Chloride Level 119 MEQ/L (98-107) Carbon Dioxide Level 19.0 MEQ/L (21.0-32.0) Anion Gap 13 MEQ/L (5-15) Estimat Glomerular Filtration Rate 46 ML/MIN (>89) . Result Diagram: 08/19/1744208/19/17442 Microbiology Microbiology Date/Time Source Procedure Growth Status 08/16/17 00:10 Blood Peripheral Aerobic Blood Culture - Preliminary NO GROWTH IN 3 DAYS Resulted 08/16/17 00:10 Blood Peripheral Anaerobic Blood Culture - Final QNS - SEE AEROBE REPORT Resulted 08/15/17 22:22 Urine Catheterized Urine Urine Culture - Final Enterococcus Faecalis Pseudomonas Aeruginosa Complete . Imaging Last Impressions Chest X-Ray 08/17/17 0000 Signed Impressions: Service Date/Time: Thursday, August 17, 2017 08:06 - CONCLUSION: Left basilar density and small left pleural effusion. William Ruiz MD Abdomen X-Ray 08/16/17 0600 Signed Impressions: Service Date/Time: Wednesday, August 16, 2017 04:17 - CONCLUSION: No dilated loops of bowel are seen. John Weiner MD Small Bowel X-Ray 08/15/17 0000 Signed Impressions: Service Date/Time: August 11:18 - CONCLUSION: Multiple loops of borderline dilated small bowel with passage of contrast into the colon at 3 hours ruling out a complete obstruction. Atif Christensen MD Chest CT 08/15/17 0000 Signed Impressions: Service Date/Time: August 19:36 - CONCLUSION: 1. Interval resolution of the previously noted small left apical pneumothorax. 2. Patchy infiltrates throughout the left lung and to a lesser extent the right lung consistent with probable pneumonia. Clinical correlation is recommended. 3. Small pericardial effusion. 4. Cardiomegaly and coronary artery calcification. 5. Distention of the stomach and esophagus. 6. Chronic moderate compression deformity involving T12. Kyler Irizarry MD Abdomen/Pelvis CT 08/14/17 0000 Signed Impressions: Service Date/Time: Monday, August 14, 2017 20:56 - CONCLUSION: 1. Multiple fluid-filled loops of small bowel suggestive of partial small bowel obstruction or ileus. This likely is at the level of the jejunum as the distal ileum is normal in caliber. 2. Patchy opacities within the lung bases posteriorly consistent with atelectasis and/or pneumonia. Clinical correlation is recommended. 3. No evidence of left renal mass for nonobstructing stone. 4. Uncomplicated colonic diverticulosis. 5. Ventral abdominal wall hernia which appears to contain a portion of transverse colon. 6. Cardiomegaly and small pericardial effusion. Kyler Irizarry MD Renal Ultrasound 08/13/17 0000 Signed Impressions: Service Date/Time: Sunday, August 13, 2017 20:19 - CONCLUSION: 1. Questionable solid mass within the mid pole of the left kidney measuring 3.3 x 1.9 x 2.[address] of the abdomen may be helpful for further characterization of this questionable lesion if clinical indicated. 2. 5 mm calcified nonobstructing mid pole left renal calculus. 3. Small bilateral kidneys. Kyler Irizarry MD . Assessment and Plan Disease Oriented Problem List: (1) UTI (urinary tract infection) (2) Sepsis (3) Respiratory distress (4) HTN (hypertension) (5) REESE (acute kidney injury) Symptom Scale: (1) Dysphagia 0-10 Scale: Unable to quantify (2) Weakness 0-10 Scale: Unable to quantify (3) Aphasia 0-10 Scale: Unable to quantify (4) Pain, abdominal 0-10 Scale: Unable to quantify Pertinent Non-Medical Issues Psychosocial:Originally from [place] has lived in [place] for several years. , her 3 years ago. Supported by 3 adult children 1 son Alok is local, one son and daughter live out of the area [facility] and [place]. Lived at home with her son prior to acute hospitalization in May, was discharged for rehabilitation following that admission Spiritual:jain, wants power system dispatcher, editor sound visits Legal:Patient mental status fluctuates. 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 She may be able to participate in some decision-making will likely this would be best to have shared decision making with her and her children. Son informs that he is the DURABLE POWER OF CONSTRUCTION CARPENTER not clear if this includes healthcare decision-making, he indicates that all the children remain in close communication and are working together. Patient and family open to ongoing conversations regarding goals, options as clinical course evolves. Ethical issues impacting care: Important Contacts Son Alok Hernandez [phone] Daughter Meghann Syed [phone] . Prognosis This patient was admitted for respiratory distress, emesis. She has findings of a UTI, new findings of kidney mass, further diagnostics pending. She has had general decline and debility since hospitalization around 2016 (for pneumonia, pneumothorax). Possible patient can remain stable and get through current acute hospitalization and return to most recent cognitive and functional status the patient does remain high risk for ongoing debility and further decline secondary to now chronically ill state. New Findings regarding renal mass which does not appear to be malignancy. Pt with worsened respiratory status,now intubated, may further complicate clinical course . . . Code Status: Alternative Code (intubation only) Plan * Legal decision maker:Patient mental status fluctuates. 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 She may be able to participate in some decision-making will likely this would be best to have shared decision making with her and her children. Son informs that he is the DURABLE POWER OF CONSTRUCTION CARPENTER not clear if this includes healthcare decision-making , he indicates that all the children remain in close communication and are working together. Patient and family open to ongoing conversations regarding goals, options as clinical course evolves. * Goals: Upon initial palliative meeting: patient and family wish to proceed with CT scan to further evaluate findings of renal mass and better differentiate if it is possible malignancy. Patient and family indicates she likely would not proceed with any type of aggressive treatment for findings but they would like to know if at all possible if it is cancer. Patient and son requests DNR. Goals are aggressive short of resuscitation. 08/16/17: Patient now intubated unable to participate. Met with daughter at length, all of family remains in close communication regarding patient's conditions. For now they wish to maximize current medical treatment with the hope of weaning for medical extubation in the coming days. However, family strongly endorses that patient would not want prolonged artificial ventilation or other artificial measures for a prolonged course if she was not expected to have a fairly rapid improvement and able to extubate and resume meaningful function. They are open to ongoing conversations as clinical course evolves, if patient is not able to medically wean and extubate they will wants to consider withdrawal of life support in transition to comfort focus and hospice services. 08/19/17 patient now extubated. Held extensive discussion with the daughter who has requested information regarding hospice and an information consultation has been requested to apprise family of options. * consider requesting prior records from [facility] which may have more information regarding other possible cancer findings. 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 Speech therapy recommends pure with nectar thick liquids. High risk for aspiration. +intubation 08/15, now extubated, currently receiving tube feeding, Jevity 1.5 at 30 mL an hour. --Pain: Patient today denies abdominal pain or other discomfort. Has morphine available however family states that morphine causes intense itching and given the frail condition of her skin they prefer she does not take that and would prefer instead a less potent narcotic. Family is requesting a skin wound consult for multiple skin tears, abrasions and wounds. This was placed 2/ 2 by hospitalist service. --Nausea/vomiting-patient presenting with reported emesis from SNF. Has had some intermittent emesis and nausea since admission. CT abdomen/pelvis = poss SBO/ileus. Pt w known hx colon perf, resection, colostomy and subsequent colostomy reversal. + Repeat abdominal x-ray indicates no dilated loops of bowels. Now receiving Jevity 1.5 at 30 mL/h and tolerating well with minimal residuals. Last BM 08/14. * Palliative care will continue to follow during hospital course as condition evolves, to assist patient/decision-maker with understanding of medical conditions, weighing benefits/burdens of treatment options, for clarification of goals of treatment. Additionally will assist with any symptoms of palliative concern Attestation To help prompt me to consider important information that might be impacting today's encounter and assessment, information from prior notes written by myself or my colleagues may have been "brought forward" into today's note. My signature on this note, however, is an attestation that I personally performed the exam, history, and/or decision-making noted today, and, unless otherwise indicated, the interactions with patient, family, and staff as well as the review of records all occurred today. I also attest that the listed assessment and stated plan reflect my best clinical judgment today based on the combination of historical information, prior notes, and today's exam/ interactions. When time spent is documented, it refers only to time spent today by the signer, or if indicated, combined time spent today by collaborating physician/nurse practitioner. . Tori Huynh Aug 19, 2017 5:25 pm
--- NOTE | 2017-08-19 18:51 | HHI.PR ---
Addendum to Inpatient Note Addendum Reason: Additional Documentation Additional Information D[facility]w Hospice visited patient family. Plan to change to hospice inpatient and stop antibiotics. Hospice will take care of discontinuation of antibiotics. Will sign off please call back if any change in clinical condition or questions. Lisandra Arcos MD Aug 19, 2017 18:51
[2017-08-19] MEDS ORDERED: HYDROmorphone HCL PF 2 MG/ML VIAL IV PRN ×2 (20:00)
[2017-08-19] MEDS ORDERED: DOCUSATE SODIUM 50 MG/SENNA 8.6 MG TAB PO PRN (20:00)
[2017-08-19] MEDS ORDERED: ACETAMINOPHEN 325 MG TAB PO PRN (20:00)
[2017-08-19] MEDS ORDERED: RESP: ALBUTEROL 2.5 MG/IPRATROPIUM 0.5 MG NEB (PRN) NEB (20:00)
--- NOTE | 2017-08-19 20:14 | RADRPT ---
EXAM DATE/TIME: 08/19/2017 20:03 [facility] COMPARISON: CHEST SINGLE AP, August 17, 2017, 8:06. INDICATIONS : Pneumonia. MEDICAL HISTORY : Cardiovascular disease. Hypertension. renal failure,thyroid disease SURGICAL HISTORY : None. ENCOUNTER: Subsequent ACUITY: 4 - 6 days PAIN SCORE: 0/10 LOCATION: Bilateral chest FINDINGS: The endotracheal tube has been removed. There is no pneumothorax. There appears to be some increasing infiltrates in both lung bases compared to the prior study. The heart size remains diffusely enlarge d. There is some blunting of the costophrenic angle suggestive of some pleural effusions. There is pr ominence of the pulmonary vasculature bilaterally. The bony structures are stable. CONCLUSION: 1. Increasing bibasilar infiltrates with probable small effusions. 2. Status post removal of the endotracheal tube. No evidence of pneumothorax. 3. Pulmonary venous congestion. Immanuel Aviles MD on August 19, 2017 at 20:10 Board Certified Radiologist. This report was verified electronically.
[2017-08-19] MEDS ORDERED: HYOSCYAMINE 0.5 MG/ML AMP IV PUSH PRN (20:15)
[2017-08-19] MEDS ORDERED: BISACODYL 10 MG SUPP RECTAL PRN (20:15)
[2017-08-19] MEDS ORDERED: LANSOPRAZOLE SOLUTAB 30 MG TAB G-TUBE PRN (20:45)
[2017-08-19] MEDS: METOCLOPRAMIDE HCL 10 MG/2 ML VIAL IV SCH (21:24)
--- NOTE | 2017-08-19 21:35 | HHI.PR ---
Subjective Remarks 81 YOWF with VDRF,Pn, aspiration Extubated On NC Opens eyes Comfortable Son and daughter at BS Objective Vital Signs Vital Signs Date Time Temp Pulse Resp B/P (MAP) Pulse Ox O2 Delivery O2 Flow Rate FiO2 08/19/17 20:00 98.0 115 23 123/60 (81) 92 08/19/17 20:00 115 08/19/17 19:40 Nasal Cannula 2.00 08/19/17 18:00 80 08/19/17 16:00 98.5 82 22 125/53 (77) 100 08/19/17 16:00 101 08/19/17 14:00 85 08/19/17 12:00 98.6 79 21 130/58 (82) 100 08/19/17 12:00 90 08/19/17 10:00 88 08/19/17 08:00 102 08/19/17 08:00 98.2 73 21 164/77 (106) 100 08/19/17 07:00 97 Nasal Cannula 2.00 08/19/17 06:00 98 08/19/17 04:00 112 08/19/17 04:00 98.4 112 23 165/72 (103) 92 08/19/17 02:00 80 08/19/17 00:00 98.4 92 21 160/67 (98) 100 08/19/17 00:00 92 08/18/17 22:17 100 Nasal Cannula 2.00 08/18/17 22:00 90 I/O 08/18/17 08/18/17 08/18/17 08/19/17 08/19/17 08/19/17 07:00 15:00 23:00 07:00 15:00 23:00 Intake Total 253 ml 660 ml 246 ml 850 ml 311 ml Output Total 675 ml 550 ml 525 ml 950 ml Balance -422 ml 110 ml -279 ml 850 ml -639 ml IV Total 300 ml 850 ml Tube Feeding 133 ml 160 ml 246 ml 311 ml Other 120 ml 200 ml Output Urine Total 675 ml 550 ml 525 ml 950 ml # Bowel Movements 0 0 0 Result Diagram: 08/19/1744208/19/17442 Objective Remarks GENERAL: Elderly female on Vent, sedated SKIN: Warm and dry. HEAD: Normocephalic. EYES: No scleral icterus. No injection or drainage. NECK: Supple, trachea midline. No JVD or lymphadenopathy. CARDIOVASCULAR: Regular rate and rhythm without murmurs, gallops, or rubs. RESPIRATORY: Breath sounds equal bilaterally. No accessory muscle use. GASTROINTESTINAL: Abdomen soft, non-tender, nondistended. MUSCULOSKELETAL: No cyanosis, or edema. BACK: Nontender without obvious deformity. No CVA tenderness. A/P Assessment and Plan VDRF, s/p extubation Pneumonia Sepsis Aspiration CVA PLAN: DW Son and daughter at BS DNR Cont Abx Comfort care Hospice evaluated pt Plans for tr to hospice ctr in [place] C[place] Jones MD Aug 19, 2017 21:35
[2017-08-20] VITALS: BP 128/58; PULSE 119; RESP 13; TEMP 98; O2SAT 99
[2017-08-20 04:00] VITALS: BP 132/56; PULSE 114; RESP 20; TEMP 98.6; O2SAT 100
[2017-08-20] MEDS: METOCLOPRAMIDE HCL 10 MG/2 ML VIAL IV SCH ×2 (05:00→11:03)
[2017-08-20] MEDS: methylPREDNISolone SOD SUCC 40 MG/1 ML VIAL IV PUSH SCH ×2 (05:04→11:03)
[2017-08-20] MEDS ORDERED: LEVOTHYROXINE SODIUM 50 MCG TAB PO SCH (06:00)
[2017-08-20 08:00] VITALS: BP 148/63; PULSE 120; PULSE 138; RESP 24; TEMP 97.7; O2SAT 94
[2017-08-20] MEDS: hydrALAZINE HCL 50 MG TAB PO SCH (08:04)
[2017-08-20] MEDS ORDERED: FUROSEMIDE 20 MG/2 ML VIAL IV PUSH SCH (09:00)
[2017-08-20] MEDS ORDERED: PANTOPRAZOLE SOD 40 MG DELAYED RELEASE TAB PO SCH (09:00)
[2017-08-20 09:01] VITALS: O2SAT 96
[2017-08-20 12:00] VITALS: BP 112/54; PULSE 122; RESP 20; TEMP 97.9; O2SAT 97
== END 2017-08-20 12:30 | disposition hospice, inpatient (51) | DRG 871 ==
LOC: NEPC 06:38 → NEDA 08:51 → N04A 16:32 → N03A 08-15 19:04
PROVIDERS: ADMIT Family Medicine; ATTEND Family Medicine
PROC: 0BH17EZ Insertion of Endotracheal Airway into Trachea, Via Natural or Artificial Opening (ICD-10-PCS; principal; 2017-08-15)
PROC: 5A1945Z Respiratory Ventilation, 24-96 Consecutive Hours (ICD-10-PCS; 2017-08-15)
DX: A41.9 Sepsis, unspecified organism (principal); G93.41 Metabolic encephalopathy; J69.0 Pneumonitis due to inhalation of food and vomit; J96.01 Acute respiratory failure with hypoxia; N17.9 Acute kidney failure, unspecified; J44.1 Chronic obstructive pulmonary disease with (acute) exacerbation; K56.7 Ileus, unspecified; N39.0 Urinary tract infection, site not specified; B96.5 Pseudomonas (aeruginosa) (mallei) (pseudomallei) as the cause of diseases classified elsewhere; B95.2 Enterococcus as the cause of diseases classified elsewhere; I13.0 Hypertensive heart and chronic kidney disease with heart failure and stage 1 through stage 4 chronic kidney disease, or unspecified chronic kidney disease; I50.9 Heart failure, unspecified; N18.9 Chronic kidney disease, unspecified; I48.91 Unspecified atrial fibrillation; R13.10 Dysphagia, unspecified; Z66 Do not resuscitate; Z51.5 Encounter for palliative care; R65.20 Severe sepsis without septic shock; E03.9 Hypothyroidism, unspecified; Z93.1 Gastrostomy status; I69.320 Aphasia following cerebral infarction; I69.991 Dysphagia following unspecified cerebrovascular disease; N28.89 Other specified disorders of kidney and ureter; Z79.52 Long term (current) use of systemic steroids; K21.9 Gastro-esophageal reflux disease without esophagitis; I65.29 Occlusion and stenosis of unspecified carotid artery; Z79.02 Long term (current) use of antithrombotics/antiplatelets; S41.112A Laceration without foreign body of left upper arm, initial encounter; S41.111A Laceration without foreign body of right upper arm, initial encounter; X58.XXXA Exposure to other specified factors, initial encounter; Y92.230 Patient room in hospital as the place of occurrence of the external cause; Z87.891 Personal history of nicotine dependence; Z85.038 Personal history of other malignant neoplasm of large intestine
CPT/HCPCS: 31500; 36600; 71045; 71250; 74018; 74177; 74250; 76775; 76937; 80048; 80053; 80069; 81001; 82550; 82805; 82948; 83605; 83735; 83880; 84100; 84132; 84145; 84484; 85007; 85025; 85027; 85610; 85730; 87040; 87077; 87086; 87186; 93005; 94003; 94640; 94664; 96365; C9113; G8996-GN; G8997-GN; J0171; J0692; J0696; J1170; J1650; J1815; J1940; J2212; J2250; J2370; J2405; J2543; J2765; J2920; J3370; J3480; J7030; J7050; J7060; J7120; J7512; J7613; P9047; Q9963; Q9967